=== PATIENT | male | born 1975 | race Two or more races ===

== ENCOUNTER 2020-04-27 09:38 | Inpatient (IN) | payer MEDICAID ==
[~2020-04-27] VITALS: Ht 162.6 cm; Wt 112.1 kg
--- NOTE | 2020-04-27 09:50 | NUR ---
SALLY RA FROM HOME,C/O SOB, O2SAT 80'S UPON EMS ARRIVAL TESTED POSITIVE TO COVID 19 8 DAYS AGO. VS CHECKED. HOOKED ON MONITOR. PLACVED ON NRB 15L. IV ACCESS STARTED. BLOOD DRAW DONE SENT TO LAB.
[2020-04-27] MEDS ORDERED: ALBUTEROL FS 2.5 MG/3 ML VIAL.NEB CONTNEB ONE (10:00)
[2020-04-27] MEDS ORDERED: DEXAMETHASONE SOD PHOSPHATE 6 MG in IV D5W 50 ML IV ONE (10:00)
[2020-04-27] MEDS ORDERED: Magnesium 1GM/D5W 100ML PREMIX 200 ML IV ONE (10:00)
--- NOTE | 2020-04-27 10:00 | NUR ---
pt still unable to provide urine specimen. provided with urinal
[2020-04-27] MEDS ORDERED: DEXAMETHASONE SOD PHOSPHATE 10 MG/ML VIAL ONE (10:11)
[2020-04-27] MEDS ORDERED: Magnesium 1GM/D5W 100ML PREMIX 100 ML IV ONE (10:11)
[2020-04-27] MEDS ORDERED: DEXAMETHASONE SOD PHOSPHATE 10 MG/ML VIAL IV ONE (10:30)
--- NOTE | 2020-04-27 10:30 | NUR ---
placed on hi flow o2 by Rt. 50L at 70%
--- NOTE | 2020-04-27 10:30 | NUR ---
covid swab done. rapid influenza done. sent to lab
[2020-04-27 10:49] LABS: BASOPHILS % (AUTO) 0.3 % (0.0-2.0); HEMATOCRIT 45 % (39-51); HEMOGLOBIN 14.9 g/dL (13.5-17.5); LYMPHOCYTES # (AUTO) 0.7 /CMM (0.8-4.8); LYMPHOCYTES % (AUTO) 10.1 % (20.0-44.0); MEAN CORPUSCULAR HGB CONC 33 g/dl (31.0-36.0); MEAN CORPUSCULAR VOLUME 87 fL (80-96); MONOCYTES # (AUTO) 0.2 /CMM (0.1-1.30); MONOCYTES % (AUTO) 3.5 % (2.0-12.0); NEUTROPHILS # (AUTO) 5.6 /CMM (1.8-8.9); NEUTROPHILS % (AUTO) 86.1 % (43.0-81.0); PLATELET COUNT (AUTO) 194 /CMM (150-450); RED BLOOD CELL COUNT(AUTO) 5.17 MIL/uL (4.5-6.0); WHITE BLOOD COUNT (AUTO) 6.5 K/uL (4.3-11.0)
[2020-04-27] MEDS ORDERED: ALBUTEROL FS 2.5 MG/3 ML VIAL.NEB ONE (10:50)
[2020-04-27] MEDS ORDERED: ALBU6.7H9 IH (11:00)
[2020-04-27] MEDS ORDERED: IBUP-1955 PO (11:00)
[2020-04-27] MEDS ORDERED: ACET325T53 PO (11:00)
[2020-04-27 11:21] LABS: ALANINE AMINOTRANSFERASE 64 U/L (12-78); ALBUMIN 2.9 g/dL (3.4-5.0); ALKALINE PHOSPHATASE 76 U/L (46-116); ASPARTATE AMINOTRANSFERASE 85 U/L (15-37); B-TYPE NATRIURETIC PEPTIDE 99 PG/ML (0-125); BILIRUBIN,TOTAL 0.4 mg/dL (0.2-1.0); CALCIUM, SERUM 8.2 mg/dL (8.5-10.1); CARBON DIOXIDE 27 mmol/L (21-32); CHLORIDE 102 mmol/L (98-107); CREATININE 1.2 mg/dL (0.6-1.3); GLUCOSE 124 mg/dL (74-106); SODIUM SERUM 137 mmol/L (136-145); TOTAL PROTEIN, SERUM 7.9 g/dL (6.4-8.2); UREA NITROGEN, BLOOD 10 mg/dL (7-18)
[2020-04-27 11:30] LABS: ABG BASE EXCESS 0.5 mmol/L; ABG OXYGEN SATURATION 92.2 % (92.0-98.5); ABG PCO2 39.1 mmHg (35.0-45.0); ABG PH 7.421 (7.350-7.450); ABG PO2 61.2 mmHg (75.0-100.0); AaDO2 395.9 mmHg; COHb 1.2 % (0.5-1.5); MetHb 0.4 % (0.0-1.5); O2Hb 90.7 % (94.0-97.0); SITE, ABG Right Radial; VENT MODE, BG HI FLO NC 50 L 70%
[2020-04-27 11:33] LABS: D-DIMER 0.83 mg/L(FEU (0.17-0.50)
[2020-04-27 11:42] LABS: CREATINE KINASE, TOTAL 242 U/L (39-308); FERRITIN 1613 ng/mL (8-388)
[2020-04-27 11:45] LABS: C-REACTIVE PROTEIN 27.2 mg/dL (0.0-0.9)
--- NOTE | 2020-04-27 13:38 | NUR ---
still unable to provide urine. water given to pt as wellas urinal
--- NOTE | 2020-04-27 14:45 | NUR ---
CALLED NURSING SUP FOR TELE ANAND BED.
--- NOTE | 2020-04-27 15:51 | NUR ---
NURSING SUP GAVE ANAND BED 103.
[2020-04-27] MEDS ORDERED: ALBUTEROL SULFATE 8 GM HFA.AER.AD IH PRN (16:00)
[2020-04-27] MEDS ORDERED: MAG HYDROX/AL HYDROX/SIMETH 30 ML UDC PO PRN (16:00)
[2020-04-27] MEDS ORDERED: HYDROCODONE/APAP 5/325MG TABLET PO PRN (16:00)
[2020-04-27] MEDS ORDERED: MAGNESIUM HYDROXIDE 30 ML UDC PO PRN (16:00)
[2020-04-27] MEDS ORDERED: ZOLPIDEM TARTRATE 5 MG TABLET PO PRN (16:00)
[2020-04-27] MEDS ORDERED: DEXTROSE 50%-WATER 50 ML DISP.SYRIN IV PRN (16:00)
[2020-04-27] MEDS ORDERED: ACETAMINOPHEN 325 MG TABLET PO PRN (16:00)
--- NOTE | 2020-04-27 16:02 | NUR ---
NURSING SUP CALLED BACK TO NOTIFY PT ROOM NOT AVAILABLE ANYMORE DUE TO NURSE BEING SENT HOME SICK. NURSING SUP REPEALED BED ASSIGNMENT.
[2020-04-27] MEDS ORDERED: APIXABAN 5 MG TABLET PO SCH (17:00)
--- NOTE | 2020-04-27 17:57 | NUR ---
urine collected sent to lab
[2020-04-27] MEDS ORDERED: REMDESIVIR (CHARGED) 200 MG, *LOADING DOSE 1 EA in IV NS 0.9% 210 ML IV ONE (18:00)
--- NOTE | 2020-04-27 20:00 | NUR ---
RN NOTE PT ARRIVED TO THE UNIT VIA MICHAEL, PT IS A/O X4, PT IS ON HIGH FLOW 50 L, FIO2 70% SATING 96%.PT HAS UNLABORED BREATHING, SAFETY MEASURES IN PLACE. Addendum: 04/28/20 at 0448 by MARGARITA DUNNE RN pt arrived to the unit at 2207
--- NOTE | 2020-04-27 20:01 | NUR ---
ATTEMPTED TO GIVE REPORT, NURSE WILL CALL IN 5MINUTES.
[2020-04-27] MEDS ORDERED: CEFTRIAXONE 1 G in IV D5W 50 ML IV SCH (21:00)
[2020-04-27] MEDS ORDERED: AZITHROMYCIN 500 MG in IV D5W 250 ML IV SCH (21:00)
--- NOTE | 2020-04-27 21:15 | NUR ---
REPORT GIVEN TO MARGARITA CAMPUZANO FOR ROSELINE.
[2020-04-27] MEDS: BLOOD SUGAR DIAGNOSTIC 1 EACH STRIP IN SCH (22:00)
--- NOTE | 2020-04-27 22:18 | NUR ---
PATIENT TAKEN UP TO ASSIGNED ROOM FOR ROSELINE.
--- NOTE | 2020-04-27 22:42 | NUR ---
Joseph ramirez in ED - 04/27/20 at 2242 by ISAEL REPORT GIVEN TO ANGELICA CAMPUZANO FOR ROSELINE.
[2020-04-27 23:00] VITALS: BP 134/83
[2020-04-28] VITALS: BP 121/77
[2020-04-28] MEDS: AZITHROMYCIN 500 MG in IV D5W 250 ML IV SCH ×2 (00:29→21:35)
[2020-04-28] MEDS ORDERED: REMDESIVIR (CHARGED) 200 MG, *LOADING DOSE 1 EA in IV NS 0.9% 210 ML IV ONE (01:00)
[2020-04-28 01:30] LABS: BILIRUBIN,URINE NEGATIVE (NEGATIVE); COLOR,URINE YELLOW (YELLOW); LEUKOCYTE ESTERASE ,URINE NEGATIVE (NEGATIVE); NITRITE, URINE NEGATIVE (NEGATIVE); PH,URINE 6.5 (5.0-8.0); PROTEIN,URINE 100 mg/dl (NEGATIVE); UGLUCOSE NEGATIVE (NEGATIVE)
[2020-04-28] MEDS: APIXABAN 5 MG TABLET PO SCH ×3 (01:59→17:52)
[2020-04-28 02:06] LABS: BACTERIA,URINE None seen /HPF (None Seen); RBC,URINE 0-2 /HPF (0-2); SQUAMOUS EPITHELIAL CELL,UR Few /HPF (None Seen); WBC,URINE 0-2 /HPF (0-3)
[2020-04-28 04:00] VITALS: BP 119/77
[2020-04-28] MEDS: CEFTRIAXONE 1 G in IV D5W 50 ML IV SCH ×2 (04:45→21:36)
--- NOTE | 2020-04-28 04:50 | NUR ---
ROCEPHIN ENTERED MANUALLY BECAUSE NEW LABEL WAS NOT AVAILABLE.
[2020-04-28] MEDS: BLOOD SUGAR DIAGNOSTIC 1 EACH STRIP IN SCH ×6 (04:52→21:57)
--- NOTE | 2020-04-28 07:30 | NUR ---
CUSTOM FEED MILL OPERATOR HELPER OPENING NOTES RECEIVED A/O X4. NOTED SHORTNESS OF BREATH. ON HIGH FLOW O2 WITH FIO2 OF 70%. O2 SAT AT 93%. ON TELE MONITOR WITH READING OF NSR AND HR IN 70S. INDEPENDENT WITH BATHROOM PRIVILEGES. SKIN IS INTACT. LEFT AC IV#18 INTACT AND FLUSHED WELL. BED KEPT IN LOWEST POSITION FOR SAFETY. WILL CONTINUE TO MONITOR FOR ROSELINE.
--- NOTE | 2020-04-28 07:34 | NUR ---
RN NOTE PT REMAINED STABLE DURING MY SHIFT NO ACUTE CHANGES REPORT GIVEN TO INCOMING SHIFT FOR ROSELINE.
[2020-04-28 07:59] LABS: BASOPHILS % (AUTO) 0.2 % (0.0-2.0); HEMATOCRIT 43 % (39-51); HEMOGLOBIN 14.2 g/dL (13.5-17.5); LYMPHOCYTES # (AUTO) 1.1 /CMM (0.8-4.8); LYMPHOCYTES % (AUTO) 16.1 % (20.0-44.0); MEAN CORPUSCULAR HGB CONC 33 g/dl (31.0-36.0); MEAN CORPUSCULAR VOLUME 88 fL (80-96); MONOCYTES # (AUTO) 0.4 /CMM (0.1-1.30); MONOCYTES % (AUTO) 5.9 % (2.0-12.0); NEUTROPHILS # (AUTO) 5.2 /CMM (1.8-8.9); NEUTROPHILS % (AUTO) 77.8 % (43.0-81.0); PLATELET COUNT (AUTO) 211 /CMM (150-450); RED BLOOD CELL COUNT(AUTO) 4.88 MIL/uL (4.5-6.0); WHITE BLOOD COUNT (AUTO) 6.7 K/uL (4.3-11.0)
[2020-04-28 08:00] VITALS: BP 120/63
[2020-04-28 08:36] LABS: CALCIUM, SERUM 8.4 mg/dL (8.5-10.1); CREATININE 1.1 mg/dL (0.6-1.3); MAGNESIUM 2.4 mg/dL (1.8-2.4); PHOSPHORUS 3.9 mg/dL (2.5-4.9); POTASSIUM 4.5 mmol/L (3.5-5.1)
[2020-04-28] MEDS: DEXAMETHASONE SOD PHOSPHATE 4 MG/ML VIAL IV SCH (09:15)
[2020-04-28 09:49] LABS: THYROID STIMULATING HORMONE 0.417 uIU/mL (0.358-3.74)
[2020-04-28 12:00] VITALS: BP 123/72
[2020-04-28] MEDS: INSULIN REGULAR, HUMAN 100 UNIT/ML 3 ML VIAL SQ PRN ×3 (13:24→21:53)
[2020-04-28 15:16] LABS: ALBUMIN 2.7 g/dL (3.4-5.0); BILIRUBIN,DIRECT 0.1 mg/dL (0.0-0.2); BILIRUBIN,TOTAL 0.3 mg/dL (0.2-1.0); TOTAL PROTEIN, SERUM 7.7 g/dL (6.4-8.2)
[2020-04-28 16:00] VITALS: BP 120/63
[2020-04-28] MEDS: REMDESIVIR (CHARGED) 100 MG in IV NS 0.9% 230 ML IV SCH (18:09)
--- NOTE | 2020-04-28 19:10 | NUR ---
RN CLOSING NOTES PT REMAINS IN A/O X4. REMAINS ON HIGH FLOW O2 AT 50LPM, WITH GOOD TOLERANCE. WITH EPISODES OF SOB. O2 SAT IN 90S. ALL DUE MEDS GIVEN ORDERED. BED KEPT AT LOWEST POSITION FOR SAFETY. WILL ENDORSE TO NEXT SHIFT FOR ROSELINE.
[2020-04-28 20:00] VITALS: BP 133/70
[2020-04-29] VITALS: BP 120/68
[2020-04-29 04:00] VITALS: BP 116/69
--- NOTE | 2020-04-29 06:52 | NUR ---
RN notes Patient comfortably resting in bed watching TV. No distress noted. Breathing even and unlabored. On high flow, tolerating well. Vital signs wnl. Alert and oriented, verbally able to communicate needs. No complaint of pain or discomfort. No significant change of condition. Kept clean and dry. Needs attended. Will endorse to next shift for continuity of care.
--- NOTE | 2020-04-29 07:05 | NUR ---
RN OPENING NOTE Patient awake in bed on high flow no signs of distress. Will cont to monitor.
[2020-04-29 07:44] LABS: ALBUMIN 2.4 g/dL (3.4-5.0); BILIRUBIN,DIRECT 0.1 mg/dL (0.0-0.2); BILIRUBIN,TOTAL 0.3 mg/dL (0.2-1.0); CALCIUM, SERUM 8.3 mg/dL (8.5-10.1); CREATININE 1.1 mg/dL (0.6-1.3); POTASSIUM 4.4 mmol/L (3.5-5.1); TOTAL PROTEIN, SERUM 7.1 g/dL (6.4-8.2)
[2020-04-29 08:00] VITALS: BP 115/71
[2020-04-29 08:56] LABS: C-REACTIVE PROTEIN 8.5 mg/dL (0.0-0.9)
[2020-04-29] MEDS: DEXAMETHASONE SOD PHOSPHATE 4 MG/ML VIAL IV SCH (09:52)
[2020-04-29] MEDS: APIXABAN 5 MG TABLET PO SCH ×2 (09:52→17:17)
[2020-04-29] MEDS: INSULIN REGULAR, HUMAN 100 UNIT/ML 3 ML VIAL SQ PRN ×2 (11:58→21:33)
[2020-04-29] MEDS: BLOOD SUGAR DIAGNOSTIC 1 EACH STRIP IN SCH ×2 (11:58→17:21)
[2020-04-29 12:00] VITALS: BP 134/84
--- NOTE | 2020-04-29 15:21 | NUR ---
CONSENT SIGNED FOR BLOOD TRANSFUSION AND CONVALESCENT PLASMA
[2020-04-29 16:00] VITALS: BP 132/82
[2020-04-29] MEDS: REMDESIVIR (CHARGED) 100 MG in IV NS 0.9% 230 ML IV SCH (18:26)
--- NOTE | 2020-04-29 19:26 | NUR ---
RN CLOSING NOTE Patient in bed calm and relaxed on high flow no signs of distress. All due meds given. Endorsed to welder 2nd shift nurse for gabino.
--- NOTE | 2020-04-29 19:40 | NUR ---
1939 RECEIVED PATIENT IN BED AWAKE AND VERBALLY RESPONSIVE. ON HIGH FLOW OXYGEN ORDERED, O2 SATURATION 88-91%. PATIENT GETS SHORT OF BREATH WHEN TALKING. ENCOURAGED TO TAKE DEEP BREATHS. HOB ELEVATED FOR MAXIMUM OXYGENATION. UNABLE TO TURN TO SIDE WHEN ENCOURAGED. KEPT CLEAN AND DRY. CALL LIGHT PLACED WITHIN REACH.
[2020-04-29 20:00] VITALS: BP 142/92
[2020-04-29] MEDS: AZITHROMYCIN 500 MG in IV D5W 250 ML IV SCH (20:03)
[2020-04-29] MEDS: CEFTRIAXONE 1 G in IV D5W 50 ML IV SCH (21:44)
--- NOTE | 2020-04-29 22:00 | NUR ---
2200 SLEEPING AND WAKES UP EASILY. NO SIGNS OF RESPIRATORY DISTRESS NOTED. O2 SATURATION 90-91%. HOB ELEVATED FOR MAXIMUM OXYGENATION. CONT TO ENCOURAGE DEEP BREATHING EXERCISES, UNABLE TO TURN TO HIS SIDE. ALL NEEDS ATTENDED. KEPT CLEAN AND COMFORTABLE. CALL LIGHT WITHIN REACH AND INSTRUCTED TO CALL FOR ASSISTANCE.
--- NOTE | 2020-04-29 23:10 | NUR ---
8528 PATIENT'S YUNIRO CALLED AND UPDATED ON PATIENT'S CONDITION WITH ALL OF HER QUESTIONS ANSWERED.
[2020-04-30] VITALS: BP 122/75
--- NOTE | 2020-04-30 02:00 | NUR ---
0200 O2 SATURATION NOTED 88%, PATIENT SLEEPING AND WAKES UP EASILY. NO SIGNS OF RESPIRATORY DISTRESS NOTED. DENIES SOB OR DIFFICULTY BREATHING WHEN ASKED. REMAINS ON HI FLOW OXYGEN WITH NON REBREATHER MASK. HOB ELEVATED FOR MAX OXYGENATION. PATIENT IS BEING CLOSELY MONITORED.
[2020-04-30 04:00] VITALS: BP 137/74
--- NOTE | 2020-04-30 04:45 | NUR ---
0445 ASLEEP BUT EASILY AROUSABLE. O2 SATURATION REMAINS IN THE HIGH 80S BUT NO SIGNS OF RESPIRATORY DISTRESS. CONT TO DENY SOB OR DIFFICULTY BREATHING. CONT. TO ENCOURAGE TO DO DEEP BREATHING EXERCISES. HOB ELEVATED FOR MAXIMUM OXYGENATION.
[2020-04-30 06:35] LABS: BASOPHILS % (AUTO) 0.1 % (0.0-2.0); HEMATOCRIT 43 % (39-51); MONOCYTES # (AUTO) 0.6 /CMM (0.1-1.30)
[2020-04-30 06:42] LABS: HEMOGLOBIN 14.2 g/dL (13.5-17.5); LYMPHOCYTES # (AUTO) 1.2 /CMM (0.8-4.8); LYMPHOCYTES % (AUTO) 11.6 % (20.0-44.0); MEAN CORPUSCULAR HGB CONC 33 g/dl (31.0-36.0); MEAN CORPUSCULAR VOLUME 87 fL (80-96); MONOCYTES % (AUTO) 5.7 % (2.0-12.0); NEUTROPHILS # (AUTO) 8.7 /CMM (1.8-8.9); NEUTROPHILS % (AUTO) 82.6 % (43.0-81.0); PLATELET COUNT (AUTO) 162 /CMM (150-450); RED BLOOD CELL COUNT(AUTO) 4.95 MIL/uL (4.5-6.0); WHITE BLOOD COUNT (AUTO) 10.5 K/uL (4.3-11.0)
--- NOTE | 2020-04-30 07:10 | NUR ---
PT ASLEEP IN BED EASILY AROUSABLE. A/OX4. HIGH FLOW 50L FIO 70% W NO SIGNS OF RESPIRATORY DISTRESS. SKIN WARM. TACHYPNEIC BUT CORINA 91%. PT TOLERATING HIGH FLOW WELL. TELE 60-70S. R AC INTACT, NO SIGNS OF REDNESS AND INFILTRATION, DRESSING INTACT. ALL HOSPITAL POLICY SAFETY PRECAUTIONS IMPLEMENTED. RAILS UPX2, HOB ELEVATED, BED LOW LOCKED, ALARM ON, CALL LIGHT IN REACH. WILL MONITOR RESPIRATORY STATUS THROUGHOUT THE DAY AND ENCOURAGE PT TO REFRAIN FROM BEING OVERLY EXERTED.
[2020-04-30 07:15] LABS: ALBUMIN 2.4 g/dL (3.4-5.0); BILIRUBIN,TOTAL 0.3 mg/dL (0.2-1.0); CALCIUM, SERUM 8.2 mg/dL (8.5-10.1); CREATININE 1.1 mg/dL (0.6-1.3); MAGNESIUM 2.2 mg/dL (1.8-2.4); PHOSPHORUS 3.9 mg/dL (2.5-4.9); POTASSIUM 4.4 mmol/L (3.5-5.1); TOTAL PROTEIN, SERUM 6.9 g/dL (6.4-8.2)
[2020-04-30 07:25] LABS: D-DIMER 35.2 mg/L(FEU (0.17-0.50)
[2020-04-30 08:00] VITALS: BP 124/66
[2020-04-30] MEDS: DEXAMETHASONE SOD PHOSPHATE 4 MG/ML VIAL IV SCH (09:10)
[2020-04-30] MEDS: BLOOD SUGAR DIAGNOSTIC 1 EACH STRIP IN SCH ×4 (09:10→21:44)
[2020-04-30] MEDS: APIXABAN 5 MG TABLET PO SCH ×2 (09:13→18:41)
[2020-04-30 12:00] VITALS: BP 124/66
[2020-04-30 16:00] VITALS: BP 115/76
--- NOTE | 2020-04-30 19:10 | NUR ---
PT AWAKE AND NO ACUTE CHANGES THROUGHOUT SHIFT. A/OX4. HIGH FLOW 50L FIO 70% W NO SIGNS OF RESPIRATORY DISTRESS. SKIN WARM. TACHYPNEIC. SAO2 85-94% THROUGHOUT SHIFT. FLUCTUATES FREQUENTLY. PT TOLERATING HIGH FLOW. MAKES NEEDS KNOWN. TELE 60-70S. R AC INTACT, NO SIGNS OF REDNESS AND INFILTRATION, DRESSING INTACT. ALL HOSPITAL POLICY SAFETY PRECAUTIONS IMPLEMENTED. RAILS UPX2, HOB ELEVATED, BED LOW LOCKED, ALARM ON, CALL LIGHT IN REACH. MONITORED RESPIRATORY STATUS THROUGHOUT THE DAY AND ENCOURAGED PT TO REFRAIN FROM BEING OVERLY EXERTED. ENDORSED TO PM RN.
--- NOTE | 2020-04-30 19:40 | NUR ---
RN OPENING NOTE RECEIVED PATIENT IN BED RESTING ALERT ORIENTED X4 ABLE TO MAKE NEEDS KNOWN,ON HIGH FLOW 50L OXYGEN AND 15L NON REBREATHER MASK, O2:88% FIO2:70% ON TELE MONITORING BREATHING FAST AND LABORED,IV SITE IS ON RIGHT AC INTACT PATENT,CONTINENT TO BOWEL/BLADDER,SAFETY MEASURE IMPLEMENT ,CALL LIGHT WITHIN REACH,CONTINUE TO MONITOR.
[2020-04-30 20:00] VITALS: BP 115/76
[2020-04-30] MEDS: AZITHROMYCIN 250 MG TABLET PO SCH (21:10)
[2020-04-30] MEDS: CEFTRIAXONE 1 G in IV D5W 50 ML IV SCH (22:14)
[2020-05-01] VITALS (14 sets, daily range): BP systolic 111–143; BP diastolic 46–82
[2020-05-01 06:42] LABS: BASOPHILS % (AUTO) 0.1 % (0.0-2.0); EOSINOPHILS % (AUTO) 0.1 % (0.0-6.0); HEMATOCRIT 45 % (39-51); HEMOGLOBIN 14.9 g/dL (13.5-17.5); LYMPHOCYTES # (AUTO) 1.2 /CMM (0.8-4.8); LYMPHOCYTES % (AUTO) 11.7 % (20.0-44.0); MEAN CORPUSCULAR HGB CONC 33 g/dl (31.0-36.0); MEAN CORPUSCULAR VOLUME 88 fL (80-96); MONOCYTES # (AUTO) 0.4 /CMM (0.1-1.30); MONOCYTES % (AUTO) 3.6 % (2.0-12.0); NEUTROPHILS % (AUTO) 84.5 % (43.0-81.0); PLATELET COUNT (AUTO) 153 /CMM (150-450); RED BLOOD CELL COUNT(AUTO) 5.16 MIL/uL (4.5-6.0); WHITE BLOOD COUNT (AUTO) 10.6 K/uL (4.3-11.0)
--- NOTE | 2020-05-01 07:07 | NUR ---
RN CLOSING NOTE PATIENT REMAINS ON ALERT ORIENTED X4 VERBALLY RESPONSIVE ON 50L HIGH FLOW OXYGEN AND 15L NONREBREATHER MASK O2:90% IV SITE IS ON RIGHT AC INTACT PATENT CONTINENT TO BOWEL/BLADDER, ALL DUE MEDS GIVEN MD ORDERED KEPT CALL LIGHT WITHIN REACH,KEPT CLEAN AND DRY ALL THE TIME,ALL NEEDS MET ENDORSE NEXT COMING SHIFT FOR CONTINUATION OF CARE.
[2020-05-01 07:10] LABS: ALBUMIN 2.4 g/dL (3.4-5.0); BILIRUBIN,DIRECT 0.2 mg/dL (0.0-0.2); CREATININE 1.1 mg/dL (0.6-1.3); MAGNESIUM 2.4 mg/dL (1.8-2.4); PHOSPHORUS 3.5 mg/dL (2.5-4.9); POTASSIUM 4.3 mmol/L (3.5-5.1); TOTAL PROTEIN, SERUM 7.1 g/dL (6.4-8.2)
[2020-05-01 07:27] LABS: BILIRUBIN,TOTAL 0.5 mg/dL (0.2-1.0); CALCIUM, SERUM 8.3 mg/dL (8.5-10.1)
--- NOTE | 2020-05-01 07:30 | NUR ---
FIELD OPERATIONS MANAGER NOTES PT IN BED, RESTING, ALERT AND ORIENTED, NOT IN DISTRESS, CALL LIGHT WITHIN REACH, ON HI FLOW O2 AT 60LPM AND NON REBREATHER MASK, KEPT COMFORTABLE IN BED, NEEDS ATTENDED.
[2020-05-01] MEDS: BLOOD SUGAR DIAGNOSTIC 1 EACH STRIP IN SCH ×4 (09:12→21:16)
[2020-05-01] MEDS: DEXAMETHASONE SOD PHOSPHATE 4 MG/ML VIAL IV SCH (09:13)
[2020-05-01] MEDS: APIXABAN 5 MG TABLET PO SCH ×2 (09:13→18:41)
[2020-05-01] MEDS: REMDESIVIR (CHARGED) 100 MG in IV NS 0.9% 230 ML IV SCH (10:48)
[2020-05-01 11:08] LABS: ABG PCO2 35.7 mmHg (35.0-45.0); ABG PH 7.468 (7.350-7.450); ABG PO2 56.7 mmHg (75.0-100.0); AaDO2 584.5 mmHg; COHb 0.7 % (0.5-1.5); MetHb 0.1 % (0.0-1.5); O2Hb 90.3 % (94.0-97.0); SITE, ABG Right Radial; VENT MODE, BG HI FLO NC 60 L 100%
--- NOTE | 2020-05-01 11:54 | NUR ---
ana laura relayed to dr. malin and ordered to icu once bed available,nursing sup notified,awaits bed.
--- NOTE | 2020-05-01 12:23 | NUR ---
PATIENT AWAKE,TACHYPNEIC SAT 88%,AWAITS ICU BED,WILL CONTINUE TO MONITOR.
--- NOTE | 2020-05-01 15:37 | NUR ---
LANOLIN PLANT OPERATOR NOTES ENDORSED PT TO SARA INSEAMER FOR CONTINUITY OF CARE.
--- NOTE | 2020-05-01 15:39 | NUR ---
icu overflow RN notes Received patient from Jesse CAMPUZANO. Patient is awake and alwert x 4. On tele SR 71BPM. Patient is on high flow fi02 91% with saturation of 89% with sob noted. Patient's right ac HL intact and flushed well. Encouraged patient to stay in bed because he requested to go to the toilet but encouraged use of bed parra and urinal.Plan of care discussed with the patient. Bed is the lowest position. Call light within reach. Will continue to monitor.
--- NOTE | 2020-05-01 16:30 | NUR ---
ICU OVERFLOW RN NOTES Patient transferred to Icu with stable condition and on 02 Hi flow saturation 88-90%. Transferred by ACLS protocol by bed. RT at bedside during transfer adn report given to Radha.
--- NOTE | 2020-05-01 16:34 | NUR ---
PT ARRIVED IN ICU TO ROOM 254 AT THIS TIME. PT ALERT OX3, DENIES PAIN. PT ON NON REBREATHER AND HI FLOW NASAL CANNULA. PT SETTLED IN ROOM.
--- NOTE | 2020-05-01 19:25 | NUR ---
RECEIVED PT ON BED AWAKE A/O X4 AB;E TO VERBALIZED NEEDS, ABLE TO EAT BY HIMSELF, ON O2 VIA HIGHFLOW @ 60L 100% FIO2 AND 15L NON REBREATHER WITH SPO2 LOW 80'S-90'S MD IS AWARE, TELE MONITOR READS SINUS RHYTHM 80'S, HAVE RAC#18 PATENT AND FLUSHED, DROPLET ISOLATION FOR COVID 19 MAINTAINED BED ON LOWEST POSITION AND LOCKED SIDE RAILS UP X2 CALL LIGHT WITHIN REACH WILL CONT TO MONITOR
[2020-05-01] MEDS: AZITHROMYCIN 250 MG TABLET PO SCH (21:03)
[2020-05-01] MEDS: CEFTRIAXONE 1 G in IV D5W 50 ML IV SCH (21:03)
[2020-05-01] MEDS: INSULIN REGULAR, HUMAN 100 UNIT/ML 3 ML VIAL SQ PRN (21:16)
[2020-05-02] VITALS (26 sets, daily range): BP systolic 84–145; BP diastolic 41–71
--- NOTE | 2020-05-02 01:23 | NUR ---
PT SLEEPING ON BED ADVISED TO SLEEP ON HIS SIDE D/T DESATURATION CURRENT SATURAION IS 89% ON HIGH FLOW 60L 100% AND NON REBREATHER STILL PT IS TACHYPNIC RR OF >40, PT STILL COUGH BUT NO DISTRESS NOTED, WILL CONT TO MONITOR
[2020-05-02 04:53] LABS: ALBUMIN 2.3 g/dL (3.4-5.0); BILIRUBIN,DIRECT 0.2 mg/dL (0.0-0.2); BILIRUBIN,TOTAL 0.5 mg/dL (0.2-1.0); CALCIUM, SERUM 8.3 mg/dL (8.5-10.1); POTASSIUM 4.4 mmol/L (3.5-5.1); TOTAL PROTEIN, SERUM 6.9 g/dL (6.4-8.2)
--- NOTE | 2020-05-02 07:57 | NUR ---
PT ON BED ASLEEP SPO2 88% STILL ON NO REBREATHER AND HIGH FLOW NO DISTRESS NOTED, PT A LITTLE TACHYPNIC WITH RR 40-46 DROPLET ISOLATION MAINTAINED BE DON LOWEST POSITION AND LOCKED SIDE RAILS UP WILL ENDORSED TO AM SHIFT NURSE
[2020-05-02] MEDS: DEXAMETHASONE SOD PHOSPHATE 4 MG/ML VIAL IV SCH (09:44)
[2020-05-02] MEDS: BLOOD SUGAR DIAGNOSTIC 1 EACH STRIP IN SCH ×4 (09:44→20:55)
[2020-05-02] MEDS: APIXABAN 5 MG TABLET PO SCH ×2 (09:45→17:57)
[2020-05-02] MEDS: REMDESIVIR (CHARGED) 100 MG in IV NS 0.9% 230 ML IV SCH (11:24)
[2020-05-02] MEDS: INSULIN REGULAR, HUMAN 100 UNIT/ML 3 ML VIAL SQ PRN (12:00)
--- NOTE | 2020-05-02 19:30 | NUR ---
RN NOTE RECEIVED PATIENT IN BED, ON SEMI METZ'S. PATIENT IN NO S/SX OF ACUTE DISTRESS AT THIS TIME. PATIENT'S BREATHING IS EVEN AND UNLABORED. PATIENT IS ON 60LPM OF OXYGEN VIA HIGHFLOW NC, AND 15L VIA NRB MASK, TOLERATING WELL, SATURATING AT 96%. PATIENT ON BEDSIDE MONITOR READING SR, HR IS 71. NOTED IV SITE AT RAC 18G, PATENT AND FLUSHING WELL, NO S/S OF INFECTION OR INFILTRATION. PATIENT IS AMBULATORY, WITH URINAL AND COMMODE AT BEDSIDE. SAFETY MEASURES IMPLEMENTED PER PROTOCOL. PATIENT BED ALARM IS ON. HEAD OF BED ELEVATED. BED IS LOCKED, IN LOWEST POSITION AND SIDE RAILS UP. CALL LIGHT WITHIN REACH OF THE PATIENT. WILL CONTINUE TO MONITOR AND REASSESS FOR ANY CHANGES.
[2020-05-02 19:45] LABS: C-REACTIVE PROTEIN 44.8 mg/dL (0.0-0.9)
[2020-05-02] MEDS: AZITHROMYCIN 250 MG TABLET PO SCH (20:55)
[2020-05-03] VITALS (23 sets, daily range): BP systolic 78–143; BP diastolic 35–81
[2020-05-03] MEDS: CEFTRIAXONE 1 G in IV D5W 50 ML IV SCH ×2 (00:08→22:23)
[2020-05-03 04:45] LABS: BASOPHILS % (AUTO) 0.1 % (0.0-2.0); EOSINOPHILS % (AUTO) 0.2 % (0.0-6.0); HEMATOCRIT 45 % (39-51); HEMOGLOBIN 15.1 g/dL (13.5-17.5); LYMPHOCYTES # (AUTO) 0.8 /CMM (0.8-4.8); LYMPHOCYTES % (AUTO) 7.1 % (20.0-44.0); MEAN CORPUSCULAR HGB CONC 34 g/dl (31.0-36.0); MEAN CORPUSCULAR VOLUME 87 fL (80-96); MONOCYTES # (AUTO) 0.3 /CMM (0.1-1.30); MONOCYTES % (AUTO) 2.4 % (2.0-12.0); NEUTROPHILS % (AUTO) 90.2 % (43.0-81.0); PLATELET COUNT (AUTO) 157 /CMM (150-450); WHITE BLOOD COUNT (AUTO) 11.1 K/uL (4.3-11.0)
[2020-05-03 04:52] LABS: CALCIUM, SERUM 8.6 mg/dL (8.5-10.1); CREATININE 0.9 mg/dL (0.6-1.3); POTASSIUM 4.6 mmol/L (3.5-5.1)
--- NOTE | 2020-05-03 07:30 | NUR ---
RN OPENING NOTES PATIENT PRESENT IN BED, SIDE POSITION, HOB ELEVATED, ON NON-REBREATHER MASK AND HIGH FLOW NC, TOLERATING WELL, SPO2 IS 90%, A/OX4, AMBULATORY, SR 70 ON TELE-MONITOR, IV LINE NOTED ON R AC 18G, INTACT, PATENT AND FLUSHED, SAFETY MEASURES IN PLACE, CALL LIGHT IN REACH, INSTRUCTION PROVIDED, WILL CONT TO MONITOR CLOSELY
[2020-05-03] MEDS: BLOOD SUGAR DIAGNOSTIC 1 EACH STRIP IN SCH ×4 (08:05→22:21)
[2020-05-03] MEDS: INSULIN REGULAR, HUMAN 100 UNIT/ML 3 ML VIAL SQ PRN ×4 (08:22→22:19)
[2020-05-03] MEDS: DEXAMETHASONE SOD PHOSPHATE 4 MG/ML VIAL IV SCH (09:45)
--- NOTE | 2020-05-03 10:00 | NUR ---
ENCOURAGE PATIENT TO DO BERATING EXERCISE, AND MAINTAIN SIDE POSITION, VERBALIZE UNDERSTANDING
[2020-05-03] MEDS: APIXABAN 5 MG TABLET PO SCH ×2 (11:28→19:32)
--- NOTE | 2020-05-03 19:30 | NUR ---
RN CLOSING NOTES RESTING COMFORTABLY IN BED, COMFORT NEEDS PROVIDED, MEDICATIONS GIVEN, SAFETY MEASURES IN PLACE, WILL ENDORSE TO OM SHIFT RN FOR ROSELINE
--- NOTE | 2020-05-03 19:30 | NUR ---
MANUAL ARTS THERAPIST NOTE PATIENT IN BED, ON SEMI METZ'S.A/OX4 NO SOB NO DISTRESS NOTED .NO S/SX OF ACUTE DISTRESS AT THIS TIME. PATIENT IS ON H I FLOW 60LPM OF OXYGEN VIA HIGH FLOW 100% NC, AND 15L VIA NRB MASK, TOLERATING WELL, SATURATING AT 90S%. PATIENT ON BEDSIDE MONITOR READING SR, HR IS 75. NOTED IV SITE AT RAC 18G, PATENT AND FLUSHING WELL, NO S/S OF INFECTION OR INFILTRATION. PATIENT IS AMBULATORY, WITH URINAL AND COMMODE AT BEDSIDE. SAFETY MEASURES IMPLEMENTED PER PROTOCOL.BED ALARM ON. HEAD OF BED ELEVATED. BED IS LOCKED, IN LOWEST POSITION AND SIDE RAILS UP. CALL LIGHT WITHIN REACH OF THE PATIENT. WILL CONTINUE TO MONITOR AND REASSESS FOR ANY CHANGES.
[2020-05-04] VITALS (26 sets, daily range): BP systolic 98–143; BP diastolic 26–94
--- NOTE | 2020-05-04 | NUR ---
olericulturist notes received a call from the updated with pts current condition,v/s stable afebrile pts is a/o x4 able to make need known.aishang 87-90s
--- NOTE | 2020-05-04 05:00 | NUR ---
curriculum developer notes morning care rendered all needs attended too call light within reach kept pts clean dry and comfortable.
[2020-05-04 05:59] LABS: BASOPHILS % (AUTO) 0.3 % (0.0-2.0); EOSINOPHILS % (AUTO) 0.2 % (0.0-6.0); HEMATOCRIT 45 % (39-51); HEMOGLOBIN 14.8 g/dL (13.5-17.5); LYMPHOCYTES # (AUTO) 0.7 /CMM (0.8-4.8); LYMPHOCYTES % (AUTO) 6.3 % (20.0-44.0); MEAN CORPUSCULAR HGB CONC 33 g/dl (31.0-36.0); MEAN CORPUSCULAR VOLUME 88 fL (80-96); MONOCYTES # (AUTO) 0.3 /CMM (0.1-1.30); MONOCYTES % (AUTO) 2.8 % (2.0-12.0); NEUTROPHILS # (AUTO) 10.3 /CMM (1.8-8.9); NEUTROPHILS % (AUTO) 90.4 % (43.0-81.0); PLATELET COUNT (AUTO) 151 /CMM (150-450); RED BLOOD CELL COUNT(AUTO) 5.13 MIL/uL (4.5-6.0); WHITE BLOOD COUNT (AUTO) 11.4 K/uL (4.3-11.0)
[2020-05-04 06:18] LABS: CALCIUM, SERUM 8.4 mg/dL (8.5-10.1); POTASSIUM 4.7 mmol/L (3.5-5.1)
--- NOTE | 2020-05-04 07:00 | NUR ---
icu tech notes pts remains in bed continue on hi flow 60 liters fio2 100% and non rebreather of 15 liters , sating 87-90s , will endorse to rn day shift for continuity of care. will continue to monitor pts.
[2020-05-04] MEDS: BLOOD SUGAR DIAGNOSTIC 1 EACH STRIP IN SCH ×4 (08:20→22:21)
[2020-05-04] MEDS: DEXAMETHASONE SOD PHOSPHATE 4 MG/ML VIAL IV SCH (09:25)
[2020-05-04] MEDS: APIXABAN 5 MG TABLET PO SCH ×2 (09:27→16:56)
[2020-05-04] MEDS: INSULIN REGULAR, HUMAN 100 UNIT/ML 3 ML VIAL SQ PRN ×2 (12:18→22:22)
--- NOTE | 2020-05-04 19:00 | NUR ---
CUSTOMER CARE TEAM COACH NOTE PATIENT IN BED, ON SEMI METZ'S.A/OX4 NO SOB NO DISTRESS NOTED .NO S/SX OF ACUTE DISTRESS AT THIS TIME. PATIENT IS ON H I FLOW 60LPM OF OXYGEN fi02 100% NC, 15L VIA NRB MASK, TOLERATING WELL, SATURATING AT 90S%. PATIENT ON BEDSIDE MONITOR READING SR, HR IS 77. NOTED IV SITE AT RAC 18G, PATENT AND FLUSHING WELL, NO S/S OF INFECTION OR INFILTRATION. PATIENT IS AMBULATORY, WITH URINAL AND COMMODE AT BEDSIDE. SAFETY MEASURES IMPLEMENTED PER PROTOCOL.BED ALARM ON. HEAD OF BED ELEVATED. BED IS LOCKED, IN LOWEST POSITION AND SIDE RAILS UP. CALL LIGHT WITHIN REACH OF THE PATIENT. WILL CONTINUE TO MONITOR PTS.
--- NOTE | 2020-05-04 22:00 | NUR ---
horticulture/floriculture teacher notes Blood sugar for 10pm is 123 no insulin coverage given per sliding scale.
--- NOTE | 2020-05-04 23:40 | NUR ---
floriculture professor notes received a call from the updated with pts current condition,v/s stable afebrile pts is a/o x4 able to make need known.sating s
[2020-05-05] VITALS (26 sets, daily range): BP systolic 104–135; BP diastolic 50–92
--- NOTE | 2020-05-05 01:48 | NUR ---
RT NOTES RECEIVED PT ON HFNC 60L, 100% FIO2 AND WITH NRB. O2 SAT 85-91%. WILL CONTINUE TO MONITOR T/O SHIFT. NO SOB STATED BY PT. PT ALERT AND ORIENTED.
[2020-05-05 05:15] LABS: BASOPHILS % (AUTO) 0.1 % (0.0-2.0); CALCIUM, SERUM 8.1 mg/dL (8.5-10.1); CREATININE 0.9 mg/dL (0.6-1.3); EOSINOPHILS % (AUTO) 0.5 % (0.0-6.0); HEMATOCRIT 45 % (39-51); HEMOGLOBIN 14.9 g/dL (13.5-17.5); LYMPHOCYTES # (AUTO) 0.8 /CMM (0.8-4.8); LYMPHOCYTES % (AUTO) 7.5 % (20.0-44.0); MEAN CORPUSCULAR HGB CONC 33 g/dl (31.0-36.0); MEAN CORPUSCULAR VOLUME 87 fL (80-96); MONOCYTES # (AUTO) 0.3 /CMM (0.1-1.30); MONOCYTES % (AUTO) 2.6 % (2.0-12.0); NEUTROPHILS # (AUTO) 9.5 /CMM (1.8-8.9); NEUTROPHILS % (AUTO) 89.3 % (43.0-81.0); PLATELET COUNT (AUTO) 144 /CMM (150-450); POTASSIUM 4.2 mmol/L (3.5-5.1); RED BLOOD CELL COUNT(AUTO) 5.14 MIL/uL (4.5-6.0); WHITE BLOOD COUNT (AUTO) 10.6 K/uL (4.3-11.0)
[2020-05-05 06:40] LABS: BAND % (MANUAL) 3 % (0.0-5.0); EOSINOPHILS % (MANUAL) 1 % (0-4); LYMPHOCYTES % (MANUAL) 7 % (16-48); MONOCYTES % (MANUAL) 3 % (0-11.0); NEUTROPHILS % (MANUAL) 86 (42-76)
--- NOTE | 2020-05-05 08:00 | NUR ---
RN OPENING NOTES Patient received in bed in a side position. His HOB elevated to promote lung expansion and use of Oxygen. He is on a non rebreather mask and high flow oxygen via n/c with 02 saturations of 87-89%. Patient is alert and oriented x 4. IV line patent and intact and flushes well. Patient is SR. All safety measures in place. Call light with in reach. Will continue to monitor.
[2020-05-05] MEDS: BLOOD SUGAR DIAGNOSTIC 1 EACH STRIP IN SCH ×4 (08:27→23:42)
[2020-05-05] MEDS: DEXAMETHASONE SOD PHOSPHATE 4 MG/ML VIAL IV SCH (08:51)
[2020-05-05] MEDS: APIXABAN 5 MG TABLET PO SCH ×2 (08:52→17:24)
--- NOTE | 2020-05-05 09:30 | NUR ---
Patient noted with Temp axillary of 100 degress. No c/o chills or body aches. Prn tylenol 650 mg provided as ordered. Will continue to monitor.Call light with in reach.
--- NOTE | 2020-05-05 10:00 | NUR ---
PROVIDING ENCOURAGING FOR SIDE TO SIDE POSITIONS FOR PROMOTING BETTER OXYGENATION
[2020-05-05] MEDS: INSULIN REGULAR, HUMAN 100 UNIT/ML 3 ML VIAL SQ PRN ×3 (11:24→23:43)
--- NOTE | 2020-05-05 18:46 | NUR ---
RN CLOSING NOTES Patient is alert and oriented. Patient provided assistance to ambulate to bedside commode during shift and noted with 1 bm. No acute distress noted. Medications provided. Will endorse to next shift for ROSELINE.
--- NOTE | 2020-05-05 19:55 | NUR ---
icu/concrete pile driver operator Received report from day nurse, see flowsheet for assessment. Pt turnS and repositioNS self for comfort and care
[2020-05-05] MEDS ORDERED: LORAZEPAM INJ 2 MG/ML VIAL IV ONE (21:00)
[2020-05-06] VITALS (25 sets, daily range): BP systolic 87–161; BP diastolic 33–100
--- NOTE | 2020-05-06 01:20 | NUR ---
ICU/CYBER LEGAL ADVISOR AMBIEN GIVEN TO HELP PT SLEEP, PT IS VERY ANXIOUS AND RESTLESS. PT APPEARS TO BE RESTING. SATURATION IS 90% AT THIS TIME ALONG WITH HEART RATE AT 70'S. WILL CONTINUE TO MONITOR THIS PT.
--- NOTE | 2020-05-06 08:00 | NUR ---
rn notes received patient is in thwe bed A/O X4, on high flow oxygen and non. retreatment mask 15 L, lying on right side and oxygen 96 %. administered scheduled medication. tolerated breakfast 75%, refused pain at this time. T-98.7. bs-100 mg/dl, iv access on left ua midline intact. patient turn and reposition self in the bed, call light within to reach, safety precaution maintained all the time.
[2020-05-06] MEDS: BLOOD SUGAR DIAGNOSTIC 1 EACH STRIP IN SCH ×4 (10:04→22:13)
[2020-05-06] MEDS: DEXAMETHASONE SOD PHOSPHATE 4 MG/ML VIAL IV SCH (10:05)
[2020-05-06] MEDS: APIXABAN 5 MG TABLET PO SCH ×2 (12:21→16:42)
[2020-05-06] MEDS: BENZONATATE 100 MG CAPSULE PO PRN ×2 (13:05→22:25)
--- NOTE | 2020-05-06 13:05 | NUR ---
RN NOTES ADMINISTERED TESSALON 100 PO PRN TID PRESCRIBED.
--- NOTE | 2020-05-06 18:30 | NUR ---
rn notes assist patient PM care, bs-116 mg/dl no coverage given, tolerated dinner well, patient using bedside commode, no acute respiratory distress, . scheduled medication administered. needs attended and anticipated. call light within to reach. endorsed oncoming nurse follow plan of care.
--- NOTE | 2020-05-06 19:20 | NUR ---
FREIGHT ENGINEER OPENING NOTES: Rec'd pt in bed, A&Ox4. On high flow 60LPM at 100% and nonrebreather mask at 15L. No SOB or resp distress noted. SR on tele monitor.RO midline patent and flushed. Dressing c/d/i. Pt able to turn and reposition self for comfort/care. Pt able to use bedside commode. Safety measures in place. Will continue to monitor.
--- NOTE | 2020-05-06 21:20 | NUR ---
HUMAN RESOURCE MANAGEMENT INSTRUCTOR NOTE: Pt's 2100 dose of Vibramycin IV not in omnicell. Called RN Sup to see if it is available in night locker. No answer. Will try again.
--- NOTE | 2020-05-06 21:40 | NUR ---
BUILDING GUARD DEPUTY SHERIFF NOTE: Called RN Sup again for pt's 2100 Vibramycin IV. Stated medication is in night locker. Paper faxed over. Waiting on medication. Will administer once available.
[2020-05-06] MEDS: INSULIN REGULAR, HUMAN 100 UNIT/ML 3 ML VIAL SQ PRN (22:13)
--- NOTE | 2020-05-06 23:05 | NUR ---
SERVICE ENGINE REPAIRER NOTE: Refaxed paper for Vibramycin IV to RN sup again.
[2020-05-06] MEDS ORDERED: DOXYCYCLINE 100 MG VIAL ONE (23:11)
[2020-05-06] MEDS: DOXYCYCLINE 100 MG in IV D5W 100 ML IV SCH (23:18)
[2020-05-07] VITALS (48 sets, daily range): BP systolic 95–154; BP diastolic 51–100
[2020-05-07 04:52] LABS: BASOPHILS % (AUTO) 0.2 % (0.0-2.0); EOSINOPHILS % (AUTO) 0.1 % (0.0-6.0); HEMATOCRIT 43 % (39-51); HEMOGLOBIN 14.3 g/dL (13.5-17.5); LYMPHOCYTES # (AUTO) 0.8 /CMM (0.8-4.8); MEAN CORPUSCULAR HGB CONC 33 g/dl (31.0-36.0); MEAN CORPUSCULAR VOLUME 88 fL (80-96); MONOCYTES # (AUTO) 0.5 /CMM (0.1-1.30); MONOCYTES % (AUTO) 3.2 % (2.0-12.0); NEUTROPHILS # (AUTO) 12.7 /CMM (1.8-8.9); NEUTROPHILS % (AUTO) 90.5 % (43.0-81.0); PLATELET COUNT (AUTO) 99 /CMM (150-450); RED BLOOD CELL COUNT(AUTO) 4.95 MIL/uL (4.5-6.0); WHITE BLOOD COUNT (AUTO) 14.1 K/uL (4.3-11.0)
[2020-05-07 05:15] LABS: CALCIUM, SERUM 8.1 mg/dL (8.5-10.1); CREATININE 1.1 mg/dL (0.6-1.3); MAGNESIUM 2.3 mg/dL (1.8-2.4); PHOSPHORUS 4.3 mg/dL (2.5-4.9); POTASSIUM 4.8 mmol/L (3.5-5.1)
[2020-05-07 05:19] LABS: BAND % (MANUAL) 2 % (0.0-5.0); LYMPHOCYTES % (MANUAL) 4 % (16-48); MONOCYTES % (MANUAL) 6 % (0-11.0); NEUTROPHILS % (MANUAL) 88 (42-76)
--- NOTE | 2020-05-07 06:58 | NUR ---
COUPON CLERK CLOSING NOTES: No acute changes noted. Pt remains in bed, A&Ox4. On high flow 60LPM at 100% and nonrebreather mask at 15L. No SOB or resp distress noted. SR on tele monitor. RO midline patent and flushed. Dressing c/d/i. Safety measures in place. Will endorse to oncoming nurse for ROSELINE.
[2020-05-07] MEDS: BLOOD SUGAR DIAGNOSTIC 1 EACH STRIP IN SCH ×4 (07:42→22:49)
[2020-05-07] MEDS: DEXAMETHASONE SOD PHOSPHATE 4 MG/ML VIAL IV SCH (07:42)
[2020-05-07] MEDS: APIXABAN 5 MG TABLET PO SCH ×2 (07:43→18:45)
--- NOTE | 2020-05-07 07:50 | NUR ---
vocational horticulture instructor notes received patient is in the bed A/O X4, on high flow oxygen and non- retreatment mask 15 L, lying on left side and oxygen 84%. administered scheduled medication. tolerated breakfast 75%, refused pain at this time. T-98.5. bs-84 mg/dl, iv access on left ua midline intact. patient turn and reposition self in the bed, call light within to reach, safety precaution maintained all the time.
[2020-05-07] MEDS: BENZONATATE 100 MG CAPSULE PO PRN (09:31)
--- NOTE | 2020-05-07 09:31 | NUR ---
rn notes administered Tessalon 100 mg po prn for cough per patient request.
[2020-05-07] MEDS: DOXYCYCLINE 100 MG in IV D5W 100 ML IV SCH ×2 (10:07→23:45)
--- NOTE | 2020-05-07 11:00 | NUR ---
agricultural education teacher notes PATIENT GET INTUBATED AT THIS TIME PER ANESTHESIOLOGIST BECAUSE OF DESATURATING OXYGEN. EET-8.0, LIP SIZE 26, PEEP-10, AC-28, TOTAL VALIUM 550. PATIENT TOLERATED SETTING VENT WELL, STARTED DIPRIVAN 5 MCG PER PROTOCOL, TITRATING UP TO SEDATION, INSERTED NGT, AND PATEL CATHETER PER MD ORDERS, AND SOFT RESTRAIN BOTH WRIST. V/S MONITORING. CALL LIGHT WITHIN TO REACH. KEEP HOB ELEVATED.WILL MONITORING.
[2020-05-07] MEDS: PROPOFOL 100 ML IV PRN ×7 (11:30→22:30)
--- NOTE | 2020-05-07 11:51 | NUR ---
PT ORALLY INTUBATED AT 1100 WITH 8.0 ET-TUBE SECURED AT 26CM. SETTINGS ORDERED ALARMS SET AND AUDIBLE B/S EQUAL PT SEDATED TOLERATING VENT SETTINGS. SMALL WHITE SPUTUM. Addendum: 05/07/20 at 1155 by SHELLIE STAFFORD RT Amended: Links added.
[2020-05-07 13:00] LABS: BASOPHILS % (AUTO) 0.1 % (0.0-2.0); EOSINOPHILS % (AUTO) 0.5 % (0.0-6.0); HEMATOCRIT 45 % (39-51); HEMOGLOBIN 14.5 g/dL (13.5-17.5); LYMPHOCYTES # (AUTO) 0.5 /CMM (0.8-4.8); MEAN CORPUSCULAR HGB CONC 32 g/dl (31.0-36.0); MEAN CORPUSCULAR VOLUME 88 fL (80-96); MONOCYTES # (AUTO) 0.4 /CMM (0.1-1.30); MONOCYTES % (AUTO) 2.4 % (2.0-12.0); NEUTROPHILS # (AUTO) 15.6 /CMM (1.8-8.9); PLATELET COUNT (AUTO) 111 /CMM (150-450); RED BLOOD CELL COUNT(AUTO) 5.15 MIL/uL (4.5-6.0); WHITE BLOOD COUNT (AUTO) 16.6 K/uL (4.3-11.0)
[2020-05-07 13:50] LABS: ABG BASE EXCESS -1.9 mmol/L; ABG OXYGEN SATURATION 94.2 % (92.0-98.5); ABG PCO2 43.4 mmHg (35.0-45.0); ABG PH 7.355 (7.350-7.450); ABG PO2 74.8 mmHg (75.0-100.0); AaDO2 594.8 mmHg; COHb 1.1 % (0.5-1.5); MetHb 0.4 % (0.0-1.5); O2Hb 92.8 % (94.0-97.0); PEEP,BG 10 cm H2O; SITE, ABG Right Radial; VT, ABG 550 mL
[2020-05-07] MEDS ORDERED: ETOMIDATE 2 MG/ML VIAL IV ONE (17:59)
[2020-05-07] MEDS ORDERED: SUCCINYLCHOLINE CHLORIDE 20 MG/ML VIAL IV ONE (17:59)
[2020-05-07] MEDS ORDERED: PROPOFOL 200 MG/20 ML VIAL IV ONE (17:59)
--- NOTE | 2020-05-07 18:30 | NUR ---
RN NOTES pt tolerated EET vent setting well and sedated. No respiratory distress. Bs-140mg/dl, NGT in place patent and clamped. Keep HOB elevated all the time, BUBBA PICC line patent and infusing Diprivan at 70 mcg/kg/min. Will titrate per protocol. Bilateral soft wrist restraints in place, checked circulation. Uriarte catheter in place, patent and draining urine via gravity. assist turn and reposition q 2 hr. Safety measures in place. endorsed oncoming nurse follow plan of care.
[2020-05-07] MEDS: INSULIN REGULAR, HUMAN 100 UNIT/ML 3 ML VIAL SQ PRN (23:08)
[2020-05-08] VITALS (26 sets, daily range): BP systolic 103–142; BP diastolic 61–94
[2020-05-08] MEDS: PROPOFOL 100 ML IV PRN ×13 (00:32→22:21)
[2020-05-08 04:51] LABS: BASOPHILS # (AUTO) 0.1 /CMM (0.0-0.2); BASOPHILS % (AUTO) 0.8 % (0.0-2.0); EOSINOPHILS % (AUTO) 0.1 % (0.0-6.0); HEMATOCRIT 42 % (39-51); HEMOGLOBIN 13.6 g/dL (13.5-17.5); LYMPHOCYTES # (AUTO) 0.9 /CMM (0.8-4.8); LYMPHOCYTES % (AUTO) 6.9 % (20.0-44.0); MEAN CORPUSCULAR HGB CONC 32 g/dl (31.0-36.0); MEAN CORPUSCULAR VOLUME 89 fL (80-96); MONOCYTES # (AUTO) 0.4 /CMM (0.1-1.30); MONOCYTES % (AUTO) 3.4 % (2.0-12.0); NEUTROPHILS # (AUTO) 10.9 /CMM (1.8-8.9); NEUTROPHILS % (AUTO) 88.8 % (43.0-81.0); PLATELET COUNT (AUTO) 109 /CMM (150-450); RED BLOOD CELL COUNT(AUTO) 4.71 MIL/uL (4.5-6.0); WHITE BLOOD COUNT (AUTO) 12.3 K/uL (4.3-11.0)
[2020-05-08 05:01] LABS: CALCIUM, SERUM 8.4 mg/dL (8.5-10.1); CREATININE 0.8 mg/dL (0.6-1.3); MAGNESIUM 2.6 mg/dL (1.8-2.4); PHOSPHORUS 4.7 mg/dL (2.5-4.9); POTASSIUM 4.6 mmol/L (3.5-5.1)
--- NOTE | 2020-05-08 06:26 | NUR ---
MEMBERSHIP ADVISOR ET TUBE ADJUSTED FROM 26 TO 24 BY RT D/T CXR RESULTS PER DR REIS ORDER.
--- NOTE | 2020-05-08 06:27 | NUR ---
ETT RETRACTED 2CM PER DR REIS. RN NOTIFIED.
[2020-05-08] MEDS: BLOOD SUGAR DIAGNOSTIC 1 EACH STRIP IN SCH ×4 (07:47→22:57)
--- NOTE | 2020-05-08 07:50 | NUR ---
RN NOTEA PATIENT IS RESTING IN BED . EET-8.0, LIP SIZE 26, PEEP-10, AC-28, TOTAL VALIUM 550. PATIENT TOLERATED SETTING VENT WELL, STARTED DIPRIVAN 5 MCG PER PROTOCOL, TITRATING UP TO SEDATION, INSERTED NGT, AND PATEL CATHETER PER MD ORDERS, AND SOFT RESTRAIN BOTH WRIST. V/S MONITORING. CALL LIGHT WITHIN TO REACH. KEEP HOB ELEVATED.WILL MONITORING.
[2020-05-08] MEDS: DEXAMETHASONE SOD PHOSPHATE 4 MG/ML VIAL IV SCH (08:11)
[2020-05-08] MEDS: APIXABAN 5 MG TABLET PO SCH ×2 (08:14→16:42)
[2020-05-08] MEDS: DOXYCYCLINE 100 MG in IV D5W 100 ML IV SCH ×2 (08:28→09:00)
--- NOTE | 2020-05-08 09:00 | NUR ---
RN NOTES INFORMED DR HOLLY LANDEROS ABOUT THE AMIODARONE IS DUE HOWEVER HIS HR IN HIS LOW 50S AND NORMAL SINUS GOING TO HOLD FOR FURTHER NOTICE
[2020-05-08 10:25] LABS: ABG BASE EXCESS -0.4 mmol/L; ABG OXYGEN SATURATION 92.1 % (92.0-98.5); ABG PCO2 39.8 mmHg (35.0-45.0); ABG PH 7.403 (7.350-7.450); ABG PO2 63.5 mmHg (75.0-100.0); AaDO2 537.4 mmHg; COHb 0.7 % (0.5-1.5); MetHb 0.3 % (0.0-1.5); O2Hb 91.2 % (94.0-97.0); PEEP,BG 10 cm H2O; SITE, ABG Left Radial; VT, ABG 550 mL
--- NOTE | 2020-05-08 10:30 | NUR ---
RN NOTES INFORMED DR HOLLY LANDEROS IN REGARDS TO ACUTE SOFT RESTRAINTS RENEWAL IS DUE @11 AM
--- NOTE | 2020-05-08 11:00 | NUR ---
RN NOTES PER DR HOLLY LANDEROS VERBAL ORDER ASKED ME TO PUT RENEWAL FOR ACUTE SOFT RESTRAINTS RENEWAL
--- NOTE | 2020-05-08 14:00 | NUR ---
RN NOTES NO ACUTE DISTRESS NOTED
--- NOTE | 2020-05-08 19:04 | NUR ---
RN CLOSING NOTES PATIENT IS RESTING IN BED . EET-8.0, LIP SIZE 24, PEEP-10, AC-28, TOTAL VALIUM 550. PATIENT IS TOLERATED SETTING VENT WELL, DIPRIVAN AT 70 MCG/HR, TITRATING UP TO SEDATION, V/S MONITORING. SAFETY MEASUREMENTS ARE IMPLEMENTED PER HOSPITAL POLICY.CALL LIGHT WITHIN THE REACH. KEEP HOB ELEVATED.WILL ENDORSE TO PM NURSE FOR ROSELINE
[2020-05-09] VITALS (36 sets, daily range): BP systolic 100–126; BP diastolic 59–77
[2020-05-09] MEDS: PROPOFOL 100 ML IV PRN ×11 (02:32→23:52)
[2020-05-09 04:30] LABS: BASOPHILS % (AUTO) 0.2 % (0.0-2.0); EOSINOPHILS % (AUTO) 1.2 % (0.0-6.0); HEMATOCRIT 43 % (39-51); HEMOGLOBIN 13.9 g/dL (13.5-17.5); LYMPHOCYTES # (AUTO) 0.8 /CMM (0.8-4.8); LYMPHOCYTES % (AUTO) 6.1 % (20.0-44.0); MEAN CORPUSCULAR HGB CONC 32 g/dl (31.0-36.0); MEAN CORPUSCULAR VOLUME 89 fL (80-96); MONOCYTES # (AUTO) 0.4 /CMM (0.1-1.30); MONOCYTES % (AUTO) 3.2 % (2.0-12.0); NEUTROPHILS # (AUTO) 12.3 /CMM (1.8-8.9); NEUTROPHILS % (AUTO) 89.3 % (43.0-81.0); PLATELET COUNT (AUTO) 120 /CMM (150-450); RED BLOOD CELL COUNT(AUTO) 4.88 MIL/uL (4.5-6.0); WHITE BLOOD COUNT (AUTO) 13.7 K/uL (4.3-11.0)
[2020-05-09 04:51] LABS: CALCIUM, SERUM 8.5 mg/dL (8.5-10.1); CREATININE 0.8 mg/dL (0.6-1.3); MAGNESIUM 2.3 mg/dL (1.8-2.4); PHOSPHORUS 3.7 mg/dL (2.5-4.9); POTASSIUM 4.4 mmol/L (3.5-5.1)
[2020-05-09 05:29] LABS: BAND % (MANUAL) 4 % (0.0-5.0); NEUTROPHILS % (MANUAL) 89 (42-76)
[2020-05-09 05:30] LABS: LYMPHOCYTES % (MANUAL) 5 % (16-48); MONOCYTES % (MANUAL) 2 % (0-11.0)
--- NOTE | 2020-05-09 07:30 | NUR ---
KITCHEN AND COUNTER WORKER AM NOTES PATIENT IN BED . EET-8.0, LIP SIZE 24, PEEP-10, AC-28, TV 550, FIO2 90%. PATIENT TOLERATED SETTING VENT WELL, NOT IN DISTRESS, NGT TO LEFT NARE, CHECKED FOR PLACEMENT, NPO, SINUS RHYTHM ON MONITOR. RO MIDLINE AND BUBBA PICC LINE IN PLACE, BOTH SITES CLEAR. DIPRIVAN AT 70 MCG ONGOING. TITRATE. PATEL CATHETER IN PLACE. SOFT RESTRAINT BOTH WRIST, RELEASED, CHECKED FOR CIRCULATION THEN EVERY 2 HOURS. CALL LIGHT WITHIN TO REACH. KEEP HOB ELEVATED.SAFETY MEASURE IN PLACE. WILL CONTINUE TO MONITOR.
[2020-05-09] MEDS: BLOOD SUGAR DIAGNOSTIC 1 EACH STRIP IN SCH ×4 (08:29→22:41)
--- NOTE | 2020-05-09 09:30 | NUR ---
RN NOTES DUE MEDS GIVEN
[2020-05-09] MEDS: APIXABAN 5 MG TABLET PO SCH ×2 (10:03→16:05)
--- NOTE | 2020-05-09 15:01 | NUR ---
RN NOTES VENT CHANGE - TIDAL VOLUME 70% TITRATE SPO2 TO EQUAL OR MORE THAN 94%.
[2020-05-09] MEDS ORDERED: FUROSEMIDE 20 MG/2 ML VIAL IV ONE (16:00)
--- NOTE | 2020-05-09 19:29 | NUR ---
MANAGER ANIMATION AM NOTES PATIENT IN BED . EET-8.0, LIP SIZE 24, PEEP-10, AC-28, TV 550, FIO2 90%. PATIENT TOLERATED SETTING VENT WELL, NOT IN DISTRESS, NGT TO LEFT NARE, CHECKED FOR PLACEMENT, NPO, SINUS RHYTHM ON MONITOR. RO MIDLINE AND BUBBA PICC LINE IN PLACE, BOTH SITES CLEAR. DIPRIVAN AT 70 MCG ONGOING. TITRATE. PATEL CATHETER IN PLACE. SOFT RESTRAINT BOTH WRIST, RELEASED, CHECKED FOR CIRCULATION THEN EVERY 2 HOURS. CALL LIGHT WITHIN TO REACH. KEEP HOB ELEVATED.SAFETY MEASURE IN PLACE. WILL CONTINUE TO MONITOR. Addendum: 05/09/20 at 1937 by WILLOW BECKER RN DISREGARD THIS NOTE INTENDED FOR MORNING DOCUMENTATION.
--- NOTE | 2020-05-09 19:34 | NUR ---
CLOSING NOTES ALL NEEDS MET. ACCUCHECK/ BLOOD SUGAR CHECKED DONE ACCORDINGLY. PM CARE DONE. TURNED AND REPOSITION Q 2HOURS. RESTRAINTS CHECKED Q 2 HOURS. PATEL CATH OUTPUT 835 ML. REMAINED SEDATED. FOR DIETARY CONSULT IN AM. ALL NEEDS MET. NO SIGNIFICANT CHANGE IN CONDITION. ENDORSED TO NEXT SHIFT FOR ROSELINE.
[2020-05-10] VITALS (23 sets, daily range): BP systolic 82–119; BP diastolic 47–73
[2020-05-10] MEDS: PROPOFOL 100 ML IV PRN ×12 (01:11→22:55)
[2020-05-10 04:44] LABS: BASOPHILS # (AUTO) 0.1 /CMM (0.0-0.2); BASOPHILS % (AUTO) 0.4 % (0.0-2.0); EOSINOPHILS % (AUTO) 2.6 % (0.0-6.0); HEMATOCRIT 44 % (39-51); HEMOGLOBIN 14.3 g/dL (13.5-17.5); LYMPHOCYTES % (AUTO) 7.5 % (20.0-44.0); MEAN CORPUSCULAR HGB CONC 33 g/dl (31.0-36.0); MEAN CORPUSCULAR VOLUME 88 fL (80-96); MONOCYTES # (AUTO) 0.3 /CMM (0.1-1.30); MONOCYTES % (AUTO) 2.2 % (2.0-12.0); NEUTROPHILS # (AUTO) 11.7 /CMM (1.8-8.9); NEUTROPHILS % (AUTO) 87.3 % (43.0-81.0); PLATELET COUNT (AUTO) 130 /CMM (150-450); RED BLOOD CELL COUNT(AUTO) 4.99 MIL/uL (4.5-6.0); WHITE BLOOD COUNT (AUTO) 13.4 K/uL (4.3-11.0)
[2020-05-10 04:51] LABS: CALCIUM, SERUM 8.5 mg/dL (8.5-10.1); MAGNESIUM 2.2 mg/dL (1.8-2.4); PHOSPHORUS 3.8 mg/dL (2.5-4.9); POTASSIUM 3.8 mmol/L (3.5-5.1)
[2020-05-10 05:27] LABS: ABG BASE EXCESS 2.5 mmol/L; ABG OXYGEN SATURATION 94.9 % (92.0-98.5); ABG PCO2 44.7 mmHg (35.0-45.0); ABG PH 7.409 (7.350-7.450); ABG PO2 73.2 mmHg (75.0-100.0); AaDO2 377.9 mmHg; COHb 0.8 % (0.5-1.5); MetHb 0.3 % (0.0-1.5); O2Hb 93.9 % (94.0-97.0); SITE, ABG Left Radial; VENT MODE, BG AC 28 550 70% +10
[2020-05-10] MEDS ORDERED: DEXTROSE 50%-WATER 50 ML DISP.SYRIN IV PRN (08:00)
[2020-05-10] MEDS ORDERED: PHARMACY TO CHANGE PO MEDS TO GT/NG XX PRN (08:30)
[2020-05-10] MEDS: APIXABAN 5 MG TABLET NG SCH ×2 (09:28→17:42)
--- NOTE | 2020-05-10 10:11 | NUR ---
60% fio2 per dr. malin. Addendum: 05/10/20 at 1012 by MARIPOSA NAVA RT Amended: Links added.
[2020-05-10] MEDS: BLOOD SUGAR DIAGNOSTIC 1 EACH STRIP IN SCH ×2 (12:57→17:44)
[2020-05-10] MEDS: PROSOURCE / PROSTAT (PYXIS) 30 ML UDC GT SCH (17:41)
[2020-05-10] MEDS: ACETAMINOPHEN 650 MG/20.3 ML UDC NG PRN (21:40)
[2020-05-10] MEDS ORDERED: ZOLPIDEM TARTRATE 5 MG TABLET NG PRN (22:00)
[2020-05-11] VITALS (21 sets, daily range): BP systolic 97–120; BP diastolic 51–72
[2020-05-11] MEDS: BLOOD SUGAR DIAGNOSTIC 1 EACH STRIP IN SCH ×5 (01:05→23:34)
[2020-05-11] MEDS: PROPOFOL 100 ML IV PRN ×9 (01:05→23:01)
--- NOTE | 2020-05-11 04:04 | NUR ---
RT NOTE PT REC'D ORALLY INTUBATED VIA ETT SZ 8.0 SECURED AT 24 CM AT THE LIPLINE. PT ON [facility] VENT ON NOTED SETTINGS CHARTED. PT SX'D FOR MOD AMT OF YELLOW SECRETIONS. SECRETIONS. ALARMS ARE SET AND AUDIBLE. AMBU BAG BEDSIDE. VENT PLUGGED INTO RED OUTLET. WILL CONTINUE TO MONITOR CLOSELY. Addendum: 05/11/20 at 0405 by JOSE SMALLWOOD RT Amended: Links added.
--- NOTE | 2020-05-11 05:00 | NUR ---
HEATING AND REFRIGERATION INSPECTOR NOTES FIO2 TITRATED DOWN TO 55%, WILL MONITOR CLSOELY
[2020-05-11 06:18] LABS: ABG BASE EXCESS -0.4 mmol/L; ABG OXYGEN SATURATION 91.3 % (92.0-98.5); ABG PCO2 41.7 mmHg (35.0-45.0); ABG PH 7.389 (7.350-7.450); ABG PO2 62.7 mmHg (75.0-100.0); AaDO2 283.1 mmHg; COHb 1.3 % (0.5-1.5); O2Hb 90.1 % (94.0-97.0); SITE, ABG Left Radial
[2020-05-11] MEDS: PROSOURCE / PROSTAT (PYXIS) 30 ML UDC GT SCH ×2 (09:24→16:36)
[2020-05-11] MEDS: APIXABAN 5 MG TABLET NG SCH ×2 (09:24→16:38)
[2020-05-11 09:25] LABS: BASOPHILS # (AUTO) 0.1 /CMM (0.0-0.2); BASOPHILS % (AUTO) 0.4 % (0.0-2.0); EOSINOPHILS % (AUTO) 1.9 % (0.0-6.0); HEMATOCRIT 44 % (39-51); HEMOGLOBIN 14.5 g/dL (13.5-17.5); LYMPHOCYTES # (AUTO) 1.2 /CMM (0.8-4.8); MEAN CORPUSCULAR HGB CONC 33 g/dl (31.0-36.0); MEAN CORPUSCULAR VOLUME 87 fL (80-96); MONOCYTES # (AUTO) 0.3 /CMM (0.1-1.30); MONOCYTES % (AUTO) 2.2 % (2.0-12.0); NEUTROPHILS # (AUTO) 11.6 /CMM (1.8-8.9); NEUTROPHILS % (AUTO) 86.5 % (43.0-81.0); PLATELET COUNT (AUTO) 136 /CMM (150-450); RED BLOOD CELL COUNT(AUTO) 5.04 MIL/uL (4.5-6.0); WHITE BLOOD COUNT (AUTO) 13.4 K/uL (4.3-11.0)
[2020-05-11 09:26] LABS: CALCIUM, SERUM 8.7 mg/dL (8.5-10.1); CREATININE 0.9 mg/dL (0.6-1.3)
[2020-05-11 09:29] LABS: MAGNESIUM 2.5 mg/dL (1.8-2.4); PHOSPHORUS 4.1 mg/dL (2.5-4.9)
--- NOTE | 2020-05-11 09:36 | NUR ---
RN NOTE 0715: Received patient sedated. With ETT to vent, tolerated settings at this time, 55% FIO2. Left NGT intact, TF @ 10mL/hr, tolerated. Kept HOB elevated. Uriarte cath intact, noted with minimal orange to greenish urine. BUBBA PICC intact. On Diprivan @ 70mcg, will try to titrated lower if tolerated. On isolation prec for Covid, maintained and observed.. 0830: S/E by Dr. Smith, on Diprivan @ 50mcg, noted with moderate agitation as evidenced by increased WOB, Dr. Smith verbalized to increase Diprivan, will titrate, please refer to IV spreadsheet. 0930: No any significant changes noted at this time. Kept clean, warm and dry. Kept patient comfortable.
--- NOTE | 2020-05-11 19:10 | NUR ---
PANEL MACHINE SETTER OPENING NOTES: Rec'd pt in bed, intubated 8/24cm at the lip and sedated.Tolerating vent settings well. No SOB or resp distress noted. SR on tele monitor. Left NGT in place, w/ Glucerna infusing at 10ml/hr. RO midline and BUBBA PICC patent and infusing Diprivan at 85mcg/kg/min. Uriarte catheter in place, draining urine via gravity. Safety measures in place. Will continue to monitor.
[2020-05-11] MEDS: INSULIN REGULAR, HUMAN 100 UNIT/ML 3 ML VIAL SQ PRN (23:34)
[2020-05-12] VITALS (24 sets, daily range): BP systolic 99–119; BP diastolic 52–76
[2020-05-12] MEDS: PROPOFOL 100 ML IV PRN ×16 (00:39→23:12)
[2020-05-12] MEDS: ACETAMINOPHEN 650 MG/20.3 ML UDC NG PRN (04:24)
[2020-05-12] MEDS: BLOOD SUGAR DIAGNOSTIC 1 EACH STRIP IN SCH ×3 (05:48→17:34)
[2020-05-12] MEDS: INSULIN REGULAR, HUMAN 100 UNIT/ML 3 ML VIAL SQ PRN (05:49)
--- NOTE | 2020-05-12 07:58 | NUR ---
PT RECEIVED IN BED, SEDATED ON PROPOFOL 85MCG. PT ON PRESCRIBED VENT SETTINGS: ETT 01/08, AC 28, TV 550, FIO2 50%, PEEP 10. PT HAS BILATERAL SOFT WRIST RESTRAINTS ORDERED. PT ON MONITOR SHOWING SR. PT LEFT NGT INTACT RUNNING CLUCERNA 1.2 AT 10 ML/HR. PT HAS RO MIDLINE AND BUBBA PICC IN PLACE, FLUSHED AND INTACT. BED IN LOCKED LOWEST POSITION, CALL LIGHT WITHIN REACH, ALL SAFETY MEASURES IN PLACE. WILL CONTINUE TO MONITOR CLOSELY
[2020-05-12] MEDS: APIXABAN 5 MG TABLET NG SCH ×3 (09:00→17:34)
[2020-05-12] MEDS: PROSOURCE / PROSTAT (PYXIS) 30 ML UDC GT SCH ×2 (10:13→17:34)
[2020-05-12 13:10] LABS: ABG BASE EXCESS 2.4 mmol/L; ABG OXYGEN SATURATION 92.1 % (92.0-98.5); ABG PCO2 47.9 mmHg (35.0-45.0); ABG PH 7.387 (7.350-7.450); ABG PO2 62.8 mmHg (75.0-100.0); AaDO2 239.8 mmHg; COHb 0.9 % (0.5-1.5); O2Hb 91.3 % (94.0-97.0); PEEP,BG 10 cm H2O; SITE, ABG Left Radial; VT, ABG 550 mL
--- NOTE | 2020-05-12 19:10 | NUR ---
COMPUTER ART INSTRUCTOR OPENING NOTES: Rec'd pt in bed, intubated 8/24cm at the lip and sedated. Tolerating vent settings well. No SOB or resp distress noted. SR on tele monitor. Left NGT in place, w/ Glucerna infusing at 10ml/hr. RO midline and BUBBA PICC patent and infusing Diprivan at 80mcg/kg/min. Uriarte catheter in place, draining urine via gravity. Safety measures in place. Will continue to monitor.
--- NOTE | 2020-05-12 19:26 | NUR ---
PT REMAINS IN BED, ON PRESCRIBED VENT SETTINGS 01/08, AC 28, TV 550, FIO2 50, PEEP 10. O2 SATS 95-100% THIS SHIFT. PT REMAINS SEDATED, NOW ON 80 MCG/KG/MIN PROPOFOL, ENDORSED TO ONCOMING RN TO TITRATE DOWN TOLERATED. PATEL DRAINING DARK GREEN URINE, UNCHANGED. PT REMAINS ON GLUCERNA 1.2 AT 10 ML/HOUR. RESIDUAL NOTED TO BE 50-60 ML, ENDORSED TO ONCOMING RN TO INCREASE FEEDING RATE TOLERATED PER MD BO. PT IV SITES REMAIN INTACT, NO SIGNS OF INFECTION OR INFILTRATION.BED IN LOCKED LOWEST POSITION, CALL LIGHT WITHIN REACH, ALL SAFETY MEASURES IN PLACE. REPORT GIVEN TO HOLA FOR ROSELINE
--- NOTE | 2020-05-12 23:24 | NUR ---
MD DO RESIDENT URGENT CARE NOTE: RT titrated pt's fio2 to 100%. Will continue to monitor.
[2020-05-13] VITALS (22 sets, daily range): BP systolic 105–133; BP diastolic 57–76
[2020-05-13] MEDS: INSULIN REGULAR, HUMAN 100 UNIT/ML 3 ML VIAL SQ PRN ×2 (00:03→05:36)
[2020-05-13] MEDS: PROPOFOL 100 ML IV PRN ×14 (00:57→22:22)
--- NOTE | 2020-05-13 01:35 | NUR ---
WAREHOUSE TEAM LEADER NOTE: RT titrated fio2 down to 80%. Pt tolerating well. Will continue to monitor.
--- NOTE | 2020-05-13 04:00 | NUR ---
ENDOSCOPIC TECHNICIAN NOTE: RT titrated fio2 down to 50%. Will continue to monitor.
[2020-05-13] MEDS: BLOOD SUGAR DIAGNOSTIC 1 EACH STRIP IN SCH ×4 (05:36→17:50)
[2020-05-13 06:12] LABS: ABG BASE EXCESS 0.6 mmol/L; ABG OXYGEN SATURATION 95.8 % (92.0-98.5); ABG PH 7.401 (7.350-7.450); ABG PO2 78.5 mmHg (75.0-100.0); AaDO2 230.8 mmHg; COHb 0.9 % (0.5-1.5); MetHb 0.2 % (0.0-1.5); O2Hb 94.7 % (94.0-97.0); SITE, ABG Right Radial; VENT MODE, BG AC 28 550 50% +10
--- NOTE | 2020-05-13 07:16 | NUR ---
PT RECEIVED IN BED, ON VENT SETTINGS ETT 01/08, TV 550, FIO2 50%, PEEP 10. PT SEDATED ON 80 MCG. PT ON MONITOR SHOWING SR. PT HAS RO MIDLINE AND BUBBA PICC INTACT. PATIENT HAS PATEL AND LEFT NARE NGT. GLUCERNA RUNNING @ 10 ML/HR. BED IN LOCKED LOWEST POSITION, CALL LIGHT WITHIN REACH, ALL SAFETY MEASURES IN PLACE, WILL CONTINUE TO MONITOR CLOSELY
[2020-05-13] MEDS: PROSOURCE / PROSTAT (PYXIS) 30 ML UDC GT SCH ×2 (09:04→17:50)
[2020-05-13] MEDS: APIXABAN 5 MG TABLET NG SCH ×2 (09:04→17:52)
[2020-05-13] MEDS: DOCUSATE SODIUM LIQ 100 MG/10 ML UDC NG SCH (12:25)
[2020-05-14] VITALS (24 sets, daily range): BP systolic 100–126; BP diastolic 51–72
[2020-05-14] MEDS: BLOOD SUGAR DIAGNOSTIC 1 EACH STRIP IN SCH ×4 (00:49→17:30)
[2020-05-14] MEDS: PROPOFOL 100 ML IV PRN ×10 (00:50→23:46)
[2020-05-14 04:46] LABS: BASOPHILS # (AUTO) 0.1 /CMM (0.0-0.2); BASOPHILS % (AUTO) 0.8 % (0.0-2.0); EOSINOPHILS % (AUTO) 1.2 % (0.0-6.0); HEMATOCRIT 40 % (39-51); HEMOGLOBIN 13.1 g/dL (13.5-17.5); LYMPHOCYTES # (AUTO) 1.3 /CMM (0.8-4.8); LYMPHOCYTES % (AUTO) 9.3 % (20.0-44.0); MEAN CORPUSCULAR HGB CONC 33 g/dl (31.0-36.0); MEAN CORPUSCULAR VOLUME 88 fL (80-96); MONOCYTES # (AUTO) 0.5 /CMM (0.1-1.30); MONOCYTES % (AUTO) 3.5 % (2.0-12.0); NEUTROPHILS # (AUTO) 12.1 /CMM (1.8-8.9); NEUTROPHILS % (AUTO) 85.2 % (43.0-81.0); PLATELET COUNT (AUTO) 189 /CMM (150-450); WHITE BLOOD COUNT (AUTO) 14.2 K/uL (4.3-11.0)
[2020-05-14 04:55] LABS: ABG OXYGEN SATURATION 98.3 % (92.0-98.5); ABG PCO2 41.2 mmHg (35.0-45.0); ABG PH 7.427 (7.350-7.450); ABG PO2 107.7 mmHg (75.0-100.0); AaDO2 202.5 mmHg; COHb 1.3 % (0.5-1.5); MetHb 0.2 % (0.0-1.5); O2Hb 96.8 % (94.0-97.0); PEEP,BG 8 cm H2O; SITE, ABG Right Radial; VENT MODE, BG AC 28 550 50% +8; VT, ABG 550 mL
[2020-05-14 05:02] LABS: CALCIUM, SERUM 9.4 mg/dL (8.5-10.1); CREATININE 1.3 mg/dL (0.6-1.3); MAGNESIUM 2.6 mg/dL (1.8-2.4); PHOSPHORUS 3.7 mg/dL (2.5-4.9); POTASSIUM 3.9 mmol/L (3.5-5.1)
--- NOTE | 2020-05-14 07:48 | NUR ---
RECEIVED PATIENT IN BED. NO ACUTE DISTRESS NOTED. PATIENT SEDATED ON PROPOFOL. PATIENT INTUBATED, TOLERATING VENTILATOR SETTINGS WELL. PATIENT ON COMMUNITY LIAISON, NORMAL SINUS RHYTHM NOTED. PATIENT LEFT NGT IN PLACE, INTACT, GLUCERNA RUNNING. PATIENT PATEL CATHETER IN PLACE, INTACT, DRAINING TO GRAVITY. PATIENT BUBBA PICC LINE IN PLACE, INTACT, FLUSHED WELL. PATIENT BILATERAL SOFT WRIST RESTRAINTS IN PLACE. PATIENT SAFETY MEASURES MAINTAINED. WILL CONTINUE TO MONITOR.
--- NOTE | 2020-05-14 07:49 | NUR ---
RT PATIENT REC'D ORALLY INTUBATED ON [facility] VENT. VENT SETTINGS AND ALARMS CHECKED. ETT SECURE AND PATENT. VENT PLUGGED INTO RED OUTLET. PT SX'D. Addendum: 05/14/20 at 1550 by CANDIDO VALERO RT Amended: Links added.
--- NOTE | 2020-05-14 07:50 | NUR ---
RT PER DR BO PEEP LOWERED RO 5 AND FIO2 TO 40% Addendum: 05/14/20 at 1016 by CANDIDO VALERO RT Amended: Links added.
[2020-05-14] MEDS: APIXABAN 5 MG TABLET NG SCH ×2 (08:16→17:35)
[2020-05-14] MEDS: PROSOURCE / PROSTAT (PYXIS) 30 ML UDC GT SCH ×2 (08:16→17:36)
[2020-05-14] MEDS: DOCUSATE SODIUM LIQ 100 MG/10 ML UDC NG SCH (08:16)
--- NOTE | 2020-05-14 18:30 | NUR ---
PATIENT IN BED. NO ACUTE DISTRESS NOTED. PATIENT SEDATED ON PROPOFOL. PATIENT INTUBATED, TOLERATING VENTILATOR SETTINGS WELL. PATIENT ON BREAKER TENDER, NORMAL SINUS RHYTHM NOTED. PATIENT LEFT NGT IN PLACE, INTACT, GLUCERNA RUNNING. PATIENT PATEL CATHETER IN PLACE, INTACT, DRAINING TO GRAVITY. PATIENT BUBBA PICC LINE IN PLACE, INTACT, FLUSHED WELL. PATIENT BILATERAL SOFT WRIST RESTRAINTS IN PLACE. PATIENT SAFETY MEASURES MAINTAINED. WILL ENDORSE PLAN OF CARE TO ONCOMING SHIFT
[2020-05-14 19:05] LABS: BASOPHILS # (AUTO) 0.1 /CMM (0.0-0.2); BASOPHILS % (AUTO) 0.7 % (0.0-2.0); EOSINOPHILS % (AUTO) 2.3 % (0.0-6.0); HEMATOCRIT 40 % (39-51); HEMOGLOBIN 13.4 g/dL (13.5-17.5); LYMPHOCYTES # (AUTO) 1.2 /CMM (0.8-4.8); LYMPHOCYTES % (AUTO) 8.9 % (20.0-44.0); MEAN CORPUSCULAR HGB CONC 33 g/dl (31.0-36.0); MEAN CORPUSCULAR VOLUME 87 fL (80-96); MONOCYTES # (AUTO) 0.6 /CMM (0.1-1.30); MONOCYTES % (AUTO) 4.7 % (2.0-12.0); NEUTROPHILS # (AUTO) 11.4 /CMM (1.8-8.9); NEUTROPHILS % (AUTO) 83.4 % (43.0-81.0); PLATELET COUNT (AUTO) 185 /CMM (150-450); WHITE BLOOD COUNT (AUTO) 13.7 K/uL (4.3-11.0)
[2020-05-14] MEDS: PANTOPRAZOLE 40 MG VIAL IV SCH (19:40)
[2020-05-14] MEDS: GLUCERNA 1.2 1,000 ML BOTTLE NG PRN (19:50)
[2020-05-14] MEDS: ACETAMINOPHEN 650 MG/20.3 ML UDC NG PRN (20:42)
[2020-05-15] VITALS (24 sets, daily range): BP systolic 99–120; BP diastolic 50–68
[2020-05-15] MEDS: BLOOD SUGAR DIAGNOSTIC 1 EACH STRIP IN SCH ×4 (00:33→18:00)
[2020-05-15] MEDS: PROPOFOL 100 ML IV PRN ×10 (01:32→22:35)
[2020-05-15 04:43] LABS: BASOPHILS # (AUTO) 0.1 /CMM (0.0-0.2); BASOPHILS % (AUTO) 0.4 % (0.0-2.0); EOSINOPHILS % (AUTO) 2.9 % (0.0-6.0); HEMATOCRIT 38 % (39-51); HEMOGLOBIN 12.8 g/dL (13.5-17.5); LYMPHOCYTES # (AUTO) 1.2 /CMM (0.8-4.8); LYMPHOCYTES % (AUTO) 9.4 % (20.0-44.0); MEAN CORPUSCULAR HGB CONC 33 g/dl (31.0-36.0); MEAN CORPUSCULAR VOLUME 88 fL (80-96); MONOCYTES # (AUTO) 0.6 /CMM (0.1-1.30); MONOCYTES % (AUTO) 4.9 % (2.0-12.0); NEUTROPHILS # (AUTO) 10.9 /CMM (1.8-8.9); NEUTROPHILS % (AUTO) 82.4 % (43.0-81.0); PLATELET COUNT (AUTO) 181 /CMM (150-450); RED BLOOD CELL COUNT(AUTO) 4.38 MIL/uL (4.5-6.0); WHITE BLOOD COUNT (AUTO) 13.3 K/uL (4.3-11.0)
[2020-05-15 04:53] LABS: CALCIUM, SERUM 9.9 mg/dL (8.5-10.1); CREATININE 1.1 mg/dL (0.6-1.3); MAGNESIUM 2.2 mg/dL (1.8-2.4); PHOSPHORUS 3.9 mg/dL (2.5-4.9); POTASSIUM 3.7 mmol/L (3.5-5.1)
--- NOTE | 2020-05-15 08:10 | NUR ---
RT PATIENT REC'D ORALLY INTUBATED ON [facility] VENT. PATIENT REMAINS IN CRITICAL CONDITION. AIRWAY SECURE AND PATENT. Addendum: 05/15/20 at 0937 by CANDIDO VALERO RT Amended: Links added.
[2020-05-15] MEDS: PROSOURCE / PROSTAT (PYXIS) 30 ML UDC GT SCH ×2 (08:25→17:52)
[2020-05-15] MEDS: DOCUSATE SODIUM LIQ 100 MG/10 ML UDC NG SCH (08:28)
[2020-05-15] MEDS: PANTOPRAZOLE 40 MG VIAL IV SCH ×2 (08:28→21:04)
--- NOTE | 2020-05-15 11:44 | NUR ---
RN NOTES PATIENT CONTINUES ON VENT SETTING TOLERATING WELL ORDERED. NO S/S OF ACUTE DISTRESS NOTED. IV'S INTACT PATENT, FLUSHES WELL. VITAL SIGNS WNL. KEPT CLEAN DRY AND COMFORTABLE. F/C INTACT YELLOW URINE RUNNING TO GRAVITY. TURNING REPOSITIONING TOLERATED. ALL SAFETY MEASURES IN PLACE. CALL LIGHT WITHIN REACH. ENDORSED PATIENT TO AM RN FOR ROSELINE.
--- NOTE | 2020-05-15 11:44 | NUR ---
REPORT RECEIVED FROM QUAN RN, NAD NOTED, TOLERATING ON VENT SETTING AND PROPOFOL AT 65MCG/KG/MIN. PATEL DRAINING TO GRAVITY. HOB ELEVATED. LAURENCE SOFT WRIST RESTRAINTS FOR RISK OF SELF-EXTUBATION. ON TELE.
--- NOTE | 2020-05-15 11:58 | NUR ---
DR REIS AT BEDSIDE
[2020-05-15] MEDS: VANCOMYCIN HCL 1.25 GM in IV D5W 260 ML IV SCH (13:32)
[2020-05-15] MEDS: ACETAMINOPHEN 650 MG/20.3 ML UDC NG PRN ×2 (13:32→21:04)
[2020-05-15 13:37] LABS: C-REACTIVE PROTEIN 30.7 mg/dL (0.0-0.9)
--- NOTE | 2020-05-15 13:45 | NUR ---
COOLING MEASURES APPLIED FOR FEVER
--- NOTE | 2020-05-15 14:00 | NUR ---
TURNED AND REPOSITIONED Q2H
--- NOTE | 2020-05-15 18:00 | NUR ---
PT REMAINS ON VENT AT ORDERED SETTING, APPROPRIATELY SEDATED ON 65MCG/KG/MIN OF PROPOFOL. ICE PACKS REMAIN IN PLACE HOWEVER TEMPERATURE IS TRENDING DOWN FROM HIS FEVER.
--- NOTE | 2020-05-15 19:00 | NUR ---
REPORT GIVEN TO HOLA CAMPUZANO FOR ROSELINE.
--- NOTE | 2020-05-15 19:34 | NUR ---
TAILMAN OPENING NOTES: Rec'd pt in bed, intubated 8/24cm at the lip and sedated. Tolerating vent settings well. No SOB or resp distress noted. SR on tele monitor. Left NGT in place, w/ Glucerna infusing at 10ml/hr. RO midline and BUBBA PICC patent and infusing Diprivan at 56mcg/kg/min. Uriarte catheter in place, draining urine via gravity. Safety measures in place. Will continue to monitor.
--- NOTE | 2020-05-15 20:55 | NUR ---
PT REC'D ORALLY INTUBATED VIA ETT SIZE 8.0 SECURED AT 24 CM AT THE LIPLINE. [facility] WITH THE SETTINGS OF AC 28, 550 80% INCREASED PEEP FROM [address] BETZY SANCHEZ, JUSTEN FELDMAN AWARE. SX DONE . ALARMS ARE SET AND AUDIBLE. AMBU BAG BEDSIDE. VENT PLUGGED INTO RED OUTLET. WILL CONTINUE TO MONITOR T/O SHIFT.
[2020-05-15] MEDS ORDERED: MEROPENEM 500 MG in IV NS 0.9% 50 ML IV SCH (21:00)
[2020-05-15] MEDS: MEROPENEM 1 G in IV NS 0.9% 100 ML IV SCH (21:22)
[2020-05-16] VITALS (24 sets, daily range): BP systolic 89–121; BP diastolic 55–82
[2020-05-16] MEDS: BLOOD SUGAR DIAGNOSTIC 1 EACH STRIP IN SCH ×5 (00:39→23:42)
[2020-05-16] MEDS: PROPOFOL 100 ML IV PRN ×9 (00:40→22:17)
[2020-05-16] MEDS: INSULIN REGULAR, HUMAN 100 UNIT/ML 3 ML VIAL SQ PRN ×2 (00:40→06:06)
[2020-05-16] MEDS: VANCOMYCIN HCL 1.25 GM in IV D5W 260 ML IV SCH ×2 (01:00→13:37)
[2020-05-16 05:01] LABS: BASOPHILS # (AUTO) 0.1 /CMM (0.0-0.2); BASOPHILS % (AUTO) 1.1 % (0.0-2.0); EOSINOPHILS % (AUTO) 5.2 % (0.0-6.0); HEMATOCRIT 38 % (39-51); HEMOGLOBIN 12.5 g/dL (13.5-17.5); LYMPHOCYTES # (AUTO) 1.5 /CMM (0.8-4.8); LYMPHOCYTES % (AUTO) 11.3 % (20.0-44.0); MEAN CORPUSCULAR HGB CONC 33 g/dl (31.0-36.0); MEAN CORPUSCULAR VOLUME 87 fL (80-96); MONOCYTES # (AUTO) 0.7 /CMM (0.1-1.30); MONOCYTES % (AUTO) 5.3 % (2.0-12.0); NEUTROPHILS % (AUTO) 77.1 % (43.0-81.0); PLATELET COUNT (AUTO) 169 /CMM (150-450); RED BLOOD CELL COUNT(AUTO) 4.36 MIL/uL (4.5-6.0)
[2020-05-16 05:13] LABS: ABG BASE EXCESS 4.2 mmol/L; ABG OXYGEN SATURATION 94.9 % (92.0-98.5); ABG PCO2 47.2 mmHg (35.0-45.0); ABG PH 7.415 (7.350-7.450); ABG PO2 72.4 mmHg (75.0-100.0); AaDO2 448.4 mmHg; COHb 1.3 % (0.5-1.5); MetHb 0.1 % (0.0-1.5); O2Hb 93.6 % (94.0-97.0); PEEP,BG 10 cm H2O; SITE, ABG Right Radial; VT, ABG 550 mL
[2020-05-16 05:17] LABS: CALCIUM, SERUM 9.8 mg/dL (8.5-10.1); CREATININE 1.1 mg/dL (0.6-1.3); MAGNESIUM 2.1 mg/dL (1.8-2.4); PHOSPHORUS 3.5 mg/dL (2.5-4.9); POTASSIUM 3.7 mmol/L (3.5-5.1)
[2020-05-16] MEDS: MEROPENEM 1 G in IV NS 0.9% 100 ML IV SCH ×3 (05:30→22:19)
--- NOTE | 2020-05-16 06:15 | NUR ---
SEWER PIPE LAYER NOTE: RT increased fio2 to 70%. Will continue to monitor.
--- NOTE | 2020-05-16 08:00 | NUR ---
received pt from tax manager public, sedated on diprivan at 65mcg, SR, intubated sat well, NG to feeding tolerates well, f/c good output, v/s stable, no pain, pt turned and repositioned.
[2020-05-16] MEDS: PROSOURCE / PROSTAT (PYXIS) 30 ML UDC GT SCH ×2 (09:36→17:07)
[2020-05-16] MEDS: PANTOPRAZOLE 40 MG VIAL IV SCH ×2 (09:38→22:20)
[2020-05-16] MEDS: DOCUSATE SODIUM LIQ 100 MG/10 ML UDC NG SCH (09:38)
--- NOTE | 2020-05-16 15:59 | NUR ---
RT PATIENT REMAINS IN CRITICAL CONDITION. INTUBATED ON [facility] VENT. FIO2 INCREASED TO 80% VENT ALARMS AUDIBLE, ETT SECURE AND PATENT IN PROPER POSITION. AMBU BAG AT HOB. Addendum: 05/16/20 at 1559 by CANDIDO VALERO RT Amended: Links added.
--- NOTE | 2020-05-16 16:32 | NUR ---
pt is resting in the bed, sedated on Diprivan at 65mcg, sat well, tolerates feeding, OK urine output, v/s stable, no pain, pt cleaned, changed and repositioned.
[2020-05-17] VITALS (24 sets, daily range): BP systolic 90–119; BP diastolic 51–69
[2020-05-17] MEDS: PROPOFOL 100 ML IV PRN ×11 (00:29→23:19)
[2020-05-17] MEDS: VANCOMYCIN HCL 1.25 GM in IV D5W 260 ML IV SCH ×2 (01:20→15:31)
[2020-05-17 05:13] LABS: ABG BASE EXCESS 3.2 mmol/L; ABG OXYGEN SATURATION 97.7 % (92.0-98.5); ABG PCO2 46.5 mmHg (35.0-45.0); ABG PH 7.406 (7.350-7.450); ABG PO2 102.6 mmHg (75.0-100.0); COHb 0.7 % (0.5-1.5); MetHb 0.1 % (0.0-1.5); O2Hb 96.9 % (94.0-97.0); PEEP,BG 10 cm H2O; SITE, ABG Right Radial
[2020-05-17 05:21] LABS: BASOPHILS % (AUTO) 0.3 % (0.0-2.0); EOSINOPHILS % (AUTO) 8.4 % (0.0-6.0); HEMATOCRIT 37 % (39-51); HEMOGLOBIN 12.1 g/dL (13.5-17.5); LYMPHOCYTES # (AUTO) 1.1 /CMM (0.8-4.8); MEAN CORPUSCULAR HGB CONC 33 g/dl (31.0-36.0); MEAN CORPUSCULAR VOLUME 88 fL (80-96); MONOCYTES # (AUTO) 0.5 /CMM (0.1-1.30); MONOCYTES % (AUTO) 5.6 % (2.0-12.0); NEUTROPHILS # (AUTO) 7.2 /CMM (1.8-8.9); NEUTROPHILS % (AUTO) 74.7 % (43.0-81.0); PLATELET COUNT (AUTO) 164 /CMM (150-450); RED BLOOD CELL COUNT(AUTO) 4.19 MIL/uL (4.5-6.0); WHITE BLOOD COUNT (AUTO) 9.6 K/uL (4.3-11.0)
[2020-05-17] MEDS: MEROPENEM 1 G in IV NS 0.9% 100 ML IV SCH ×3 (05:25→21:00)
[2020-05-17 05:28] LABS: CALCIUM, SERUM 9.4 mg/dL (8.5-10.1); CREATININE 0.9 mg/dL (0.6-1.3); PHOSPHORUS 3.5 mg/dL (2.5-4.9); POTASSIUM 3.9 mmol/L (3.5-5.1)
[2020-05-17] MEDS: BLOOD SUGAR DIAGNOSTIC 1 EACH STRIP IN SCH ×4 (05:44→23:20)
[2020-05-17] MEDS: ACETAMINOPHEN 650 MG/20.3 ML UDC NG PRN (05:45)
--- NOTE | 2020-05-17 08:09 | NUR ---
WOUND CARE CONSULT: REVIEWED CHART, NURSING DOCUMENTATION AND SPOKE WITH RN. RECOMMENDATIONS MADE FOR SKIN PROTECTION INCLUDING FIRST STEP LOW AIRLOSS MATTRESS. MD IN AGREEMENT WITH PLAN OF CARE.
[2020-05-17] MEDS: DOCUSATE SODIUM LIQ 100 MG/10 ML UDC NG SCH (09:26)
[2020-05-17] MEDS: PROSOURCE / PROSTAT (PYXIS) 30 ML UDC GT SCH ×2 (09:26→17:54)
[2020-05-17] MEDS: PANTOPRAZOLE 40 MG VIAL IV SCH (09:26)
[2020-05-17 13:06] LABS: C-REACTIVE PROTEIN 26.8 mg/dL (0.0-0.9)
[2020-05-17] MEDS: GLUCERNA 1.2 1,000 ML BOTTLE NG PRN (17:55)
[2020-05-17] MEDS: FLUCONAZOLE (100 MG) 100 MG TABLET PO SCH (19:45)
--- NOTE | 2020-05-17 19:55 | NUR ---
EVAPORATOR OPERATOR OPENING NOTES: Rec'd pt in bed, intubated 8/24cm at the lip and sedated. Tolerating vent settings well. No SOB or resp distress noted. SR on tele monitor. Left NGT in place, w/ Glucerna infusing at 10ml/hr. RO midline and BUBBA PICC patent and infusing Diprivan at 60mcg/kg/min. Uriarte catheter in place, draining urine via gravity. Safety measures in place. Will continue to monitor.
[2020-05-17] MEDS: PANTOPRAZOLE 40 MG/PACK PACK GT SCH (20:17)
[2020-05-18] VITALS (24 sets, daily range): BP systolic 105–119; BP diastolic 57–70
[2020-05-18] MEDS ORDERED: MEROPENEM 1 G in IV NS 0.9% 100 ML IV SCH
[2020-05-18] MEDS: VANCOMYCIN HCL 1.25 GM in IV D5W 260 ML IV SCH ×2 (01:05→16:32)
[2020-05-18] MEDS: PROPOFOL 100 ML IV PRN ×9 (01:20→23:17)
[2020-05-18 05:06] LABS: BASOPHILS # (AUTO) 0.1 /CMM (0.0-0.2); BASOPHILS % (AUTO) 0.8 % (0.0-2.0); EOSINOPHILS % (AUTO) 12.4 % (0.0-6.0); HEMATOCRIT 37 % (39-51); HEMOGLOBIN 12.3 g/dL (13.5-17.5); LYMPHOCYTES # (AUTO) 1.5 /CMM (0.8-4.8); MEAN CORPUSCULAR HGB CONC 33 g/dl (31.0-36.0); MEAN CORPUSCULAR VOLUME 88 fL (80-96); MONOCYTES # (AUTO) 0.6 /CMM (0.1-1.30); MONOCYTES % (AUTO) 5.7 % (2.0-12.0); NEUTROPHILS # (AUTO) 6.7 /CMM (1.8-8.9); NEUTROPHILS % (AUTO) 66.1 % (43.0-81.0); PLATELET COUNT (AUTO) 170 /CMM (150-450); RED BLOOD CELL COUNT(AUTO) 4.26 MIL/uL (4.5-6.0); WHITE BLOOD COUNT (AUTO) 10.1 K/uL (4.3-11.0)
[2020-05-18 05:08] LABS: ABG BASE EXCESS 4.3 mmol/L; ABG OXYGEN SATURATION 94.4 % (92.0-98.5); ABG PH 7.445 (7.350-7.450); ABG PO2 71.9 mmHg (75.0-100.0); AaDO2 308.6 mmHg; COHb 0.5 % (0.5-1.5); MetHb 0.3 % (0.0-1.5); O2Hb 93.6 % (94.0-97.0); PEEP,BG 10 cm H2O; SITE, ABG Right Radial; VENT MODE, BG AC 28 550 60% +10; VT, ABG 550 mL
[2020-05-18] MEDS: MEROPENEM 1 G in IV NS 0.9% 100 ML IV SCH ×2 (05:18→15:57)
[2020-05-18] MEDS: BLOOD SUGAR DIAGNOSTIC 1 EACH STRIP IN SCH ×3 (05:18→18:41)
[2020-05-18 05:19] LABS: CALCIUM, SERUM 9.3 mg/dL (8.5-10.1); MAGNESIUM 1.9 mg/dL (1.8-2.4); PHOSPHORUS 3.4 mg/dL (2.5-4.9); POTASSIUM 3.7 mmol/L (3.5-5.1)
--- NOTE | 2020-05-18 06:28 | NUR ---
CABLE LACER NOTE: Rec'd call from [employer]. Pt's ETT is 1.5cm from the erwin, needs to be pulled back a little bit.
--- NOTE | 2020-05-18 08:00 | NUR ---
PT RECEIVED IN BED ON PRESCRIBED VENT/ETT SETTINGS. NO SOB OR RESPIRATORY DISTRESS AT THIS TIME. PT SEDATED ON 60 MCG/KG/MIN PROPOFOL. PT HAS NGT CURRENTLY RUNNING GLUCERNA AT 10 ML/HR, RESIDUAL LESS THAN [address] AND INTACT. PT IV ACCESS REMAINS INTACT. SAFETY MEASURES IN PLACE, WILL CONTINUE TO MONITOR CLOSELY
[2020-05-18] MEDS: PROSOURCE / PROSTAT (PYXIS) 30 ML UDC GT SCH ×2 (12:13→18:40)
[2020-05-18] MEDS: FLUCONAZOLE (100 MG) 100 MG TABLET PO SCH (12:14)
[2020-05-18] MEDS: DOCUSATE SODIUM LIQ 100 MG/10 ML UDC NG SCH (12:14)
[2020-05-18] MEDS: PANTOPRAZOLE 40 MG/PACK PACK GT SCH ×2 (12:14→20:04)
[2020-05-18 13:24] LABS: C-REACTIVE PROTEIN 24.2 mg/dL (0.0-0.9)
--- NOTE | 2020-05-18 19:28 | NUR ---
PROTOTYPE FABRICATOR OPENING NOTES: Rec'd pt in bed, intubated 8/24cm at the lip and sedated. Tolerating vent settings well. No SOB or resp distress noted. SR on tele monitor. Left NGT in place, w/ Glucerna infusing at 10ml/hr. RO midline and BUBBA PICC patent and infusing Diprivan at 60mcg/kg/min. Uriarte catheter in place, draining urine via gravity. Safety measures in place.
[2020-05-19] VITALS (24 sets, daily range): BP systolic 104–148; BP diastolic 59–97
[2020-05-19] MEDS: MEROPENEM 1 G in IV NS 0.9% 100 ML IV SCH ×4 (01:14→23:53)
[2020-05-19] MEDS: BLOOD SUGAR DIAGNOSTIC 1 EACH STRIP IN SCH ×5 (01:14→22:11)
[2020-05-19] MEDS: PROPOFOL 100 ML IV PRN ×12 (01:17→23:53)
[2020-05-19] MEDS: VANCOMYCIN HCL 1.25 GM in IV D5W 260 ML IV SCH ×2 (01:59→13:31)
[2020-05-19 05:34] LABS: BASOPHILS % (AUTO) 0.5 % (0.0-2.0); EOSINOPHILS % (AUTO) 15.4 % (0.0-6.0); HEMATOCRIT 36 % (39-51); LYMPHOCYTES # (AUTO) 1.6 /CMM (0.8-4.8); LYMPHOCYTES % (AUTO) 18.2 % (20.0-44.0); MEAN CORPUSCULAR HGB CONC 33 g/dl (31.0-36.0); MEAN CORPUSCULAR VOLUME 88 fL (80-96); MONOCYTES # (AUTO) 0.5 /CMM (0.1-1.30); MONOCYTES % (AUTO) 5.7 % (2.0-12.0); NEUTROPHILS # (AUTO) 5.3 /CMM (1.8-8.9); NEUTROPHILS % (AUTO) 60.2 % (43.0-81.0); PLATELET COUNT (AUTO) 166 /CMM (150-450); RED BLOOD CELL COUNT(AUTO) 4.12 MIL/uL (4.5-6.0); WHITE BLOOD COUNT (AUTO) 8.8 K/uL (4.3-11.0)
[2020-05-19 05:46] LABS: CALCIUM, SERUM 8.7 mg/dL (8.5-10.1); CREATININE 0.9 mg/dL (0.6-1.3); MAGNESIUM 1.9 mg/dL (1.8-2.4); POTASSIUM 3.3 mmol/L (3.5-5.1)
--- NOTE | 2020-05-19 07:30 | NUR ---
RN OPENING NOTE PT IN BED, NO SIGN OF RESP DISTRESS OR SOB. PT ON VENT SETTINGS PER MD ORDER. PT NGT INTACT AND CHECKED FOR PLACEMENT. PT SEDATED ON PROPOFOL AT 60 MCG/KG/HR. ALL LINES AND TUBING INTACT. PT BILAT SOFT WRIST RESTRAINTS, CMS INTACT. PT SAFETY MEASURES IN PLACE. WILL CONTINUE TO MONITOR
[2020-05-19 08:13] LABS: ABG BASE EXCESS 2.2 mmol/L; ABG OXYGEN SATURATION 97.3 % (92.0-98.5); ABG PCO2 41.6 mmHg (35.0-45.0); ABG PH 7.426 (7.350-7.450); ABG PO2 94.5 mmHg (75.0-100.0); AaDO2 287.5 mmHg; COHb 0.8 % (0.5-1.5); O2Hb 96.5 % (94.0-97.0); PEEP,BG 10 cm H2O; SITE, ABG Right Radial; VT, ABG 550 mL
[2020-05-19] MEDS ORDERED: POTASSIUM CHLORIDE 20 MEQ POWDER PACKET GT SCH ×2 (09:30→11:30)
[2020-05-19] MEDS: FLUCONAZOLE (100 MG) 100 MG TABLET PO SCH (09:46)
[2020-05-19] MEDS: DOCUSATE SODIUM LIQ 100 MG/10 ML UDC NG SCH (09:46)
[2020-05-19] MEDS: PANTOPRAZOLE 40 MG/PACK PACK GT SCH ×2 (09:46→21:00)
[2020-05-19] MEDS: PROSOURCE / PROSTAT (PYXIS) 30 ML UDC GT SCH ×2 (09:46→17:48)
--- NOTE | 2020-05-19 13:30 | NUR ---
RN NOTE SPOKE TO PT'S REGARDING PT'S CONDITION. ALL QUESTIONS WERE ANSWERED TO THE 'S SATISFACTION
--- NOTE | 2020-05-19 19:00 | NUR ---
RN NOTE NO CHANGES TO PT STATUS DURING SHIFT. ALL SAFETY PRECAUTIONS IN PLACE. PT REPORT GIVEN TO ONCOMING RN FOR ROSELINE.
[2020-05-19] MEDS: INSULIN REGULAR, HUMAN 100 UNIT/ML 3 ML VIAL SQ PRN (22:12)
[2020-05-20] VITALS (25 sets, daily range): BP systolic 75–136; BP diastolic 49–80
[2020-05-20] MEDS: PROPOFOL 100 ML IV PRN ×11 (00:25→23:34)
[2020-05-20] MEDS: VANCOMYCIN HCL 1.25 GM in IV D5W 260 ML IV SCH ×2 (00:26→14:13)
[2020-05-20 05:05] LABS: BASOPHILS % (AUTO) 0.4 % (0.0-2.0); EOSINOPHILS % (AUTO) 6.8 % (0.0-6.0); HEMATOCRIT 39 % (39-51); HEMOGLOBIN 12.9 g/dL (13.5-17.5); LYMPHOCYTES # (AUTO) 1.7 /CMM (0.8-4.8); LYMPHOCYTES % (AUTO) 14.6 % (20.0-44.0); MEAN CORPUSCULAR HGB CONC 33 g/dl (31.0-36.0); MEAN CORPUSCULAR VOLUME 87 fL (80-96); MONOCYTES # (AUTO) 0.6 /CMM (0.1-1.30); NEUTROPHILS # (AUTO) 8.6 /CMM (1.8-8.9); NEUTROPHILS % (AUTO) 73.2 % (43.0-81.0); PLATELET COUNT (AUTO) 186 /CMM (150-450); RED BLOOD CELL COUNT(AUTO) 4.43 MIL/uL (4.5-6.0); WHITE BLOOD COUNT (AUTO) 11.8 K/uL (4.3-11.0)
[2020-05-20 05:49] LABS: ABG BASE EXCESS 0.1 mmol/L; ABG OXYGEN SATURATION 96.7 % (92.0-98.5); ABG PCO2 40.1 mmHg (35.0-45.0); ABG PH 7.408 (7.350-7.450); ABG PO2 87.8 mmHg (75.0-100.0); COHb 0.7 % (0.5-1.5); MetHb 0.1 % (0.0-1.5); O2Hb 95.9 % (94.0-97.0); SITE, ABG Right Radial; VENT MODE, BG AC28 VT550 65% +8
[2020-05-20] MEDS: INSULIN REGULAR, HUMAN 100 UNIT/ML 3 ML VIAL SQ PRN (07:29)
[2020-05-20] MEDS: BLOOD SUGAR DIAGNOSTIC 1 EACH STRIP IN SCH ×3 (07:30→17:06)
[2020-05-20] MEDS: MEROPENEM 1 G in IV NS 0.9% 100 ML IV SCH ×2 (07:52→17:07)
--- NOTE | 2020-05-20 08:10 | NUR ---
peep lowered to 5 and fio2 titrated to 50% per dr malin Addendum: 05/20/20 at 1043 by CANDIDO HIDALGO Amended: Links added.
[2020-05-20] MEDS: PANTOPRAZOLE 40 MG/PACK PACK GT SCH ×2 (08:35→20:13)
[2020-05-20] MEDS: PROSOURCE / PROSTAT (PYXIS) 30 ML UDC GT SCH ×2 (08:35→17:07)
[2020-05-20] MEDS: FLUCONAZOLE (100 MG) 100 MG TABLET PO SCH (08:35)
[2020-05-20] MEDS: DOCUSATE SODIUM LIQ 100 MG/10 ML UDC NG SCH (08:35)
[2020-05-20] MEDS: ACETAMINOPHEN 650 MG/20.3 ML UDC NG PRN ×2 (11:55→23:34)
--- NOTE | 2020-05-20 19:43 | NUR ---
RN NOTES PATIENT IN BED, INTUBATED AND SEDATED. TOLERATING VENT SETTINGS WELL. TELE MONITOR ON, SR. LEFT NGT IN PLACE W/ GLUCERNA INFUSING @ 10ML/HR. RO MIDLINE AND BUBBA PICC INTACT, INFUSING DIPRIVAN @70 MCG/KG/MIN. PATEL CATH IN PLACE, DRAINING URINE VIA GRAVITY. WILL CONTINUE TO MONITOR.
--- NOTE | 2020-05-20 23:35 | NUR ---
patient has temp 100.0, tylenol given as ordered. will continue to monitor.
[2020-05-21] VITALS (23 sets, daily range): BP systolic 84–119; BP diastolic 38–68
[2020-05-21] MEDS: BLOOD SUGAR DIAGNOSTIC 1 EACH STRIP IN SCH ×5 (00:22→23:48)
[2020-05-21] MEDS: INSULIN REGULAR, HUMAN 100 UNIT/ML 3 ML VIAL SQ PRN ×3 (00:23→23:47)
[2020-05-21] MEDS: MEROPENEM 1 G in IV NS 0.9% 100 ML IV SCH ×4 (00:36→23:30)
[2020-05-21] MEDS: VANCOMYCIN HCL 1.25 GM in IV D5W 260 ML IV SCH ×2 (01:30→13:37)
[2020-05-21] MEDS: PROPOFOL 100 ML IV PRN ×10 (01:31→22:38)
[2020-05-21 04:58] LABS: BASOPHILS # (AUTO) 0.1 /CMM (0.0-0.2); BASOPHILS % (AUTO) 0.6 % (0.0-2.0); HEMATOCRIT 37 % (39-51); LYMPHOCYTES # (AUTO) 1.7 /CMM (0.8-4.8); LYMPHOCYTES % (AUTO) 15.3 % (20.0-44.0); MEAN CORPUSCULAR HGB CONC 33 g/dl (31.0-36.0); MEAN CORPUSCULAR VOLUME 87 fL (80-96); MONOCYTES # (AUTO) 0.7 /CMM (0.1-1.30); MONOCYTES % (AUTO) 6.5 % (2.0-12.0); NEUTROPHILS # (AUTO) 7.8 /CMM (1.8-8.9); NEUTROPHILS % (AUTO) 69.6 % (43.0-81.0); PLATELET COUNT (AUTO) 179 /CMM (150-450); RED BLOOD CELL COUNT(AUTO) 4.23 MIL/uL (4.5-6.0); WHITE BLOOD COUNT (AUTO) 11.2 K/uL (4.3-11.0)
[2020-05-21 05:14] LABS: MAGNESIUM 2.2 mg/dL (1.8-2.4); PHOSPHORUS 3.7 mg/dL (2.5-4.9)
[2020-05-21 05:20] LABS: POTASSIUM 3.8 mmol/L (3.5-5.1)
--- NOTE | 2020-05-21 08:16 | NUR ---
RN NOTE PATIENT IN BED, INTUBATED AND SEDATED. TOLERATING VENT SETTINGS WELL. TELE MONITOR ON, SR. LEFT NGT IN PLACE W/ GLUCERNA INFUSING @ 10ML/HR. RO MIDLINE AND BUBBA PICC INTACT, INFUSING DIPRIVAN @65MCG/KG/MIN. PATEL CATH IN PLACE, DRAINING URINE VIA GRAVITY, OUTPUT 550. ENDORSED TO ONCOMING SHIFT.
[2020-05-21] MEDS: PROSOURCE / PROSTAT (PYXIS) 30 ML UDC GT SCH ×2 (09:00→16:46)
[2020-05-21] MEDS: FLUCONAZOLE (100 MG) 100 MG TABLET PO SCH (10:13)
[2020-05-21] MEDS: DOCUSATE SODIUM LIQ 100 MG/10 ML UDC NG SCH (10:13)
[2020-05-21] MEDS: PANTOPRAZOLE 40 MG/PACK PACK GT SCH ×2 (10:13→20:24)
--- NOTE | 2020-05-21 11:00 | NUR ---
DEALER SUPPORT TECHNICIAN NOTES DR BO MADE AWARE OF CXR RESULTS. RADIOLOGIST IMPRESSION OF LEFT LUNG PNEUMOTHORAX INCREASED. MD WITH INSTRUCTIONS TO CONTACT DR PAIGE. DR PAIGE MADE AWARE AND CAME TO SEE PT. MD ABLE TO ASSESS AND MADE CHANGES IN CHEST TUBE PLACEMENT.
--- NOTE | 2020-05-21 12:00 | NUR ---
HALL MONITOR NOTES MD MADE AWARE OF LATEST CXR RESULTS. LEFT LUNG PNEUMOTHORAX DECREASE IN SIZE. MD AWARE WITH NO NEW ORDERS AT THIS TIME. WILL CONTINUE TO MONITOR PT.
[2020-05-21 13:59] LABS: C-REACTIVE PROTEIN 16.6 mg/dL (0.0-0.9)
[2020-05-21] MEDS: IV NS 0.9% 250 ML IV PRN (22:29)
[2020-05-22] VITALS (24 sets, daily range): BP systolic 80–110; BP diastolic 45–66
[2020-05-22] MEDS: PROPOFOL 100 ML IV PRN ×13 (00:01→23:40)
[2020-05-22] MEDS: VANCOMYCIN HCL 1.25 GM in IV D5W 260 ML IV SCH (00:54)
[2020-05-22] MEDS: ACETAMINOPHEN 650 MG/20.3 ML UDC NG PRN ×2 (03:01→17:17)
--- NOTE | 2020-05-22 03:02 | NUR ---
RN/ICU-SKIN WARM TO TOUCH.TEMPT CHECKED-101.1/F, COOLING MEASURES DONE. MED. W/ TYLENOL 650MG/NGT. WILL REASSESS FOR PRN EFFECTIVENESS.
--- NOTE | 2020-05-22 03:03 | NUR ---
RN/ICU-LATE ENTRY- ON ASSESSMENT AT 1999, PT. NOTED TO HAVE WDS. ON LAURENCE. BUTTOCKS. #1- MEASURES 2.5X2CM, #2 MEASURES 5.5X4. BASE IS W/ BLACK ESCHAR, PARTLY W/ RED PARTIAL THICKNESS. W/ SCANTY SEROSANGUINEOUS DRAINAGE.CLEANSED W/ NS. PAT DRY W/ 4X4. COVERED W/ MEPILEX. CONTINUE TO REPOSITION PT. TOLERATED. WILL NOTIFY WOUND RN. WILL NOTIFY DIRECT CUSTOMER SERVICE REPRESENTATIVE. PT. IS ALREADY ON A FIRST STEP MATTRESS.
[2020-05-22 04:46] LABS: BASOPHILS # (AUTO) 0.1 /CMM (0.0-0.2); BASOPHILS % (AUTO) 0.8 % (0.0-2.0); EOSINOPHILS % (AUTO) 10.3 % (0.0-6.0); HEMATOCRIT 35 % (39-51); HEMOGLOBIN 11.6 g/dL (13.5-17.5); LYMPHOCYTES # (AUTO) 1.5 /CMM (0.8-4.8); LYMPHOCYTES % (AUTO) 15.4 % (20.0-44.0); MEAN CORPUSCULAR HGB CONC 33 g/dl (31.0-36.0); MEAN CORPUSCULAR VOLUME 87 fL (80-96); MONOCYTES # (AUTO) 0.5 /CMM (0.1-1.30); MONOCYTES % (AUTO) 5.6 % (2.0-12.0); NEUTROPHILS # (AUTO) 6.5 /CMM (1.8-8.9); NEUTROPHILS % (AUTO) 67.9 % (43.0-81.0); PLATELET COUNT (AUTO) 185 /CMM (150-450); RED BLOOD CELL COUNT(AUTO) 4.03 MIL/uL (4.5-6.0); WHITE BLOOD COUNT (AUTO) 9.6 K/uL (4.3-11.0)
[2020-05-22 04:54] LABS: CALCIUM, SERUM 8.6 mg/dL (8.5-10.1); CREATININE 0.9 mg/dL (0.6-1.3); MAGNESIUM 1.9 mg/dL (1.8-2.4); PHOSPHORUS 2.7 mg/dL (2.5-4.9); POTASSIUM 3.7 mmol/L (3.5-5.1)
[2020-05-22] MEDS: BLOOD SUGAR DIAGNOSTIC 1 EACH STRIP IN SCH ×3 (05:26→17:58)
[2020-05-22] MEDS: INSULIN REGULAR, HUMAN 100 UNIT/ML 3 ML VIAL SQ PRN (05:26)
[2020-05-22 05:33] LABS: ABG BASE EXCESS 2.8 mmol/L; ABG OXYGEN SATURATION 97.2 % (92.0-98.5); ABG PCO2 43.7 mmHg (35.0-45.0); ABG PH 7.419 (7.350-7.450); ABG PO2 103.7 mmHg (75.0-100.0); COHb 0.9 % (0.5-1.5); MetHb 0.4 % (0.0-1.5); O2Hb 95.9 % (94.0-97.0); PEEP,BG 5 cm H2O; SITE, ABG Right Radial; VENT MODE, BG AC 28 550 60% +5; VT, ABG 550 mL
--- NOTE | 2020-05-22 08:04 | NUR ---
WOUND CARE CONSULT: REVIEWED CHART,NURSING DOCUMENTATION AND PHOTOS, AND SPOKE WITH RN. PHOTOS INDICATE DEEP TISSUE INJURY IN EVOLUTION TO BILATERAL BUTTOCKS, TO INCLUDE INNER BUTTOCKS AREA AND MAY INCLUDE SACRUM. INCONTINENCE ASSOCIATED SKIN DAMAGE ALSO NOTED IN PHOTO. PT NOTED TO HAVE MULTIPLE CO-MORBIDITIES INCLUDING RESPIRATORY FAILURE (CURRENTLY INTUBATED), DIABETES, SEPSIS, ASTHMA, OBESITY AND BILATERAL PNEUMOTHORACES WITH CHEST TUBES. DUE TO MULTIPLE CO-MORBIDITIES, FURTHER SKIN BREAKDOWN MAY BE UNAVOIDABLE. DISCUSSED WOUND CARE AND SKIN PROTECTION WITH NURSING STAFF. PT IS ON FIRST STEP WILLI MARTINO. IN AGREEMENT WITH PLAN OF CARE.
[2020-05-22] MEDS: DOCUSATE SODIUM LIQ 100 MG/10 ML UDC NG SCH (08:11)
[2020-05-22] MEDS: PANTOPRAZOLE 40 MG/PACK PACK GT SCH ×2 (08:11→20:36)
[2020-05-22] MEDS: PROSOURCE / PROSTAT (PYXIS) 30 ML UDC GT SCH ×2 (08:11→17:03)
[2020-05-22] MEDS: GLUCERNA 1.2 1,000 ML BOTTLE NG PRN (18:01)
--- NOTE | 2020-05-22 19:30 | NUR ---
RN NOTES RECEIVED PATIENT IN BED INTUBATED SEDATED ON DIPRIVAN. VENT SETTING TOLERATING WELL ORDERED. TELE MONITOR READING SR IN 70'S. ON CONTACT AND DROPLET ISOLATION. F/C INTACT YELLOW URINE DARNING WELL VIA GRAVITY. SAFETY MEASURES IN PLACE, CALL LIGHT WITHIN REACH WILL CONT TO MONITOR FOR ROSELINE.
[2020-05-23] VITALS (25 sets, daily range): BP systolic 87–135; BP diastolic 52–88
[2020-05-23] MEDS: PROPOFOL 100 ML IV PRN ×7 (00:26→21:24)
[2020-05-23] MEDS: BLOOD SUGAR DIAGNOSTIC 1 EACH STRIP IN SCH ×4 (00:26→18:02)
[2020-05-23 04:26] LABS: BASOPHILS % (AUTO) 0.4 % (0.0-2.0); EOSINOPHILS % (AUTO) 10.5 % (0.0-6.0); HEMATOCRIT 35 % (39-51); HEMOGLOBIN 11.6 g/dL (13.5-17.5); LYMPHOCYTES # (AUTO) 1.7 /CMM (0.8-4.8); LYMPHOCYTES % (AUTO) 20.1 % (20.0-44.0); MEAN CORPUSCULAR HGB CONC 33 g/dl (31.0-36.0); MEAN CORPUSCULAR VOLUME 87 fL (80-96); MONOCYTES # (AUTO) 0.5 /CMM (0.1-1.30); MONOCYTES % (AUTO) 5.6 % (2.0-12.0); NEUTROPHILS # (AUTO) 5.2 /CMM (1.8-8.9); NEUTROPHILS % (AUTO) 63.4 % (43.0-81.0); PLATELET COUNT (AUTO) 201 /CMM (150-450); RED BLOOD CELL COUNT(AUTO) 4.06 MIL/uL (4.5-6.0); WHITE BLOOD COUNT (AUTO) 8.2 K/uL (4.3-11.0)
[2020-05-23 04:34] LABS: CALCIUM, SERUM 8.7 mg/dL (8.5-10.1); CREATININE 0.8 mg/dL (0.6-1.3); MAGNESIUM 2.1 mg/dL (1.8-2.4); POTASSIUM 3.7 mmol/L (3.5-5.1)
--- NOTE | 2020-05-23 07:49 | NUR ---
REPORT GIVEN TO AM NURSE NO CHANGES NOTED DURING SHIFT.REMAINED SEDATED AND INTUBATED. VENT SETTING TOLERATING WELL ORDERED. IV LINES INTACT PATENT FLUSHING WELL. SAFETY MAINTAINED. CALL LIGHT WITHIN REACH.
[2020-05-23] MEDS: DOCUSATE SODIUM LIQ 100 MG/10 ML UDC NG SCH (08:28)
[2020-05-23] MEDS: PANTOPRAZOLE 40 MG/PACK PACK GT SCH ×2 (08:28→21:16)
[2020-05-23] MEDS: PROSOURCE / PROSTAT (PYXIS) 30 ML UDC GT SCH ×2 (08:29→16:30)
[2020-05-23 12:43] LABS: C-REACTIVE PROTEIN 16.3 mg/dL (0.0-0.9)
[2020-05-23] MEDS: ACETAMINOPHEN 650 MG/20.3 ML UDC NG PRN ×2 (13:00→23:27)
[2020-05-23] MEDS: IV NS 0.9% 250 ML IV PRN (15:09)
--- NOTE | 2020-05-23 19:30 | NUR ---
RN NOTES RECEIVED PATIENT NON VERBAL ORALLY INTUBATED ON FULL VENT SUPPORT. SEDATED ON DIPRIVAN GTT AT 60MCG INFUSING VIA BUBBA MIDLINE INTACT, TELE MONITOR SR. F/C DARNING WELL TO GRAVITY. BILATERAL CHEST TUBES IN PLACE. NO S/S OF ACUTE DISTRESS NOTED. SAFETY MEASURES IN PLACE, CALL LIGHT WITHIN REACH. WILL CONT TO MONITOR FOR ROSELINE.
--- NOTE | 2020-05-23 20:25 | NUR ---
RT NOTE PT RECEIVED INTUBATED WITH 8.0 ET TUBE @ 24 CM. AMBU BAG @ HOB. SX DONE, ET TUBE SECURED AND PATENT. BILATERAL CHEST RISE. VENT PLUGGED TO RED OUTLET. ALARMS ON AND AUDIBLE. NO DISTRESS NOTED AT THIS TIME. WILL CONTINUE TO MONITOR T/O SHIFT. Addendum: 05/23/20 at 2024 by ANTONI XIONG RT Amended: Links added.
[2020-05-24] VITALS (25 sets, daily range): BP systolic 82–121; BP diastolic 33–77
[2020-05-24] MEDS: PROPOFOL 100 ML IV PRN ×9 (00:02→23:45)
[2020-05-24] MEDS: BLOOD SUGAR DIAGNOSTIC 1 EACH STRIP IN SCH ×4 (00:02→18:49)
--- NOTE | 2020-05-24 02:00 | NUR ---
NO DISTRESS NOTED TURNING REPOSITIONING TOLERATED. KEPT CLEAN DRY AND COMFORTABLE.
--- NOTE | 2020-05-24 03:00 | NUR ---
PT REMAINED ON SAME VENT SETTING TOLERATED WELL.WILL CONTINUE TO MONITOR
[2020-05-24 04:20] LABS: BASOPHILS % (AUTO) 0.3 % (0.0-2.0); EOSINOPHILS % (AUTO) 7.5 % (0.0-6.0); HEMATOCRIT 33 % (39-51); LYMPHOCYTES # (AUTO) 1.6 /CMM (0.8-4.8); LYMPHOCYTES % (AUTO) 16.3 % (20.0-44.0); MEAN CORPUSCULAR HGB CONC 33 g/dl (31.0-36.0); MEAN CORPUSCULAR VOLUME 87 fL (80-96); MONOCYTES # (AUTO) 0.6 /CMM (0.1-1.30); MONOCYTES % (AUTO) 6.3 % (2.0-12.0); NEUTROPHILS # (AUTO) 6.7 /CMM (1.8-8.9); NEUTROPHILS % (AUTO) 69.6 % (43.0-81.0); PLATELET COUNT (AUTO) 227 /CMM (150-450); RED BLOOD CELL COUNT(AUTO) 3.81 MIL/uL (4.5-6.0); WHITE BLOOD COUNT (AUTO) 9.6 K/uL (4.3-11.0)
[2020-05-24 04:27] LABS: CALCIUM, SERUM 9.3 mg/dL (8.5-10.1); CREATININE 0.9 mg/dL (0.6-1.3); MAGNESIUM 2.1 mg/dL (1.8-2.4); PHOSPHORUS 4.6 mg/dL (2.5-4.9); POTASSIUM 4.3 mmol/L (3.5-5.1)
--- NOTE | 2020-05-24 07:15 | NUR ---
PT SEDATED W HOB ELEVATED. VENT SETTINGS ORDERED. TOLERATING W SAO2 90S. SR ON TELE 80-90S. SKIN WARM FLUSHED. NO SIGNS OF DISTRESS. NGT FLUSHED AND AUSCULTATED BEFORE EACH FLUSH AND EMPLOYEE COMMUNICATIONS SPECIALIST. PATEL INTACT W NO KINKS. WOUND CARE CARRIED OUT ORDERED. GLUCERNA RUNNING ORDERED. RO MIDLINE AND BUBBA PICCLINE FLUSHED AND DRESSING DRY INTACT. NO SIGNS OF INTILTRATION. DIPRIVAN RUNNING ORDERED. TITRATED ORDERED. ENDORSED PLAN OF CARE TO PM RN. ALL HOSPITAL POLICY SAFETY PRECAUTIONS IMPLEMENTED. RAILS UPX2, HOB ELEVATED 30 DEGREES, BED LOW, LOCKED. Addendum: 05/24/20 at 2014 by SIMI CARTER RN INCORRECT TIME
[2020-05-24] MEDS: PROSOURCE / PROSTAT (PYXIS) 30 ML UDC GT SCH ×2 (08:32→17:52)
[2020-05-24] MEDS: PANTOPRAZOLE 40 MG/PACK PACK GT SCH ×2 (08:32→21:33)
[2020-05-24] MEDS: DOCUSATE SODIUM LIQ 100 MG/10 ML UDC NG SCH (08:32)
[2020-05-24 14:16] LABS: C-REACTIVE PROTEIN 18.2 mg/dL (0.0-0.9)
--- NOTE | 2020-05-24 19:15 | NUR ---
PT SEDATED W HOB ELEVATED. VENT SETTINGS ORDERED. SAO2 85-95%. NO SIGNS OF DISTRESS NOTED. ST 100-130S ON TELE. OGT 60 CM AT THE LIP. AUSCULTATED FOR PLACEMENT AND CHECKED RESIDUALS BEFORE EACH FLUSH AND GROCERY STORE MANAGER. PATEL INTACT DRAINING DARK YELLOW URINE. BUBBA MIDLINE AND RAC FLUSHED AND DRESSING INTACT. NO SIGNS OF INFILTRATION. ORDERED MEDICATIONS TITRATED ORDERED BY MD. PT VS MONITORED Q15MIN AND NEEDED. REPORTED TO MD NEEDED THROUGHOUT THE SHIFT. LABS MONITORED NEEDED. FAMILY AWARE OF PT STATUS. MD AWARE OF PT STATUS. TURNED Q2H AND REPOSITIONED. ENDORSED PLAN OF CARE TO PM RN. ALL HOSPITAL POLICY SAFETY PRECAUTIONS IMPLEMENTED. RAILS UPX2, HOB ELEVATED 30 DEGREES, BED LOW, LOCKED. Addendum: 05/24/20 at 2018 by SIMI CARTER RN TURNED Q2H AND REPOSITIONED. ELEVATED EXTREMITIES.
[2020-05-24] MEDS: GLUCERNA 1.2 1,000 ML BOTTLE NG PRN (22:22)
[2020-05-24] MEDS: ACETAMINOPHEN 650 MG/20.3 ML UDC NG PRN (23:44)
[2020-05-25] VITALS (24 sets, daily range): BP systolic 90–115; BP diastolic 53–65
[2020-05-25] MEDS: BLOOD SUGAR DIAGNOSTIC 1 EACH STRIP IN SCH ×5 (00:24→22:00)
[2020-05-25] MEDS: PROPOFOL 100 ML IV PRN ×7 (01:34→16:35)
[2020-05-25 05:20] LABS: BASOPHILS % (AUTO) 0.4 % (0.0-2.0); EOSINOPHILS % (AUTO) 8.4 % (0.0-6.0); HEMATOCRIT 34 % (39-51); HEMOGLOBIN 11.2 g/dL (13.5-17.5); LYMPHOCYTES # (AUTO) 1.7 /CMM (0.8-4.8); LYMPHOCYTES % (AUTO) 18.3 % (20.0-44.0); MEAN CORPUSCULAR HGB CONC 33 g/dl (31.0-36.0); MEAN CORPUSCULAR VOLUME 87 fL (80-96); MONOCYTES # (AUTO) 0.6 /CMM (0.1-1.30); MONOCYTES % (AUTO) 6.8 % (2.0-12.0); NEUTROPHILS # (AUTO) 6.1 /CMM (1.8-8.9); NEUTROPHILS % (AUTO) 66.1 % (43.0-81.0); PLATELET COUNT (AUTO) 221 /CMM (150-450); RED BLOOD CELL COUNT(AUTO) 3.88 MIL/uL (4.5-6.0); WHITE BLOOD COUNT (AUTO) 9.3 K/uL (4.3-11.0)
[2020-05-25 05:56] LABS: ABG BASE EXCESS 3.8 mmol/L; ABG OXYGEN SATURATION 97.4 % (92.0-98.5); ABG PCO2 51.3 mmHg (35.0-45.0); ABG PH 7.381 (7.350-7.450); ABG PO2 99.3 mmHg (75.0-100.0); AaDO2 272.1 mmHg; COHb 1.1 % (0.5-1.5); MetHb 0.3 % (0.0-1.5); PEEP,BG 5 cm H2O; SITE, ABG Right Brachial; VENT MODE, BG AC 28 550 60% +5; VT, ABG 550 mL
[2020-05-25 05:59] LABS: ALBUMIN 1.7 g/dL (3.4-5.0); BILIRUBIN,TOTAL 0.6 mg/dL (0.2-1.0); CALCIUM, SERUM 9.5 mg/dL (8.5-10.1); MAGNESIUM 2.2 mg/dL (1.8-2.4); PHOSPHORUS 4.4 mg/dL (2.5-4.9); POTASSIUM 3.9 mmol/L (3.5-5.1); TOTAL PROTEIN, SERUM 6.8 g/dL (6.4-8.2)
--- NOTE | 2020-05-25 07:30 | NUR ---
ICU OPENING NOTES RECEIVED PATIENT INTUBATED AND SEDATED ON DIPRIVAN @60MCG. BUBBA MIDLINE INTACT AND PATENT. ON FULL VENT SUPPORT. TELE MONITOR SR. PATEL CATH IN PLACE. BILATERAL CHEST TUBES IN PLACE. NO S/S OF ACUTE DISTRESS NOTED. SAFETY MEASURES IN PLACE. CALL LIGHT WITHIN REACH. BED LOCKED AND AT LOWEST POSITION. WILL CONTINUE TO MONITOR
[2020-05-25] MEDS: DOCUSATE SODIUM LIQ 100 MG/10 ML UDC NG SCH (08:57)
[2020-05-25] MEDS: PANTOPRAZOLE 40 MG/PACK PACK GT SCH ×2 (08:57→21:25)
[2020-05-25] MEDS: PROSOURCE / PROSTAT (PYXIS) 30 ML UDC GT SCH ×2 (08:57→16:56)
[2020-05-25] MEDS: MIDAZOLAM HCL 100 MG in IV NS 0.9% 80 ML IV PRN (16:07)
[2020-05-25] MEDS: FENTANYL CITRAT IV 2,500 MCG in IV NS 0.9% 200 ML IV PRN (16:09)
[2020-05-25] MEDS ORDERED: LORAZEPAM INJ 2 MG/ML VIAL IV ONE (16:30)
--- NOTE | 2020-05-25 19:33 | NUR ---
SURVEYOR'S ASSISTANT TEMP 100.2 WILL ADMNISTER ISMAEL.
[2020-05-25] MEDS: ACETAMINOPHEN 650 MG/20.3 ML UDC NG PRN (19:38)
--- NOTE | 2020-05-25 20:35 | NUR ---
ICU CLOSING NOTES PATIENT INTUBATED AND SEDATED ON FENTANYL @1 MCG AND VERSED @3 MCG. BUBBA MIDLINE INTACT AND PATENT. ON FULL VENT SUPPORT. TELE MONITOR SR. PATEL CATH IN PLACE. BILATERAL CHEST TUBES IN PLACE. NO S/S OF ACUTE DISTRESS NOTED. SAFETY MEASURES IN PLACE. CALL LIGHT WITHIN REACH. BED LOCKED AND AT LOWEST POSITION. WILL ENDORSE TO NIGHT NURSE FOR ROSELINE
[2020-05-26] VITALS (25 sets, daily range): BP systolic 97–121; BP diastolic 52–72
[2020-05-26] MEDS: BLOOD SUGAR DIAGNOSTIC 1 EACH STRIP IN SCH ×4 (00:37→18:21)
[2020-05-26 04:52] LABS: BASOPHILS % (AUTO) 0.4 % (0.0-2.0); EOSINOPHILS % (AUTO) 7.1 % (0.0-6.0); HEMATOCRIT 34 % (39-51); HEMOGLOBIN 10.9 g/dL (13.5-17.5); LYMPHOCYTES # (AUTO) 1.7 /CMM (0.8-4.8); LYMPHOCYTES % (AUTO) 17.3 % (20.0-44.0); MEAN CORPUSCULAR HGB CONC 32 g/dl (31.0-36.0); MEAN CORPUSCULAR VOLUME 88 fL (80-96); MONOCYTES # (AUTO) 0.7 /CMM (0.1-1.30); MONOCYTES % (AUTO) 7.1 % (2.0-12.0); NEUTROPHILS # (AUTO) 6.5 /CMM (1.8-8.9); NEUTROPHILS % (AUTO) 68.1 % (43.0-81.0); PLATELET COUNT (AUTO) 218 /CMM (150-450); RED BLOOD CELL COUNT(AUTO) 3.84 MIL/uL (4.5-6.0); WHITE BLOOD COUNT (AUTO) 9.6 K/uL (4.3-11.0)
[2020-05-26 05:06] LABS: CALCIUM, SERUM 9.3 mg/dL (8.5-10.1); CREATININE 0.8 mg/dL (0.6-1.3); MAGNESIUM 2.1 mg/dL (1.8-2.4); PHOSPHORUS 3.9 mg/dL (2.5-4.9); POTASSIUM 3.8 mmol/L (3.5-5.1)
--- NOTE | 2020-05-26 06:00 | NUR ---
RN NOTES PATIENT REMAINS IN NO ACUTE RESPIRATORY DISTRESS AT THIS TIME, NO CHANGES TO CONDITION/STATUS. TAPE MAKER WELL AWARE. WILL CONTINUE TO MONITOR AND REASSESS FOR ANY CHANGES THROUGHOUT THE SHIFT Addendum: 05/27/20 at 0645 by ADAN AGUAYO RN ERROR PLEASE DISREGARD
[2020-05-26 06:30] LABS: ABG BASE EXCESS -0.3 mmol/L; ABG OXYGEN SATURATION 95.6 % (92.0-98.5); ABG PCO2 43.4 mmHg (35.0-45.0); ABG PH 7.378 (7.350-7.450); ABG PO2 83.6 mmHg (75.0-100.0); AaDO2 368.9 mmHg; COHb 1.1 % (0.5-1.5); MetHb 0.1 % (0.0-1.5); O2Hb 94.5 % (94.0-97.0); SITE, ABG Right Radial; VENT MODE, BG ac 28 550 70% +5
[2020-05-26] MEDS: PROSOURCE / PROSTAT (PYXIS) 30 ML UDC GT SCH ×2 (08:22→17:27)
[2020-05-26] MEDS: PANTOPRAZOLE 40 MG/PACK PACK GT SCH ×2 (08:23→20:54)
[2020-05-26] MEDS: DOCUSATE SODIUM LIQ 100 MG/10 ML UDC NG SCH (08:23)
[2020-05-26] MEDS: FENTANYL CITRAT IV 2,500 MCG in IV NS 0.9% 200 ML IV PRN ×2 (11:43→23:32)
[2020-05-26] MEDS: ACETAMINOPHEN 650 MG/20.3 ML UDC NG PRN ×2 (12:06→18:22)
[2020-05-26] MEDS: IV NS 0.9% 250 ML IV PRN (17:30)
[2020-05-26] MEDS: GLUCERNA 1.2 1,000 ML BOTTLE NG PRN (17:36)
--- NOTE | 2020-05-26 19:30 | NUR ---
ICU OPENING NOTES RECEIVED PATIENT;SEDATED WITH ONGOING VERSED INFUSION @ 4MCG AND FENTANYL @2MCG.MONITORED AND INFUSING PER PROTOCOL. PATIENT IN NO S/SX OF ACUTE DISTRESS AT THIS TIME. NO SOB NOTED. PATIENT'S BREATHING IS EVEN AND UNLABORED. PATIENT ON MECHANICAL VENT; SETTINGS PRESCRIBED; PT TOLERATED WELL. AMBU BAG AT BED SIDE ALARMS SET PER PROTOCOL AND AUDIBLE. VENT PLUGGED IN TO RED OUTLET. NO DISTRESS NOTED. NOTED NGT ON THE L; NARE IN PLACED. PLACEMENT VERIFIED WITH AUSCULTATION. NO RESIDUAL TAKEN AT THIS TIME. NOTED IV ACCESS R UA PICC; PATENT, INTACT AND FLUSHING WELL; NO S/S OF INFECTION OR INFILTRATION. PATEL CATH IN PLACE, MODERATE URINE OUTPUT NOTED. SAFETY MEASURES HAVE BEEN PROVIDED AND IMPLEMENTED. PATIENT BED ALARM IS ON. HEAD OF BED ELEVATED. BED IS LOCKED, IN LOWEST POSITION AND SIDE RAILS UP. CALL LIGHT WITHIN REACH OF THE PATIENT. APPLICABLE ISOLATION PRECAUTIONS IN PLACE. WILL CONTINUE TO MONITOR AND REASSESS FOR ANY CHANGES AND WILL CARRY OUT ANY ONGOING AND ACTIVE MD ORDER.
[2020-05-26] MEDS: FLUCONAZOLE (100 MG) 100 MG TABLET PO SCH (19:53)
--- NOTE | 2020-05-26 19:53 | NUR ---
RN NOTES RN CHECKED PLACEMENT of NG-TUBE (L NARE) , PLACEMENT VERIFIED AND CONFIRMED VIA AUSCULTATION. ADMINISTERED DUE MEDICATION SCHEDULED. WILL CONTINUE TO ASSESS AND MONITOR THROUGHOUT THE SHIFT.
[2020-05-26] MEDS: VANCOMYCIN 1 GM in IV D5W 250ml IV SCH (20:03)
[2020-05-26] MEDS: MEROPENEM 500 MG in IV NS 0.9% 50 ML IV SCH (20:54)
[2020-05-26] MEDS: MIDAZOLAM HCL 100 MG in IV NS 0.9% 80 ML IV PRN (21:35)
--- NOTE | 2020-05-26 22:00 | NUR ---
RN NOTES PATIENT REMAINS IN NO ACUTE RESPIRATORY DISTRESS AT THIS TIME, NO CHANGES TO CONDITION/STATUS. SPECIAL DEPUTY SHERIFF WELL AWARE. WILL CONTINUE TO MONITOR AND REASSESS FOR ANY CHANGES THROUGHOUT THE SHIFT
[2020-05-26 23:12] LABS: ABG BASE EXCESS 4.2 mmol/L; ABG OXYGEN SATURATION 83.9 % (92.0-98.5); ABG PCO2 68.9 mmHg (35.0-45.0); ABG PH 7.291 (7.350-7.450); ABG PO2 52.8 mmHg (75.0-100.0); AaDO2 591.3 mmHg; COHb 1.4 % (0.5-1.5); MetHb 0.2 % (0.0-1.5); O2Hb 82.6 % (94.0-97.0); SITE, ABG Left Radial; VENT MODE, BG AC 28 550 100%
--- NOTE | 2020-05-26 23:20 | NUR ---
STAT ABG DONE DUE TO LOW O2 SAT. PT IS ON 100% FIO2 AND PEEP OF 5. NOTIFIED RN WITH THE RESULT.
--- NOTE | 2020-05-26 23:43 | NUR ---
RATE CHANGED TO 32 AND PEEP TO 10 PER AICHA.
[2020-05-27] VITALS (25 sets, daily range): BP systolic 92–135; BP diastolic 55–68
[2020-05-27] MEDS: BLOOD SUGAR DIAGNOSTIC 1 EACH STRIP IN SCH ×4 (00:11→17:47)
[2020-05-27] MEDS: INSULIN REGULAR, HUMAN 100 UNIT/ML 3 ML VIAL SQ PRN ×2 (00:12→05:37)
--- NOTE | 2020-05-27 03:00 | NUR ---
RN NOTES PATIENT REMAINS IN NO ACUTE RESPIRATORY DISTRESS AT THIS TIME, NO CHANGES TO CONDITION/STATUS. CUSTOMER SERVICE SECURITY OFFICER WELL AWARE. WILL CONTINUE TO MONITOR AND REASSESS FOR ANY CHANGES THROUGHOUT THE SHIFT
[2020-05-27] MEDS: ACETAMINOPHEN 650 MG/20.3 ML UDC NG PRN ×3 (04:05→20:54)
--- NOTE | 2020-05-27 04:05 | NUR ---
RN NOTES NOTED PT'S TEMP 101.2@0400. PRN MED (TYLENOL) GIVEN AND COOLING MEASURES PROVIDED. JOB CAMPUZANO MADE AWARE. WILL RE-EVALUATE AFTER 30 MINUTES- 1 HOUR. WILL CONTINUE TO MONITOR Addendum: 05/27/20 at 0644 by ADAN AGUAYO RN RE- EVALUATED TEMP @ 0510 TEMP IS AT 98.9. JOB CAMPUZANO MADE AWARE. WILL CONTINUE TO MONITOR AND ASSES THROUGHOUT THE SHIFT.
[2020-05-27] MEDS: VANCOMYCIN 1 GM in IV D5W 250ml IV SCH ×3 (04:27→20:04)
[2020-05-27 04:58] LABS: BASOPHILS % (AUTO) 0.3 % (0.0-2.0); EOSINOPHILS % (AUTO) 5.6 % (0.0-6.0); HEMATOCRIT 34 % (39-51); LYMPHOCYTES # (AUTO) 1.8 /CMM (0.8-4.8); LYMPHOCYTES % (AUTO) 15.8 % (20.0-44.0); MEAN CORPUSCULAR HGB CONC 32 g/dl (31.0-36.0); MEAN CORPUSCULAR VOLUME 88 fL (80-96); MONOCYTES # (AUTO) 0.9 /CMM (0.1-1.30); NEUTROPHILS # (AUTO) 8.2 /CMM (1.8-8.9); NEUTROPHILS % (AUTO) 70.3 % (43.0-81.0); PLATELET COUNT (AUTO) 205 /CMM (150-450); RED BLOOD CELL COUNT(AUTO) 3.88 MIL/uL (4.5-6.0); WHITE BLOOD COUNT (AUTO) 11.7 K/uL (4.3-11.0)
[2020-05-27] MEDS: MEROPENEM 500 MG in IV NS 0.9% 50 ML IV SCH ×3 (04:58→21:02)
[2020-05-27 04:59] LABS: CALCIUM, SERUM 9.5 mg/dL (8.5-10.1); MAGNESIUM 2.1 mg/dL (1.8-2.4); PHOSPHORUS 3.3 mg/dL (2.5-4.9); POTASSIUM 4.6 mmol/L (3.5-5.1)
--- NOTE | 2020-05-27 06:58 | NUR ---
RN CLOSING NOTE: PATIENT REMAINS IN ROOM IN NO SIGNS OF RESPIRATORY DISTRESS. SAFETY MEASURES IMPLEMENTED, BED IN LOWEST POSITION, LOCKED, SIDE RAILS UP, CALL LIGHT WITHIN REACH. ALL NEEDS AND ORDERS ADDRESSED DURING THE SHIFT. IV ACCESS MAINTAINED INTACT, SECURED AND FLUSHING WELL. ALL DUE MEDS GIVEN ORDERED & SCHEDULED ; PATIENT TOLERATED WELL. PATIENT KEPT CLEAN AND COMFORTABLE WITHIN THE SHIFT. ENDORSED TO INCOMING SHIFT RN FOR CONTINUITY OF CARE.
[2020-05-27 08:28] LABS: ABG BASE EXCESS 0.4 mmol/L; ABG OXYGEN SATURATION 97.1 % (92.0-98.5); ABG PCO2 45.3 mmHg (35.0-45.0); ABG PH 7.375 (7.350-7.450); ABG PO2 96.6 mmHg (75.0-100.0); AaDO2 353.8 mmHg; COHb 1.1 % (0.5-1.5); MetHb 0.5 % (0.0-1.5); O2Hb 95.5 % (94.0-97.0); SITE, ABG Right Radial; VENT MODE, BG AC 32 550 70% +10
[2020-05-27] MEDS: DOCUSATE SODIUM LIQ 100 MG/10 ML UDC NG SCH (09:11)
[2020-05-27] MEDS: PROSOURCE / PROSTAT (PYXIS) 30 ML UDC GT SCH ×2 (09:11→16:11)
[2020-05-27] MEDS: FLUCONAZOLE (100 MG) 100 MG TABLET PO SCH (09:11)
[2020-05-27] MEDS: PANTOPRAZOLE 40 MG/PACK PACK GT SCH ×2 (09:11→20:27)
[2020-05-27 13:40] LABS: BILIRUBIN,URINE LARGE (NEGATIVE); LEUKOCYTE ESTERASE ,URINE NEGATIVE (NEGATIVE); NITRITE, URINE POSITIVE (NEGATIVE); PH,URINE 6.5 (5.0-8.0); PROTEIN,URINE 100 mg/dl (NEGATIVE); UGLUCOSE NEGATIVE (NEGATIVE)
[2020-05-27 13:42] LABS: COLOR,URINE DARK YELLOW (YELLOW)
[2020-05-27 13:45] LABS: BACTERIA,URINE Moderate /HPF (None Seen); RBC,URINE 0-2 /HPF (0-2); SQUAMOUS EPITHELIAL CELL,UR Rare /HPF (None Seen); WBC,URINE 0-2 /HPF (0-3)
[2020-05-27 13:46] LABS: FINE GRANULAR CASTS,URINE Few /LPF (None Seen)
[2020-05-27 13:47] LABS: URINE AMORPHOUS URATE Moderate /HPF (None Seen)
[2020-05-27] MEDS: FENTANYL CITRAT IV 2,500 MCG in IV NS 0.9% 200 ML IV PRN ×2 (13:54→23:21)
[2020-05-27] MEDS: MIDAZOLAM HCL 100 MG in IV NS 0.9% 80 ML IV PRN (14:37)
[2020-05-28] VITALS (34 sets, daily range): BP systolic 83–109; BP diastolic 45–68
[2020-05-28] MEDS: BLOOD SUGAR DIAGNOSTIC 1 EACH STRIP IN SCH ×4 (01:16→18:12)
[2020-05-28 04:06] LABS: BASOPHILS % (AUTO) 0.2 % (0.0-2.0); EOSINOPHILS % (AUTO) 9.7 % (0.0-6.0); HEMATOCRIT 34 % (39-51); LYMPHOCYTES # (AUTO) 2.3 /CMM (0.8-4.8); MEAN CORPUSCULAR HGB CONC 33 g/dl (31.0-36.0); MEAN CORPUSCULAR VOLUME 88 fL (80-96); MONOCYTES % (AUTO) 8.4 % (2.0-12.0); NEUTROPHILS # (AUTO) 7.2 /CMM (1.8-8.9); NEUTROPHILS % (AUTO) 61.7 % (43.0-81.0); PLATELET COUNT (AUTO) 197 /CMM (150-450); RED BLOOD CELL COUNT(AUTO) 3.82 MIL/uL (4.5-6.0); WHITE BLOOD COUNT (AUTO) 11.6 K/uL (4.3-11.0)
[2020-05-28 04:19] LABS: CALCIUM, SERUM 9.4 mg/dL (8.5-10.1); CREATININE 1.3 mg/dL (0.6-1.3); MAGNESIUM 2.2 mg/dL (1.8-2.4); PHOSPHORUS 4.6 mg/dL (2.5-4.9); POTASSIUM 4.7 mmol/L (3.5-5.1)
[2020-05-28] MEDS: VANCOMYCIN 1 GM in IV D5W 250ml IV SCH ×3 (04:32→20:54)
[2020-05-28] MEDS: MEROPENEM 500 MG in IV NS 0.9% 50 ML IV SCH ×3 (05:00→21:04)
--- NOTE | 2020-05-28 07:40 | NUR ---
ICU/RN PT IS INTUBATED ON THE VENT AC MODE,FIO2-50%.PEEP-10.SAT O2-95%.V/S STABLE,AFEBRILE.SEDATED WITH VERSED AND FENTANYL. HAS 2 CHEST TUBES,RIGHT AND LEFT.NG TUBE INFUSING WITH GLUCERNA AT 10 ML/HR,RIGHT UPPER ARM PICC LINE. F/C DRAINING WITH DARK GENE URINE.PT HAS LOWER BACK WOUND.ABDOMEN DISTENDED.GENERALIZED EDEMA PRESENT.
--- NOTE | 2020-05-28 09:00 | NUR ---
ICU/RN UNABLE TO PROVIDED SEDATION VACATION PT IS ON VERSED AND FENTANYL.SAT O2 DECREASED,PLACED ON 100%.FIO2.PEEP-10.2 CHEST TUBES. WITH AIR LEAK.PT IS NOT STABLE AT THIS TIME.
[2020-05-28 09:23] LABS: ABG BASE EXCESS 1.3 mmol/L; ABG OXYGEN SATURATION 91.3 % (92.0-98.5); ABG PCO2 50.5 mmHg (35.0-45.0); ABG PH 7.353 (7.350-7.450); ABG PO2 63.6 mmHg (75.0-100.0); AaDO2 236.1 mmHg; COHb 1.4 % (0.5-1.5); MetHb 0.3 % (0.0-1.5); O2Hb 89.7 % (94.0-97.0); PEEP,BG 10 cm H2O; SITE, ABG Right Radial; VENT MODE, BG AC 50%; VT, ABG 550 mL
[2020-05-28] MEDS: PANTOPRAZOLE 40 MG/PACK PACK GT SCH ×2 (09:30→21:04)
[2020-05-28] MEDS: DOCUSATE SODIUM LIQ 100 MG/10 ML UDC NG SCH (09:30)
[2020-05-28] MEDS: PROSOURCE / PROSTAT (PYXIS) 30 ML UDC GT SCH ×2 (09:30→16:34)
[2020-05-28] MEDS: FLUCONAZOLE (100 MG) 100 MG TABLET PO SCH (09:30)
[2020-05-28] MEDS: FENTANYL CITRAT IV 2,500 MCG in IV NS 0.9% 200 ML IV PRN ×2 (09:33→19:27)
[2020-05-28 13:23] LABS: C-REACTIVE PROTEIN 14.2 mg/dL (0.0-0.9)
[2020-05-28] MEDS: MIDAZOLAM HCL 100 MG in IV NS 0.9% 80 ML IV PRN (14:37)
--- NOTE | 2020-05-28 15:00 | NUR ---
ICU/RN PT RIGHT CHEST TUBE DISLODGE.REINSERTED BY DR NAVARRO.PT SAT O2 DECREASED TO 75%.MD NOTIFIED.PT PLACED TO FIO2-100%. CHEST X-RAY ORDERED.
--- NOTE | 2020-05-28 15:36 | NUR ---
100% fio2 due to 83% spo2 Addendum: 05/28/20 at 1536 by MARIPOSA NAVA RT Amended: Links added.
[2020-05-28] MEDS: ACETAMINOPHEN 650 MG/20.3 ML UDC NG PRN (18:12)
[2020-05-28] MEDS ORDERED: NOREPINEPHRINE 8MG/250ML RTU 250 ML IV ONE (22:40)
[2020-05-28] MEDS: NOREPINEPHRINE 8 MG in IV NS 0.9% 242 ML IV PRN (22:48)
[2020-05-29] VITALS (47 sets, daily range): BP systolic 81–155; BP diastolic 45–90
[2020-05-29] MEDS: BLOOD SUGAR DIAGNOSTIC 1 EACH STRIP IN SCH ×4 (00:56→17:51)
[2020-05-29] MEDS: VANCOMYCIN 1 GM in IV D5W 250ml IV SCH ×3 (04:00→20:00)
[2020-05-29 04:36] LABS: BASOPHILS % (AUTO) 0.3 % (0.0-2.0); EOSINOPHILS % (AUTO) 6.9 % (0.0-6.0); HEMATOCRIT 34 % (39-51); HEMOGLOBIN 10.9 g/dL (13.5-17.5); LYMPHOCYTES # (AUTO) 1.9 /CMM (0.8-4.8); LYMPHOCYTES % (AUTO) 12.9 % (20.0-44.0); MEAN CORPUSCULAR HGB CONC 32 g/dl (31.0-36.0); MEAN CORPUSCULAR VOLUME 88 fL (80-96); MONOCYTES # (AUTO) 1.2 /CMM (0.1-1.30); MONOCYTES % (AUTO) 7.8 % (2.0-12.0); NEUTROPHILS # (AUTO) 10.7 /CMM (1.8-8.9); NEUTROPHILS % (AUTO) 72.1 % (43.0-81.0); PLATELET COUNT (AUTO) 190 /CMM (150-450); RED BLOOD CELL COUNT(AUTO) 3.86 MIL/uL (4.5-6.0); WHITE BLOOD COUNT (AUTO) 14.8 K/uL (4.3-11.0)
[2020-05-29 04:53] LABS: CALCIUM, SERUM 9.3 mg/dL (8.5-10.1); CREATININE 1.4 mg/dL (0.6-1.3); MAGNESIUM 2.2 mg/dL (1.8-2.4); PHOSPHORUS 4.6 mg/dL (2.5-4.9); POTASSIUM 4.6 mmol/L (3.5-5.1)
[2020-05-29] MEDS ORDERED: NOREPINEPHRINE 4 MG/4 ML AMPUL IV ONE (05:21)
[2020-05-29] MEDS: MEROPENEM 500 MG in IV NS 0.9% 50 ML IV SCH ×3 (05:37→21:26)
[2020-05-29] MEDS: NOREPINEPHRINE 8 MG in IV NS 0.9% 242 ML IV PRN (05:45)
[2020-05-29] MEDS: ACETAMINOPHEN 650 MG/20.3 ML UDC NG PRN (05:54)
--- NOTE | 2020-05-29 07:27 | NUR ---
RECEIVED CALL FROM RADIOLOGY TALKED TO DUNG HERR PER BILATERAL PNEUMOTHORAX IS GETTING WORST. RT SIDE IS SAME LT SIDE IS GETTING LARGER AND TUBES NEEDS TO BE REPOSITIONED. MD NOTIFIED NNO AT THIS TIME. Addendum: 05/29/20 at 7550 by DIEGO CULP RN ENDORSE TO AM NURSE TO FOLLOW UP.
--- NOTE | 2020-05-29 08:13 | NUR ---
WOUND CARE FOLLOW UP: REVIEWED CHART, NURSING DOCUMENTATION AND PHOTOS WHICH INDICATE DEEP TISSUE INJURY IN EVOLUTION TO BUTTOCKS, INCLUDING GLUTEAL CREASE AND POSSIBLY INCLUDING SACRUM. COLOR IS RED AND PINK WITH SOME SEROUS DRAINAGE PER NURSING STAFF. PHOTO AND NURSING REPORT INDICATES INTACT DEEP TISSUE INJURY TO LEFT EAR. PT HAS MULTIPLE CO-MORBIDITIES INCLUDING RESPIRATORY FAILURE(CURRENTLY INTUBATED), COVID 19 INFECTION AND BILATERAL PNEUMOTHORACES WITH CHEST TUBES. DUE TO MULTIPLE CO-MORBIDITIES, FURTHER SKIN BREAKDOWN MAY BE UNAVOIDABLE. DISCUSSED SKIN PROTECTION AND WOUND CARE WITH NURSING STAFF. PT IS ON FIRST STEP [facility] LOW AIRLOSS MATTRESS.
[2020-05-29] MEDS: FENTANYL CITRAT IV 2,500 MCG in IV NS 0.9% 200 ML IV PRN ×2 (09:20→19:00)
[2020-05-29] MEDS: FLUCONAZOLE (100 MG) 100 MG TABLET PO SCH (10:24)
[2020-05-29] MEDS: PANTOPRAZOLE 40 MG/PACK PACK GT SCH ×2 (10:24→21:25)
[2020-05-29] MEDS: DOCUSATE SODIUM LIQ 100 MG/10 ML UDC NG SCH (10:24)
[2020-05-29] MEDS: PROSOURCE / PROSTAT (PYXIS) 30 ML UDC GT SCH ×2 (10:26→17:51)
[2020-05-29] MEDS: MIDAZOLAM HCL 100 MG in IV NS 0.9% 80 ML IV PRN (13:42)
--- NOTE | 2020-05-29 19:40 | NUR ---
RN NOTES, PT IS INTUBATED ON THE VENT AC MODE,TOLERATED CURRENT SETTINGS WELL, SEDATED WITH VERSED AND FENTANYL, 2 CHEST TUBES, RIGHT AND LEFT, NG TUBE IN PLACED, GTF ON HOLD FOR NOW, RIGHT UPPER ARM PICC LINE, F/C IN IN DARK GENE URINEBY GRAVITY, WILL CONTINUE TO MONITOR CLOSELY.
[2020-05-29 21:46] LABS: BILIRUBIN,URINE SMALL (NEGATIVE); COLOR,URINE DARK YELLOW (YELLOW); LEUKOCYTE ESTERASE ,URINE NEGATIVE (NEGATIVE); NITRITE, URINE NEGATIVE (NEGATIVE); PROTEIN,URINE TRACE mg/dl (NEGATIVE); UGLUCOSE NEGATIVE (NEGATIVE)
[2020-05-29 21:52] LABS: FINE GRANULAR CASTS,URINE Few /LPF (None Seen); URIC ACID CRYSTALS,URINE Many /HPF (None Seen); YEAST,URINE Many /HPF (None Seen)
[2020-05-29 21:53] LABS: BACTERIA,URINE Moderate /HPF (None Seen); SQUAMOUS EPITHELIAL CELL,UR Rare /HPF (None Seen)
[2020-05-29 21:58] LABS: CREATININE, URINE 120.3 MG/DL (30.0-125.0); URINE TOTAL PROTEIN 106.3 mg/dL (0-11.9)
[2020-05-29 22:48] LABS: EOSINOPHIL,URINE None Seen
[2020-05-30] VITALS (47 sets, daily range): BP systolic 90–126; BP diastolic 50–73
[2020-05-30] MEDS: BLOOD SUGAR DIAGNOSTIC 1 EACH STRIP IN SCH ×5 (00:58→23:37)
[2020-05-30] MEDS: INSULIN REGULAR, HUMAN 100 UNIT/ML 3 ML VIAL SQ PRN ×3 (00:59→23:39)
[2020-05-30] MEDS: VANCOMYCIN 1 GM in IV D5W 250ml IV SCH ×3 (03:29→23:35)
--- NOTE | 2020-05-30 03:30 | NUR ---
RN NOTES, VANCOMYCIN IN MY SHIFT NOT ADMINISTERED VANCO THROUGH 25 LAST NIGHT.
[2020-05-30] MEDS: MEROPENEM 500 MG in IV NS 0.9% 50 ML IV SCH ×3 (04:13→20:31)
[2020-05-30 04:41] LABS: BASOPHILS # (AUTO) 0.1 /CMM (0.0-0.2); BASOPHILS % (AUTO) 0.7 % (0.0-2.0); EOSINOPHILS % (AUTO) 24.5 % (0.0-6.0); HEMATOCRIT 30 % (39-51); HEMOGLOBIN 9.9 g/dL (13.5-17.5); LYMPHOCYTES # (AUTO) 1.6 /CMM (0.8-4.8); LYMPHOCYTES % (AUTO) 16.6 % (20.0-44.0); MEAN CORPUSCULAR HGB CONC 33 g/dl (31.0-36.0); MEAN CORPUSCULAR VOLUME 89 fL (80-96); MONOCYTES # (AUTO) 0.6 /CMM (0.1-1.30); MONOCYTES % (AUTO) 5.9 % (2.0-12.0); NEUTROPHILS # (AUTO) 5.2 /CMM (1.8-8.9); NEUTROPHILS % (AUTO) 52.3 % (43.0-81.0); PLATELET COUNT (AUTO) 164 /CMM (150-450); RED BLOOD CELL COUNT(AUTO) 3.36 MIL/uL (4.5-6.0); WHITE BLOOD COUNT (AUTO) 9.9 K/uL (4.3-11.0)
[2020-05-30 04:53] LABS: CALCIUM, SERUM 9.1 mg/dL (8.5-10.1); CREATININE 1.1 mg/dL (0.6-1.3); MAGNESIUM 2.1 mg/dL (1.8-2.4); PHOSPHORUS 3.5 mg/dL (2.5-4.9); POTASSIUM 4.3 mmol/L (3.5-5.1)
[2020-05-30] MEDS: FENTANYL CITRAT IV 2,500 MCG in IV NS 0.9% 200 ML IV PRN ×2 (04:58→15:11)
[2020-05-30 05:41] LABS: ABG BASE EXCESS 2.2 mmol/L; ABG OXYGEN SATURATION 92.6 % (92.0-98.5); ABG PCO2 50.1 mmHg (35.0-45.0); ABG PH 7.367 (7.350-7.450); ABG PO2 70.2 mmHg (75.0-100.0); COHb 0.7 % (0.5-1.5); MetHb 0.1 % (0.0-1.5); O2Hb 91.9 % (94.0-97.0); PEEP,BG 5 cm H2O; SITE, ABG Right Radial; VENT MODE, BG AC 30 550 70% +5; VT, ABG 550 mL
--- NOTE | 2020-05-30 07:38 | NUR ---
RN NOTES, PT IS INTUBATED ON THE VENT AC MODE,TOLERATED CURRENT SETTINGS WELL, SEDATED WITH VERSED AND FENTANYL, 2 CHEST TUBES, RIGHT AND LEFT, WITH MINIMAL DRAINAGE THROUGHOUT THE NIGHT, NG TUBE IN PLACED, GTF ON HOLD FOR NOW, RIGHT UPPER ARM PICC LINE, F/C IN IN DARK GENE URINE GRAVITY, OTHERWISE NO SIGNIFICANT CHANGE IN CONDITION DURING THROUGHOUT NIGHT, ENDORSED TO HOLA CAMPUZANO FOR CONTINUATION OF CARE.
[2020-05-30] MEDS: PANTOPRAZOLE 40 MG/PACK PACK GT SCH ×2 (08:20→20:31)
[2020-05-30] MEDS: DOCUSATE SODIUM LIQ 100 MG/10 ML UDC NG SCH (08:20)
[2020-05-30] MEDS: PROSOURCE / PROSTAT (PYXIS) 30 ML UDC GT SCH ×2 (08:20→17:20)
[2020-05-30] MEDS: FLUCONAZOLE (100 MG) 100 MG TABLET PO SCH (08:21)
[2020-05-30] MEDS: MIDAZOLAM HCL 100 MG in IV NS 0.9% 80 ML IV PRN (08:50)
[2020-05-30] MEDS: GLUCERNA 1.2 1,000 ML BOTTLE NG PRN (15:26)
[2020-05-30] MEDS: APIXABAN 5 MG TABLET PO SCH ×2 (15:26→17:24)
--- NOTE | 2020-05-30 20:02 | NUR ---
RN NOTES PATIENT IS INTUBATED ON VENT, TOLERATING SETTINGS WELL. O2 SAT 99%. SEDATED ON VERSED AND FENTANYL. WITH 2 CHEST TUBES RIGHT AND LEFT. NGTUBE IN PLACE WITH GLUCERNA 10ML/HR RUNNING. RIGHT UPPER ARM PICC LINE, PATENT AND INTACT. PATEL CATH IN PLACE WITH DARK GENE URINE DRAINING TO GRAVITY. BED LOCKED AND IN LOWEST POSITION. SAFETY MEASURES IMPLEMENTED. CALL LIGHT WITHIN REACH.
[2020-05-30] MEDS: IV NS 0.9% 1,000 ML IV PRN (20:28)
[2020-05-31] VITALS (46 sets, daily range): BP systolic 93–124; BP diastolic 49–73
[2020-05-31] MEDS: FENTANYL CITRAT IV 2,500 MCG in IV NS 0.9% 200 ML IV PRN ×4 (02:25→23:11)
[2020-05-31] MEDS: MIDAZOLAM HCL 100 MG in IV NS 0.9% 80 ML IV PRN ×2 (04:03→22:40)
[2020-05-31 04:28] LABS: BASOPHILS % (AUTO) 0.5 % (0.0-2.0); EOSINOPHILS % (AUTO) 20.8 % (0.0-6.0); HEMATOCRIT 31 % (39-51); LYMPHOCYTES # (AUTO) 1.3 /CMM (0.8-4.8); LYMPHOCYTES % (AUTO) 15.9 % (20.0-44.0); MEAN CORPUSCULAR HGB CONC 32 g/dl (31.0-36.0); MEAN CORPUSCULAR VOLUME 90 fL (80-96); MONOCYTES # (AUTO) 0.5 /CMM (0.1-1.30); MONOCYTES % (AUTO) 5.6 % (2.0-12.0); NEUTROPHILS # (AUTO) 4.7 /CMM (1.8-8.9); NEUTROPHILS % (AUTO) 57.2 % (43.0-81.0); PLATELET COUNT (AUTO) 157 /CMM (150-450); RED BLOOD CELL COUNT(AUTO) 3.47 MIL/uL (4.5-6.0); WHITE BLOOD COUNT (AUTO) 8.2 K/uL (4.3-11.0)
[2020-05-31] MEDS: MEROPENEM 500 MG in IV NS 0.9% 50 ML IV SCH ×2 (04:46→13:18)
[2020-05-31 04:56] LABS: CALCIUM, SERUM 9.3 mg/dL (8.5-10.1); CREATININE 0.9 mg/dL (0.6-1.3); POTASSIUM 3.9 mmol/L (3.5-5.1)
[2020-05-31] MEDS: BLOOD SUGAR DIAGNOSTIC 1 EACH STRIP IN SCH ×3 (06:28→17:58)
[2020-05-31] MEDS: INSULIN REGULAR, HUMAN 100 UNIT/ML 3 ML VIAL SQ PRN (06:28)
--- NOTE | 2020-05-31 07:45 | NUR ---
RN OPENING NOTES PATIENT IS INTUBATED ON VENT, TOLERATING SETTINGS WELL. O2 SAT 99%. SEDATED ON VERSED AND FENTANYL. WITH 2 CHEST TUBES RIGHT AND LEFT. NG TUBE IN PLACE WITH GLUCERNA 10ML/HR RUNNING, HEAD OF BED ELEVATED. RIGHT UPPER ARM PICC LINE, PATENT AND INTACT. PATEL CATH IN PLACE WITH DARK GENE URINE DRAINING TO GRAVITY. BED LOCKED AND IN LOWEST POSITION. ALL DUE MEDS GIVEN ORDERED. SAFETY MEASURES IMPLEMENTED. CALL LIGHT WITHIN REACH. WILL CONTINUE TO MONITOR
--- NOTE | 2020-05-31 08:03 | NUR ---
RN NOTES PATIENT IS INTUBATED ON VENT, TOLERATING SETTINGS WELL. O2 SAT 99%. SEDATED ON VERSED AND FENTANYL. WITH 2 CHEST TUBES RIGHT AND LEFT. NGTUBE IN PLACE WITH GLUCERNA 10ML/HR RUNNING, HEAD OF BED ELEVATED. RIGHT UPPER ARM PICC LINE, PATENT AND INTACT. PATEL CATH IN PLACE WITH DARK GENE URINE DRAINING TO GRAVITY. BED LOCKED AND IN LOWEST POSITION. ALL DUE MEDS GIVEN ORDERED. SAFETY MEASURES IMPLEMENTED. CALL LIGHT WITHIN REACH. ENDORSED TO ONCOMING SHIFT.
[2020-05-31 08:07] LABS: ABG OXYGEN SATURATION 96.6 % (92.0-98.5); ABG PCO2 48.7 mmHg (35.0-45.0); ABG PH 7.373 (7.350-7.450); ABG PO2 91.2 mmHg (75.0-100.0); COHb 0.8 % (0.5-1.5); MetHb 0.3 % (0.0-1.5); O2Hb 95.5 % (94.0-97.0); PEEP,BG 5 cm H2O; SITE, ABG Right Radial; VT, ABG 550 mL
[2020-05-31] MEDS: FLUCONAZOLE (100 MG) 100 MG TABLET PO SCH (08:54)
[2020-05-31] MEDS: DOCUSATE SODIUM LIQ 100 MG/10 ML UDC NG SCH (08:54)
[2020-05-31] MEDS: PANTOPRAZOLE 40 MG/PACK PACK GT SCH ×2 (08:54→23:04)
[2020-05-31] MEDS: APIXABAN 5 MG TABLET PO SCH (08:56)
[2020-05-31] MEDS: PROSOURCE / PROSTAT (PYXIS) 30 ML UDC GT SCH ×2 (08:57→16:16)
[2020-05-31] MEDS: IV NS 0.9% 1,000 ML IV PRN (12:01)
[2020-05-31] MEDS: VANCOMYCIN 1 GM in IV D5W 250ml IV SCH (15:47)
--- NOTE | 2020-05-31 19:05 | NUR ---
RN CLOSING NOTES PATIENT IS INTUBATED ON VENT, TOLERATING SETTINGS WELL. O2 SAT 99%. SEDATED ON VERSED AND FENTANYL. WITH 2 CHEST TUBES RIGHT AND LEFT. NGTUBE IN PLACE WITH GLUCERNA 10ML/HR RUNNING, HEAD OF BED ELEVATED. RIGHT UPPER ARM PICC LINE, PATENT AND INTACT. PATEL CATH IN PLACE WITH DARK GENE URINE DRAINING TO GRAVITY.CONSENT SIGNED FOR TRACH. BED LOCKED AND IN LOWEST POSITION. ALL DUE MEDS GIVEN ORDERED. SAFETY MEASURES IMPLEMENTED. CALL LIGHT WITHIN REACH.WILL ENDORSED TO PM SHIFT.
--- NOTE | 2020-05-31 21:22 | NUR ---
OTR DRIVER. INITIAL ASSESSMENT RECEIVED THE PT REST ON THE BED. ORALLY INTUBATED. SEDATED WITH VERSED AND FENTANYL. IVF NS 75ML/H. NGT FEEDING 10ML/H, FC PATENT. LAURENCE CHEST TUBE INTACT. HOB ELEVATED. RT UPPER ARM PICC LINE. HOB ELEVATED. WILL CONTINUE TO MONITOR VITALS.
[2020-06-01] VITALS (42 sets, daily range): BP systolic 93–122; BP diastolic 51–69
--- NOTE | 2020-06-01 01:10 | NUR ---
PEDIATRIC INTENSIVE PHYSICIAN. REMAINING SAME VENT SETTING TOLERATED WELL
[2020-06-01] MEDS: IV NS 0.9% 1,000 ML IV PRN (01:59)
[2020-06-01] MEDS: BLOOD SUGAR DIAGNOSTIC 1 EACH STRIP IN SCH ×5 (02:03→23:20)
[2020-06-01 05:18] LABS: BASOPHILS % (AUTO) 0.5 % (0.0-2.0); EOSINOPHILS % (AUTO) 19.3 % (0.0-6.0); HEMATOCRIT 30 % (39-51); HEMOGLOBIN 9.8 g/dL (13.5-17.5); LYMPHOCYTES # (AUTO) 2.1 /CMM (0.8-4.8); LYMPHOCYTES % (AUTO) 20.9 % (20.0-44.0); MEAN CORPUSCULAR HGB CONC 33 g/dl (31.0-36.0); MEAN CORPUSCULAR VOLUME 89 fL (80-96); MONOCYTES # (AUTO) 0.6 /CMM (0.1-1.30); MONOCYTES % (AUTO) 5.9 % (2.0-12.0); NEUTROPHILS # (AUTO) 5.4 /CMM (1.8-8.9); NEUTROPHILS % (AUTO) 53.4 % (43.0-81.0); PLATELET COUNT (AUTO) 180 /CMM (150-450); RED BLOOD CELL COUNT(AUTO) 3.36 MIL/uL (4.5-6.0); WHITE BLOOD COUNT (AUTO) 10.2 K/uL (4.3-11.0)
[2020-06-01 06:18] LABS: CALCIUM, SERUM 9.2 mg/dL (8.5-10.1); MAGNESIUM 1.9 mg/dL (1.8-2.4); PHOSPHORUS 4.1 mg/dL (2.5-4.9); POTASSIUM 4.4 mmol/L (3.5-5.1)
[2020-06-01] MEDS: ACETAMINOPHEN 650 MG/20.3 ML UDC NG PRN (06:28)
--- NOTE | 2020-06-01 07:32 | NUR ---
agricultural adviser. temp 101. tylenol given per ordered rt side chest tube 100ml. lt side chest tube 100ml.
--- NOTE | 2020-06-01 07:45 | NUR ---
RN OPENING NOTES PATIENT IS INTUBATED ON VENT, TOLERATING SETTINGS WELL. O2 SAT 99%. SEDATED ON VERSED AND FENTANYL. WITH 2 CHEST TUBES RIGHT AND LEFT. NGTUBE IN PLACE WITH GLUCERNA 10ML/HR RUNNING, HEAD OF BED ELEVATED. RIGHT UPPER ARM PICC LINE, PATENT AND INTACT. PATEL CATH IN PLACE WITH DARK GENE URINE DRAINING TO GRAVITY.VERSED@ 5 MCG AND FENTANYL 2 MCG RUNNING .BED LOCKED AND IN LOWEST POSITION. SAFETY MEASURES IMPLEMENTED. CALL LIGHT WITHIN REACH.WILL CONTINUE OF CARE
[2020-06-01] MEDS: FLUCONAZOLE (100 MG) 100 MG TABLET PO SCH (08:36)
[2020-06-01] MEDS: PANTOPRAZOLE 40 MG/PACK PACK GT SCH ×2 (08:36→22:15)
[2020-06-01] MEDS: PROSOURCE / PROSTAT (PYXIS) 30 ML UDC GT SCH ×2 (08:37→17:39)
[2020-06-01] MEDS: DOCUSATE SODIUM LIQ 100 MG/10 ML UDC NG SCH (08:39)
--- NOTE | 2020-06-01 09:02 | NUR ---
RN NOTES' PT HAS FEVER OF 99.1 . COOLING MEASURES ARE IMPLEMENTED
[2020-06-01] MEDS: FENTANYL CITRAT IV 2,500 MCG in IV NS 0.9% 200 ML IV PRN ×2 (09:13→20:59)
[2020-06-01] MEDS: MIDAZOLAM HCL 100 MG in IV NS 0.9% 80 ML IV PRN (10:53)
[2020-06-01] MEDS: APIXABAN 5 MG TABLET PO SCH ×2 (13:44→17:40)
--- NOTE | 2020-06-01 19:45 | NUR ---
RN CLOSING NOTES PATIENT IS INTUBATED ON VENT, TOLERATING SETTINGS WELL. O2 SAT 99%. SEDATED ON VERSED AND FENTANYL. WITH 2 CHEST TUBES RIGHT AND LEFT. NGTUBE IN PLACE WITH GLUCERNA 10ML/HR RUNNING, HEAD OF BED ELEVATED. RIGHT UPPER ARM PICC LINE, PATENT AND INTACT. PATEL CATH IN PLACE WITH DARK GENE URINE DRAINING TO GRAVITY.VERSED@ 5 MCG AND FENTANYL 2 MCG RUNNING .BED LOCKED AND IN LOWEST POSITION. SAFETY MEASURES IMPLEMENTED. CALL LIGHT WITHIN REACH.WILL ENDORSE TO PM NURSE FOR ROSELINE
--- NOTE | 2020-06-01 20:00 | NUR ---
RN NOTES RECEIVED PT IN BED, INTUBATED. TOLERATING VENT SETTINGS O2 SAT AT 97 %. NO DISTRESS NOTED. NGT IN PLACE ON LEFT NARE. NG FEEDING GLUCERNA RUNNING AT 10 ML/HR TOLERATING WELL. WITH RIGHT AND LEFT CHEST TUBES IN PLACE. DRESSINGS INTACT. RIGHT UPPER ARM PICC LINE PATENT AND INTACT. VERSED RUNNING AT 7MG/HR AND FENTANYL AT 2MCG/KG/MIN. NO SIGNS OF INFILTRATION NOTED. KEPT HOB ELEVATED. ALL SAFETY MEASURES IMPLEMENTED PER PROTOCOL. BED LOCKED IN LOWEST POSITION. SIDE RAILS UP X 2.
[2020-06-01] MEDS: MICAFUNGIN SODIUM 100 MG in IV NS 0.9% 100 ML IV SCH (22:15)
[2020-06-02] VITALS (47 sets, daily range): BP systolic 100–130; BP diastolic 57–80
[2020-06-02] MEDS: MIDAZOLAM HCL 100 MG in IV NS 0.9% 80 ML IV PRN ×2 (00:21→14:29)
[2020-06-02 05:23] LABS: BASOPHILS # (AUTO) 0.1 /CMM (0.0-0.2); BASOPHILS % (AUTO) 0.6 % (0.0-2.0); EOSINOPHILS % (AUTO) 12.9 % (0.0-6.0); HEMATOCRIT 30 % (39-51); HEMOGLOBIN 9.6 g/dL (13.5-17.5); LYMPHOCYTES # (AUTO) 1.3 /CMM (0.8-4.8); LYMPHOCYTES % (AUTO) 11.7 % (20.0-44.0); MEAN CORPUSCULAR HGB CONC 32 g/dl (31.0-36.0); MEAN CORPUSCULAR VOLUME 89 fL (80-96); MONOCYTES # (AUTO) 0.5 /CMM (0.1-1.30); NEUTROPHILS # (AUTO) 7.5 /CMM (1.8-8.9); NEUTROPHILS % (AUTO) 69.8 % (43.0-81.0); PLATELET COUNT (AUTO) 188 /CMM (150-450); RED BLOOD CELL COUNT(AUTO) 3.36 MIL/uL (4.5-6.0); WHITE BLOOD COUNT (AUTO) 10.8 K/uL (4.3-11.0)
[2020-06-02 05:54] LABS: CREATININE 0.8 mg/dL (0.6-1.3); MAGNESIUM 1.8 mg/dL (1.8-2.4); PHOSPHORUS 3.9 mg/dL (2.5-4.9); POTASSIUM 3.9 mmol/L (3.5-5.1)
[2020-06-02] MEDS: BLOOD SUGAR DIAGNOSTIC 1 EACH STRIP IN SCH ×4 (06:50→23:31)
[2020-06-02] MEDS: FENTANYL CITRAT IV 2,500 MCG in IV NS 0.9% 200 ML IV PRN ×2 (06:54→17:00)
--- NOTE | 2020-06-02 07:45 | NUR ---
RN NOTES PT REMAINS IN BED.INTUBATED AND SEDATED. TOLERATING VENT SETTINGS AC 30, TV 550 FIO2 50 % PEEP 5. NO RESP DISTRESS NOTED. LEFT NARE NGT IN PLACE AND PATENT. NG FEEDING GLUCERNA RUNNING AT 10 ML/HR TOLERATING WELL.NO SIGNS OF ASPIRATION NOTED. WITH RIGHT AND LEFT CHEST TUBES IN PLACE WITH NO OUTPUT NOTED. BUBBA PICC LINE PATENT AND INTACT, FLUSHED. VERSED STILL RUNNING AT 7MG/HR AND FENTANYL AT 2MCG/KG/MIN, INFUSING WELL. NO SIGNS OF INFILTRATION NOTED. KEPT HOB ELEVATED. SIDE RAILS UP. -WILL ENDORSE TO NEXT SHIFT NURSE FOR ROSELINE.
--- NOTE | 2020-06-02 08:00 | NUR ---
JAVA ARCHITECT NOTES REPORT GIVEN @ 0745 @ 0800 RECEIVED PATIENT SEDATED , RESPONSIVE TO PAIN STIMULI , NOT IN ACUTE DISTRESS , RESPIRATIONS EVEN AND UNLABORED WITH SPO2 OF 95% VIA MECHANICAL VENT SETTINGS ORDERED , ETT 8.0/[address] , SR 85 ON BEDSIDE MONITOR , FC DRAINING VIA GRAVITY , LEFT NGT PATENT AND INTACT WITH GLUCERNA @ 10ML/HR TOLERATING WELL WITH NO RESIDUALS , BUBBA PICC LINE WITH VERSED @ 7MG/HR , FENTANYL @ 2MCG/KG/MIN INFUSING WELL , LEFT CHEST TUBE INTACT NO LEAK OR CONTINIOUS BUBBLING , RIGHT CHEST TUBE NOTED WITH CONTINUOUS BUBLING , INTACT ATTACHED TO -20MMG SUCTION , ALL NEEDS ATTENDED , WILL CONTINUE TO MONITOR.
--- NOTE | 2020-06-02 09:00 | NUR ---
LOFT WORKER PILE DRIVING NOTES SEEN AND EVALUATED BY DR BO, DISCUSSED LABS , CHEST XRAY , CURRENT VENT SETTINGS , NO PRESSORS , SEDATED WITH VERSED @ 7MG/HR , FENTANYL @ 2MCG/KG/MIN , TOLERATING GT FEEDING , RIGHT CHEST TUBE NOTED WITH CONTINUOUS BUBBLING NO OUTPUT NOTED , LEFT SIDED CHEST TUBE NO BUBBLING NO OUTPUT , PT AFEBRILE , PER MD PT IS SCHEDULED FOR TRACH PLACEMENT ON THURSDAY , CAN HOLD ELIQUIS TOMORROW , .
[2020-06-02] MEDS: DOCUSATE SODIUM LIQ 100 MG/10 ML UDC NG SCH (09:18)
[2020-06-02] MEDS: PANTOPRAZOLE 40 MG/PACK PACK GT SCH ×2 (09:18→20:37)
[2020-06-02] MEDS: PROSOURCE / PROSTAT (PYXIS) 30 ML UDC GT SCH ×2 (09:18→17:05)
[2020-06-02] MEDS: APIXABAN 5 MG TABLET PO SCH ×2 (09:19→17:06)
--- NOTE | 2020-06-02 19:07 | NUR ---
TORPEDO WORKER NOTES PATIENT STABLE AT THIS TIME , SEDATED , RESPONSIVE TO PAIN STIMULI , NOT IN ACUTE DISTRESS , RESPIRATIONS EVEN AND UNLABORED WITH SPO2 OF 95% VIA MECHANICAL VENT SETTINGS ORDERED , ETT 8.0/[address] , SR 75 ON BEDSIDE MONITOR , FC DRAINING VIA GRAVITY , LEFT NGT PATENT AND INTACT WITH GLUCERNA @ 10ML/HR TOLERATING WELL WITH NO RESIDUALS , BUBBA PICC LINE WITH VERSED @ 7MG/HR , FENTANYL @ 2MCG/KG/MIN INFUSING WELL , LEFT CHEST TUBE INTACT NO LEAK OR CONTINIOUS BUBBLING DRAINED 40ML SEROUS OUTPUT , RIGHT CHEST TUBE NOTED WITH CONTINUOUS BUBLING , INTACT DRAINED WITH 10ML SEROUS OUTPUT ATTACHED TO -20MMG SUCTION , ALL NEEDS ATTENDED , REPORT GIVEN TO JEANINE FOR CONTINUITY OF CARE
--- NOTE | 2020-06-02 19:30 | NUR ---
RN NOTES RECEIVED PT IN BED, INTUBATED. TOLERATING VENT SETTINGS O2 SAT AT 97 %. NO DISTRESS NOTED. NGT IN PLACE ON LEFT NARE. NG FEEDING GLUCERNA RUNNING AT 10 ML/HR.NO SIGNS OF INFILTRATION. WITH RIGHT AND LEFT CHEST TUBES IN PLACE. RIGHT CHEST TUBE WITH CONTINUOUS BUBBLING .CHEST TUBES DRESSINGS CLEAN DRY AND INTACT. RIGHT UPPER ARM PICC LINE PATENT AND INTACT. VERSED RUNNING AT 7MG/HR AND FENTANYL AT 2MCG/KG/MIN.BOTH INFUSING WELL. NO SIGNS OF INFILTRATION NOTED. PATEL CATH IN PLACE WITH TEA COLORED URINE OUTPUT. KEPT HOB ELEVATED. ALL SAFETY MEASURES IMPLEMENTED PER PROTOCOL. BED LOCKED IN LOWEST POSITION. SIDE RAILS UP X 2.
[2020-06-02] MEDS: MICAFUNGIN SODIUM 100 MG in IV NS 0.9% 100 ML IV SCH (20:23)
[2020-06-03] VITALS (35 sets, daily range): BP systolic 93–126; BP diastolic 50–75
[2020-06-03] MEDS: FENTANYL CITRAT IV 2,500 MCG in IV NS 0.9% 200 ML IV PRN ×3 (02:16→20:30)
--- NOTE | 2020-06-03 03:21 | NUR ---
RT NOTE ADVANCED ET TUBE TO 25 CM PER ORDER. PT TOLERATING WELL. Addendum: 06/03/20 at 0321 by ANTONI XIONG RT Amended: Links added.
[2020-06-03] MEDS: MIDAZOLAM HCL 100 MG in IV NS 0.9% 80 ML IV PRN ×2 (03:27→16:03)
[2020-06-03] MEDS: ACETAMINOPHEN 650 MG/20.3 ML UDC NG PRN ×2 (03:50→09:58)
--- NOTE | 2020-06-03 04:00 | NUR ---
RN NOTE PT NOTED WITH ELEVATED TEMP OF 100.9. ACETAMINOPHEN GIVE VIA NGT. COOLING MEASURES APPLIED. WILL CONTINUE TO MONITOR.
[2020-06-03 05:31] LABS: ABG BASE EXCESS 2.2 mmol/L; ABG OXYGEN SATURATION 98.7 % (92.0-98.5); ABG PCO2 46.4 mmHg (35.0-45.0); ABG PH 7.393 (7.350-7.450); AaDO2 371.7 mmHg; COHb 0.4 % (0.5-1.5); MetHb 0.2 % (0.0-1.5); O2Hb 98.1 % (94.0-97.0); PEEP,BG 5 cm H2O; SITE, ABG Right Radial; VENT MODE, BG AC 30 550 50% +5; VT, ABG 550 mL
[2020-06-03] MEDS: BLOOD SUGAR DIAGNOSTIC 1 EACH STRIP IN SCH ×3 (06:29→17:27)
[2020-06-03 06:31] LABS: BASOPHILS % (AUTO) 0.4 % (0.0-2.0); CALCIUM, SERUM 9.1 mg/dL (8.5-10.1); CREATININE 0.9 mg/dL (0.6-1.3); EOSINOPHILS % (AUTO) 12.7 % (0.0-6.0); HEMATOCRIT 30 % (39-51); HEMOGLOBIN 9.5 g/dL (13.5-17.5); LYMPHOCYTES # (AUTO) 1.7 /CMM (0.8-4.8); LYMPHOCYTES % (AUTO) 16.9 % (20.0-44.0); MAGNESIUM 1.9 mg/dL (1.8-2.4); MEAN CORPUSCULAR HGB CONC 32 g/dl (31.0-36.0); MEAN CORPUSCULAR VOLUME 90 fL (80-96); MONOCYTES # (AUTO) 0.7 /CMM (0.1-1.30); MONOCYTES % (AUTO) 6.5 % (2.0-12.0); NEUTROPHILS # (AUTO) 6.5 /CMM (1.8-8.9); NEUTROPHILS % (AUTO) 63.5 % (43.0-81.0); PHOSPHORUS 4.4 mg/dL (2.5-4.9); PLATELET COUNT (AUTO) 200 /CMM (150-450); POTASSIUM 4.1 mmol/L (3.5-5.1); WHITE BLOOD COUNT (AUTO) 10.2 K/uL (4.3-11.0)
--- NOTE | 2020-06-03 07:15 | NUR ---
RN NOTES PT REMAINS IN BED.INTUBATED AND SEDATED. TOLERATING VENT SETTINGS AC 30, TV 550 FIO2 60 % PEEP 5. NO RESP DISTRESS NOTED. LEFT NARE NGT IN PLACE AND PATENT. NG FEEDING GLUCERNA RUNNING AT 10 ML/HR TOLERATING WELL.NO SIGNS OF ASPIRATION NOTED. WITH RIGHT AND LEFT CHEST TUBES IN PLACE. DRESSING INTACT. BUBBA PICC LINE PATENT AND INTACT, . VERSED STILL RUNNING AT 7MG/HR AND FENTANYL AT 2MCG/KG/MIN, INFUSING WELL. NO SIGNS OF INFILTRATION NOTED. KEPT HOB ELEVATED. FC INDWELLING WELL. ISOLATION PRECAUTION MAINTAINED.
--- NOTE | 2020-06-03 08:00 | NUR ---
RN NOTES PT REMAINS IN BED.INTUBATED AND SEDATED. TOLERATING VENT SETTINGS AC 30, TV 550 FIO2 60 % PEEP 5. NO RESP DISTRESS NOTED. LEFT NARE NGT IN PLACE AND PATENT. NG FEEDING GLUCERNA RUNNING AT 10 ML/HR TOLERATING WELL.NO SIGNS OF ASPIRATION NOTED. PLACEMENT CHECKED BY AUSCULTATION OF AIR WITH RIGHT AND LEFT CHEST TUBES IN PLACE. DRESSING INTACT. BUBBA PICC LINE PATENT AND INTACT, . VERSED STILL RUNNING AT 7MG/HR AND FENTANYL AT 2MCG/KG/MIN, INFUSING WELL. NO SIGNS OF INFILTRATION NOTED. KEPT HOB ELEVATED. FC TO GRAVITY WITH YELLOW COLOR URINE WELL. ISOLATION PRECAUTION MAINTAINED. T 100.6 RN FLOOR HAND JEROD AWARE THAT T 100.6, COOLING MEASURE PROVIDED, PER DR BO OK TO INCREASED FEEDING TO 30 ML PER HOUR
[2020-06-03] MEDS: DOCUSATE SODIUM LIQ 100 MG/10 ML UDC NG SCH (08:16)
[2020-06-03] MEDS: PANTOPRAZOLE 40 MG/PACK PACK GT SCH ×2 (08:16→20:53)
[2020-06-03] MEDS: APIXABAN 5 MG TABLET PO SCH ×2 (08:19→16:12)
[2020-06-03] MEDS: PROSOURCE / PROSTAT (PYXIS) 30 ML UDC GT SCH ×2 (08:19→16:11)
--- NOTE | 2020-06-03 11:00 | NUR ---
landscape horticulture instructor note left a message to to dr haley about trach placement awaiting for return call cont on versed and fentanyl drip as ordered
--- NOTE | 2020-06-03 15:07 | NUR ---
auricular therapist note ua collected as ordered
--- NOTE | 2020-06-03 15:38 | NUR ---
horticultural services supervisor note per dr quinones ok to keep npo after midnight hold eliquis ua caalected as ordered per dr malin aware that rt side chest tube with bubbling gently dr malin aware and lt side chest tube no bubbling , stated its ok cont on versed and fentanyl drip
--- NOTE | 2020-06-03 16:21 | NUR ---
FUEL TRUCK DRIVER NOTE CHECKED RESIDUAL 10CC. INCREASE OG FEEDING TO 25CC/HR. KEEP HOB ELEVATED AT ALL TIMES.
[2020-06-03] MEDS: VANCOMYCIN 1 GM in IV D5W 250ml IV SCH (17:07)
[2020-06-03 17:52] LABS: BILIRUBIN,URINE SMALL (NEGATIVE); COLOR,URINE YELLOW (YELLOW); LEUKOCYTE ESTERASE ,URINE NEGATIVE (NEGATIVE); NITRITE, URINE NEGATIVE (NEGATIVE); PH,URINE 5.5 (5.0-8.0); PROTEIN,URINE 30 mg/dl (NEGATIVE); UGLUCOSE NEGATIVE (NEGATIVE)
[2020-06-03 18:15] LABS: RBC,URINE 21-50 /HPF (0-2)
[2020-06-03 18:16] LABS: BACTERIA,URINE RARE /HPF (None Seen); SQUAMOUS EPITHELIAL CELL,UR 0-2 /HPF (None Seen); YEAST,URINE Few /HPF (None Seen)
[2020-06-03 18:17] LABS: URIC ACID CRYSTALS,URINE RARE /HPF (None Seen)
--- NOTE | 2020-06-03 18:38 | NUR ---
[employer] POLICE NOTE \ PER DR BO NPO AFTER MIDNIGHT FOR TRACH PLACEMENT TOMORROW
[2020-06-03] MEDS: MEROPENEM 500 MG in IV NS 0.9% 50 ML IV SCH (21:02)
[2020-06-03] MEDS: MICAFUNGIN SODIUM 100 MG in IV NS 0.9% 100 ML IV SCH (21:02)
[2020-06-04] VITALS (30 sets, daily range): BP systolic 86–136; BP diastolic 46–75
[2020-06-04] MEDS: BLOOD SUGAR DIAGNOSTIC 1 EACH STRIP IN SCH ×4 (00:36→17:49)
[2020-06-04] MEDS: VANCOMYCIN 1 GM in IV D5W 250ml IV SCH ×2 (04:16→16:26)
[2020-06-04 04:28] LABS: BASOPHILS # (AUTO) 0.1 /CMM (0.0-0.2); BASOPHILS % (AUTO) 0.5 % (0.0-2.0); EOSINOPHILS % (AUTO) 20.6 % (0.0-6.0); HEMATOCRIT 31 % (39-51); LYMPHOCYTES # (AUTO) 2.3 /CMM (0.8-4.8); LYMPHOCYTES % (AUTO) 21.1 % (20.0-44.0); MEAN CORPUSCULAR HGB CONC 33 g/dl (31.0-36.0); MEAN CORPUSCULAR VOLUME 89 fL (80-96); MONOCYTES # (AUTO) 0.7 /CMM (0.1-1.30); MONOCYTES % (AUTO) 6.8 % (2.0-12.0); NEUTROPHILS # (AUTO) 5.5 /CMM (1.8-8.9); PLATELET COUNT (AUTO) 229 /CMM (150-450); RED BLOOD CELL COUNT(AUTO) 3.46 MIL/uL (4.5-6.0); WHITE BLOOD COUNT (AUTO) 10.7 K/uL (4.3-11.0)
[2020-06-04 04:46] LABS: CALCIUM, SERUM 9.3 mg/dL (8.5-10.1); POTASSIUM 3.9 mmol/L (3.5-5.1)
[2020-06-04] MEDS: MEROPENEM 500 MG in IV NS 0.9% 50 ML IV SCH ×3 (05:02→20:16)
[2020-06-04] MEDS ORDERED: NS 0.9% IV ONE (05:30)
[2020-06-04] MEDS ORDERED: FENTANYL CITRAT IV ONE (05:30)
[2020-06-04] MEDS: MIDAZOLAM HCL 100 MG in IV NS 0.9% 80 ML IV PRN ×2 (05:46→20:09)
[2020-06-04 06:15] LABS: ABG BASE EXCESS -0.1 mmol/L; ABG OXYGEN SATURATION 94.1 % (92.0-98.5); ABG PCO2 45.7 mmHg (35.0-45.0); ABG PH 7.364 (7.350-7.450); ABG PO2 78.1 mmHg (75.0-100.0); COHb 0.7 % (0.5-1.5); MetHb 0.3 % (0.0-1.5); O2Hb 93.2 % (94.0-97.0); PEEP,BG 5 cm H2O; SITE, ABG Left Radial; VENT MODE, BG AC 30 550 50% +5; VT, ABG 550 mL
[2020-06-04] MEDS: FENTANYL CITRAT IV 2,500 MCG in IV NS 0.9% 200 ML IV PRN ×2 (06:30→18:51)
--- NOTE | 2020-06-04 08:10 | NUR ---
WOUND CARE FOLLOW UP: REVIEWED CHART, NURSING DOCUMENTATION AND PHOTOS WHICH INDICATE LEFT EAR DEEP TISSUE INJURY AND BUTTOCKS DEEP TISSUE INJURY, BOTH IN EVOLUTION. RECOMMENDATIONS MADE FOR SKIN PROTECTION AND WOUND CARE. DISCUSSED WITH NURSING STAFF. PT IS ON FIRST STEP LOW AIRLOSS MATTRESS. MD IN AGREEMENT WITH PLAN OF CARE.
[2020-06-04] MEDS ORDERED: LORAZEPAM INJ 2 MG/ML VIAL IV ONE (08:30)
[2020-06-04] MEDS: PANTOPRAZOLE 40 MG/PACK PACK GT SCH ×2 (08:42→20:15)
[2020-06-04] MEDS: DOCUSATE SODIUM LIQ 100 MG/10 ML UDC NG SCH (08:42)
[2020-06-04] MEDS: PROPOFOL 100 ML IV PRN ×2 (08:57→12:49)
[2020-06-04] MEDS: APIXABAN 5 MG TABLET PO SCH ×2 (09:00→16:27)
[2020-06-04] MEDS: NEOMY SULF/BACITRAC ZN/POLY 15 GM TUBE TP SCH ×2 (09:24→16:27)
[2020-06-04] MEDS: PROSOURCE / PROSTAT (PYXIS) 30 ML UDC GT SCH ×2 (09:24→16:27)
--- NOTE | 2020-06-04 09:30 | NUR ---
HOLD ELEQUIS MEDICATION TIL FURTHER INSTRUCTIONS PER DR BO INSTRUCTIONS.
[2020-06-04] MEDS: ACETAMINOPHEN 650 MG/20.3 ML UDC NG PRN (20:18)
[2020-06-04] MEDS: MICAFUNGIN SODIUM 100 MG in IV NS 0.9% 100 ML IV SCH (21:00)
[2020-06-05] VITALS (29 sets, daily range): BP systolic 102–138; BP diastolic 51–85
[2020-06-05] MEDS: BLOOD SUGAR DIAGNOSTIC 1 EACH STRIP IN SCH ×5 (00:13→23:34)
[2020-06-05 03:16] LABS: BASOPHILS # (AUTO) 0.1 /CMM (0.0-0.2); EOSINOPHILS % (AUTO) 23.8 % (0.0-6.0); HEMATOCRIT 30 % (39-51); HEMOGLOBIN 9.5 g/dL (13.5-17.5); LYMPHOCYTES # (AUTO) 2.1 /CMM (0.8-4.8); LYMPHOCYTES % (AUTO) 18.7 % (20.0-44.0); MEAN CORPUSCULAR HGB CONC 32 g/dl (31.0-36.0); MEAN CORPUSCULAR VOLUME 89 fL (80-96); MONOCYTES # (AUTO) 0.6 /CMM (0.1-1.30); MONOCYTES % (AUTO) 5.6 % (2.0-12.0); NEUTROPHILS # (AUTO) 5.6 /CMM (1.8-8.9); NEUTROPHILS % (AUTO) 50.9 % (43.0-81.0); PLATELET COUNT (AUTO) 224 /CMM (150-450); RED BLOOD CELL COUNT(AUTO) 3.33 MIL/uL (4.5-6.0)
[2020-06-05 03:29] LABS: CALCIUM, SERUM 9.2 mg/dL (8.5-10.1); POTASSIUM 3.8 mmol/L (3.5-5.1)
[2020-06-05] MEDS: VANCOMYCIN 1 GM in IV D5W 250ml IV SCH ×2 (04:05→16:13)
[2020-06-05] MEDS: FENTANYL CITRAT IV 2,500 MCG in IV NS 0.9% 200 ML IV PRN ×2 (05:12→15:50)
[2020-06-05] MEDS: MEROPENEM 500 MG in IV NS 0.9% 50 ML IV SCH ×3 (05:16→21:21)
[2020-06-05 05:38] LABS: ABG BASE EXCESS 1.9 mmol/L; ABG OXYGEN SATURATION 92.5 % (92.0-98.5); ABG PCO2 43.9 mmHg (35.0-45.0); ABG PH 7.405 (7.350-7.450); AaDO2 238.1 mmHg; COHb 0.5 % (0.5-1.5); MetHb 0.2 % (0.0-1.5); O2Hb 91.9 % (94.0-97.0); PEEP,BG 5 cm H2O; SITE, ABG Right Radial
--- NOTE | 2020-06-05 07:30 | NUR ---
RN NOTES HELD THE ELIQUIS AND FEEDING ON HOLD
--- NOTE | 2020-06-05 07:45 | NUR ---
RN OPENING NOTES PT REMAINS IN BED.INTUBATED AND SEDATED. TOLERATING VENT SETTINGS AC 30, TV 550 FIO2 50 % PEEP 10. NO RESP DISTRESS NOTED. LEFT NARE NGT IN PLACE AND PATENT. NG FEEDING GLUCERNA RUNNING AT 10 ML/HR TOLERATING WELL.NO SIGNS OF ASPIRATION NOTED. PLACEMENT CHECKED BY AUSCULTATION OF AIR WITH RIGHT AND LEFT CHEST TUBES IN PLACE. DRESSING INTACT. BUBBA PICC LINE PATENT AND INTACT, . VERSED STILL RUNNING AT 7MG/HR AND FENTANYL AT 3MCG/KG/MIN, INFUSING WELL. NO SIGNS OF INFILTRATION NOTED. KEPT HOB ELEVATED. FC TO GRAVITY WITH YELLOW COLOR URINE WELL. SAFETY MEASUREMENTS ARE IMPLEMENTED PER HOSPITAL POLICY.BED IS IN THE LOWEST POSITION AND SIDE RAILS ARE UP X2. WILL CONTINUE TO MONITOR
[2020-06-05] MEDS: PROSOURCE / PROSTAT (PYXIS) 30 ML UDC GT SCH ×2 (08:18→16:22)
[2020-06-05] MEDS: DOCUSATE SODIUM LIQ 100 MG/10 ML UDC NG SCH (08:18)
[2020-06-05] MEDS: PANTOPRAZOLE 40 MG/PACK PACK GT SCH ×2 (08:19→21:00)
[2020-06-05] MEDS: APIXABAN 5 MG TABLET PO SCH ×2 (08:19→16:21)
[2020-06-05] MEDS: NEOMY SULF/BACITRAC ZN/POLY 15 GM TUBE TP SCH ×2 (08:20→16:22)
[2020-06-05] MEDS: MIDAZOLAM HCL 100 MG in IV NS 0.9% 80 ML IV PRN (10:51)
--- NOTE | 2020-06-05 12:56 | NUR ---
RN NOTES MEDICAL STAFF HERE TO PERFORM TRACH
[2020-06-05] MEDS ORDERED: MIDAZOLAM HCL 2 MG/2ML VIAL ONE ×2 (13:06→13:07)
[2020-06-05] MEDS ORDERED: VECURONIUM 10 MG VIAL ONE (13:07)
--- NOTE | 2020-06-05 13:30 | NUR ---
RN NOTES PT IS EXPERIENCED ROSSANA WHILE PERFORMING TRACH.PUSHED 2 TIMES EPI AND SODIUM BICARB.
--- NOTE | 2020-06-05 13:36 | NUR ---
DRY WALL APPLICATOR CHARGE BEDSIDE TRACH PLACEMENT IN PROGRESS. ASHLY ANN, MERI, AND ROYAL IN ATTENDANCE. PT DEVELOPED BRADYCARDIA DURING PROCEDURE. LUIS BOTELLO CALLLED.
--- NOTE | 2020-06-05 13:48 | NUR ---
ALLERGY PHYSICIAN CHARGE TRACH PLACED SUCCESSFULLY. CODE BLUE CALLED OFF WHEN HR RETURNED TO SR WITH STABLE BP. NEW RIGHT CHEST TUBE REPLACED SUCCESSFULLY BY DR PAIGE. CONNECTED TO DRY SEAL DRAIN. OCCLUSIVE DRESSING APPLIED TO SITE. PICC LINE DRESSING CHANGED.
[2020-06-05] MEDS ORDERED: SODIUM BICARBONATE SYR 50 MEQ/50 ML DISP.SYRIN ONE (13:55)
[2020-06-05] MEDS ORDERED: EPINEPHRINE (1:10,000) SYRINGE 1 MG/10 ML DISP.SYRIN ONE (13:55)
--- NOTE | 2020-06-05 14:00 | NUR ---
RN NOTES TRACH PLACED SUCCESSFULLY. CODE BLUE CALLED OFF WHEN HR RETURNED TO SR WITH STABLE BP. NEW RIGHT CHEST TUBE REPLACED SUCCESSFULLY BY DR PAIGE. CONNECTED TO DRY SEAL DRAIN. OCCLUSIVE DRESSING APPLIED TO SITE. PICC LINE DRESSING CHANGED.
--- NOTE | 2020-06-05 15:57 | NUR ---
RN NOTES STEWART IS 8 AND 100% FIO2
--- NOTE | 2020-06-05 18:40 | NUR ---
RN CLOSING NOTES PT WITH JEFFREY WILLIAM 8. TOLERATING VENT SETTINGS AC 30, TV 550 FIO2 100% PEEP 5. NO RESP DISTRESS NOTED. BUBBA PICC LINE PATENT AND INTACT, . VERSED STILL RUNNING AT 7MG/HR AND FENTANYL AT 3MCG/KG/MIN, INFUSING WELL. NO SIGNS OF INFILTRATION NOTED. KEPT HOB ELEVATED. FC TO GRAVITY WITH YELLOW COLOR URINE WELL. SAFETY MEASUREMENTS ARE IMPLEMENTED PER HOSPITAL POLICY.BED IS IN THE LOWEST POSITION AND SIDE RAILS ARE UP X2. WILL ENDORSE TO PM NURSE FOR ROSELINE
[2020-06-05] MEDS: MICAFUNGIN SODIUM 100 MG in IV NS 0.9% 100 ML IV SCH (22:29)
[2020-06-06] VITALS (55 sets, daily range): BP systolic 89–140; BP diastolic 50–88
[2020-06-06] MEDS: MIDAZOLAM HCL 100 MG in IV NS 0.9% 80 ML IV PRN ×2 (01:08→16:50)
[2020-06-06] MEDS: FENTANYL CITRAT IV 2,500 MCG in IV NS 0.9% 200 ML IV PRN ×3 (01:11→21:26)
[2020-06-06] MEDS: VANCOMYCIN 1 GM in IV D5W 250ml IV SCH ×2 (04:04→17:00)
[2020-06-06] MEDS: MEROPENEM 500 MG in IV NS 0.9% 50 ML IV SCH ×3 (04:08→21:37)
[2020-06-06] MEDS: BLOOD SUGAR DIAGNOSTIC 1 EACH STRIP IN SCH ×3 (06:13→18:44)
[2020-06-06] MEDS: PANTOPRAZOLE 40 MG/PACK PACK GT SCH ×2 (09:00→21:00)
[2020-06-06] MEDS: DOCUSATE SODIUM LIQ 100 MG/10 ML UDC NG SCH (09:00)
[2020-06-06] MEDS: APIXABAN 5 MG TABLET PO SCH ×2 (09:00→17:00)
[2020-06-06] MEDS: PROSOURCE / PROSTAT (PYXIS) 30 ML UDC GT SCH ×2 (09:00→17:00)
[2020-06-06] MEDS ORDERED: VECURONIUM 10 MG VIAL IV ONE (09:26)
[2020-06-06] MEDS: NEOMY SULF/BACITRAC ZN/POLY 15 GM TUBE TP SCH ×2 (10:21→17:38)
--- NOTE | 2020-06-06 10:36 | NUR ---
PER MD STEVENS, DUE TO PREVIOUS NGT DISLODGED, ORDERS TO KEEP PT NPO FOR NOW, POSSIBLE PEG PLACEMENT WITH GI. ALL AM PO MEDS NON-ADMIN.
--- NOTE | 2020-06-06 11:00 | NUR ---
MD STEVENS NOTFIED OF NO LABS ORDERED FOR THE AM; NO ORDERS RECEIVEED
--- NOTE | 2020-06-06 17:00 | NUR ---
PER MD FLORES, PT TO HAVE EGD WITH PEG INSERTION TOMORROW 06/07 AT 1130 AND TO BE NPO AT MIDNIGHT. MD FLORES NOTIFIED THAT PT HAS NO NGT CURRENTLY, STATES PT CAN BE NPO UNTIL PROCEDURE.
[2020-06-06] MEDS: PROPOFOL 100 ML IV PRN ×2 (18:58→21:39)
--- NOTE | 2020-06-06 19:00 | NUR ---
MD BO NOTIFIED OF PT DESATURATING INTO MID 80% O2 SAT. RR INCREASED WITH TACHYCARDIA. MD BO OK WITH RESTARTING DIPROVAN DRIP ALONGSIDE THE FENTANYL AND VERSED..
[2020-06-06] MEDS ORDERED: ACETAMINOPHEN 650 MG/SUPP.RECT RC PRN (21:00)
[2020-06-06] MEDS: MICAFUNGIN SODIUM 100 MG in IV NS 0.9% 100 ML IV SCH (21:58)
[2020-06-07] VITALS (71 sets, daily range): BP systolic 85–143; BP diastolic 44–77
[2020-06-07] MEDS: BLOOD SUGAR DIAGNOSTIC 1 EACH STRIP IN SCH ×5 (00:36→23:33)
[2020-06-07] MEDS: MIDAZOLAM HCL 100 MG in IV NS 0.9% 80 ML IV PRN ×2 (02:02→13:58)
[2020-06-07 04:05] LABS: CALCIUM, SERUM 8.7 mg/dL (8.5-10.1); POTASSIUM 3.9 mmol/L (3.5-5.1)
[2020-06-07] MEDS: VANCOMYCIN 1 GM in IV D5W 250ml IV SCH ×2 (04:17→16:17)
[2020-06-07] MEDS: MEROPENEM 500 MG in IV NS 0.9% 50 ML IV SCH ×3 (04:18→20:30)
[2020-06-07] MEDS: FENTANYL CITRAT IV 2,500 MCG in IV NS 0.9% 200 ML IV PRN ×3 (04:33→23:08)
[2020-06-07] MEDS: IV NS 0.9% 250 ML IV PRN (05:35)
[2020-06-07 07:08] LABS: BASOPHILS # (AUTO) 0.1 /CMM (0.0-0.2); BASOPHILS % (AUTO) 0.6 % (0.0-2.0); EOSINOPHILS % (AUTO) 13.7 % (0.0-6.0); HEMATOCRIT 27 % (39-51); HEMOGLOBIN 8.7 g/dL (13.5-17.5); LYMPHOCYTES # (AUTO) 1.3 /CMM (0.8-4.8); MEAN CORPUSCULAR HGB CONC 32 g/dl (31.0-36.0); MEAN CORPUSCULAR VOLUME 91 fL (80-96); MONOCYTES # (AUTO) 0.6 /CMM (0.1-1.30); MONOCYTES % (AUTO) 6.4 % (2.0-12.0); NEUTROPHILS # (AUTO) 5.6 /CMM (1.8-8.9); NEUTROPHILS % (AUTO) 64.3 % (43.0-81.0); PLATELET COUNT (AUTO) 220 /CMM (150-450); WHITE BLOOD COUNT (AUTO) 8.7 K/uL (4.3-11.0)
--- NOTE | 2020-06-07 07:34 | NUR ---
RECEIVED PATIENT IN BED. PATIENT TRACH'D, ABD. BREATHING NOTED BUT SATURATING WELL (>93%), RT NOTED. PATIENT SEDATED ON VERSED, PROPOFOL. PATIENT ON RPG PROGRAMMER ANALYST, ST NOTED WITH HR IN 100S. PATIENT NPO STATUS ACKNOWLEDGED. PATIENT BUBBA PICC IN PLACE, INTACT, PATENT. PATIENT PATEL CATHETER IN PLACE, INTACT, DRAINING TO GRAVITY. PATIENT SAFETY MEASURES MAINTAINED. WILL CONTINUE TO MONITOR.
[2020-06-07] MEDS: PROSOURCE / PROSTAT (PYXIS) 30 ML UDC GT SCH ×2 (08:23→16:32)
[2020-06-07] MEDS: APIXABAN 5 MG TABLET PO SCH ×2 (08:23→16:32)
[2020-06-07] MEDS: PANTOPRAZOLE 40 MG/PACK PACK GT SCH ×2 (08:23→21:00)
[2020-06-07] MEDS: DOCUSATE SODIUM LIQ 100 MG/10 ML UDC NG SCH (08:23)
[2020-06-07] MEDS: NEOMY SULF/BACITRAC ZN/POLY 15 GM TUBE TP SCH ×2 (08:24→16:31)
[2020-06-07] MEDS: PROPOFOL 100 ML IV PRN ×2 (10:16→18:49)
--- NOTE | 2020-06-07 16:32 | NUR ---
PEG PLACEMENT DONE BY DR. FLORES. PER DR. FLORES, DO NOT USE PEG TUBE (FEEDING OR FOR MEDS) UNTIL PLACEMENT IS CONFIRMED VIA CT WITHOUT CONTRAST. ORDER PUT IN COMPUTER.
--- NOTE | 2020-06-07 18:32 | NUR ---
PATIENT IN BED. PATIENT TRACH'D SATURATING WELL (>98%). PATIENT SEDATED ON VERSED, PROPOFOL. PATIENT ON POCKET SETTER, NSR NOTED WITH HR IN 70S. PATIENT NPO STATUS ACKNOWLEDGED, AWAITING CT WITHOUT CONTRAST TO CONFIRM PEG PLACEMENT. PATIENT BUBBA PICC IN PLACE, INTACT, PATENT. PATIENT PATEL CATHETER IN PLACE, INTACT, DRAINING TO GRAVITY. PATIENT SAFETY MEASURES MAINTAINED. WILL ENDORSE PLAN OF CARE TO ONCOMING SHIFT
--- NOTE | 2020-06-07 20:00 | NUR ---
Received patient intubated in full vent support.Dx: COVID PNEUMONIA,RESPIRATORY FAILURE. H/O OBESITY,DM,ASTHMA.Patient sedated on Diprivan gtt 10 mcg.Versed 7 mg and Fentanyl 2 mcg. all infusing via BUBBA PICC LINE.Site intact.Bilateral CT intact.No air leaks noted.Small drainage in tube.NSR.VSS.PEG clamped.NPO awaiting CT abd. w/o contrast.FC to gravity drainage. Turned and repositioned.No acute distress noted.
[2020-06-07] MEDS: MICAFUNGIN SODIUM 100 MG in IV NS 0.9% 100 ML IV SCH (21:00)
[2020-06-08] VITALS (44 sets, daily range): BP systolic 80–122; BP diastolic 42–66
--- NOTE | 2020-06-08 | NUR ---
Hygienic measures done.Dressing to both chest tubes with serosanguineous drainage.More to left side.Dressing changed under aseptic technique.No acute distress noted.
[2020-06-08] MEDS: MIDAZOLAM HCL 100 MG in IV NS 0.9% 80 ML IV PRN ×2 (03:53→16:38)
[2020-06-08] MEDS: IV NS 0.9% 250 ML IV PRN (03:57)
[2020-06-08] MEDS: VANCOMYCIN 1 GM in IV D5W 250ml IV SCH (04:09)
[2020-06-08 04:31] LABS: CALCIUM, SERUM 8.8 mg/dL (8.5-10.1); CREATININE 0.8 mg/dL (0.6-1.3); POTASSIUM 3.9 mmol/L (3.5-5.1)
[2020-06-08] MEDS: PROPOFOL 100 ML IV PRN ×4 (04:34→17:25)
[2020-06-08] MEDS: MEROPENEM 500 MG in IV NS 0.9% 50 ML IV SCH ×3 (05:15→20:00)
[2020-06-08] MEDS: BLOOD SUGAR DIAGNOSTIC 1 EACH STRIP IN SCH ×3 (05:35→17:26)
--- NOTE | 2020-06-08 06:00 | NUR ---
Patient remains sedated on Diprivan gtt 10 mcg,Fentanyl gtt 2 mcg and Versed gtt 7 mg all infusing well.Tolerating vent settings FIO2 titrated down to 80% by RT. SPO2 96%.No acute distress noted.VSS.SR.Remains NPO awaiting CT abd.Called Radiology dept. said probably will be done today.Right Chest Tube drain 40 ML serosanguineous output.Left chest tube no output. Both chest tubes without air leaks. FSBS monitored WNL.Turned and repositioned.Will endorse to day shift for ROSELINE.
--- NOTE | 2020-06-08 07:35 | NUR ---
ICU/RN PT IS NEW TRACH ON THE VENT AC MODE,FIO2-80%.SAT O2-99%.V/S STABLE AFEBRILE.PT IS SEDATED ON DIPRIVAN,VERSED AND FENTANYL.NEW G-TUBE CLAMPED. NPO AT THIS TIME.PT NEED CT OF ABDOMEN FOR THE RIGHT PLACEMENT. NOT STABLE TO GO TO CT SCAN.HAS 2 CHEST TUBES RIGHT SIDE OF CHEST TUBE IS LEAKING.F/C IN PLACE DRAINING WITH BLOODY URINE.GENERALIZED EDEMA PRESENT .SUCTION PROVIDED.REPOSITION FOR COMFORT.LABS REVIEW.
[2020-06-08] MEDS: PANTOPRAZOLE 40 MG/PACK PACK GT SCH ×2 (07:40→21:00)
[2020-06-08] MEDS: DOCUSATE SODIUM LIQ 100 MG/10 ML UDC NG SCH (07:40)
[2020-06-08] MEDS: PROSOURCE / PROSTAT (PYXIS) 30 ML UDC GT SCH ×2 (07:40→17:00)
[2020-06-08] MEDS: APIXABAN 5 MG TABLET PO SCH ×2 (07:41→17:00)
[2020-06-08] MEDS: NEOMY SULF/BACITRAC ZN/POLY 15 GM TUBE TP SCH ×2 (08:24→13:43)
--- NOTE | 2020-06-08 09:00 | NUR ---
ICU/RN DUE MEDS ARE GIVEN ORDERED.
[2020-06-08] MEDS: FENTANYL CITRAT IV 2,500 MCG in IV NS 0.9% 200 ML IV PRN ×2 (09:11→18:56)
--- NOTE | 2020-06-08 12:05 | NUR ---
Per Rn. Pt is unstable to transport to Radiology for CT Abdomen W/O Contrast study.
[2020-06-08] MEDS: VANCOMYCIN 0.75 GM in IV D5W 250 ML IV SCH (17:49)
--- NOTE | 2020-06-08 18:40 | NUR ---
ICU/RN PT IS RESTING IN THE BED V/S STABLE,AFEBRILE.NO PAIN REPOSRTED AT THIS TIME.SUCTION PROVIDED,REPOSITION FOR COMFORT.
[2020-06-08] MEDS: MICAFUNGIN SODIUM 100 MG in IV NS 0.9% 100 ML IV SCH (20:31)
[2020-06-09] VITALS (51 sets, daily range): BP systolic 84–150; BP diastolic 31–88
[2020-06-09] MEDS: PROPOFOL 100 ML IV PRN ×5 (00:08→17:21)
[2020-06-09] MEDS: BLOOD SUGAR DIAGNOSTIC 1 EACH STRIP IN SCH ×4 (00:41→18:09)
[2020-06-09] MEDS: VANCOMYCIN 0.75 GM in IV D5W 250 ML IV SCH ×2 (04:00→17:58)
[2020-06-09] MEDS: MEROPENEM 500 MG in IV NS 0.9% 50 ML IV SCH ×3 (05:00→20:05)
[2020-06-09] MEDS: IV NS 0.9% 250 ML IV PRN (05:06)
[2020-06-09] MEDS: FENTANYL CITRAT IV 2,500 MCG in IV NS 0.9% 200 ML IV PRN ×2 (05:06→17:21)
[2020-06-09 05:14] LABS: CALCIUM, SERUM 8.8 mg/dL (8.5-10.1); CREATININE 0.9 mg/dL (0.6-1.3); POTASSIUM 3.5 mmol/L (3.5-5.1)
[2020-06-09] MEDS: MIDAZOLAM HCL 100 MG in IV NS 0.9% 80 ML IV PRN ×2 (05:48→20:52)
[2020-06-09] MEDS: PROSOURCE / PROSTAT (PYXIS) 30 ML UDC GT SCH ×2 (08:42→18:07)
[2020-06-09] MEDS: PANTOPRAZOLE 40 MG/PACK PACK GT SCH ×2 (08:43→20:05)
[2020-06-09] MEDS: DOCUSATE SODIUM LIQ 100 MG/10 ML UDC NG SCH (08:43)
[2020-06-09] MEDS: APIXABAN 5 MG TABLET PO SCH ×2 (08:43→18:08)
--- NOTE | 2020-06-09 08:44 | NUR ---
0900 MEDS AND FEEDINGS TO BE HELD PER MD BO, PT TO HAVE IR-GUIDED CHEST TUBE INSERTION FOR RIGHT PNEUMOTHORAX. BILATERAL CHEST TUBES SHOW NO BUBBLING, ALL CONNECTIONS CHECKED, MD BO AWARE
[2020-06-09] MEDS: NEOMY SULF/BACITRAC ZN/POLY 15 GM TUBE TP SCH ×2 (09:14→18:02)
--- NOTE | 2020-06-09 09:42 | NUR ---
NO SEDATION VACATION PER MD PELEG, ORDERS PROPOL INCREASE TO 50, CURRENTLY AT 20 MCG
[2020-06-09 11:02] LABS: BASOPHILS # (AUTO) 0.1 /CMM (0.0-0.2); BASOPHILS % (AUTO) 0.8 % (0.0-2.0); HEMATOCRIT 27 % (39-51); HEMOGLOBIN 8.6 g/dL (13.5-17.5); LYMPHOCYTES # (AUTO) 1.3 /CMM (0.8-4.8); LYMPHOCYTES % (AUTO) 18.5 % (20.0-44.0); MEAN CORPUSCULAR HGB CONC 32 g/dl (31.0-36.0); MEAN CORPUSCULAR VOLUME 90 fL (80-96); MONOCYTES # (AUTO) 0.4 /CMM (0.1-1.30); MONOCYTES % (AUTO) 6.1 % (2.0-12.0); NEUTROPHILS # (AUTO) 3.5 /CMM (1.8-8.9); NEUTROPHILS % (AUTO) 49.3 % (43.0-81.0); PLATELET COUNT (AUTO) 252 /CMM (150-450); RED BLOOD CELL COUNT(AUTO) 2.96 MIL/uL (4.5-6.0); WHITE BLOOD COUNT (AUTO) 7.1 K/uL (4.3-11.0)
[2020-06-09 11:14] LABS: EOSINOPHILS % (AUTO) 25.3 % (0.0-6.0)
[2020-06-09 12:46] LABS: EOSINOPHILS % (MANUAL) 24 % (0-4); LYMPHOCYTES % (MANUAL) 21 % (16-48); MONOCYTES % (MANUAL) 4 % (0-11.0); NEUTROPHILS % (MANUAL) 51 (42-76)
[2020-06-09] MEDS: NOREPINEPHRINE 8 MG in IV NS 0.9% 242 ML IV PRN (13:42)
--- NOTE | 2020-06-09 17:00 | NUR ---
CODING MACHINE OPERATOR FORM FOR PREVIOUSLY HANGING FENTANYL NOT IN CODING MACHINE OPERATOR FOLDER. WASTE OF <5 ML WITNESSED BY CHARGE NURSE BIENVENIDO. PHARMACY NOTIFIED.
[2020-06-09] MEDS: ACETAMINOPHEN 650 MG/20.3 ML UDC NG PRN (18:48)
--- NOTE | 2020-06-09 19:10 | NUR ---
RECEIVED PT ON BED SEDATED, FULL CODE ON TRACH/VENT SETTING PER MD FIO2 100% SPO2 98% TELE MONITOR READS SINUS RHYTHM 80'S HAVE BUBBA PICC WITH ONGOIGN FENTANYL @ 2MCG/KG/MIN, VERSED @ 7MG/HR, DIPRIVAN @ 15MCG/KG/MIN AND LEVOPHED @ 0.05 MCG/KG/MIN INFUSING WELL, HAVE PEG TUBE CLAMPED, PLACEMENT CHECKED, RESIDUAL CHECK 0ML, HAVE PATEL CATHETER DRAINING YELLOW URINE VIA GRAVITY HAVE LEFT LOWER CHEST CHEST TUBE CONNECTED TO LOW INTERMITTENT SUCTION, PATENCY AND TUBE CHECKED FOR KINK,HAVE RIGHT UPPER AND LOWER CHEST CHEST TUBE CONNECTED TO LOW INTERMITTENT SUCTION, PATENCY AND TUBE CHECKED FOR KINK, BED ON LOWERST POSITION AND LOCKED SIDE RAILS UP X2 WILL CONT TO MONITOR
--- NOTE | 2020-06-09 19:18 | NUR ---
1600 VITALS NOT DOCUMENTED, PT IN PROCEDURE FOR IR GUIDED CHEST TUBE AND CT ABD, PT RETURNED TO ROOM AT 1715 Addendum: 06/09/20 at 1920 by MEGHNA APPIAH RN Amended: Links added. Addendum: 06/09/20 at 1938 by MEGHNA APPIAH RN 1545 VITALS DOCUMENTED UNDER 1600
[2020-06-09] MEDS: GLUCERNA 1.2 1,000 ML BOTTLE GT PRN (20:05)
[2020-06-09] MEDS: MICAFUNGIN SODIUM 100 MG in IV NS 0.9% 100 ML IV SCH (21:03)
[2020-06-10] VITALS (67 sets, daily range): BP systolic 93–151; BP diastolic 38–119
[2020-06-10] MEDS: NOREPINEPHRINE 8 MG in IV NS 0.9% 242 ML IV PRN ×2 (00:03→18:31)
[2020-06-10] MEDS: PROPOFOL 100 ML IV PRN ×3 (00:05→20:10)
[2020-06-10] MEDS: BLOOD SUGAR DIAGNOSTIC 1 EACH STRIP IN SCH ×4 (00:05→18:00)
[2020-06-10] MEDS: INSULIN REGULAR, HUMAN 100 UNIT/ML 3 ML VIAL SQ PRN ×2 (00:08→05:17)
[2020-06-10] MEDS: FENTANYL CITRAT IV 2,500 MCG in IV NS 0.9% 200 ML IV PRN ×4 (01:02→23:47)
--- NOTE | 2020-06-10 02:00 | NUR ---
PT STILL ON TRACH/VENT SETTING PER MD FIO2 100% SPO2 98% NO SIGNIFICANT CHANGES ON CONDITION NOTED HAVE 2 CHEST TUBE ON RIGHT CHEST CONNECTED TO LOW INTERMITTENT SUCTION AND 1 CHEST TUBE ON LEFT CHEST CONNECTED TO LOW INTERMITTENT SUCTION NO OUT PUT NOTED WILL CONT TO MONITOR THE PT
[2020-06-10] MEDS: MEROPENEM 500 MG in IV NS 0.9% 50 ML IV SCH ×3 (04:04→21:30)
[2020-06-10] MEDS: VANCOMYCIN 0.75 GM in IV D5W 250 ML IV SCH ×3 (05:00→18:32)
[2020-06-10 05:33] LABS: CALCIUM, SERUM 9.1 mg/dL (8.5-10.1); CREATININE 0.9 mg/dL (0.6-1.3); POTASSIUM 3.4 mmol/L (3.5-5.1)
[2020-06-10] MEDS: IV NS 0.9% 250 ML IV PRN ×2 (07:02→23:36)
--- NOTE | 2020-06-10 07:26 | NUR ---
PT ON BED STILL ON ETT/VENT FIO2 100% SPO2 ON HIGH 70'S SUCTION WAS DONE, TEMP 99.[address] SBP ON 80'S STILL ON MAX PRESSOR OF LEVOPHED 1MCG/KG/MIN, BRYCE 3 MCG/KG/MIN VASOPRESSIN 0.04UNIT/MIN INFUSING WELL VIA RIGHT INTERNAL JUGULAR 3 LUMEN CENTRAL LINE, STILL HAVE BLACK GASTRIC RESIDUAL VIA RIGHT NARES NGT CONNECTED TO LOW INTERMITTENT SUCTION BED ON LOWEST POSITION AND LOCKED SIDE RAILS UPX2 WILL ENDORSED TO AM SHIFT NURSE Addendum: 06/10/20 at 0730 by REX NAVAS RN WRONG PT
--- NOTE | 2020-06-10 07:30 | NUR ---
PT ON BED STILL ON TRACH/VENT FIO2 70% SPO2 99% STILL ON VERSED 7MG/HR, FENTANYL @ 2MCG/KG/MIN AND PROPOFOL 15MCG/KG/MIN, LEVOPHED @ 0.05MCH/KG/MIN INFUSING WELL VIA BUBBA PICC HAVE 2 RIGHT CHEST CHEST TUBE AND 1 LEFT CHEST CHEST TUBE CONNECTED TO LOW INTERMITTENT SUCTION NO SIGNIFICANT CHANGES ON CONDITION NOTED ALL NEEDS ATTENDED BED ON LOWEST POSITION AND LOCKED SIDE RAILS UPX2 WILL ENDORSED TO AM SHIFT NURSE
[2020-06-10] MEDS: DOCUSATE SODIUM LIQ 100 MG/10 ML UDC NG SCH (08:43)
[2020-06-10] MEDS: PANTOPRAZOLE 40 MG/PACK PACK GT SCH ×2 (08:43→20:53)
[2020-06-10] MEDS: APIXABAN 5 MG TABLET PO SCH ×2 (08:45→18:01)
[2020-06-10] MEDS: NEOMY SULF/BACITRAC ZN/POLY 15 GM TUBE TP SCH ×2 (08:46→18:01)
[2020-06-10] MEDS: MIDAZOLAM HCL 100 MG in IV NS 0.9% 80 ML IV PRN (09:29)
[2020-06-10] MEDS ORDERED: POTASSIUM CHLORIDE 20 MEQ POWDER PACKET NG SCH (09:30)
[2020-06-10] MEDS: PROSOURCE / PROSTAT (PYXIS) 30 ML UDC GT SCH ×2 (09:35→18:00)
[2020-06-10] MEDS ORDERED: POTASSIUM CHLORIDE 20 MEQ POWDER PACKET GT ONE (11:30)
[2020-06-10] MEDS: ACETAMINOPHEN 650 MG/20.3 ML UDC NG PRN ×2 (12:57→20:53)
[2020-06-10] MEDS: MICAFUNGIN SODIUM 100 MG in IV NS 0.9% 100 ML IV SCH (20:53)
[2020-06-11] VITALS (90 sets, daily range): BP systolic 89–134; BP diastolic 37–87
[2020-06-11] MEDS: BLOOD SUGAR DIAGNOSTIC 1 EACH STRIP IN SCH ×4 (00:15→17:22)
[2020-06-11] MEDS: MIDAZOLAM HCL 100 MG in IV NS 0.9% 80 ML IV PRN ×2 (01:01→09:18)
[2020-06-11] MEDS: PROPOFOL 100 ML IV PRN ×4 (03:56→21:26)
[2020-06-11] MEDS: MEROPENEM 500 MG in IV NS 0.9% 50 ML IV SCH ×3 (04:52→21:04)
[2020-06-11 05:25] LABS: CALCIUM, SERUM 8.8 mg/dL (8.5-10.1)
[2020-06-11] MEDS: FENTANYL CITRAT IV 2,500 MCG in IV NS 0.9% 200 ML IV PRN ×2 (06:55→14:58)
--- NOTE | 2020-06-11 07:45 | NUR ---
RECEIVED PATIENT IN BED. NO ACUTE DISTRESS NOTED. PATIENT SEDATED ON PROPOFOL, VERSED. PATIENT ON MECHANICAL VENTILATOR, TOLERATING SETTINGS WELL. PATIENT [address], NOTED. PATIENT ON BRICKLAYER PAVING BRICK, NSR NOTED. PATIENT PATEL CATHETER IN PLACE, INTACT, DRAINING TO GRAVITY. PATIENT G-TUBE IN PLACE, INTACT, PATENT. PATIENT BUBBA PICC IN PLACE, INTACT, PATENT. PATIENT SAFETYO MEASURES MAINTAINED. WILL CONTINUE TO MONITOR.
--- NOTE | 2020-06-11 07:50 | NUR ---
RN NOTES CONTINUE TO CLOSELY MONITOR PATIENT , TRACH AND VENT TOLERATED WELL SATURATION KEPT >92%. TMAX 101.3 RESOLVED. LAST TEMP 98.9 DEGREE FAHRENHEIT.. CONTINUE WITH SEDATION OF FENTANYL, VERSED AND PROPOFOL TITRATED PROTOCOL ORDER. IV SITE INTACT AND PATENT. GTF RESIDUAL MONITOR. LAST RESIDUAL WAS 40 CC FEEDING RESTARTED.. KEPT PT CLEAN AND DRY. WILL CONT TO MONITOR.
[2020-06-11] MEDS: DOCUSATE SODIUM LIQ 100 MG/10 ML UDC NG SCH (09:24)
[2020-06-11] MEDS: PANTOPRAZOLE 40 MG/PACK PACK GT SCH ×2 (09:24→21:03)
[2020-06-11] MEDS: NEOMY SULF/BACITRAC ZN/POLY 15 GM TUBE TP SCH ×2 (09:24→17:23)
[2020-06-11] MEDS: PROSOURCE / PROSTAT (PYXIS) 30 ML UDC GT SCH ×2 (09:24→17:22)
[2020-06-11] MEDS: APIXABAN 5 MG TABLET PO SCH ×2 (09:25→17:25)
[2020-06-11] MEDS: POTASSIUM CHLORIDE 20 MEQ POWDER PACKET GT SCH ×3 (10:10→12:28)
--- NOTE | 2020-06-11 16:37 | NUR ---
PER DR. BO, TAKE PATIENT OFF VERSED, ADJUST PROPOFOL AND FENTANYL NEEDED TO CONTROL PATIENT RESPIRATIONS AND OXYGEN SATURATION
[2020-06-11] MEDS: VANCOMYCIN 0.75 GM in IV D5W 250 ML IV SCH (17:24)
--- NOTE | 2020-06-11 18:27 | NUR ---
PATIENT IN BED. NO ACUTE DISTRESS NOTED. PATIENT SEDATED ON PROPOFOL, VERSED. PATIENT ON MECHANICAL VENTILATOR, TOLERATING SETTINGS WELL. PATIENT [address], NOTED. PATIENT ON VACUUM CLOSING MACHINE OPERATOR, NSR NOTED. PATIENT PATEL CATHETER IN PLACE, INTACT, DRAINING TO GRAVITY. PATIENT G-TUBE IN PLACE, INTACT, PATENT. PATIENT BUBBA PICC IN PLACE, INTACT, PATENT. PATIENT SAFETYO MEASURES MAINTAINED. WILL ENDORSE PLAN OF CARE TO ONCOMING SHIFT
[2020-06-11] MEDS: MICAFUNGIN SODIUM 100 MG in IV NS 0.9% 100 ML IV SCH (21:40)
[2020-06-11] MEDS: IV NS 0.9% 250 ML IV PRN (21:54)
[2020-06-12] VITALS (57 sets, daily range): BP systolic 50–173; BP diastolic 33–115
[2020-06-12] MEDS: FENTANYL CITRAT IV 2,500 MCG in IV NS 0.9% 200 ML IV PRN ×3 (00:50→22:25)
[2020-06-12] MEDS: BLOOD SUGAR DIAGNOSTIC 1 EACH STRIP IN SCH ×4 (01:11→17:38)
[2020-06-12] MEDS: PROPOFOL 100 ML IV PRN ×11 (03:57→23:55)
[2020-06-12 04:31] LABS: CALCIUM, SERUM 8.7 mg/dL (8.5-10.1); CREATININE 0.8 mg/dL (0.6-1.3); POTASSIUM 3.4 mmol/L (3.5-5.1)
[2020-06-12] MEDS: MEROPENEM 500 MG in IV NS 0.9% 50 ML IV SCH ×3 (05:38→22:35)
[2020-06-12] MEDS: VANCOMYCIN 0.75 GM in IV D5W 250 ML IV SCH ×2 (06:37→16:11)
[2020-06-12] MEDS: GLUCERNA 1.2 1,000 ML BOTTLE GT PRN (06:47)
--- NOTE | 2020-06-12 07:40 | NUR ---
RN NOTES PATIENT ON CRITICAL CONDITION. WITH TRACH AND VENT TOLERATED WELL. FIO2 75 % AND PEEP 5 TOLERATED WELL. SAT 98%. 3 CHEST TUBE # RIGHT ANT. CHEST WITH 40 CC SEROSANGUINEOUS RIGHT CHEST 10 CC DRAINAGE AND LEFT CHEST ZERO BUT WITH LEAKS ON THE SIDE. PRESSURE DRESSING PROVIDED. LEVOPHED OFF SINCE 12 MN. SBP REMAINED WNL. KEPT PT CLEAN AND DRY. ENDORSED CONTINUITY OF CARE TO AM NURSE.
--- NOTE | 2020-06-12 08:00 | NUR ---
CHURN DRILLER HELPER NOTE PATIENT IN BED , WITH TRACH TO VENT SETTING ORDERED ON FENTANYL DRIP AND PROPOFOL DRIP ASD ORDERED BUT DR PELEG AT BEDSIDE WITH ORDER TO INCREASED PROPOFOL UP TO 50 MCG\KG \MIN DUR TO HR 126 GG 34 LABORED RESPIRATION . WITH CHEST TUBE ORDERED TO SUCTION ON RT AND LT SIDE , RT UPPER ARM PICC LINE IN PLCE , BED IN LOWEST AND LOCKED POSITION , WITH PATEL CATH TO GRAVITY , WILL MONITOR
[2020-06-12] MEDS: LORAZEPAM INJ 2 MG/ML VIAL IV PRN (08:49)
--- NOTE | 2020-06-12 08:53 | NUR ---
BUN ICER NOTE STILL WITH RR [address] BETZY MCKNIGHT PROPOFOL YO 100 MCG \KG AND TROLLEY COACH DRIVER ATIVAN 2 MG IVP Q2 HOUR PRN
[2020-06-12] MEDS ORDERED: POTASSIUM CHLORIDE 20 MEQ POWDER PACKET PEG ONE (09:00)
[2020-06-12] MEDS: PANTOPRAZOLE 40 MG/PACK PACK GT SCH ×2 (09:20→22:35)
[2020-06-12] MEDS: DOCUSATE SODIUM LIQ 100 MG/10 ML UDC NG SCH (09:20)
[2020-06-12] MEDS: PROSOURCE / PROSTAT (PYXIS) 30 ML UDC GT SCH ×2 (09:20→16:05)
[2020-06-12] MEDS: APIXABAN 5 MG TABLET PO SCH ×2 (09:21→16:10)
[2020-06-12] MEDS: NEOMY SULF/BACITRAC ZN/POLY 15 GM TUBE TP SCH ×2 (09:22→16:10)
--- NOTE | 2020-06-12 10:02 | NUR ---
CORSETS SALESPERSON NOTE BP 74/45 STARTED ON LEVOPHED 0.1 MCG\KG \MIN WILL MONITOR
--- NOTE | 2020-06-12 11:34 | NUR ---
SIGNAL TOWER DIRECTOR NOTE PER DR BO OK TO GIVE 500 ML BOLUS BP 78/45 WILL F\U,
[2020-06-12] MEDS ORDERED: IV NS 0.9% 500 ML IV ONE (12:00)
[2020-06-12] MEDS: NOREPINEPHRINE 8 MG in IV NS 0.9% 242 ML IV PRN ×2 (13:09→19:40)
--- NOTE | 2020-06-12 13:49 | NUR ---
agricultural equipment sales engineer note per dr dea hernandez to restart Levophed drip as ordered ,will titrate per protocol
--- NOTE | 2020-06-12 15:03 | NUR ---
icu registered nurse note Treasure rn buttermaker continuous churn at bedside aware of patient condition ok to start Levophed, drip due to bp was 74\41, also aware that [facility] color of urine will cont to monitor
--- NOTE | 2020-06-12 18:24 | NUR ---
SQUAD LEADER NOTE CONT ON LEVOPHED FENTANYL PRPOFOL DRIP ORDERED ,TITRATED PER HOSPITAL PROTOCOL , G TUBE FEEDING WITH [id number] ML NOTED NO DRAINAGE FROM CHEST TUBE NOTED AT THIS TIME
[2020-06-12 18:41] LABS: ABG BASE EXCESS 4.1 mmol/L; ABG PCO2 55.3 mmHg (35.0-45.0); ABG PO2 64.1 mmHg (75.0-100.0); AaDO2 230.2 mmHg; COHb 0.7 % (0.5-1.5); MetHb 0.1 % (0.0-1.5); O2Hb 90.3 % (94.0-97.0); PEEP,BG 5 cm H2O; SITE, ABG Left Radial; VT, ABG 550 mL
[2020-06-12] MEDS: IV NS 0.9% 250 ML IV PRN (20:22)
[2020-06-12] MEDS: MICAFUNGIN SODIUM 100 MG in IV NS 0.9% 100 ML IV SCH (23:01)
[2020-06-13] VITALS (97 sets, daily range): BP systolic 66–151; BP diastolic 37–103
[2020-06-13] MEDS: BLOOD SUGAR DIAGNOSTIC 1 EACH STRIP IN SCH ×4 (00:05→18:53)
[2020-06-13] MEDS: PROPOFOL 100 ML IV PRN ×8 (01:29→14:24)
[2020-06-13] MEDS: IV NS 0.9% 250 ML IV PRN (01:56)
[2020-06-13] MEDS: NOREPINEPHRINE 8 MG in IV NS 0.9% 242 ML IV PRN ×3 (04:05→20:12)
[2020-06-13 04:53] LABS: CALCIUM, SERUM 8.7 mg/dL (8.5-10.1); MAGNESIUM 1.9 mg/dL (1.8-2.4); PHOSPHORUS 4.7 mg/dL (2.5-4.9)
[2020-06-13 04:55] LABS: BASOPHILS # (AUTO) 0.2 /CMM (0.0-0.2); BASOPHILS % (AUTO) 2.3 % (0.0-2.0); EOSINOPHILS % (AUTO) 12.9 % (0.0-6.0); HEMATOCRIT 30 % (39-51); HEMOGLOBIN 9.8 g/dL (13.5-17.5); LYMPHOCYTES # (AUTO) 4.1 /CMM (0.8-4.8); LYMPHOCYTES % (AUTO) 44.4 % (20.0-44.0); MEAN CORPUSCULAR HGB CONC 33 g/dl (31.0-36.0); MEAN CORPUSCULAR VOLUME 89 fL (80-96); MONOCYTES # (AUTO) 1.2 /CMM (0.1-1.30); MONOCYTES % (AUTO) 12.7 % (2.0-12.0); NEUTROPHILS # (AUTO) 2.5 /CMM (1.8-8.9); NEUTROPHILS % (AUTO) 27.7 % (43.0-81.0); PLATELET COUNT (AUTO) 324 /CMM (150-450); RED BLOOD CELL COUNT(AUTO) 3.37 MIL/uL (4.5-6.0); WHITE BLOOD COUNT (AUTO) 9.2 K/uL (4.3-11.0)
[2020-06-13] MEDS: MEROPENEM 500 MG in IV NS 0.9% 50 ML IV SCH (05:30)
[2020-06-13] MEDS: VANCOMYCIN 0.75 GM in IV D5W 250 ML IV SCH (06:09)
--- NOTE | 2020-06-13 07:55 | NUR ---
RN NOTES RECEIVED PATIENT ON TRACH AND VENT SETTING AC 30 TV 550 FIO2 50% PEEP 5 TOLERATED SETTING WELL. PATIENT SWEATS TO FOREHEAD AFEBRILE 99 F., ON TELE MONITOR. NO ACUTE RESPIRATORY DISTRESS. TOLERATED 3 CHEST TUBE ONE ON RIGHT ANT. CHEST WITH PLEURX RIGHT AND LEFT SIDE CHEST WITH TROCAR TUBE ALL CONNECTED TO SUCTION . NO AIR LEAK DRESSING CHANGED AND TOLERATED WELL. RUNNING LEVOPHED 0.2 MCG/KG/HR , PROPOFOL 70MCG/KG/HR. AND FENTANYL 2MCG/KG/HR INTACT. TITRATED PROTOCOL/ORDERED. HOB KEPT ELEVATED GTF INTACT RESIDUAL IN 60 CC, INFUSING GLUCERNA 10 CC/HR INTACT, SCHEDULED MEDICATION ADMINISTERED VIS NGT, FLASHED WITH 120 CC WATER. SEEN WOUND NURSE FOR SACRAL WOUND, ASSIST TURN AND REPOSTION Q 2 HR. PATIENT BECAUSE OF BIG NEW BED ORDERED, SEEN HOSPITALIST. WILL MONITORING.
--- NOTE | 2020-06-13 08:05 | NUR ---
RN NOTES PATIENT ON TRACH AND VENT SETTING AC 30 TV 550 FIO2 50% PEEP 5 TOLERATED WELL. SATURATION >92%. PATIENT SWEATS TO FOREHEAD AFEBRILE. NSR ON TELE MONITOR. NO ACUTE RESPIRATORY DISTRESS. TOLERATED 3 CHEST TUBE ONE ON RIGHT ANT. CHEST WITH PLEURX RIGHT AND LEFT SIDE CHEST WITH TROCAR TUBE ALL CONNECTED TO SUCTION AT 80 WITH WATER 20 CM, NO AIR LEAK DRESSING CHANGED AND TOLERATED WELL. IV SITE REMAINED INTACT AND PATENT WITH NEW DRESSING CHANGED RUNNING WITH LEVOPHED , PROPOFOL AND FENTANYL TITRATED PROTOCOL/ORDERED. KEPT PT CLEAN AND DRY, BED BATH DONE. HOB KEPT ELEVATED GTF INTACT AND PATENT WITH RESIDUAL OF 400CC AT 1900 PM WITH DARK GREENISH COLOR RESIDUAL. HOLD FEEDING FOR 2 H AND RESTARTED FEEDING WHEN <150 CC. ALL DUE MEDICINE TOLERATED WELL. KEPT PT CLEAN AND DRY. ENDORSED CONTINUITY OF CARE TO AM NURSE.
--- NOTE | 2020-06-13 08:18 | NUR ---
WOUND CARE FOLLOW UP: PT SEEN FOR EVOLVING DEEP TISSUE BUTTOCKS WOUND, NOW NOTED TO INCLUDE SACRUM, RASH TO BUTTOCKS AND PERINEUM AND LEFT EAR DEEP TISSUE INJURY IN EVOLUTION. RECOMMEND SURGICAL CONSULT. DR CHATO BAY NOTIFIED OF CONSULT REQUEST FOR SACRAL WOUND. TREATMENT ORDERS UPDATED. DISCUSSED WITH NURSING STAFF AND INSULATION CUPOLA CHARGER. [facility] AIR BED ORDERED. PT NOTED TO HAVE MULTIPLE CO-MORBIDITIES INCLUDING DIABETES, RESPIRATORY FAILURE, PNEUMOTHRACES WITH CHEST TUBES AND COVID PNEUMONIA. DUE TO MULTIPLE CO-MORBIDITIES, FURTHER SKIN BREAKDOWN MAY BE UNAVOIDABLE. ALL SKIN PROTECTION RECOMMENDATIONS DISCUSSED WITH NURSING STAFF. MD IN AGREEMENT WITH PLAN OF CARE. Addendum: 06/13/20 at 0823 by ANGELINA APARICIO WNDNU Amended: Links added.
[2020-06-13] MEDS: FENTANYL CITRAT IV 2,500 MCG in IV NS 0.9% 200 ML IV PRN ×2 (08:41→18:55)
[2020-06-13] MEDS: PANTOPRAZOLE 40 MG/PACK PACK GT SCH ×2 (08:42→20:16)
[2020-06-13] MEDS: DOCUSATE SODIUM LIQ 100 MG/10 ML UDC NG SCH (08:42)
[2020-06-13] MEDS: APIXABAN 5 MG TABLET PO SCH ×2 (08:43→18:54)
[2020-06-13] MEDS: PROSOURCE / PROSTAT (PYXIS) 30 ML UDC GT SCH ×2 (08:47→18:52)
[2020-06-13] MEDS: NEOMY SULF/BACITRAC ZN/POLY 15 GM TUBE TP SCH ×2 (08:47→18:53)
[2020-06-13] MEDS: MIDAZOLAM HCL 100 MG in IV NS 0.9% 80 ML IV PRN (16:01)
--- NOTE | 2020-06-13 18:45 | NUR ---
RN NOTES PATIENT ON TRACH AND VENT SETTING TOLERATING WELL, PM CARE DONE, SUCTION, NO ACUTE RESPIRATORY DISTRESS. TOLERATED 3 CHEST TUBE ONE ON RIGHT ANT. CHEST WITH PLEURX RIGHT AND LEFT SIDE CHEST WITH TROCAR TUBE ALL CONNECTED TO SUCTION . NO AIR LEAK DRESSING CHANGED AND TOLERATED WELL. RUNNING LEVOPHED 0.1 MCG/KG/HR , VERCED 5 MG/HR AND FENTANYL 2MCG/KG/HR INTACT. TITRATED PER PROTOCOL. HOB KEPT ELEVATED GTF INTACT. FLASHED 250ML WATER. SCHEDULED MEDICATION ADMINISTERED VIS NGT. ASSIST TURN AND REPOSTION Q 2 HR. PATEL DRAINING GREENISH COLOR. ASSIST TURN AND REPOSTION Q 2HR. ENDORSED ONCOMING NURSE FOLLOW PLAN OF CARE.
[2020-06-13] MEDS: GLUCERNA 1.2 1,000 ML BOTTLE GT PRN (19:15)
--- NOTE | 2020-06-13 19:45 | NUR ---
RN OPENING NOTES RECEIVED PT IN BED. SEDATED. TRACH TO VENT, SETTINGS AC 30 TV 550 FIO2 50% AND PEEP OF 5, O2 SATURATION OF 89-90% PT ON TELE MONITOR PRESENTS WITH ST WITH HR OF 104 AT THIS TIME. PT HAS GT, AUSCULTATED TO CONFIRM PLACEMENT, 0 RESIDUAL, FLUSHED. IV SITES FLUSHED ASEPTICALLY, PT ON FENTANYL AT 2MCG, VERSED AT 5MG, LEVOPHED AT 0.1 MCG/KG/MIN, BP WNL AT THIS TIME. WILL TITRATE ACCORDING TO PROTOCOL ORDER. PT IS AFEBRILE. VS STABLE AT THIS TIME. PT HAS 3 CHEST TUBES, PRESENT. F/C DRAINING TO GRAVITY. SAFETY MEASURES IN PLACE. HOB ELEVATED. SIDE RAILS UP X 2, BED IS LOCKED IN LOWEST POSITION WITH BED ALARM ON. WILL CONT TO MONITOR. Addendum: 06/13/20 at 2143 by OLIMPIA CHAPMAN RN GTUBE FEEDING GLUCERNA RUNNING AT 10CC/HR
--- NOTE | 2020-06-13 19:45 | NUR ---
ONE PORT ON PICC TLC OCCLUDED.
--- NOTE | 2020-06-13 20:00 | NUR ---
O2 SATURATION NOTED 89-90 RT AT BEDSIDE, FIO2 INCREASED TO 60% SATURATION NOW 94% WILL CONT TO MONITOR.
--- NOTE | 2020-06-13 23:47 | NUR ---
TEMP NOTED TO BE 101, TYLENOL PRN ADMINISTERED ORDERED
[2020-06-14] VITALS (81 sets, daily range): BP systolic 76–134; BP diastolic 18–82
[2020-06-14] MEDS: BLOOD SUGAR DIAGNOSTIC 1 EACH STRIP IN SCH ×5 (00:04→23:25)
[2020-06-14 04:30] LABS: BASOPHILS # (AUTO) 0.1 /CMM (0.0-0.2); BASOPHILS % (AUTO) 1.1 % (0.0-2.0); EOSINOPHILS % (AUTO) 4.9 % (0.0-6.0); HEMATOCRIT 27 % (39-51); HEMOGLOBIN 8.8 g/dL (13.5-17.5); LYMPHOCYTES # (AUTO) 1.6 /CMM (0.8-4.8); LYMPHOCYTES % (AUTO) 33.5 % (20.0-44.0); MEAN CORPUSCULAR HGB CONC 33 g/dl (31.0-36.0); MEAN CORPUSCULAR VOLUME 88 fL (80-96); MONOCYTES # (AUTO) 0.5 /CMM (0.1-1.30); MONOCYTES % (AUTO) 10.1 % (2.0-12.0); NEUTROPHILS # (AUTO) 2.4 /CMM (1.8-8.9); NEUTROPHILS % (AUTO) 50.4 % (43.0-81.0); PLATELET COUNT (AUTO) 250 /CMM (150-450); RED BLOOD CELL COUNT(AUTO) 3.09 MIL/uL (4.5-6.0); WHITE BLOOD COUNT (AUTO) 4.7 K/uL (4.3-11.0)
[2020-06-14 04:52] LABS: CALCIUM, SERUM 8.4 mg/dL (8.5-10.1); CREATININE 1.4 mg/dL (0.6-1.3); MAGNESIUM 1.9 mg/dL (1.8-2.4); POTASSIUM 3.8 mmol/L (3.5-5.1)
[2020-06-14] MEDS: FENTANYL CITRAT IV 2,500 MCG in IV NS 0.9% 200 ML IV PRN ×2 (04:56→20:31)
--- NOTE | 2020-06-14 07:11 | NUR ---
RN CLOSING NOTES PT UPDATED VENT SETTINGS, AC 30 TV 550 FIO2 60 AND PEEP OF 5. NO RESP DISTRESS OR SOB. PT SATURATION 97% AT THIS TIME. BED BATH DONE. 1 BM. NEW PATEL CATH PLACED. PT HAS ORAL AND NASAL DRAINAGE, NEEDS SUCTION OCCASIONALLY. WOUND TX DONE ORDERED. PT HAD FEVER, LAST TEMP NOTED 99.9. ICE PACKS IN PLACE WITH COOL COMPRESS. SAFETY MEASURES IN PLACE. HOB ELEVATED AT ALL TIMES, SIDE RAILS UP X3. BED LOCKED IN LOWEST POSITION WILL ENDORSE TO AM NURSE FOR CONTINUATION OF CARE. Addendum: 06/14/20 at 0715 by OLIMPIA CHAPMAN RN FENT 2MCG VERSED 5MG LEVO OFF AT 2300
--- NOTE | 2020-06-14 08:00 | NUR ---
CUSTODIAN SUPERVISOR NOTES PT VENT SETTINGS, AC 30 TV 550 FIO2 60 AND PEEP OF 5. NO RESP DISTRESS OR SOB. PT SATURATION 97% AT THIS TIME. GT INTACT NO RESIDUAL, PLACEMENT CHECKED. PATIENT NOR FEBRILE, SUCTION, INFUSING FENTANYL 2 MCG/KG/HR, AND VERSED 5 MG/HR. ASSIST TURN AND REPOSTION Q 2 HR. CHEST TUBED INTACT, AND ONLY UPPER RIGHT ONE IN DRAINING SMALL OUTPUT. SAFETY MEASURES IN PLACE. HOB ELEVATED AT ALL TIMES, SIDE RAILS UP X3. WILL MONITORING.
--- NOTE | 2020-06-14 08:23 | NUR ---
RN NOTES PER REVENUE ENFORCEMENT COLLECTION AGENT Dr BO TO ORDER TITRATE FENTANYL DOWN. ORDER TAKEN AND CARRIED OUT. TITRATED 1 MCG/KG/HR. WILL MONITORING.
[2020-06-14] MEDS: NEOMY SULF/BACITRAC ZN/POLY 15 GM TUBE TP SCH ×2 (09:15→17:41)
[2020-06-14] MEDS: PROSOURCE / PROSTAT (PYXIS) 30 ML UDC GT SCH ×2 (09:16→17:41)
[2020-06-14] MEDS: DOCUSATE SODIUM LIQ 100 MG/10 ML UDC NG SCH (09:19)
[2020-06-14] MEDS: PANTOPRAZOLE 40 MG/PACK PACK GT SCH ×2 (09:19→20:29)
[2020-06-14] MEDS: APIXABAN 5 MG TABLET PO SCH ×2 (09:20→17:55)
--- NOTE | 2020-06-14 09:40 | NUR ---
rn notes per Dr Smith TO order if respiration increased up to 35 titrate up fentanyl, and increased GT feeding 30 cc/hr, order taken and carried out.
[2020-06-14] MEDS: MIDAZOLAM HCL 100 MG in IV NS 0.9% 80 ML IV PRN (10:49)
[2020-06-14] MEDS: IV NS 0.9% 250 ML IV PRN (17:41)
--- NOTE | 2020-06-14 19:32 | NUR ---
AIRPLANE RIGGER OPENING NOTES: Rec'd pt in bed on trach shiley #8 and on mechanical ventilation. Tolerating vent settings well. No resp distress noted. SR on tele monitor.Glucerna infusing at 30ml/hr. Tolerating well. [address] BUBBA PICC in place w/ Fentanyl infusing at 2mcg and Versed at 5mg. Uriarte catheter in place patent and draining urine via gravity. Safety measures in place. Will continue to monitor.
[2020-06-14 20:04] LABS: CREATININE, URINE 108.3 MG/DL (30.0-125.0); URINE TOTAL PROTEIN 223.8 mg/dL (0-11.9)
[2020-06-14 20:22] LABS: BILIRUBIN,URINE MODERATE (NEGATIVE); COLOR,URINE YELLOW (YELLOW); LEUKOCYTE ESTERASE ,URINE TRACE (NEGATIVE); NITRITE, URINE NEGATIVE (NEGATIVE); PH,URINE 5.5 (5.0-8.0); PROTEIN,URINE 100 mg/dl (NEGATIVE); UGLUCOSE NEGATIVE (NEGATIVE)
[2020-06-14 20:35] LABS: RBC,URINE 51-80 /HPF (0-2)
[2020-06-14 20:36] LABS: BACTERIA,URINE 2+ /HPF (None Seen); SQUAMOUS EPITHELIAL CELL,UR 0-2 /HPF (None Seen)
[2020-06-14 21:13] LABS: EOSINOPHIL,URINE Few
[2020-06-14] MEDS: INSULIN REGULAR, HUMAN 100 UNIT/ML 3 ML VIAL SQ PRN (23:26)
[2020-06-15] VITALS (36 sets, daily range): BP systolic 93–142; BP diastolic 50–93
[2020-06-15] MEDS: ACETAMINOPHEN 650 MG/20.3 ML UDC NG PRN (00:16)
--- NOTE | 2020-06-15 00:20 | NUR ---
ACADEMIC VICE PRESIDENT NOTE: Pt noted w/ temp of 99.9 axillary. Tylenon PRN given as ordered. Cooling measures in place.
[2020-06-15] MEDS: MIDAZOLAM HCL 100 MG in IV NS 0.9% 80 ML IV PRN ×2 (01:52→20:51)
[2020-06-15 04:34] LABS: BASOPHILS % (AUTO) 0.9 % (0.0-2.0); EOSINOPHILS % (AUTO) 18.6 % (0.0-6.0); HEMATOCRIT 26 % (39-51); HEMOGLOBIN 8.7 g/dL (13.5-17.5); LYMPHOCYTES # (AUTO) 1.4 /CMM (0.8-4.8); LYMPHOCYTES % (AUTO) 25.4 % (20.0-44.0); MEAN CORPUSCULAR HGB CONC 33 g/dl (31.0-36.0); MEAN CORPUSCULAR VOLUME 88 fL (80-96); MONOCYTES # (AUTO) 0.4 /CMM (0.1-1.30); MONOCYTES % (AUTO) 8.3 % (2.0-12.0); NEUTROPHILS # (AUTO) 2.5 /CMM (1.8-8.9); NEUTROPHILS % (AUTO) 46.8 % (43.0-81.0); PLATELET COUNT (AUTO) 253 /CMM (150-450); RED BLOOD CELL COUNT(AUTO) 2.99 MIL/uL (4.5-6.0); WHITE BLOOD COUNT (AUTO) 5.4 K/uL (4.3-11.0)
[2020-06-15 04:58] LABS: CALCIUM, SERUM 8.4 mg/dL (8.5-10.1); CREATININE 1.1 mg/dL (0.6-1.3); MAGNESIUM 1.7 mg/dL (1.8-2.4); PHOSPHORUS 3.7 mg/dL (2.5-4.9); POTASSIUM 2.9 mmol/L (3.5-5.1)
[2020-06-15] MEDS: BLOOD SUGAR DIAGNOSTIC 1 EACH STRIP IN SCH ×3 (05:07→18:57)
[2020-06-15] MEDS: INSULIN REGULAR, HUMAN 100 UNIT/ML 3 ML VIAL SQ PRN (05:07)
[2020-06-15] MEDS: PANTOPRAZOLE 40 MG/PACK PACK GT SCH ×2 (09:11→20:07)
[2020-06-15] MEDS: DOCUSATE SODIUM LIQ 100 MG/10 ML UDC NG SCH (09:11)
[2020-06-15] MEDS: PROSOURCE / PROSTAT (PYXIS) 30 ML UDC GT SCH ×2 (09:11→16:37)
[2020-06-15] MEDS: APIXABAN 5 MG TABLET PO SCH ×2 (09:12→16:37)
[2020-06-15] MEDS: NEOMY SULF/BACITRAC ZN/POLY 15 GM TUBE TP SCH ×2 (09:12→16:38)
[2020-06-15] MEDS ORDERED: POTASSIUM CL. PREMIX PERIPHER. 50 ML IV SCH (10:00)
[2020-06-15] MEDS: POTASSIUM CHLORIDE 20 MEQ POWDER PACKET GT SCH ×3 (10:09→12:23)
[2020-06-15] MEDS: Magnesium 1GM/D5W 100ML PREMIX 100 ML IV SCH ×2 (10:10→11:15)
[2020-06-15] MEDS: CEPHALEXIN MONOHYDRATE 500 MG CAPSULE PO SCH ×2 (10:13→16:37)
[2020-06-15] MEDS: GLUCERNA 1.2 1,000 ML BOTTLE GT PRN (14:58)
[2020-06-15] MEDS: FENTANYL CITRAT IV 2,500 MCG in IV NS 0.9% 200 ML IV PRN (16:56)
--- NOTE | 2020-06-15 21:19 | NUR ---
pedicurist. initial assessment. received the pt rest on the bed. trach to vent connected. shiley#8,ac 30,fio2 50%. peep 5. sat 98%. rt upper arm picc line. versed 5mg/h,fentanyl 1mcg/kg/min. gt intact.glucerna 30ml/h.hob elevated, fc patent. hob elevated. will continue to monitor vitals.
[2020-06-16] VITALS (86 sets, daily range): BP systolic 93–141; BP diastolic 48–99
--- NOTE | 2020-06-16 04:40 | NUR ---
curriculum designer. am care given. remaining same vent setting tolerated well. sat 97%. no acute distress noted. court recording monitor showing nsr. iv rt upper arm picc line. versed. 1mg/h.fentanyl 1mcg/kg/min. fc patent. urine draining,. gt feeding tolerated well. rl chest tube intact. no leak noted. turn and reposition q2h. will continue to monitor vitals
--- NOTE | 2020-06-16 06:18 | NUR ---
rl chest tube drain #0.
[2020-06-16 06:23] LABS: BASOPHILS % (AUTO) 0.9 % (0.0-2.0); EOSINOPHILS % (AUTO) 15.3 % (0.0-6.0); HEMATOCRIT 29 % (39-51); HEMOGLOBIN 9.4 g/dL (13.5-17.5); LYMPHOCYTES # (AUTO) 1.1 /CMM (0.8-4.8); LYMPHOCYTES % (AUTO) 23.2 % (20.0-44.0); MEAN CORPUSCULAR HGB CONC 33 g/dl (31.0-36.0); MEAN CORPUSCULAR VOLUME 89 fL (80-96); MONOCYTES # (AUTO) 0.5 /CMM (0.1-1.30); MONOCYTES % (AUTO) 11.2 % (2.0-12.0); NEUTROPHILS # (AUTO) 2.4 /CMM (1.8-8.9); NEUTROPHILS % (AUTO) 49.4 % (43.0-81.0); PLATELET COUNT (AUTO) 206 /CMM (150-450); RED BLOOD CELL COUNT(AUTO) 3.21 MIL/uL (4.5-6.0); WHITE BLOOD COUNT (AUTO) 4.8 K/uL (4.3-11.0)
[2020-06-16] MEDS: BLOOD SUGAR DIAGNOSTIC 1 EACH STRIP IN SCH ×5 (06:27→23:43)
[2020-06-16] MEDS: ACETAMINOPHEN 650 MG/20.3 ML UDC NG PRN ×2 (06:27→17:35)
--- NOTE | 2020-06-16 06:28 | NUR ---
auricular therapist. temperature is 100. tylenol po given per ordered
[2020-06-16 07:14] LABS: CALCIUM, SERUM 8.3 mg/dL (8.5-10.1); CREATININE 0.9 mg/dL (0.6-1.3); PHOSPHORUS 3.7 mg/dL (2.5-4.9); POTASSIUM 3.5 mmol/L (3.5-5.1)
[2020-06-16] MEDS: DOCUSATE SODIUM LIQ 100 MG/10 ML UDC NG SCH (09:16)
[2020-06-16] MEDS: PROSOURCE / PROSTAT (PYXIS) 30 ML UDC GT SCH ×2 (09:16→17:35)
[2020-06-16] MEDS: NEOMY SULF/BACITRAC ZN/POLY 15 GM TUBE TP SCH ×2 (09:16→17:35)
[2020-06-16] MEDS: PANTOPRAZOLE 40 MG/PACK PACK GT SCH ×2 (09:16→20:21)
[2020-06-16] MEDS: APIXABAN 5 MG TABLET PO SCH ×2 (09:17→17:37)
--- NOTE | 2020-06-16 10:00 | NUR ---
PER MD BO, PT SEDATION VACATION, VERSED TITRATED DOWN FROM 5 TO 3.5 MCG
[2020-06-16] MEDS: FENTANYL CITRAT IV 2,500 MCG in IV NS 0.9% 200 ML IV PRN (12:53)
--- NOTE | 2020-06-16 17:00 | NUR ---
TEMPERATURE CHECKED AT 101.6, TYLENOL GIVEN ORDERED
--- NOTE | 2020-06-16 19:00 | NUR ---
VERSED INCREASED BACK TO 5 MCG DUE TO PATIENT TACHYPNEA AND TACHYCARDIA. NO OUTPUT FROM 3 CHEST TUBES. PT TOLERATING VENT SETTINGS WELL, 02 SAT 95-100%.
--- NOTE | 2020-06-16 19:15 | NUR ---
RECEIVED PT ON BED SEDATED, FULL CODE ON TRACH/VENT SETTING PER MD FIO2 50% SPO2 98% TELE MONITOR READS SINUS RHYTHM 80'S HAVE BUBBA PICC WITH ONGOING FENTANYL @ 1MCG/KG/MIN, VERSED @ 5MG/HR, INFUSING WELL, HAVE PEG TUBE , PLACEMENT CHECKED, RESIDUAL CHECK 0ML WITH ONGOING GLUCERNA @ 30ML/HR TOLERATING WELL, HAVE PATEL CATHETER DRAINING GENE URINE VIA GRAVITY HAVE LEFT LOWER CHEST CHEST TUBE CONNECTED TO LOW INTERMITTENT SUCTION, PATENCY AND TUBE CHECKED FOR KINK,HAVE RIGHT UPPER AND LOWER CHEST CHEST TUBE CONNECTED TO LOW INTERMITTENT SUCTION, PATENCY AND TUBE CHECKED FOR KINK, BED ON LOWEST POSITION AND LOCKED SIDE RAILS UP X2 WILL CONT TO MONITOR
[2020-06-16] MEDS: MIDAZOLAM HCL 100 MG in IV NS 0.9% 80 ML IV PRN (20:31)
[2020-06-16] MEDS: INSULIN REGULAR, HUMAN 100 UNIT/ML 3 ML VIAL SQ PRN (23:43)
[2020-06-17] VITALS (48 sets, daily range): BP systolic 84–147; BP diastolic 51–102
[2020-06-17] MEDS: ACETAMINOPHEN 650 MG/20.3 ML UDC NG PRN (00:58)
[2020-06-17 05:22] LABS: BASOPHILS # (AUTO) 0.1 /CMM (0.0-0.2); BASOPHILS % (AUTO) 1.1 % (0.0-2.0); EOSINOPHILS % (AUTO) 3.6 % (0.0-6.0); HEMATOCRIT 25 % (39-51); HEMOGLOBIN 8.1 g/dL (13.5-17.5); LYMPHOCYTES # (AUTO) 1.9 /CMM (0.8-4.8); LYMPHOCYTES % (AUTO) 36.6 % (20.0-44.0); MEAN CORPUSCULAR HGB CONC 33 g/dl (31.0-36.0); MEAN CORPUSCULAR VOLUME 89 fL (80-96); MONOCYTES # (AUTO) 0.8 /CMM (0.1-1.30); NEUTROPHILS # (AUTO) 2.2 /CMM (1.8-8.9); NEUTROPHILS % (AUTO) 43.7 % (43.0-81.0); PLATELET COUNT (AUTO) 233 /CMM (150-450); RED BLOOD CELL COUNT(AUTO) 2.79 MIL/uL (4.5-6.0); WHITE BLOOD COUNT (AUTO) 5.1 K/uL (4.3-11.0)
[2020-06-17] MEDS: BLOOD SUGAR DIAGNOSTIC 1 EACH STRIP IN SCH ×4 (05:25→23:38)
[2020-06-17] MEDS: INSULIN REGULAR, HUMAN 100 UNIT/ML 3 ML VIAL SQ PRN ×3 (05:25→23:39)
[2020-06-17 05:30] LABS: CALCIUM, SERUM 8.2 mg/dL (8.5-10.1); PHOSPHORUS 4.3 mg/dL (2.5-4.9); POTASSIUM 3.6 mmol/L (3.5-5.1)
[2020-06-17] MEDS: Z GUARD REMEDY 2 OZ OINT TP PRN (05:35)
--- NOTE | 2020-06-17 07:30 | NUR ---
FOAM RUBBER MOLDER PATIENT IN BED, NO S/S OF DISTRESS, VENT TRACH IN PLACE SETTINGS AC 58, TV 550, FIO2 50%, PEEP5, SEDATED SCORE 3, TELE MONITOR IN PLACE SINUS RHYTHM, PEG TUBE IN PLACE, PATEL IN PLACE DRAINING CLEAR YELLOW URINE, GLUCERNA RUNNING AT 30ML/HR, BUBBA PICC, RUNNING FENTANYL AT 1MCG/KG/MIN, AND VERSED AT 5MCG/HR, INTACT CLEAN FLUSHES WELL, BED IN LOWEST LOCKED POSITION CALL LIGHT WITHIN REACH WILL CONTINUE TO MONITOR.
[2020-06-17] MEDS: FENTANYL CITRAT IV 2,500 MCG in IV NS 0.9% 200 ML IV PRN ×2 (07:51→23:52)
--- NOTE | 2020-06-17 07:59 | NUR ---
PLAYER DEVELOPMENT MANAGER CHANGED FENTANYL IV BAG WITH ASSISTANCE AND COSIGNING OF STORMY THE ICU CHARGE NURSE. WASTED 10ML AND FILLED OUT WASTE FORMS.
--- NOTE | 2020-06-17 09:00 | NUR ---
FASHION BUYING INTERNSHIP SPOKE WITH PELEG, ORDERED PRECEDEX AND PHARMACY WANTS TO CLEAN THE eMAR SO VERIFIED WITH PELEG TO DISCONTINUE DIPRIVAN AND VERSED. WILL GIVE PRECEDEX WHEN BROUGHT BY PHARMACY. WILL PERFORM THE SWITCH FROM VERSED TO PRECEDEX WITH THE HELP OF STORMY THE CHARGE NURSE.
[2020-06-17] MEDS: DOCUSATE SODIUM LIQ 100 MG/10 ML UDC NG SCH (09:41)
[2020-06-17] MEDS: PROSOURCE / PROSTAT (PYXIS) 30 ML UDC GT SCH ×2 (09:41→17:55)
[2020-06-17] MEDS: NEOMY SULF/BACITRAC ZN/POLY 15 GM TUBE TP SCH ×2 (09:42→17:53)
[2020-06-17] MEDS: PANTOPRAZOLE 40 MG/PACK PACK GT SCH ×2 (09:42→20:47)
[2020-06-17] MEDS: APIXABAN 5 MG TABLET PO SCH ×2 (09:44→17:53)
[2020-06-17] MEDS: PRECEDEX 400 MCG/100 ML BOTTLE 100 ML IV PRN ×5 (10:33→23:43)
--- NOTE | 2020-06-17 10:40 | NUR ---
JAVA SOFTWARE ARCHITECT WITH ASSISTANCE FROM STORMY THE CHARGE NURSE. STARTED PRECEDEX DRIP AT 0.4MCG/KG/MIN, CONTINUING VERSED AT 5MCG/KG/MIN AND WILL TITRATED DOWN BY 1 AND HOUR ORDERED BY BETZY.
--- NOTE | 2020-06-17 14:00 | NUR ---
STABBER WEANING PATIENT OFF OF VERSED AND PUTTING ON PRECEDEX, TITRATING ACCORDING TO VITALS, PATIENT IS TOLERATING WELL. CURRENT VITALS ARE O2 SAT 91%, BP 107/58, 28RR, 94HR. MONITORING AND TITRATING WITH THE ASSISTANCE OF STORMY THE CHARGE NURSE. WILL CONTINUE TO MONITOR.
[2020-06-17] MEDS ORDERED: MIDAZOLAM HCL 100 MG in IV NS 0.9% 80 ML IV PRN (16:00)
--- NOTE | 2020-06-17 19:31 | NUR ---
PT REC'D TRACHED SHILEY 8 ON [facility] WITH THE SETTINGS OF AC 30, 550,50%,PEEP 5. TRACH SECURED AND PATENT. BILATERAL CHEST RISE NOTED. SX DONE . ALARMS ARE SET AND AUDIBLE. VENT PLUGGED INTO RED OUTLET. AMBU BAG@ BEDSIDE. WILL CONTINUE TO MONITOR T/O THE SHIFT.
--- NOTE | 2020-06-17 19:45 | NUR ---
RN NOTES RECEIVED PT ON BED SEDATED ON TRACH/VENT SETTING OF AC 30 TV 550 FIO2 50% W/ SPO2 98%. ON TELE MONITORING SHOWS SR HR 74. PT WITH PICC ON BUBBA WITH ONGOING FENTANYL @ 3MCG/KG/MIN, VERSED @ 2MG/HR AND PRECEDEX AT 0.8MCG/KG/HR INFUSING WELL, NO SIGNS OF INFILTRATION. GT IN PLACE AND PATENT, PLACEMENT CHECKED, WITH NO RESIDUAL NOTED. GT FEEDING OF GLUCERNA RUNNING AT 30ML/HR TOLERATING WELL, KEPT HOB ELEVATED. PATEL CATHETER DRAINING GENE URINE. PT W/ CHEST TUBES ON LEFT LOWER CHEST, RIGHT LOWER CHEST AND RIGHT UPPER CHEST, PATENCY AND TUBE CHECKED, DRESSINGS CLEAN DRY AND INTACT. ALL SAFETY MEASURES IMPLEMENTED PER PROTOCOL, BED LOCKED ON LOWEST POSITION. SIDE RAILS UP X2. WILL CONT TO MONITOR
--- NOTE | 2020-06-17 19:46 | NUR ---
RN NOTES received patient on Fentanyl, actual rate of 1.4mcg/kg/hr or 18 ml /hr. Charge nurse aware.
--- NOTE | 2020-06-17 21:15 | NUR ---
RN NOTE TITRATED PRECEDEX TO 0.9MCG/KG/HR AND TITRATED VERSED DOWN T0 1.5 PER PROTOCOL. GOAL TO WEAN OFF WITH VERSED. WILL CONTINUE TO MONITOR.
--- NOTE | 2020-06-17 22:40 | NUR ---
RN NOTE TITRATED VERSED BACK TO 2MG/HR AND TITRATED PRECEDEX TO 1MCG/KG/HR, PER PROTOCOL. WITH ASSISTANCE OF CHARGE NURSE JOHN. PT TACHYPNEIC AND OPENING EYES. WILL CONTINUE TO MONITOR.
[2020-06-18] VITALS (61 sets, daily range): BP systolic 77–143; BP diastolic 45–101
[2020-06-18] MEDS: PRECEDEX 400 MCG/100 ML BOTTLE 100 ML IV PRN ×8 (01:45→23:39)
--- NOTE | 2020-06-18 03:10 | NUR ---
RN NOTES TITRATED DOWN PRECEDEX PER PROTOCOL WITH ASSISTANCE OF CHARGE NURSE. PT BECOMING HYPOTENSIVE AND VERY SEDATED. WILL CONTINUE TO MONITOR.
[2020-06-18] MEDS: ACETAMINOPHEN 650 MG/20.3 ML UDC NG PRN ×3 (04:57→21:10)
--- NOTE | 2020-06-18 04:57 | NUR ---
RN NOTE BODY TEMP AT 100.3. TYLENOL GIVEN ORDERED. WILL CONTINUE TO MONITOR.
[2020-06-18 05:01] LABS: BASOPHILS % (AUTO) 0.2 % (0.0-2.0); EOSINOPHILS % (AUTO) 0.4 % (0.0-6.0); HEMATOCRIT 28 % (39-51); HEMOGLOBIN 8.7 g/dL (13.5-17.5); LYMPHOCYTES # (AUTO) 0.6 /CMM (0.8-4.8); LYMPHOCYTES % (AUTO) 6.2 % (20.0-44.0); MEAN CORPUSCULAR HGB CONC 31 g/dl (31.0-36.0); MEAN CORPUSCULAR VOLUME 91 fL (80-96); MONOCYTES # (AUTO) 0.7 /CMM (0.1-1.30); MONOCYTES % (AUTO) 7.7 % (2.0-12.0); NEUTROPHILS # (AUTO) 7.9 /CMM (1.8-8.9); NEUTROPHILS % (AUTO) 85.5 % (43.0-81.0); PLATELET COUNT (AUTO) 231 /CMM (150-450); RED BLOOD CELL COUNT(AUTO) 3.09 MIL/uL (4.5-6.0); WHITE BLOOD COUNT (AUTO) 9.3 K/uL (4.3-11.0)
[2020-06-18 05:16] LABS: CALCIUM, SERUM 8.2 mg/dL (8.5-10.1); CREATININE 1.1 mg/dL (0.6-1.3); MAGNESIUM 1.9 mg/dL (1.8-2.4); PHOSPHORUS 4.4 mg/dL (2.5-4.9); POTASSIUM 4.5 mmol/L (3.5-5.1)
[2020-06-18] MEDS: BLOOD SUGAR DIAGNOSTIC 1 EACH STRIP IN SCH ×3 (06:27→17:43)
[2020-06-18] MEDS: INSULIN REGULAR, HUMAN 100 UNIT/ML 3 ML VIAL SQ PRN ×2 (06:29→17:46)
--- NOTE | 2020-06-18 07:00 | NUR ---
RN NOTE PT REMAIN SEDATED. TITRATED PRECEDEX PER PROTOCOL. CURRENTLY ON PRECEDEX 0.2 MCG/KG/HR, FENTANYL AT 1.4MCG/KG/HR AND VERSED AT 2.5MG/HR. CHARGE NURSE AWARE. NO DISTRESS NOTED. PT TOLERATING GT FEEDING. NO RESIDUALS NOTED. NO S/SX OF ASPIRATION. KEPT HOB ELEVATED. PATEL CATH IN PLACE. ALL CHEST TUBES ARE INTACT. WILL ENDORSE TO NEXT SHIFT NURSE FOR ROSELINE.
--- NOTE | 2020-06-18 08:00 | NUR ---
PT RECEIVED IN BED SEDATED ON 0.2 MCG PRECEDEX, 1.4 MCG FENTANYL, AND 2.5 MCG VERSED.PER MD BO, WILL TITRATE OFF VERSED TODAY TOLERATED. PT G-TUBE RUNNING GLUCERNA AT 30 ML/HR WITH MINIMAL RESIDUAL. PT BUBBA PICC INTACT AND FLUSHED WELL. PT 3 CHEST TUBES CONNECTED TO SUCTION WITH NO OUTPUT PER PREVIOUS SHIFT. ALL SAFETY MEASURES IN PLACE. WILL CONTINUE TO MONITOR
[2020-06-18] MEDS: PROSOURCE / PROSTAT (PYXIS) 30 ML UDC GT SCH ×2 (08:34→16:03)
[2020-06-18] MEDS: PANTOPRAZOLE 40 MG/PACK PACK GT SCH ×2 (08:34→20:58)
[2020-06-18] MEDS: NEOMY SULF/BACITRAC ZN/POLY 15 GM TUBE TP SCH ×2 (08:34→16:04)
[2020-06-18] MEDS: DOCUSATE SODIUM LIQ 100 MG/10 ML UDC NG SCH (08:34)
[2020-06-18] MEDS: APIXABAN 5 MG TABLET PO SCH ×2 (08:41→16:04)
[2020-06-18] MEDS ORDERED: FUROSEMIDE 20 MG/2 ML VIAL IV SCH (11:00)
[2020-06-18] MEDS: GLUCERNA 1.2 1,000 ML BOTTLE GT PRN (12:52)
[2020-06-18] MEDS: FENTANYL CITRAT IV 2,500 MCG in IV NS 0.9% 200 ML IV PRN (13:31)
--- NOTE | 2020-06-18 18:30 | NUR ---
SUSIE GUZMAN TO INCREASE TF ORDER FROM 30 ML/HR TO 50 ML/HR WITH PROSTAT TID RECOMMENDED BY BLEACH TESTER. TF TO BE INCREASED FROM 40 ML/HR FOR 4 HOURS, IF RESIDUAL UNDER 250, TO INCREASE TO GOAL RATE OF 50 ML/HR
--- NOTE | 2020-06-18 18:44 | NUR ---
PT UNABLE TO BE WEANED COMPLETEY OFF VERSED THIS SHIFT DUE TO TACHYCARDIA AND TACHYPNEA. PRECEDEX INCREASED. PT THIS SHIFT WHILE OFF VERSED WAS ABLE TO NOD HEAD YES/NO FOR QUESTIONS, AND ABLE TO MOUTH WORDS. PT REMAINS UNCHANGED ON VENT SETTINGS, O2 SAT 95-100% NO SOB. HR ON MONITOR FROM 70s-120s. PT PUT ON DIURETIC TRIAL 40 MG ONCE PER SUSIE BACON. WOUND CARE ADMINISTERED ORDERED.
[2020-06-18] MEDS: IV NS 0.9% 250 ML IV PRN (23:54)
[2020-06-19] VITALS (77 sets, daily range): BP systolic 86–129; BP diastolic 50–92
[2020-06-19] MEDS: BLOOD SUGAR DIAGNOSTIC 1 EACH STRIP IN SCH ×4 (00:22→17:27)
[2020-06-19] MEDS: PRECEDEX 400 MCG/100 ML BOTTLE 100 ML IV PRN ×10 (01:56→22:29)
[2020-06-19 04:36] LABS: BASOPHILS % (AUTO) 0.5 % (0.0-2.0); EOSINOPHILS % (AUTO) 1.9 % (0.0-6.0); HEMATOCRIT 26 % (39-51); HEMOGLOBIN 8.2 g/dL (13.5-17.5); LYMPHOCYTES # (AUTO) 3.4 /CMM (0.8-4.8); LYMPHOCYTES % (AUTO) 36.4 % (20.0-44.0); MEAN CORPUSCULAR HGB CONC 32 g/dl (31.0-36.0); MEAN CORPUSCULAR VOLUME 90 fL (80-96); MONOCYTES # (AUTO) 0.9 /CMM (0.1-1.30); MONOCYTES % (AUTO) 9.2 % (2.0-12.0); NEUTROPHILS # (AUTO) 4.9 /CMM (1.8-8.9); PLATELET COUNT (AUTO) 212 /CMM (150-450); RED BLOOD CELL COUNT(AUTO) 2.85 MIL/uL (4.5-6.0); WHITE BLOOD COUNT (AUTO) 9.4 K/uL (4.3-11.0)
[2020-06-19 04:52] LABS: CALCIUM, SERUM 8.2 mg/dL (8.5-10.1); CREATININE 1.2 mg/dL (0.6-1.3); MAGNESIUM 2.1 mg/dL (1.8-2.4); PHOSPHORUS 4.2 mg/dL (2.5-4.9); POTASSIUM 3.9 mmol/L (3.5-5.1)
[2020-06-19] MEDS: INSULIN REGULAR, HUMAN 100 UNIT/ML 3 ML VIAL SQ PRN ×2 (05:42→17:29)
[2020-06-19] MEDS: FENTANYL CITRAT IV 2,500 MCG in IV NS 0.9% 200 ML IV PRN (06:48)
[2020-06-19] MEDS: PANTOPRAZOLE 40 MG/PACK PACK GT SCH ×2 (08:22→21:25)
[2020-06-19] MEDS: PROSOURCE / PROSTAT (PYXIS) 30 ML UDC GT SCH ×3 (08:23→16:09)
[2020-06-19] MEDS: NEOMY SULF/BACITRAC ZN/POLY 15 GM TUBE TP SCH ×2 (08:24→16:09)
[2020-06-19] MEDS: DOCUSATE SODIUM LIQ 100 MG/10 ML UDC NG SCH (08:24)
[2020-06-19] MEDS: APIXABAN 5 MG TABLET PO SCH ×2 (08:25→16:10)
--- NOTE | 2020-06-19 10:07 | NUR ---
WOUND CARE FOLLOW UP: PT SEEN FOR RE-EVALUATION OF SACRAL DEEP TISSUE INJURY WHICH EXTENDS TO BUTTOCKS. SURGEON CURRENTLY ON CASE. RECOMMENDATIONS MADE FOR SKIN PROTECTION AND WOUND CARE. RECOMMEND CONTINUE PRESENT TREATMENT. DISCUSSED WITH NURSING STAFF. IN AGREEMENT WITH PLAN OF CARE. Addendum: 06/19/20 at 1031 by ANGELINA APARICIO WNDNU [facility] AIR BED ON ORDER.
[2020-06-19] MEDS: GLUCERNA 1.2 1,000 ML BOTTLE GT PRN (14:05)
[2020-06-20] VITALS (92 sets, daily range): BP systolic 101–148; BP diastolic 53–97
[2020-06-20] MEDS: BLOOD SUGAR DIAGNOSTIC 1 EACH STRIP IN SCH ×5 (00:30→23:26)
[2020-06-20] MEDS: PRECEDEX 400 MCG/100 ML BOTTLE 100 ML IV PRN ×11 (01:19→23:19)
[2020-06-20] MEDS: HYDROCODONE/APAP 5/325MG TABLET NG PRN (02:51)
[2020-06-20 04:29] LABS: BASOPHILS % (AUTO) 0.4 % (0.0-2.0); EOSINOPHILS % (AUTO) 9.2 % (0.0-6.0); HEMATOCRIT 26 % (39-51); HEMOGLOBIN 8.3 g/dL (13.5-17.5); LYMPHOCYTES # (AUTO) 1.3 /CMM (0.8-4.8); MEAN CORPUSCULAR HGB CONC 32 g/dl (31.0-36.0); MEAN CORPUSCULAR VOLUME 89 fL (80-96); MONOCYTES # (AUTO) 0.5 /CMM (0.1-1.30); MONOCYTES % (AUTO) 6.8 % (2.0-12.0); NEUTROPHILS # (AUTO) 4.9 /CMM (1.8-8.9); NEUTROPHILS % (AUTO) 65.6 % (43.0-81.0); PLATELET COUNT (AUTO) 235 /CMM (150-450); WHITE BLOOD COUNT (AUTO) 7.4 K/uL (4.3-11.0)
[2020-06-20 04:38] LABS: ALBUMIN 1.8 g/dL (3.4-5.0); BILIRUBIN,TOTAL 0.4 mg/dL (0.2-1.0); CALCIUM, SERUM 8.5 mg/dL (8.5-10.1); CREATININE 1.1 mg/dL (0.6-1.3); POTASSIUM 3.7 mmol/L (3.5-5.1); TOTAL PROTEIN, SERUM 6.6 g/dL (6.4-8.2)
[2020-06-20] MEDS: PROSOURCE / PROSTAT (PYXIS) 30 ML UDC GT SCH ×3 (08:09→16:21)
[2020-06-20] MEDS: PANTOPRAZOLE 40 MG/PACK PACK GT SCH ×2 (08:09→21:00)
[2020-06-20] MEDS: DOCUSATE SODIUM LIQ 100 MG/10 ML UDC NG SCH (08:10)
[2020-06-20] MEDS: NEOMY SULF/BACITRAC ZN/POLY 15 GM TUBE TP SCH ×2 (08:10→16:21)
[2020-06-20] MEDS: APIXABAN 5 MG TABLET PO SCH ×2 (08:11→16:33)
[2020-06-20] MEDS: GLUCERNA 1.2 1,000 ML BOTTLE GT PRN (11:50)
[2020-06-20] MEDS: Z GUARD REMEDY 2 OZ OINT TP PRN (13:59)
[2020-06-20] MEDS: ACETAMINOPHEN 650 MG/20.3 ML UDC NG PRN ×2 (16:22→22:52)
--- NOTE | 2020-06-20 19:00 | NUR ---
RN NOTE RECEIVED PATIENT IN BED, CALM AND COOPERATIVE, IN NO S/SX OF ACUTE DISTRESS AT THIS TIME. ON TRACHE CONNECTED TO MECHANICAL VENT WITH SETTINGS PRESCRIBED, TOLERATING WELL, SATURATION AT 100%, SR ON THE MONITOR, HR AT 70. NOTED GTUBE INTACT, PLACEMENT WAS CHECKED BY ASPIRATION AND AUSCULTATION, NO RESIDUAL NOTED, WITH TUBE FEEDING OF GLUCERNA AT 50 ML/HR. NOTED BUBBA PICC LINE, PATENT AND FLUSHING WELL, WITH PRECEDEX INFUSING AT 1.4 MCG/KG/HR. NOTED SACRAL WOUND, WITH DRESSING DRY AND INTACT, WOUND TREATMENT DONE ORDERED. PATEL CATHETER CONNECTED TO URINE BAG IN PLACE, DRAINING TO A CLEAR, GENE OUTPUT. SAFETY MEASURES IMPLEMENTED PER PROTOCOL. PATIENT BED ALARM IS ON. HEAD OF BED ELEVATED. BED IS LOCKED, IN LOWEST POSITION AND SIDE RAILS UP. CALL LIGHT WITHIN REACH OF THE PATIENT. WILL CONTINUE TO MONITOR AND REASSESS FOR ANY CHANGES.
[2020-06-20] MEDS: INSULIN REGULAR, HUMAN 100 UNIT/ML 3 ML VIAL SQ PRN (23:27)
[2020-06-21] VITALS (45 sets, daily range): BP systolic 102–150; BP diastolic 63–89
[2020-06-21] MEDS: PRECEDEX 400 MCG/100 ML BOTTLE 100 ML IV PRN ×7 (02:15→21:30)
[2020-06-21 05:05] LABS: BASOPHILS # (AUTO) 0.1 /CMM (0.0-0.2); BASOPHILS % (AUTO) 1.1 % (0.0-2.0); EOSINOPHILS % (AUTO) 4.5 % (0.0-6.0); HEMATOCRIT 24 % (39-51); HEMOGLOBIN 7.9 g/dL (13.5-17.5); LYMPHOCYTES # (AUTO) 1.9 /CMM (0.8-4.8); LYMPHOCYTES % (AUTO) 29.3 % (20.0-44.0); MEAN CORPUSCULAR HGB CONC 32 g/dl (31.0-36.0); MEAN CORPUSCULAR VOLUME 88 fL (80-96); MONOCYTES # (AUTO) 0.5 /CMM (0.1-1.30); NEUTROPHILS # (AUTO) 3.8 /CMM (1.8-8.9); NEUTROPHILS % (AUTO) 58.1 % (43.0-81.0); PLATELET COUNT (AUTO) 228 /CMM (150-450); RED BLOOD CELL COUNT(AUTO) 2.75 MIL/uL (4.5-6.0); WHITE BLOOD COUNT (AUTO) 6.5 K/uL (4.3-11.0)
[2020-06-21 05:22] LABS: CALCIUM, SERUM 8.2 mg/dL (8.5-10.1); POTASSIUM 3.6 mmol/L (3.5-5.1)
[2020-06-21] MEDS: INSULIN REGULAR, HUMAN 100 UNIT/ML 3 ML VIAL SQ PRN ×2 (06:15→12:20)
[2020-06-21] MEDS: BLOOD SUGAR DIAGNOSTIC 1 EACH STRIP IN SCH ×3 (06:16→17:02)
[2020-06-21] MEDS: PROSOURCE / PROSTAT (PYXIS) 30 ML UDC GT SCH ×3 (08:36→16:40)
[2020-06-21] MEDS: DOCUSATE SODIUM LIQ 100 MG/10 ML UDC NG SCH (08:36)
[2020-06-21] MEDS: PANTOPRAZOLE 40 MG/PACK PACK GT SCH ×2 (08:36→21:12)
[2020-06-21] MEDS: APIXABAN 5 MG TABLET PO SCH ×2 (08:37→16:40)
[2020-06-21] MEDS: NEOMY SULF/BACITRAC ZN/POLY 15 GM TUBE TP SCH ×2 (08:42→16:40)
--- NOTE | 2020-06-21 09:56 | NUR ---
RN NOTE Received patient with trache to vent, AC mode. On Precedex 1.4. GT intact, TF ongoing, tolerated. Rendered weaning trial to SIMV, placed by RT but noted patient unable to tolerate AEB increased WOB, placed back on AC mode and Precedex per Dr. Smith. Uriarte cath intact. chest tubes intact. BUBBA PICC intact. temp 99.2 in am. Will continue to monitor.
[2020-06-21] MEDS: ACETAMINOPHEN 650 MG/20.3 ML UDC NG PRN (12:22)
[2020-06-21] MEDS: GLUCERNA 1.2 1,000 ML BOTTLE GT PRN (17:20)
[2020-06-22] VITALS (24 sets, daily range): BP systolic 117–140; BP diastolic 56–87
[2020-06-22] MEDS: BLOOD SUGAR DIAGNOSTIC 1 EACH STRIP IN SCH ×4 (00:02→17:14)
[2020-06-22] MEDS: PRECEDEX 400 MCG/100 ML BOTTLE 100 ML IV PRN ×7 (00:34→21:55)
[2020-06-22] MEDS: INSULIN REGULAR, HUMAN 100 UNIT/ML 3 ML VIAL SQ PRN (00:35)
[2020-06-22 05:05] LABS: BASOPHILS % (AUTO) 0.7 % (0.0-2.0); EOSINOPHILS % (AUTO) 5.4 % (0.0-6.0); HEMATOCRIT 25 % (39-51); LYMPHOCYTES % (AUTO) 29.1 % (20.0-44.0); MEAN CORPUSCULAR HGB CONC 32 g/dl (31.0-36.0); MEAN CORPUSCULAR VOLUME 89 fL (80-96); MONOCYTES # (AUTO) 0.5 /CMM (0.1-1.30); MONOCYTES % (AUTO) 7.7 % (2.0-12.0); NEUTROPHILS # (AUTO) 3.9 /CMM (1.8-8.9); NEUTROPHILS % (AUTO) 57.1 % (43.0-81.0); PLATELET COUNT (AUTO) 246 /CMM (150-450); WHITE BLOOD COUNT (AUTO) 6.9 K/uL (4.3-11.0)
[2020-06-22 05:15] LABS: CALCIUM, SERUM 8.1 mg/dL (8.5-10.1); CREATININE 0.9 mg/dL (0.6-1.3); POTASSIUM 3.5 mmol/L (3.5-5.1)
[2020-06-22] MEDS: DOCUSATE SODIUM LIQ 100 MG/10 ML UDC NG SCH (08:23)
[2020-06-22] MEDS: PANTOPRAZOLE 40 MG/PACK PACK GT SCH ×2 (08:23→21:21)
[2020-06-22] MEDS: PROSOURCE / PROSTAT (PYXIS) 30 ML UDC GT SCH ×3 (08:23→17:13)
[2020-06-22] MEDS: NEOMY SULF/BACITRAC ZN/POLY 15 GM TUBE TP SCH ×2 (08:24→17:13)
[2020-06-22] MEDS: APIXABAN 5 MG TABLET PO SCH ×2 (08:25→17:14)
[2020-06-22] MEDS: GLUCERNA 1.2 1,000 ML BOTTLE GT PRN (12:05)
--- NOTE | 2020-06-22 19:20 | NUR ---
WELDING FOREMAN RCD PT W/TEMP 100.4 TYLENOL ADMINISTERED AND RENDERED COOLING MEASURES
[2020-06-22] MEDS: ACETAMINOPHEN 650 MG/20.3 ML UDC NG PRN (19:28)
[2020-06-23] VITALS (27 sets, daily range): BP systolic 72–152; BP diastolic 41–93
[2020-06-23] MEDS: BLOOD SUGAR DIAGNOSTIC 1 EACH STRIP IN SCH ×4 (00:30→18:31)
[2020-06-23] MEDS: INSULIN REGULAR, HUMAN 100 UNIT/ML 3 ML VIAL SQ PRN (00:32)
[2020-06-23] MEDS: ACETAMINOPHEN 650 MG/20.3 ML UDC NG PRN (06:00)
[2020-06-23 06:07] LABS: BASOPHILS % (AUTO) 0.5 % (0.0-2.0); EOSINOPHILS % (AUTO) 9.4 % (0.0-6.0); HEMATOCRIT 26 % (39-51); HEMOGLOBIN 8.5 g/dL (13.5-17.5); LYMPHOCYTES # (AUTO) 2.5 /CMM (0.8-4.8); LYMPHOCYTES % (AUTO) 29.3 % (20.0-44.0); MEAN CORPUSCULAR HGB CONC 32 g/dl (31.0-36.0); MEAN CORPUSCULAR VOLUME 89 fL (80-96); MONOCYTES # (AUTO) 0.7 /CMM (0.1-1.30); MONOCYTES % (AUTO) 7.9 % (2.0-12.0); NEUTROPHILS # (AUTO) 4.6 /CMM (1.8-8.9); NEUTROPHILS % (AUTO) 52.9 % (43.0-81.0); PLATELET COUNT (AUTO) 293 /CMM (150-450); RED BLOOD CELL COUNT(AUTO) 2.95 MIL/uL (4.5-6.0); WHITE BLOOD COUNT (AUTO) 8.7 K/uL (4.3-11.0)
--- NOTE | 2020-06-23 06:15 | NUR ---
GOLF BALL TRIMMER PT GRIMACING WHEN TOUCHED ON THIGH AND CALF; NODS YES THAT HE FEELS PAIN. MD NOTIFIED WITH ORDER FOR DOPPLER. TYLENOL ADMINISTERED FOR PAIN.
[2020-06-23 06:52] LABS: CALCIUM, SERUM 8.1 mg/dL (8.5-10.1); CREATININE 0.9 mg/dL (0.6-1.3); POTASSIUM 3.5 mmol/L (3.5-5.1)
[2020-06-23] MEDS: PANTOPRAZOLE 40 MG/PACK PACK GT SCH ×2 (08:11→20:33)
[2020-06-23] MEDS: LORAZEPAM INJ 2 MG/ML VIAL IV PRN ×2 (08:11→22:35)
[2020-06-23] MEDS: DOCUSATE SODIUM LIQ 100 MG/10 ML UDC NG SCH (08:13)
[2020-06-23] MEDS: PROSOURCE / PROSTAT (PYXIS) 30 ML UDC GT SCH ×3 (08:13→17:31)
[2020-06-23] MEDS: APIXABAN 5 MG TABLET PO SCH ×2 (08:13→17:31)
[2020-06-23] MEDS: NEOMY SULF/BACITRAC ZN/POLY 15 GM TUBE TP SCH ×2 (08:14→17:32)
--- NOTE | 2020-06-23 09:00 | NUR ---
RN NOTES SEEN AND EXAMINED BY SUSIE NEWSOME. PER OPERATIONS BUSINESS PARTNER OKAY TO RESUME SEDATION. MADE AWARE THAT ATIVAN GIVEN BUT STILL NOTED WITH INCREASED RR, ALSO INFORMED THAT PATIENT IS IN PAIN. OPERATIONS BUSINESS PARTNER ORDERED MORPHINE, WILL GIVE MEDICATION WHEN VERIFIED. WILL CONTINUE TO MONITOR.
[2020-06-23] MEDS: MORPHINE SULFATE INJ 2 MG/ML DISP.SYRIN IV PRN (09:19)
[2020-06-23] MEDS: PRECEDEX 400 MCG/100 ML BOTTLE 100 ML IV PRN ×2 (11:52→18:47)
[2020-06-23] MEDS: ONDANSETRON HCL/PF 4 MG/2 ML VIAL IVP PRN (13:25)
--- NOTE | 2020-06-23 19:32 | NUR ---
RN NOTE PATIENT AWAKE, FOLLOWS COMMAND. ON TRACH TO VENT, TOLERATING SETTINGS WELL. NO S/S OF ANY DISTRESS. HEAD OF BED ELEVATED. ON GTUBE, PATENT AND INTACT WITH GLUCERNA @ 50ML/HR RUNNING. PATEL CATH INTACT AND PATENT, DRAINING URINE TO GRAVITY. WITH LEFT WRIST #20 AND RAC #20 PATENT AND INTACT. ON PRECEDEX 0.2. CHEST TUBES INTACT. BED LOCKED AND IN LOWEST POSITION. SAFETY MEASURES IMPLEMENTED. WILL CONTINUE TO MONITOR.
[2020-06-23] MEDS ORDERED: NOREPINEPHRINE 8MG/250ML RTU 250 ML IV ONE (23:23)
[2020-06-23] MEDS: NOREPINEPHRINE 8 MG in IV NS 0.9% 242 ML IV PRN (23:32)
[2020-06-24] VITALS (58 sets, daily range): BP systolic 86–146; BP diastolic 44–101
[2020-06-24] MEDS: BLOOD SUGAR DIAGNOSTIC 1 EACH STRIP IN SCH ×4 (00:59→17:09)
[2020-06-24] MEDS: INSULIN REGULAR, HUMAN 100 UNIT/ML 3 ML VIAL SQ PRN ×2 (01:00→05:28)
[2020-06-24] MEDS: PRECEDEX 400 MCG/100 ML BOTTLE 100 ML IV PRN ×9 (01:14→22:45)
[2020-06-24 05:18] LABS: BASOPHILS # (AUTO) 0.1 /CMM (0.0-0.2); BASOPHILS % (AUTO) 0.3 % (0.0-2.0); EOSINOPHILS % (AUTO) 3.3 % (0.0-6.0); HEMATOCRIT 29 % (39-51); HEMOGLOBIN 9.3 g/dL (13.5-17.5); LYMPHOCYTES # (AUTO) 1.5 /CMM (0.8-4.8); LYMPHOCYTES % (AUTO) 8.8 % (20.0-44.0); MEAN CORPUSCULAR HGB CONC 32 g/dl (31.0-36.0); MEAN CORPUSCULAR VOLUME 89 fL (80-96); MONOCYTES # (AUTO) 0.7 /CMM (0.1-1.30); MONOCYTES % (AUTO) 4.3 % (2.0-12.0); NEUTROPHILS % (AUTO) 83.3 % (43.0-81.0); PLATELET COUNT (AUTO) 335 /CMM (150-450); RED BLOOD CELL COUNT(AUTO) 3.29 MIL/uL (4.5-6.0); WHITE BLOOD COUNT (AUTO) 16.8 K/uL (4.3-11.0)
[2020-06-24] MEDS: ACETAMINOPHEN 650 MG/20.3 ML UDC NG PRN ×2 (05:28→17:12)
[2020-06-24 05:31] LABS: CALCIUM, SERUM 8.2 mg/dL (8.5-10.1); CREATININE 0.9 mg/dL (0.6-1.3)
[2020-06-24] MEDS: GLUCERNA 1.2 1,000 ML BOTTLE GT PRN (05:36)
--- NOTE | 2020-06-24 07:54 | NUR ---
RN NOTE PATIENT AWAKE, FOLLOWS COMMAND. ON TRACH TO VENT, TOLERATING SETTINGS WELL. NO S/S OF ANY DISTRESS. HEAD OF BED ELEVATED. ON GTUBE, PATENT AND INTACT WITH GLUCERNA @ 50ML/HR RUNNING. PATEL CATH INTACT AND PATENT, DRAINING URINE TO GRAVITY WITH OUTPUT 850. WITH LEFT WRIST #20 AND RAC #20 PATENT AND INTACT. ON PRECEDEX 0.6 AND LEVO O.O2. CHEST TUBES INTACT. BED LOCKED AND IN LOWEST POSITION. SAFETY MEASURES IMPLEMENTED. WILL ENDORSE TO ONCOMING SHIFT.
[2020-06-24] MEDS: PANTOPRAZOLE 40 MG/PACK PACK GT SCH ×2 (09:11→20:13)
[2020-06-24] MEDS: DOCUSATE SODIUM LIQ 100 MG/10 ML UDC NG SCH (09:12)
[2020-06-24] MEDS: APIXABAN 5 MG TABLET PO SCH ×2 (09:14→17:11)
[2020-06-24] MEDS: NEOMY SULF/BACITRAC ZN/POLY 15 GM TUBE TP SCH ×2 (09:16→17:08)
[2020-06-24] MEDS: PROSOURCE / PROSTAT (PYXIS) 30 ML UDC GT SCH ×3 (09:16→17:08)
[2020-06-24] MEDS: MORPHINE SULFATE INJ 2 MG/ML DISP.SYRIN IV PRN (09:17)
--- NOTE | 2020-06-24 13:17 | NUR ---
PT PREVIOUSLY GIVEN MORPHINE DUE TO TACHYPNEA, PT REASSESSED STILL WITH TACHYPNEA, PRECEDEX INCREASED
[2020-06-24] MEDS: LORAZEPAM INJ 2 MG/ML VIAL IV PRN (14:08)
--- NOTE | 2020-06-24 14:36 | NUR ---
PT GIVEN ATIVAN DUE TO INCREASED RR. ATIVAN NOT EFFECTIVE, PRECEDEX INCREASED TO 1.4 MCG
--- NOTE | 2020-06-24 15:52 | NUR ---
PT TO BE RESTARTED ON FENTANYL FOR SEDATION. EVS DOES NOT HAVE ANY PUMPS, CENTRAL SUPPLY CALLED 3X NO ANSWER. PHARMACY AWARE; PER PHARMACY, OK TO START THE FENTANYL THROUGH REGULAR IV PUMP IF NO FRONT END ENGINEER PUMP AVAILABLE. WILL CONTINUE TO FOLLOW UP WITH CENTRAL SUPPLY TO OBTAIN FRONT END ENGINEER PUMP. FENTANYL IN THE MEANTIME WILL BE RUN THROUGH NORMAL IV PUMP.
[2020-06-24] MEDS: FENTANYL CITRAT IV 2,500 MCG in IV NS 0.9% 200 ML IV PRN (16:05)
--- NOTE | 2020-06-24 19:32 | NUR ---
RN NOTE PATIENT RESTING IN BED. ON TRACH TO VENT, TOLERATING SETTINGS WELL. NO S/S OF ANY DISTRESS. HEAD OF BED ELEVATED. ON GTUBE, PATENT AND INTACT WITH GLUCERNA @ 50ML/HR RUNNING. PATEL CATH INTACT AND PATENT, DRAINING URINE TO GRAVITY. WITH LEFT WRIST #20, RAC #20, AND BUBBA #18 MIDLINE PATENT AND INTACT. ON PRECEDEX 1.5 AND FENTANYL @ 2MCG. CHEST TUBES INTACT. BED LOCKED AND IN LOWEST POSITION. SAFETY MEASURES IMPLEMENTED. WILL CONTINUE TO MONITOR.
[2020-06-25] VITALS (47 sets, daily range): BP systolic 92–173; BP diastolic 44–81
[2020-06-25] MEDS: BLOOD SUGAR DIAGNOSTIC 1 EACH STRIP IN SCH ×4 (00:13→17:22)
[2020-06-25] MEDS: INSULIN REGULAR, HUMAN 100 UNIT/ML 3 ML VIAL SQ PRN ×2 (00:13→05:23)
[2020-06-25] MEDS: PRECEDEX 400 MCG/100 ML BOTTLE 100 ML IV PRN ×12 (00:37→22:38)
[2020-06-25] MEDS: ACETAMINOPHEN 650 MG/20.3 ML UDC NG PRN ×2 (01:18→20:11)
[2020-06-25] MEDS: FENTANYL CITRAT IV 2,500 MCG in IV NS 0.9% 200 ML IV PRN ×3 (01:29→21:31)
[2020-06-25] MEDS: GLUCERNA 1.2 1,000 ML BOTTLE GT PRN ×2 (03:34→20:03)
[2020-06-25 05:14] LABS: BASOPHILS % (AUTO) 0.2 % (0.0-2.0); EOSINOPHILS % (AUTO) 3.2 % (0.0-6.0); HEMATOCRIT 25 % (39-51); HEMOGLOBIN 7.9 g/dL (13.5-17.5); LYMPHOCYTES % (AUTO) 13.7 % (20.0-44.0); MEAN CORPUSCULAR HGB CONC 32 g/dl (31.0-36.0); MEAN CORPUSCULAR VOLUME 89 fL (80-96); MONOCYTES # (AUTO) 0.7 /CMM (0.1-1.30); MONOCYTES % (AUTO) 5.1 % (2.0-12.0); NEUTROPHILS # (AUTO) 11.2 /CMM (1.8-8.9); NEUTROPHILS % (AUTO) 77.8 % (43.0-81.0); PLATELET COUNT (AUTO) 296 /CMM (150-450); RED BLOOD CELL COUNT(AUTO) 2.79 MIL/uL (4.5-6.0); WHITE BLOOD COUNT (AUTO) 14.4 K/uL (4.3-11.0)
[2020-06-25 05:52] LABS: CALCIUM, SERUM 7.9 mg/dL (8.5-10.1); CREATININE 0.9 mg/dL (0.6-1.3); POTASSIUM 3.7 mmol/L (3.5-5.1)
--- NOTE | 2020-06-25 07:30 | NUR ---
RN NOTE PATIENT IN BED SEDATED. NO SIGNIFICANT CHANGES. ALL DUE MEDS GIVEN ORDERED AND TOLERATED WELL. COMFORT NEEDS MET. TURNED AND REPOSITIONED. SAFETY MEASURES IMPLEMENTED PER HOSPITAL PROTOCOL. WILL ENDORSE TO ONCOMING SHIFT.
--- NOTE | 2020-06-25 07:35 | NUR ---
FURNACE MASON NOTE PATIENT RESTING IN BED. WITH SHILEY 8 TRACH TO MECHANICAL VENT SETTINGS ORDERED. TOLERATING SETTINGS WELL. NO S/S OF ANY DISTRESS. HEAD OF BED ELEVATED. NO SIGNS OF PAIN, SINUS RHYTHM. WITH LEFT WRIST #20, RAC #20, AND BUBBA #18 MIDLINE PATENT AND INTACT. ON PRECEDEX 1.5 AND FENTANYL @ 2MCG. ON GTUBE, PATENT AND INTACT WITH GLUCERNA @ 50ML/HR RUNNING. 0 RESIDUAL. PATEL CATH INTACT AND PATENT, DRAINING URINE TO GRAVITY. CHEST TUBES INTACT. BED LOCKED AND IN LOWEST POSITION. SAFETY MEASURES IMPLEMENTED. WILL CONTINUE TO MONITOR.
[2020-06-25] MEDS: PANTOPRAZOLE 40 MG/PACK PACK GT SCH ×2 (09:41→20:11)
[2020-06-25] MEDS: DOCUSATE SODIUM LIQ 100 MG/10 ML UDC NG SCH (09:41)
[2020-06-25] MEDS: NEOMY SULF/BACITRAC ZN/POLY 15 GM TUBE TP SCH ×2 (09:42→17:23)
[2020-06-25] MEDS: PROSOURCE / PROSTAT (PYXIS) 30 ML UDC GT SCH ×3 (09:42→17:22)
[2020-06-25] MEDS: APIXABAN 5 MG TABLET PO SCH ×2 (09:43→17:22)
[2020-06-25] MEDS: LORAZEPAM INJ 2 MG/ML VIAL IV PRN ×3 (10:59→23:47)
--- NOTE | 2020-06-25 11:08 | NUR ---
RN NOTES DR. BO NOTIFIED ABOUT PT VERY ANXIOUS AND UNABLE TO TOLERATE LOWERING OF FENTANYL DOSE TO 1 MCG. WILL GIVE ATIVAN 2 MG. FENTANYL RESUMED AT 2 MCG.
[2020-06-25] MEDS ORDERED: LORAZEPAM 1 MG TABLET PO PRN (14:30)
[2020-06-25] MEDS: LORAZEPAM 1 MG TABLET PO SCH (17:21)
--- NOTE | 2020-06-25 18:44 | NUR ---
CLOSING NOTES ALL NEEDS MET. ACCUCHECK/ BLOOD SUGAR CHECKED DONE ACCORDINGLY. PM CARE DONE. TURNED AND REPOSITION Q 2HOURS. PRESCRIBED WOUND CARE DONE. PATEL CATH OUTPUT 825 ML. REMAINED SEDATED. NO SIGNIFICANT CHANGE IN CONDITION. WAS STARTED BY DR. BO ON ATIVAN 1 MG GT Q 8HRS. ENDORSED TO NEXT SHIFT FOR ROSELINE.
--- NOTE | 2020-06-25 19:35 | NUR ---
RN OPENING NOTES RECEIVED PT IN BED, AWAKE OPENS EYES. PT IS ABLE TO FOLLOW COMMANDS. PT IS TRACH TO VENT, SHILEY 8 AC 30 TV 550 FIO2 40% PEEP 5. TOLERATING WELL. SATURATING AT 98%. PT ON TELE MONITORING PRESENTS WITH NSR, INVERTED T WAVES WITH HR 82. PT HAS PATEL DRAINING TO GRAVITY. IV SITES ALL FLUSHES ASEPTICALLY. ON PRECEDEX AT 1.5MCG AND FENTANYL AT 2MCG. PT HAS GTUBE, AUSCULTATED FOR PLACEMENT FLUSHED, RESIDUAL OF 5CC. ON TUBE FEEDING 50CC/HR. PT DENIES PAIN AT THIS TIME. SAFETY MEASURES IN PLACE. HOB ELEVATED, SIDE RAILS UP X3, BED LOCKED IN LOWEST POSITION, CALL LIGHT WITHIN REACH. WILL CONT TO MONITOR.
--- NOTE | 2020-06-25 22:30 | NUR ---
2100 TYLENOL PRN ADMINISTERED FOR TEMP OF 100.7, COLD COMPRESS APPLIED. REASSESSMENT, TEMP IS 99.5 AT THIS TIME. WILL CONTINUE TO MONITOR
--- NOTE | 2020-06-25 23:45 | NUR ---
PT EXPERIENCES ANXIETY, HEART RATE INCREASES TO 130-140S, O2 SAT DECREASES TO 85-88. PT BECOMES SWEATY AND RESTLESS. PT CONFIRMS ANXIETY WHEN ASKED. PT DENIES PAIN. PT RESPONDS WELL TO PRN ATIVAN WHEN ADMINISTERED. HEART RATE RETURNS TO BASELINE OF 80s AND O2 SATURATION RETURNS TO 98%. WILL CONT TO MONITOR CLOSELY.
[2020-06-26] VITALS (45 sets, daily range): BP systolic 110–152; BP diastolic 54–92
[2020-06-26] MEDS: BLOOD SUGAR DIAGNOSTIC 1 EACH STRIP IN SCH ×4 (00:13→16:46)
[2020-06-26] MEDS: PRECEDEX 400 MCG/100 ML BOTTLE 100 ML IV PRN ×12 (00:26→23:01)
--- NOTE | 2020-06-26 01:36 | NUR ---
UPON 0000 VITALS, TEMP 100.8 WILL ADMIN TYLENOL Q6H ORDERED WHEN NEXT DUE, NEW COLD COMPRESS APPLIED WITH ICE PACKS IN AXILLARY AND GROIN WILL CONT TO MONITOR.
[2020-06-26] MEDS: LORAZEPAM 1 MG TABLET PO SCH ×3 (01:38→16:48)
[2020-06-26] MEDS: ACETAMINOPHEN 650 MG/20.3 ML UDC NG PRN ×3 (04:22→16:45)
[2020-06-26 04:59] LABS: BASOPHILS # (AUTO) 0.1 /CMM (0.0-0.2); BASOPHILS % (AUTO) 0.6 % (0.0-2.0); EOSINOPHILS % (AUTO) 3.3 % (0.0-6.0); HEMATOCRIT 24 % (39-51); HEMOGLOBIN 7.5 g/dL (13.5-17.5); LYMPHOCYTES # (AUTO) 2.2 /CMM (0.8-4.8); LYMPHOCYTES % (AUTO) 19.1 % (20.0-44.0); MEAN CORPUSCULAR HGB CONC 32 g/dl (31.0-36.0); MEAN CORPUSCULAR VOLUME 90 fL (80-96); MONOCYTES # (AUTO) 0.8 /CMM (0.1-1.30); MONOCYTES % (AUTO) 6.8 % (2.0-12.0); NEUTROPHILS # (AUTO) 8.1 /CMM (1.8-8.9); NEUTROPHILS % (AUTO) 70.2 % (43.0-81.0); PLATELET COUNT (AUTO) 252 /CMM (150-450); RED BLOOD CELL COUNT(AUTO) 2.65 MIL/uL (4.5-6.0); WHITE BLOOD COUNT (AUTO) 11.6 K/uL (4.3-11.0)
[2020-06-26 05:08] LABS: CALCIUM, SERUM 7.9 mg/dL (8.5-10.1); CREATININE 0.8 mg/dL (0.6-1.3); MAGNESIUM 2.1 mg/dL (1.8-2.4); PHOSPHORUS 3.7 mg/dL (2.5-4.9); POTASSIUM 3.7 mmol/L (3.5-5.1)
--- NOTE | 2020-06-26 07:25 | NUR ---
RN CLOSING NOTES NO SIGNIFICANT CHANGES IN PT. AT THIS TIME PT STILL ON SAME VENT SETTINGS. NO RESP DISTRESS. PT STILL REMAINS WITH COLD COMPRESS AND ICE PACKS, LAST TEMP WAS 99.3. BED BATH DONE. LINENS AND GOWN CHANGED. CHEST TUBE DRESSING CHANGED. WOUND CARE DONE ORDERED. STILL WITH GLUCERNA AT 50CC/HR. STILL ON PRECEDEX 1.5 MCG. OFF FENTANYL SINCE 0600. SAFETY MEASURES IN PLACE. HOB ELEVATED. SIDE RAILS UPX3. BED LOCKED IN LOWEST POSITION BED ALARM ON. ENDORSED TO AM NURSE FOR CONT OF CARE.
--- NOTE | 2020-06-26 07:50 | NUR ---
RT PATIENT REC'D ORALLY INTUBATED ON [facility] VENT WITH ORDERED SETTINGS. ALARMS CHECKED + AUDIBLE. ETT SECURE AND IN PROPER POSITION. MARIOU BAG AT HOB. Addendum: 06/26/20 at 1618 by CANDIDO VALERO RT Amended: Links added.
--- NOTE | 2020-06-26 09:00 | NUR ---
ICU/RN PT IS NEW TRACH ON THE VENT AC MODE,FIO2-40%.SAT O2-100%.V/S STABLE .T-100%.TYLENOL VIA G TUBE GIVEN.RIGHT UPPER ARM MID LINE.PT HAS PRECEDEX IV INFUSING ORDERED.AWAKE,ALERT.FOLLOWS COMMAND.UNABLE TO MOVE EXTREMITIES.HAS 2 CHEST TUBES AND RIGHT UPPER PLEURA VAC.F/C DRAINING WITH YELLOW URINE.WOUND ON THE LOWER BACK COVERED WITH DRESSING.HAS A LOT OF SECRETION.SUCTION PROVIDED.REPOSITION FOR COMFORT.DUE MEDS ARE GIVEN ORDERED.
[2020-06-26] MEDS: DOCUSATE SODIUM LIQ 100 MG/10 ML UDC NG SCH (09:12)
[2020-06-26] MEDS: PANTOPRAZOLE 40 MG/PACK PACK GT SCH ×2 (09:12→21:57)
[2020-06-26] MEDS: APIXABAN 5 MG TABLET PO SCH ×2 (09:13→16:46)
[2020-06-26] MEDS: PROSOURCE / PROSTAT (PYXIS) 30 ML UDC GT SCH ×3 (09:13→16:46)
[2020-06-26] MEDS: NEOMY SULF/BACITRAC ZN/POLY 15 GM TUBE TP SCH ×2 (09:14→16:48)
[2020-06-26] MEDS: LORAZEPAM INJ 2 MG/ML VIAL IV PRN (09:22)
--- NOTE | 2020-06-26 10:50 | NUR ---
WOUND CARE FOLLOW UP: PER RN, TURNING PT NOT RECOMMENDED AT THIS TIME DUE TO PT RESTING AND HAVING WEANING TRIAL. WILL SEE PT FOR SACRAL WOUND RE-EVALUATION AT ANOTHER TIME PT CONDITION PERMITS. CONTINUE ALL SKIN PROTECTION AND WOUND CARE RECOMMENDATIONS. DISCUSSED WITH NURSING STAFF.
[2020-06-26] MEDS: INSULIN REGULAR, HUMAN 100 UNIT/ML 3 ML VIAL SQ PRN ×2 (11:49→17:56)
[2020-06-26] MEDS: GLUCERNA 1.2 1,000 ML BOTTLE GT PRN (13:12)
[2020-06-26 15:56] LABS: COLOR,URINE YELLOW (YELLOW); PH,URINE 7.5 (5.0-8.0)
[2020-06-26 15:57] LABS: BILIRUBIN,URINE NEGATIVE (NEGATIVE); LEUKOCYTE ESTERASE ,URINE NEGATIVE (NEGATIVE); NITRITE, URINE NEGATIVE (NEGATIVE); PROTEIN,URINE NEGATIVE (NEGATIVE); UGLUCOSE NEGATIVE (NEGATIVE)
[2020-06-26 16:08] LABS: BACTERIA,URINE Many /HPF (None Seen); SQUAMOUS EPITHELIAL CELL,UR Few /HPF (None Seen); YEAST,URINE Many /HPF (None Seen)
--- NOTE | 2020-06-26 18:00 | NUR ---
ICU/RN PM CARE PROVIDED.WOUND DRESSING DONE ORDERED.SUCTION PROVIDED.DUE MEDS ARE GIVEN
--- NOTE | 2020-06-26 19:00 | NUR ---
Received patient asleep but easily arousable,alert,opens eyes on mild sedation of Precedex .With tracheostomy tot he ventilator on AC mode,breathing regular and non labored.With multiple chest tube (1 Pleurix on right upperchest ,1 right lateral , and 1 left lateral chest) all to suction. Feeding via G tube .Patient morbidly obese on a [facility] Max bed.
[2020-06-27] VITALS (46 sets, daily range): BP systolic 92–166; BP diastolic 23–91
--- NOTE | 2020-06-27 | NUR ---
Status unchanged,stable,not in any distress.Afebrile,remains responsive,awake.
[2020-06-27] MEDS: BLOOD SUGAR DIAGNOSTIC 1 EACH STRIP IN SCH ×5 (00:17→23:48)
[2020-06-27] MEDS: INSULIN REGULAR, HUMAN 100 UNIT/ML 3 ML VIAL SQ PRN (00:19)
[2020-06-27] MEDS: LORAZEPAM 1 MG TABLET PO SCH ×3 (00:53→16:40)
[2020-06-27] MEDS: PRECEDEX 400 MCG/100 ML BOTTLE 100 ML IV PRN ×8 (00:54→21:08)
--- NOTE | 2020-06-27 04:00 | NUR ---
AM care done,all chest tube dressings changed.Tolerated turning/moving with no episode of desaturation or SOB. 0700 Report given to dayshift
[2020-06-27 04:47] LABS: BASOPHILS # (AUTO) 0.1 /CMM (0.0-0.2); BASOPHILS % (AUTO) 0.6 % (0.0-2.0); EOSINOPHILS % (AUTO) 0.4 % (0.0-6.0); HEMATOCRIT 25 % (39-51); LYMPHOCYTES # (AUTO) 1.6 /CMM (0.8-4.8); LYMPHOCYTES % (AUTO) 18.2 % (20.0-44.0); MEAN CORPUSCULAR HGB CONC 33 g/dl (31.0-36.0); MEAN CORPUSCULAR VOLUME 88 fL (80-96); MONOCYTES # (AUTO) 0.4 /CMM (0.1-1.30); MONOCYTES % (AUTO) 4.4 % (2.0-12.0); NEUTROPHILS # (AUTO) 6.6 /CMM (1.8-8.9); NEUTROPHILS % (AUTO) 76.4 % (43.0-81.0); PLATELET COUNT (AUTO) 261 /CMM (150-450); RED BLOOD CELL COUNT(AUTO) 2.78 MIL/uL (4.5-6.0); WHITE BLOOD COUNT (AUTO) 8.7 K/uL (4.3-11.0)
[2020-06-27 04:56] LABS: CALCIUM, SERUM 8.2 mg/dL (8.5-10.1); CREATININE 0.8 mg/dL (0.6-1.3); MAGNESIUM 1.8 mg/dL (1.8-2.4); PHOSPHORUS 3.8 mg/dL (2.5-4.9); POTASSIUM 3.7 mmol/L (3.5-5.1)
--- NOTE | 2020-06-27 08:06 | NUR ---
WOUND CARE FOLLOW UP: PT SEEN FOR RE-EVALUATION OF SACRAL DEEP TISSUE INJURY WHICH EXTENDS TO BUTTOCKS. SOME EPITHELIAL TISSUE NOTED. SURGICAL TEAM ON CASE FOR POSSIBLE DEBRIDEMENT. RECOMMEND CONTINUE PRESENT TREATMENT. DISCUSSED WITH NURSING STAFF. PT IS ON [employer]. IN AGREEMENT WITH PLAN OF CARE. Addendum: 06/27/20 at 0808 by ANGELINA APARICIO WNDNU Amended: Links added.
[2020-06-27] MEDS: DOCUSATE SODIUM LIQ 100 MG/10 ML UDC NG SCH (08:17)
[2020-06-27] MEDS: PANTOPRAZOLE 40 MG/PACK PACK GT SCH ×2 (08:17→21:07)
[2020-06-27] MEDS: APIXABAN 5 MG TABLET PO SCH ×2 (08:18→16:40)
[2020-06-27] MEDS: PROSOURCE / PROSTAT (PYXIS) 30 ML UDC GT SCH ×3 (08:19→16:40)
[2020-06-27] MEDS: NEOMY SULF/BACITRAC ZN/POLY 15 GM TUBE TP SCH ×2 (08:19→16:41)
--- NOTE | 2020-06-27 08:57 | NUR ---
ICU/RN PT IS ON THE VENT AC MODE,NEW TRACH .SAT 02-99%.V/S STABLE ,AFEBRILE.NO PAIN REPORTED AT THIS TIME .PT IS AWAKE,ALERT.FOLLOWS COMMAND.STILL ON PRECEDEX DRIP AND ATIVAN .NEW G-TUBE INFUSING WITH GLYTROL AT 50 ML/HR NO RESIDUAL.F/C DRAINING WITH YELLOW URINE GENERALIZED EDEMA PRESENT.PT IS STILL VERY WEAK UNABLE TO MOVE EXTREMITIES. DUE MEDS ARE GIVEN ORDERED.SUCTION PROVIDED.REPOSITION FOR COMFORT.PT HAS 2 CHEST TUBES AND PLEURA VAC .WITH MINIMAL AMOUNT OF DRAINAGE. LOWER BACK WOUND COVERED WITH DRESSING.TRACH SIDE HAS SOME DISCHARGE.DRESSING CHANGED.LABS REVIEW.CONTINUE MONITORING.
[2020-06-27] MEDS: GLUCERNA 1.2 1,000 ML BOTTLE GT PRN (11:52)
[2020-06-27] MEDS: ACETAMINOPHEN 650 MG/20.3 ML UDC NG PRN (18:07)
[2020-06-27] MEDS: MORPHINE SULFATE INJ 2 MG/ML DISP.SYRIN IV PRN (18:08)
[2020-06-27] MEDS: HYDROCODONE/APAP 5/325MG TABLET NG PRN (21:06)
--- NOTE | 2020-06-27 21:10 | NUR ---
ICU/CRYSTAL [employer] PT APPEARS TO BE IN PAIN TO THE LEGS, GAVE 1 TAB NORCO VIA G/TUBE FOR THIS. WILL MONITOR THIS PT'S PAIN.
[2020-06-28] VITALS (24 sets, daily range): BP systolic 90–166; BP diastolic 34–96
[2020-06-28] MEDS: LORAZEPAM 1 MG TABLET PO SCH ×3 (00:42→16:39)
[2020-06-28] MEDS: PRECEDEX 400 MCG/100 ML BOTTLE 100 ML IV PRN ×7 (00:43→21:16)
[2020-06-28] MEDS: MORPHINE SULFATE INJ 2 MG/ML DISP.SYRIN IV PRN ×3 (01:45→12:31)
--- NOTE | 2020-06-28 02:00 | NUR ---
ICU/BAD CLOTH CHECKER PT WAS IVEN MORPHINE 2MG VIA IVP BY CHARGE NURSE. PT IS GOING TO AM CARE WITH DRESSING. PT GETS VERY AGITATED.
[2020-06-28] MEDS: HYDROCODONE/APAP 5/325MG TABLET NG PRN (05:29)
[2020-06-28] MEDS: BLOOD SUGAR DIAGNOSTIC 1 EACH STRIP IN SCH ×4 (05:48→23:57)
--- NOTE | 2020-06-28 05:53 | NUR ---
ICU/HEAD TEACHER PT APPEARS TO BE IN PAIN TO THE LEGS,PAIN IS RATED 7/10. GAVE 1 TAB NORCO VIA G/TUBE FOR THIS. WILL MONITOR THIS PT'S PAIN.
--- NOTE | 2020-06-28 07:57 | NUR ---
RN NOTES RECEIVED PT AWAKE AND ALERT X1-2. TRACH INTACT TOLERATING SETTINGS OF 40% FIO2 AND PEEP OF 5. GTUBE INTACT WITH GLUCERNA RUNNING AT 50ML/HR. BUBBA ML IN PLACE WITH PRECEDEX 0.8.. PATEL DRAINING ADEQUATELY. DRESSINGS INTACT. VITAL SIGNS STABLE. APPEARS COMFORTABLE. SIDE RAILS UPX3, BED LOCKED AND KEPT IN LOWEST POSITION. WILL CONTINUE CARES TODAY.
[2020-06-28] MEDS: NEOMY SULF/BACITRAC ZN/POLY 15 GM TUBE TP SCH ×2 (08:14→16:40)
[2020-06-28] MEDS: PROSOURCE / PROSTAT (PYXIS) 30 ML UDC GT SCH ×3 (08:14→16:39)
[2020-06-28] MEDS: DOCUSATE SODIUM LIQ 100 MG/10 ML UDC NG SCH (08:14)
[2020-06-28] MEDS: PANTOPRAZOLE 40 MG/PACK PACK GT SCH ×2 (08:14→20:14)
[2020-06-28] MEDS: APIXABAN 5 MG TABLET PO SCH ×2 (08:16→16:40)
--- NOTE | 2020-06-28 19:17 | NUR ---
RN NOTE RECEIVED PT CALM AND COOPERATIVE IN SEMI METZ'S POSITION. PT WITH TRACH CONNECTED TO VENT. TRACH MIDLINE AND IN PLACE. TOLERATING VENT SETTINGS WELL. RESPIRATIONS EVEN AND UNLABORED. PT ABLE TO MAKE NEEDS KNOWN AND FOLLOW COMMANDS. VITAL SIGNS STABLE VIA BEDSIDE MONITOR. ,DENIES PAIN OR DISCOMFORT AT THIS TIME. .RECEIVED PT ON PRECEDEX DRIP @ 0.8. WITH GTUBE RUNNING WITH GLUCERNA @ 50ML/HOUR ORDERED. NO RESIDUAL NOTED. FLUSHED AND PATENT. WITH PATEL CATHETER PATENT AND IN PLACE DRAINING URINE VIA GRAVITY. NOTED THAT PT HAS 2 CHEST TUBES AND PLEURA VAC. NO DRAINAGE NOTED OR OUTPUT NOTED. PLAN OF CARE DISCUSSED WITH PATIENT. ALARM ON AND AUDIBLE. VENT PLUGGED INTO RED OUTLET. AMBU BAG AT BEDSIDE. BED ALARM ON, BED LOCKED AND IN LOW POSITION, SIDE RAILS UP X 2, WILL MONITOR PATIENT AND CARRY OUT AND ACTIVE MD ORDERS.
[2020-06-28] MEDS: ACETAMINOPHEN 650 MG/20.3 ML UDC NG PRN (20:46)
[2020-06-28] MEDS: GLUCERNA 1.2 1,000 ML BOTTLE GT PRN (20:46)
--- NOTE | 2020-06-28 23:16 | NUR ---
RN NOTE SPOKE TO YUNIOR () AND GAVE UPDATE ON PATIENT'S STATUS AND PLAN OF CARE.
[2020-06-29] VITALS (40 sets, daily range): BP systolic 105–153; BP diastolic 53–88
--- NOTE | 2020-06-29 | NUR ---
RN NOTE PT RESTING IN BED WITH HEAD OF BED ELEVATED WITHOUT SIGNS OF DISCOMFORT OR DISTRESS. VITAL SIGNS STABLE VIA BEDSIDE MONITOR. WILL CONTINUE TO MONITOR PATIENT.
[2020-06-29] MEDS: LORAZEPAM 1 MG TABLET PO SCH ×3 (00:36→16:27)
--- NOTE | 2020-06-29 02:00 | NUR ---
RN NOTE COMPLETE BED BATH/AM CARE AND LINEN CHANGE COMPLETED. PT TOLERATED WELL. VITAL SIGNS STABLE VIA BEDSIDE MONITOR. WOUND CARE DONE ORDERED. PT COUGHED UP COPIOUS AMOUNT OF ORAL SECRETIONS. ORAL CARE DONE. WILL CONTINUE TO MONITOR PATIENT.
[2020-06-29] MEDS: PRECEDEX 400 MCG/100 ML BOTTLE 100 ML IV PRN ×3 (02:31→11:22)
[2020-06-29] MEDS: MORPHINE SULFATE INJ 2 MG/ML DISP.SYRIN IV PRN ×2 (03:13→15:49)
[2020-06-29 04:41] LABS: BASOPHILS % (AUTO) 0.5 % (0.0-2.0); EOSINOPHILS % (AUTO) 6.1 % (0.0-6.0); HEMATOCRIT 25 % (39-51); LYMPHOCYTES # (AUTO) 2.2 /CMM (0.8-4.8); LYMPHOCYTES % (AUTO) 23.6 % (20.0-44.0); MEAN CORPUSCULAR HGB CONC 32 g/dl (31.0-36.0); MEAN CORPUSCULAR VOLUME 88 fL (80-96); MONOCYTES # (AUTO) 0.6 /CMM (0.1-1.30); MONOCYTES % (AUTO) 6.6 % (2.0-12.0); NEUTROPHILS % (AUTO) 63.2 % (43.0-81.0); PLATELET COUNT (AUTO) 280 /CMM (150-450); RED BLOOD CELL COUNT(AUTO) 2.86 MIL/uL (4.5-6.0); WHITE BLOOD COUNT (AUTO) 9.5 K/uL (4.3-11.0)
[2020-06-29] MEDS: HYDROCODONE/APAP 5/325MG TABLET NG PRN (04:41)
[2020-06-29 05:17] LABS: CALCIUM, SERUM 8.3 mg/dL (8.5-10.1); CREATININE 0.7 mg/dL (0.6-1.3); MAGNESIUM 1.9 mg/dL (1.8-2.4); PHOSPHORUS 4.1 mg/dL (2.5-4.9); POTASSIUM 3.3 mmol/L (3.5-5.1)
[2020-06-29] MEDS: BLOOD SUGAR DIAGNOSTIC 1 EACH STRIP IN SCH ×4 (05:45→23:42)
--- NOTE | 2020-06-29 06:54 | NUR ---
RN NOTE NO ACUTE CHANGES OBSERVED OVERNIGHT. PT SEMI METZ'S POSITION. PT WITH TRACH CONNECTED TO VENT. TRACH MIDLINE AND IN PLACE. TOLERATING VENT SETTINGS WELL FIO2 40% AND PEEP + 5. RESPIRATIONS EVEN AND UNLABORED. PT ABLE TO MAKE NEEDS KNOWN AND FOLLOW COMMANDS. VITAL SIGNS STABLE VIA BEDSIDE MONITOR. NO SIGNS OF PAIN OR DISCOMFORT. PT ON PRECEDEX DRIP @ 0.7. WITH GTUBE RUNNING WITH GLUCERNA 1.2 @ 50ML/HOUR ORDERED. NO RESIDUAL NOTED. TOLERATING WELL. GT FLUSHED AND PATENT. WITH PATEL CATHETER PATENT AND IN PLACE DRAINING URINE VIA GRAVITY. NOTED THAT PT HAS 2 CHEST TUBES AND PLEURA VAC. NO DRAINAGE NOTED OR OUTPUT NOTED. ALARMS ON AND AUDIBLE. VENT PLUGGED INTO RED OUTLET. AMBU BAG AT BEDSIDE. BED ALARM ON, BED LOCKED AND IN LOW POSITION, SIDE RAILS UP X 2, WILL ENDORSE TO MORNING RN FOR ROSELINE.
--- NOTE | 2020-06-29 06:58 | NUR ---
RN NOTE RECEIVED CALL FROM WOUND CARE NURSE DOMINIC TO HAVE POST DEBRIDEMENT PHOTO TAKEN OF THE SACRUM. WILL ENDORSE TO MORNING SHIFT.
[2020-06-29] MEDS: DOCUSATE SODIUM LIQ 100 MG/10 ML UDC NG SCH (08:55)
[2020-06-29] MEDS: PANTOPRAZOLE 40 MG/PACK PACK GT SCH ×2 (08:55→20:29)
[2020-06-29] MEDS: APIXABAN 5 MG TABLET PO SCH ×2 (08:56→16:28)
[2020-06-29] MEDS: NEOMY SULF/BACITRAC ZN/POLY 15 GM TUBE TP SCH ×2 (08:56→16:28)
[2020-06-29] MEDS: PROSOURCE / PROSTAT (PYXIS) 30 ML UDC GT SCH ×3 (08:56→16:27)
[2020-06-29] MEDS ORDERED: POTASSIUM CHLORIDE 20 MEQ POWDER PACKET GT ONE (10:00)
--- NOTE | 2020-06-29 11:53 | NUR ---
RN NOTE 0715: Received patient awake, A/O and able to mouth words. With trache to vent, tolerated settings at this time. With GT intact, TF tolerated, no residuals, kept HOB elevated. With Uriarte cath intact, noted with pinkish good UOP. BUBBA midline intact. On Precedex for comfort, will titrate as ordered. On Barimaxx. 0940: Tried SIMV per Dr. Smith, patient noted with diaphoresis and increased WOB, lasted 15min, placed back on AC mode. Offered pen and paper and communication board but patient still unable to have good learning support assistant on pen or point letters at this time. Awaiting PT eval per Dr. Smith's order for ROM exercises. 1150: No ant significant changes noted at this time. Kept clean warm and dry. Needs attended.
--- NOTE | 2020-06-29 13:44 | NUR ---
RN NOTE S/E by PT, noted with pain on ROM. Still with lack of coordination. PT informed Dr. Smith, with advised to have OT eval on Thursday, ordered OT eval.
--- NOTE | 2020-06-29 16:30 | NUR ---
RN NOTE Gissel NUCLEAR PLANT OPERATOR came to do sacral debridement, taken picture after procedure and attached to chart.
[2020-06-29] MEDS: ACETAMINOPHEN 650 MG/20.3 ML UDC NG PRN (17:01)
--- NOTE | 2020-06-29 19:10 | NUR ---
RN NOTE RECEIVED PT IN BED CALM AND COOPERATIVE IN SEMI METZ'S POSITION. PT WITH TRACH CONNECTED TO VENT. TRACH MIDLINE AND IN PLACE. TOLERATING CURRENT VENT SETTINGS WELL. RESPIRATIONS EVEN AND UNLABORED. NO SIGNS OF ACUTE DISTRESS PAIN OR DISCOMFORT. PT ABLE TO MAKE NEEDS KNOWN AND FOLLOW COMMANDS. VITAL SIGNS STABLE VIA BEDSIDE MONITOR. RECEIVED PT ON PRECEDEX DRIP @ 0.3. WITH GTUBE RUNNING WITH CLAMPED AT THIS TIME PER PT REQUEST. NO RESIDUAL NOTED. FLUSHED AND PATENT. WILL RESUME TUBE FEEDING TOLERATED. WITH PATEL CATHETER PATENT AND IN PLACE DRAINING URINE VIA GRAVITY. NOTED THAT PT HAS 2 CHEST TUBES AND ONE PLEURA VAC. NO DRAINAGE OR OUTPUT NOTED. ORAL CARE DONE. ALARMS ON AND AUDIBLE. VENT PLUGGED INTO RED OUTLET. AMBU BAG AT BEDSIDE. BED ALARM ON, BED LOCKED AND IN LOW POSITION, SIDE RAILS UP X 2, WILL MONITOR PATIENT AND CARRY OUT ACTIVE MD ORDERS.
--- NOTE | 2020-06-29 20:00 | NUR ---
RN NOTE TUBE FEEDING RESUMED VIA GT AT 50ML/HOUR ORDERED.
--- NOTE | 2020-06-29 23:25 | NUR ---
RN NOTE SPOKE TO ON THE PHONE AND GAVE UPDATE ON PT'S STATUS AND PLAN OF CARE.
[2020-06-29] MEDS: GLUCERNA 1.2 1,000 ML BOTTLE GT PRN (23:37)
[2020-06-30] VITALS (31 sets, daily range): BP systolic 113–148; BP diastolic 63–90
--- NOTE | 2020-06-30 | NUR ---
RN NOTE COMPLETE BED BATH/ AM CARE AND LINEN CHANGE COMPLETED. PATIENT WITH ONE LARGE BOWEL MOVEMENT. WOUND CARE RENDERED ORDERED, PT TOLERATED WELL. VITAL SIGNS STABLE VIA MONITOR. WILL CONTINUE TO MONITOR PATIENT.
[2020-06-30] MEDS: LORAZEPAM 1 MG TABLET PO SCH ×3 (01:43→16:32)
[2020-06-30] MEDS: PRECEDEX 400 MCG/100 ML BOTTLE 100 ML IV PRN ×4 (01:44→23:12)
[2020-06-30] MEDS: MORPHINE SULFATE INJ 2 MG/ML DISP.SYRIN IV PRN (03:18)
[2020-06-30] MEDS: BLOOD SUGAR DIAGNOSTIC 1 EACH STRIP IN SCH ×3 (05:19→18:11)
[2020-06-30 06:11] LABS: CALCIUM, SERUM 8.4 mg/dL (8.5-10.1); CREATININE 0.7 mg/dL (0.6-1.3); POTASSIUM 3.3 mmol/L (3.5-5.1)
--- NOTE | 2020-06-30 07:03 | NUR ---
RN NOTE NO ACUTE CHANGES OBSERVED OVERNIGHT. PT REMAINS IN BED CALM AND COOPERATIVE IN SEMI METZ'S POSITION. PT WITH TRACH CONNECTED TO VENT. TRACH MIDLINE AND IN PLACE. TOLERATING VENT SETTINGS WELL. RESPIRATIONS EVEN AND UNLABORED. NO SIGNS OF ACUTE DISTRESS PAIN OR DISCOMFORT. PT ABLE TO MAKE NEEDS KNOWN AND FOLLOW COMMANDS. VITAL SIGNS STABLE VIA BEDSIDE MONITOR. PT CURRENTLY ON PRECEDEX DRIP @ 0.4. WITH TUBE FEEDING RUNNING ORDERED. NO RESIDUAL NOTED. FLUSHED AND PATENT. WITH PATEL CATHETER PATENT AND IN PLACE DRAINING URINE VIA GRAVITY. NOTED THAT PT HAS 2 CHEST TUBES AND ONE PLEURA VAC. NO DRAINAGE OR OUTPUT NOTED THROUGHOUT SHIFT. ORAL CARE DONE Q2H. ALARMS ON AND AUDIBLE. VENT PLUGGED INTO RED OUTLET. AMBU BAG AT BEDSIDE. BED ALARM ON, BED LOCKED AND IN LOW POSITION, SIDE RAILS UP X 2, ALL NEEDS MET AND ATTENDED TO, WILL ENDORSE TO MORNING RN FOR ROSELINE.
[2020-06-30] MEDS: DOCUSATE SODIUM LIQ 100 MG/10 ML UDC NG SCH (08:31)
[2020-06-30] MEDS: PANTOPRAZOLE 40 MG/PACK PACK GT SCH ×2 (08:31→21:40)
[2020-06-30] MEDS: APIXABAN 5 MG TABLET PO SCH ×2 (08:32→16:43)
[2020-06-30] MEDS: PROSOURCE / PROSTAT (PYXIS) 30 ML UDC GT SCH ×3 (08:40→16:32)
[2020-06-30] MEDS: NEOMY SULF/BACITRAC ZN/POLY 15 GM TUBE TP SCH ×2 (08:40→16:33)
[2020-06-30] MEDS: POTASSIUM CL. PREMIX PERIPHER. 50 ML IV SCH ×2 (10:00→11:21)
[2020-06-30] MEDS: ACETAMINOPHEN 650 MG/20.3 ML UDC NG PRN ×2 (12:00→21:39)
[2020-06-30] MEDS: GLUCERNA 1.2 1,000 ML BOTTLE GT PRN (16:32)
[2020-06-30] MEDS ORDERED: DOSING PER PHARMACY-TOBRA INHALATION 1 EA XX PRN (18:00)
--- NOTE | 2020-06-30 18:36 | NUR ---
RN CLOSING NOTES NO SIGNIFICANT CHANGE NOTED. NO RESPIRATORY DISTRESS NOTED. REMAINS ON PRECEDEX. KEPT COMFORTABLE. TOLERATING TUBE FEEDING WELL. KEPT CLEAN AND DRY. WILL ENDORSE FOR CONTINUITY OF CARE.
--- NOTE | 2020-06-30 20:00 | NUR ---
RN NOTE RECEIVED PT IN BED PT HAS TRACH CONNECTED TO VENT. PT IS A/O X3 FOLLOWS COMMAND.PT HAS PRECEDEX DRIP RUNNING AT 0.4 MCG. G TUBE FEEDING RUNNING AT 50 ML/H NO RESIDUAL NOTED, CHECKED FOR PLACEMENT. SAFETY MEASURES IN PLACE.
[2020-06-30] MEDS: TOBRAMYCIN 80 MG/2 ML VIAL INH SCH (20:08)
[2020-07-01] VITALS (43 sets, daily range): BP systolic 103–183; BP diastolic 63–100
[2020-07-01] MEDS: BLOOD SUGAR DIAGNOSTIC 1 EACH STRIP IN SCH ×4 (00:10→17:37)
[2020-07-01] MEDS: LORAZEPAM 1 MG TABLET PO SCH ×3 (01:15→17:29)
[2020-07-01 05:37] LABS: CALCIUM, SERUM 8.5 mg/dL (8.5-10.1); CREATININE 0.6 mg/dL (0.6-1.3); POTASSIUM 3.5 mmol/L (3.5-5.1)
[2020-07-01] MEDS: PRECEDEX 400 MCG/100 ML BOTTLE 100 ML IV PRN (05:59)
--- NOTE | 2020-07-01 07:37 | NUR ---
pt remained stable during my shift report given to incoming shift for gabino.
--- NOTE | 2020-07-01 07:45 | NUR ---
RT PATIENT REC'D TRACHED ON [facility] VENT WITH ORDERED SETTINGS FERNANDA WELL. VENT ALARMS CHECKED + AUDIBLE. TRACH SECURE AND IN PROPER POSITION. AMBU BAG AT [facility]. AIRWAY CHECKED AND PATENT. Addendum: 07/03/20 at 1444 by CANDIDO VALERO RT Amended: Links added.
--- NOTE | 2020-07-01 08:50 | NUR ---
RN NOTES GET TO ORDER VIA TECH INTERN STOP PRECEDEX 0.4 MG AND ADMINISTER ATIVAN 3MG PER AGITATION Q2HR PRN. ORDER TAKEN AND CARRIED OUT.
--- NOTE | 2020-07-01 09:00 | NUR ---
rn notes Will transition off Precedex continue with oral maintenance Ativan plus as needed IV madness, attempt slow SIMVPSV wean when able patient to adjust to slowly increased work of breathing. Physical therapy and Occupational Therapy.
[2020-07-01] MEDS: PANTOPRAZOLE 40 MG/PACK PACK GT SCH ×2 (09:07→21:56)
[2020-07-01] MEDS: DOCUSATE SODIUM LIQ 100 MG/10 ML UDC NG SCH (09:07)
[2020-07-01] MEDS: NEOMY SULF/BACITRAC ZN/POLY 15 GM TUBE TP SCH ×2 (09:08→17:29)
[2020-07-01] MEDS: APIXABAN 5 MG TABLET PO SCH ×2 (09:09→17:28)
[2020-07-01] MEDS: PROSOURCE / PROSTAT (PYXIS) 30 ML UDC GT SCH ×3 (09:16→17:30)
[2020-07-01] MEDS: TOBRAMYCIN 80 MG/2 ML VIAL INH SCH ×2 (09:30→19:49)
--- NOTE | 2020-07-01 12:58 | NUR ---
RN NOTES AM ACRE DONE, SUCTION, PATIENT CALM, AND AWAKE, NO ACUTE RESPIRATORY DISTRESS, NO AGITATION. BS-107 MG/DL, ADMINISTERED SCHEDULED MEDICATION. ASSIST TURN AND REPOSITION Q 2 HR,
[2020-07-01] MEDS: LORAZEPAM INJ 2 MG/ML VIAL IV PRN ×2 (14:41→19:41)
--- NOTE | 2020-07-01 14:41 | NUR ---
RN NOTES ADMINISTERED ATIVAN 2 MG/ML IV PUSH FOR ANXIETY, P-113, BP- 143/73. WILL MONITORING. AM CARE DONE, DUE MEDICATION ADMINISTERED, BS-107 MG/DL, ASSIST TURN AND REPOSTION Q 2 HR, CHEST TUBES DRESSING CHANGED LEFT SIDE TUBE SOME OUTPUT SANGUINEUS COLOR.
[2020-07-01] MEDS: GLUCERNA 1.2 1,000 ML BOTTLE GT PRN (17:22)
[2020-07-01] MEDS: ACETAMINOPHEN 650 MG/20.3 ML UDC NG PRN (18:29)
--- NOTE | 2020-07-01 18:29 | NUR ---
rn notes t-100 F administered Tylenol 650 liq via GT.
[2020-07-01] MEDS: ONDANSETRON HCL/PF 4 MG/2 ML VIAL IVP PRN (18:42)
--- NOTE | 2020-07-01 18:42 | NUR ---
rn notes administered Zofran 4 mg/ml iv push for nausea/vomiting.
--- NOTE | 2020-07-01 19:28 | NUR ---
rn notes medication were administered for nausea, and vomiting effective, also fever 99.7F, will monitoring.
--- NOTE | 2020-07-01 19:41 | NUR ---
rn notes administered Ativan 2 mg/ml iv push for anxiety, bp 155/94, p-142, t-99.7F. will monitoring, Keep HOB elevated.
--- NOTE | 2020-07-01 20:57 | NUR ---
rn notes patient stable, calm medication were administered for anxiety effectibe, endorsed oncoming nurse follow plan of care.
[2020-07-01] MEDS: HYDROCODONE/APAP 5/325MG TABLET NG PRN (21:57)
[2020-07-02] VITALS (39 sets, daily range): BP systolic 86–151; BP diastolic 46–88
[2020-07-02] MEDS: BLOOD SUGAR DIAGNOSTIC 1 EACH STRIP IN SCH ×4 (00:56→17:31)
[2020-07-02] MEDS: LORAZEPAM 1 MG TABLET PO SCH ×4 (01:38→18:16)
[2020-07-02] MEDS: MORPHINE SULFATE INJ 2 MG/ML DISP.SYRIN IV PRN (02:43)
[2020-07-02] MEDS: LORAZEPAM INJ 2 MG/ML VIAL IV PRN ×2 (06:28→09:03)
--- NOTE | 2020-07-02 07:39 | NUR ---
RN NOTES PATIENT IS AOX3 ABLE TO MOUTH WORDS. TRACH AND VENT SETTING TOLERATED WELL. SATURATION KEPT >92%. AFEBRILE. VSS WITHOUT PRESSORS. ANXIETY PRESENT. NSR ON TELE MONITOR. PATIENT COMPLAINED OF PAIN ON HIS BOTH HANDS, BOTH LEGS AND RIGHT CHEST WHEN COUGHING. PRN PAIN MEDICINE REMAINED EFFECTIVE. WILL FOLLOW UP FOR PT, OT TO EXERCISED HANDS AND FOOT, WOUND DRESSING CHANGED PHOTO TAKEN. KEPT PT CLEAN AND DRY. ENDORSED CONTINUITY OF CARE TO AM NURSE.
--- NOTE | 2020-07-02 07:51 | NUR ---
WOUND CARE FOLLOW UP: PT ANXIOUS AT THIS TIME AND NOT TURNED FOR SKIN ASSESSMENT. REVIEWED CHART, NURSING AND SURGICAL TEAM DOCUMENTATION AND PHOTOS WHICH INDICATE STAGE 3 SACRAL ULCER WITH HEALED AREAS TO BUTTOCKS. DISCUSSED WOUND CARE AND SKIN PROTECTION WITH NURSING STAFF AND SURGICAL TEAM. TREATMENT PLAN UPDATED. PT CONTINUES TO BE ON BARIMAX ETS AIR BED WITH ALL SKIN PROTECTION MEASURES IN PLACE. MD IN AGREEMENT WITH PLAN OF CARE.
--- NOTE | 2020-07-02 08:00 | NUR ---
RN NOTES SEEN PATIENT IN THE BED, ON TRACHEA VENT , NO ACUTE RESPIRATORY DISTRESS, PER RT PUT ON SIMV MODE, PATIENT GET IRRITABLE EASILY ADMINISTERED ATIVAN 3 MG VIA GT, PATIENT HR 127, BP 137/83, INCREASED ANXIETY. SEEN PATIENT OT, AND PT, AND THEY WILL FOLLOW PATIENT. ALSO ADMINISTERED DUE MEDICATION.
--- NOTE | 2020-07-02 08:20 | NUR ---
RT PATIENT REC'D TRACHED ON [facility] VENT WITH ORDERED SETTINGS FERNANDA WELL. VENT ALARMS CHECKED + AUDIBLE. TRACH SECURE AND IN PROPER POSITION. AMBU BAG AT [facility]. AIRWAY CHECKED AND PATENT. Addendum: 07/03/20 at 1444 by CANDIDO VALERO RT Amended: Links added.
[2020-07-02] MEDS: PANTOPRAZOLE 40 MG/PACK PACK GT SCH ×2 (08:25→21:45)
[2020-07-02] MEDS: DOCUSATE SODIUM LIQ 100 MG/10 ML UDC NG SCH (08:25)
[2020-07-02] MEDS: APIXABAN 5 MG TABLET PO SCH ×2 (08:28→17:31)
[2020-07-02] MEDS: PROSOURCE / PROSTAT (PYXIS) 30 ML UDC GT SCH ×3 (08:28→17:31)
[2020-07-02] MEDS: NEOMY SULF/BACITRAC ZN/POLY 15 GM TUBE TP SCH ×2 (08:29→17:31)
[2020-07-02] MEDS: TOBRAMYCIN 80 MG/2 ML VIAL INH SCH (09:00)
--- NOTE | 2020-07-02 09:03 | NUR ---
RN NOTES PATIENT VERY ANXIOUS, IRRITABLE, PER TURNAROUND PLANNER TO ADMINISTERED IV ATIVAN 2MG/ML IV PUSH AT THIS TIME, BP 128/83, P-127.
[2020-07-02] MEDS: HYDROGEL DRESSING 90 GM TUBE TP SCH (10:29)
[2020-07-02] MEDS: OLANZAPINE 2.5 MG TABLET PO SCH ×2 (10:31→17:30)
[2020-07-02] MEDS: PRECEDEX 400 MCG/100 ML BOTTLE 100 ML IV PRN ×2 (11:12→17:30)
--- NOTE | 2020-07-02 11:12 | NUR ---
rn notes patient withdrawn, anxious , holding his breath, keep moving, sweating, medication given ativan 2 mg/ml not working, per Peleg disc recordist order start Precedex sedation back. order taken and carried out.
--- NOTE | 2020-07-02 13:00 | NUR ---
RN NOTES PATIENT SLEEPING AT THIS TIME, AFTER PRECEDEX 0.4 MCG/KG/ HR, V/S STABLE, NO ACUTE RESPIRATORY DISTRESS, BS-104 MG/DL. RUNNING GLUCERNA 1.2 AT 50 ML/HR INTACT, 10 CC OF RESIDUAL. AM CARE DONE ,SUCTION, DUE MEDICATION ADMINISTERED. WILL MONITORING.
[2020-07-02] MEDS: GLUCERNA 1.2 1,000 ML BOTTLE GT PRN (17:30)
--- NOTE | 2020-07-02 18:21 | NUR ---
ORIENTOR NOTES PATIENT'S KO CALLED AND ADDED DTR ANGELICA NEXT OF KIN WELL D/T KO () IS GOING BACK TO WORK. KO TEL: [phone]. ANGELICA [phone].
--- NOTE | 2020-07-02 18:40 | NUR ---
rn notes bs-95 mg/dl, coverage given, v/s stable, keep hob elevated, patient easily get irritable, administered scheduled medication, infusing precedes 0.4 mcg/kg/hr, , running Glucerna 1.2 at 50 cc/hr intact. endorsed oncoming nurse follow plan of care.
[2020-07-02] MEDS: LEVOFLOXACIN (250MG) 250 MG TABLET PO SCH (18:48)
--- NOTE | 2020-07-02 21:30 | NUR ---
RN NOTES NOTED THAT PATIENT CHEST TUBE CHAMBER ON THE RIGHT LATERAL SIDE WAS CONTINUOUSLY BUBBLING AND WATER IS BELOW 2 CM LEVEL. PATIENT IS SEDATED WITH PRECEDEX NO RESPIRATORY DISTRESS. AND INFORMED DR. SMART AND ORDER CXR STAT.
--- NOTE | 2020-07-02 22:40 | NUR ---
RN NOTES CALL CASSANDRA AND VERIFY REGARDING THE PATIENT 3 CHEST TUBE ONE OF THE CHEST TUBE WAS NOT SEEN ONLY RIGHT PIGHT TAIL AND LEFT CHEST TUBE. VERIFIED AND SPOKE TO DR. ALVARADO PER TO REPEAT CXR. Addendum: 07/03/20 at 0229 by RONALD SANCHEZ RN 1ST CXR RESULT, VERIFIED TO CASSANDRA SPOKE TO RADIOLOGY MD DR. ALVARADO. FINDINGS: A tracheostomy tube is present. A pigtail catheter is in the right apex. A is in the left upper lung zone. The heart size is normal. Bilateral pulmonary opacities have decreased. There is pulmonary parenchymal scarring primarily in the right upper lobe. Mild interstitial opacities are noted in the left lung, with volume loss. There is small left pleural effusion. No pneumothorax is identified. IMPRESSION: Lines and tubes as described above. Bilateral pulmonary infiltrates have improved. Small left pleural effusion. No pneumothorax.
[2020-07-03] VITALS (40 sets, daily range): BP systolic 90–130; BP diastolic 54–87
[2020-07-03] MEDS: BLOOD SUGAR DIAGNOSTIC 1 EACH STRIP IN SCH ×4 (00:24→18:14)
[2020-07-03] MEDS: LORAZEPAM 1 MG TABLET PO SCH ×4 (00:24→18:14)
[2020-07-03] MEDS: PRECEDEX 400 MCG/100 ML BOTTLE 100 ML IV PRN ×3 (00:24→18:13)
--- NOTE | 2020-07-03 01:13 | NUR ---
RN NOTES INFORMED DR. SMART REGARDING PATIENT CXR RESULT (SEE 2 CXR RESULT 07/03/20) PER MD TO LET THE DAYTIME PROVIDED KNOW SO THEY CAN CALL CT SURGERY.
[2020-07-03] MEDS: MORPHINE SULFATE INJ 2 MG/ML DISP.SYRIN IV PRN (03:15)
--- NOTE | 2020-07-03 04:00 | NUR ---
RN NOTES BEDBATH DONE , ANXIETY NOTED AT TIMES. PATIENT COMPLAINED OF PAIN ALL OVER THE BODY. NO APPARENT RESPIRATORY DISTRESS. ATRIUM / CHAMBER ALMOST FULL, CHANGED NO SIGNIFICANT CHANGES AND TOLERATED WELL. PATIENT IS CLEANED AND DRY.
--- NOTE | 2020-07-03 07:50 | NUR ---
RT PATIENT REC'D TRACHED ON [facility] VENT WITH ORDERED SETTINGS FERNANDA WELL. VENT ALARMS CHECKED + AUDIBLE. TRACH SECURE AND IN PROPER POSITION. AMBU BAG AT [facility]. AIRWAY CHECKED AND PATENT. Addendum: 07/03/20 at 1444 by CANDIDO VALERO RT Amended: Links added.
[2020-07-03] MEDS: PROSOURCE / PROSTAT (PYXIS) 30 ML UDC GT SCH ×3 (08:23→16:43)
[2020-07-03] MEDS: DOCUSATE SODIUM LIQ 100 MG/10 ML UDC NG SCH (08:23)
[2020-07-03] MEDS: PANTOPRAZOLE 40 MG/PACK PACK GT SCH ×2 (08:24→21:13)
[2020-07-03] MEDS: OLANZAPINE 2.5 MG TABLET PO SCH ×2 (08:24→16:43)
[2020-07-03] MEDS: APIXABAN 5 MG TABLET PO SCH ×2 (08:25→16:43)
[2020-07-03] MEDS: HYDROGEL DRESSING 90 GM TUBE TP SCH (08:25)
[2020-07-03] MEDS: NEOMY SULF/BACITRAC ZN/POLY 15 GM TUBE TP SCH ×2 (08:25→16:44)
--- NOTE | 2020-07-03 09:00 | NUR ---
ICU/RN PT HAS TRACHEOSTOMY ON THE VENT AC MODE,FIO2-40%.SAT O2-100%.V/S STABLE AFEBRILE.NO PAIN REPORTED AT THIS TIME.PT IS STILL ON PRECEDEX .AWAKE,ALERT ,ORIENTED.RIGHT UPPER ARM MID LINE.HAS 2 RIGHT SIDE CHEST TUBES AND LEFT CHEST TUBE.G TUBE INFUSING WITH GLUCERNA NO RESIDUAL NOTED.F/C DRAINING WITH YELLOW URINE. DUE MEDS ARE GIVEN ORDERED.CHEST X-RAY DONE ORDERED. REPOSITION FOR COMFORT.
--- NOTE | 2020-07-03 10:00 | NUR ---
ICU/RN RIGHT SIDE PROXIMAL CHEST TUBE WAS DISLODGE AND REMOVED.DRESSING CHANGED.PT TOLERATED WELL. REPOSITION FOR COMFORT.
[2020-07-03] MEDS: GLUCERNA 1.2 1,000 ML BOTTLE GT PRN (11:39)
[2020-07-03] MEDS: ONDANSETRON HCL/PF 4 MG/2 ML VIAL IVP PRN (18:14)
[2020-07-03] MEDS: LEVOFLOXACIN (250MG) 250 MG TABLET PO SCH (18:14)
--- NOTE | 2020-07-03 20:05 | NUR ---
RN NOTES RECEIVED PATIENT AWAKE , CALM AND COOPERATIVE. MOUTHING WORDS. WITH TRACH SHILEY 8 CONNECTED TO VENT SETTING AC 30 TV 550 FIO2 40% AND PEEP 5 TOLERATED. SATURATION ON 97%. SR ON TELE MONITOR. IV SITE ON BUBBA MIDLINE WITH PRECEDEX @ 0.3 WILL TITRATED PROTOCOL. GTF GLUCERNA 1.2 INTACT AND PATENT KEPT HOB ELEVATED. TURN AND REPOSITION BY [facility] BED. SAFE AND SECURED.
[2020-07-03 21:50] LABS: THYROID STIMULATING HORMONE 0.997 uIU/mL (0.358-3.74)
[2020-07-04] VITALS (24 sets, daily range): BP systolic 93–129; BP diastolic 56–77
[2020-07-04] MEDS: LORAZEPAM 1 MG TABLET PO SCH ×4 (00:54→17:36)
[2020-07-04] MEDS: BLOOD SUGAR DIAGNOSTIC 1 EACH STRIP IN SCH ×4 (01:13→17:37)
[2020-07-04] MEDS: MORPHINE SULFATE INJ 2 MG/ML DISP.SYRIN IV PRN ×2 (03:18→10:50)
[2020-07-04] MEDS: PRECEDEX 400 MCG/100 ML BOTTLE 100 ML IV PRN ×3 (03:23→21:04)
[2020-07-04 04:37] LABS: BASOPHILS % (AUTO) 0.7 % (0.0-2.0); EOSINOPHILS % (AUTO) 8.5 % (0.0-6.0); HEMATOCRIT 24 % (39-51); HEMOGLOBIN 7.6 g/dL (13.5-17.5); LYMPHOCYTES # (AUTO) 1.6 /CMM (0.8-4.8); LYMPHOCYTES % (AUTO) 22.8 % (20.0-44.0); MEAN CORPUSCULAR HGB CONC 32 g/dl (31.0-36.0); MEAN CORPUSCULAR VOLUME 88 fL (80-96); MONOCYTES # (AUTO) 0.4 /CMM (0.1-1.30); MONOCYTES % (AUTO) 6.1 % (2.0-12.0); NEUTROPHILS # (AUTO) 4.3 /CMM (1.8-8.9); NEUTROPHILS % (AUTO) 61.9 % (43.0-81.0); PLATELET COUNT (AUTO) 292 /CMM (150-450); WHITE BLOOD COUNT (AUTO) 6.9 K/uL (4.3-11.0)
[2020-07-04 05:06] LABS: ALBUMIN 2.2 g/dL (3.4-5.0); BILIRUBIN,TOTAL 0.3 mg/dL (0.2-1.0); CALCIUM, SERUM 8.8 mg/dL (8.5-10.1); CREATININE 0.9 mg/dL (0.6-1.3); MAGNESIUM 1.8 mg/dL (1.8-2.4); PHOSPHORUS 4.8 mg/dL (2.5-4.9); POTASSIUM 3.7 mmol/L (3.5-5.1)
--- NOTE | 2020-07-04 07:30 | NUR ---
RN NOTES PATIENT REMAINED STABLE TROUGHOUT THE SHIFT. TRACH AND VENT SETTING TOLERATED WELL. AFEBRILE. VSS WITHOUT PRESSORS. PRECEDEX ONGOIGN TITRATED ORDERED. PATIENT REMAINED CALM WITH ATIVAN, MORPHINE ADMINISTERED BEFORE PATIENT CHANGE D UE TO COMPLAINED OF PAIN MORE ON HANDS AND LEGS. PATIENT IS TRYING TO COMMUNICATE THE NURSE. ENCOURAGED TO VERBALIZED FEELINGS USING COMMUNICATION BOARD. NEEDS MORE EXERCISE. KEPT PT CLEAN AND DRY. RIGHT PIGTAIL ON RIGHT CHEST AND LEFT LATERAL CHEST REMAINED INTACT AND PATETN WITHOUR LEAKING CONTINEU ON SUCTION AT 80 MMHG. CONTINUE TO MONITOR,.
--- NOTE | 2020-07-04 08:29 | NUR ---
VENT CHANGES BELOW FOR WEANING TRIAL PER DR. BO: NGUYỄN 12 PS 25 PEEP 5 Addendum: 07/04/20 at 0831 by MARIPOSA NAVA RT Amended: Links added.
[2020-07-04] MEDS: PANTOPRAZOLE 40 MG/PACK PACK GT SCH ×2 (08:54→20:59)
[2020-07-04] MEDS: DOCUSATE SODIUM LIQ 100 MG/10 ML UDC NG SCH (08:54)
[2020-07-04] MEDS: OLANZAPINE 2.5 MG TABLET PO SCH ×2 (08:54→17:36)
[2020-07-04] MEDS: APIXABAN 5 MG TABLET PO SCH ×2 (08:58→17:46)
[2020-07-04] MEDS: PROSOURCE / PROSTAT (PYXIS) 30 ML UDC GT SCH ×3 (08:59→17:38)
[2020-07-04] MEDS: NEOMY SULF/BACITRAC ZN/POLY 15 GM TUBE TP SCH ×2 (09:10→17:39)
[2020-07-04] MEDS: HYDROGEL DRESSING 90 GM TUBE TP SCH (09:10)
--- NOTE | 2020-07-04 12:47 | NUR ---
pt is awake and alert @1245 back to AC 30, 550, 40%, peep +5 due to increase work of breathing. pt. is diaphoretic and breathing 55 on SIMV mode. RN is aware @ bedside. Addendum: 07/04/20 at 1251 by MARIPOSA NAVA RT Amended: Links added.
[2020-07-04] MEDS: LEVOFLOXACIN (250MG) 250 MG TABLET PO SCH (17:37)
--- NOTE | 2020-07-04 19:06 | NUR ---
RN NOTE RECEIVED PT CALM AND COOPERATIVE IN BED IN SEMI METZ'S POSITION. ABLE TO MAKE NEEDS KNOWN AND FOLLOW COMMANDS. PT WITH TRACH CONNECTED TO VENT AND TOLERATING VENT SETTINGS PRESCRIBED. DENIES PAIN OR DISCOMFORT AT THIS TIME. WITH GT PATENT AND FLUSHED. NO RESIDUAL NOTED. TUBE FEEDING RUNNING ORDERED. WITH RIGHT UPPER ARM MIDLINE AND LEFT WRIST IV PATENT AND INTACT WITHOUT COMPLICATIONS NOTED AT SITES. WITH PATEL CATHETER PATENT AND IN PLACE WITH URINE DRAINING VIA GRAVITY. WITH LEFT LOWER POSTERIOR CHEST TUBE AND RIGHT UPPER ANTERIOR CHEST TUBE. SITES INTACT. NO LEAKAGE NOTED. TUBE SECURED. NO OUTPUT NOTED AT THIS TIME. ALARMS ON AND AUDIBLE. AMBUA BAG AT BEDSIDE. VENT PLUGGED INTO RED OUTLET. SAFETY MEASURES IN PLACE PER PROTOCOL, BED ALARM ON, BED LOCKED AND IN LOW POSITION, SIDE RAILS UP X 3, WILL MONITOR PATIENT AND CARRY OUT ACTIVE MD ORDERS.
[2020-07-05] VITALS (26 sets, daily range): BP systolic 109–130; BP diastolic 62–85
--- NOTE | 2020-07-05 | NUR ---
RN NOTE COMPLETE BED BATH/AM CARE COMPLETE. PT TOLERATED WELL. VITAL SIGNS STABLE VIA BEDSIDE MONITOR. WILL CONTINUE TO MONITOR.
[2020-07-05] MEDS: BLOOD SUGAR DIAGNOSTIC 1 EACH STRIP IN SCH ×5 (00:40→23:40)
[2020-07-05] MEDS: LORAZEPAM 1 MG TABLET PO SCH ×5 (00:42→23:38)
--- NOTE | 2020-07-05 01:10 | NUR ---
RN NOTE\ Addendum: 07/05/20 at 0111 by REX VELIZ RN SPOKE TO YUNIOR COLINDRES AND GAVE UPDATE ON PT'S STATUS
[2020-07-05] MEDS: PRECEDEX 400 MCG/100 ML BOTTLE 100 ML IV PRN ×3 (04:25→22:47)
[2020-07-05 04:44] LABS: BASOPHILS % (AUTO) 0.7 % (0.0-2.0); EOSINOPHILS % (AUTO) 10.5 % (0.0-6.0); HEMATOCRIT 23 % (39-51); HEMOGLOBIN 7.3 g/dL (13.5-17.5); LYMPHOCYTES # (AUTO) 1.7 /CMM (0.8-4.8); LYMPHOCYTES % (AUTO) 27.3 % (20.0-44.0); MEAN CORPUSCULAR HGB CONC 32 g/dl (31.0-36.0); MEAN CORPUSCULAR VOLUME 88 fL (80-96); MONOCYTES # (AUTO) 0.4 /CMM (0.1-1.30); MONOCYTES % (AUTO) 6.1 % (2.0-12.0); NEUTROPHILS # (AUTO) 3.5 /CMM (1.8-8.9); NEUTROPHILS % (AUTO) 55.4 % (43.0-81.0); PLATELET COUNT (AUTO) 271 /CMM (150-450); RED BLOOD CELL COUNT(AUTO) 2.59 MIL/uL (4.5-6.0); WHITE BLOOD COUNT (AUTO) 6.4 K/uL (4.3-11.0)
[2020-07-05 05:16] LABS: CALCIUM, SERUM 8.8 mg/dL (8.5-10.1); CREATININE 0.8 mg/dL (0.6-1.3); MAGNESIUM 1.7 mg/dL (1.8-2.4); PHOSPHORUS 4.5 mg/dL (2.5-4.9); POTASSIUM 4.2 mmol/L (3.5-5.1)
--- NOTE | 2020-07-05 05:37 | NUR ---
RN NOTE PT REQUESTING THAT TUBE FEEDING BE PAUSED AT THIS TIME DUE TO FEELING "BLOATED".
--- NOTE | 2020-07-05 06:46 | NUR ---
RN NOTE NO ACUTE CHANGES OBSERVED OVERNIGHT. PT SLEEPING IN BED IN SEMI MEZT'S POSITION. ABLE TO MAKE NEEDS KNOWN AND FOLLOW COMMANDS. PT WITH TRACH CONNECTED TO VENT AND TOLERATING VENT SETTINGS PRESCRIBED. TRACH MID LINE AND IN PLACE, NO SIGNS OF PAIN OR DISCOMFORT. WITH GT PATENT AND FLUSHED. NO RESIDUAL NOTED. PT REQUESTED TO PAUSE TUBE FEEDING AT THIS TIME DUE TO FEELING "BLOATED". BOWEL SOUNDS ACTIVE. WITH RIGHT UPPER ARM MIDLINE AND LEFT WRIST IV PATENT AND INTACT WITHOUT COMPLICATIONS NOTED AT BOTH SITES. WITH PATEL CATHETER PATENT AND IN PLACE WITH URINE DRAINING VIA GRAVITY. WITH LEFT LOWER POSTERIOR CHEST TUBE AND RIGHT UPPER ANTERIOR CHEST TUBE. SITES INTACT. NO LEAKAGE NOTED. TUBINGS SECURED. NO OUTPUT NOTED AT THIS TIME VIA BOTH CHEST TUBES THIS SHIFT. ALARMS ON AND AUDIBLE. AMBU BAG AT BEDSIDE. VENT PLUGGED INTO RED OUTLET. SAFETY MEASURES IN PLACE PER PROTOCOL, BED ALARM ON, BED LOCKED AND IN LOW POSITION, SIDE RAILS UP X 3, WILL ENDORSE TO MORNING RN FOR ROSELINE.
--- NOTE | 2020-07-05 08:00 | NUR ---
RECEIVED PATIENT IN BED. NO ACUTE DISTRESS NOTED. PATIENT A&OX3, NONVERBAL BUT CAN COMMUNICATE AND FOLLOW COMMANDS. PATIENT TRACH'D, ON MECHANICAL VENTILATOR, TOLERATING SETTINGS WELL, SATURATING AT 98%. PATIENT ON OPERATIONS OFFICER, NSR NOTED. PATIENT G-TUBE IN PLACE, CURRENTLY CLAMPED, WILL REASSESS TO SEE IF PATIENT CAN TOLERATE FEEDING. PATIENT PATEL CATHETER IN PLACE, INTACT, DRAINING TO GRAVITY. PATIENT BUBBA MIDLINE INTACT, PATENT. PATIENT SAFETY MEASURES MAINTAINED. CALL LIGHT WITHIN REACH. WILL CONTINUE TO MONITOR.
[2020-07-05] MEDS: PANTOPRAZOLE 40 MG/PACK PACK GT SCH ×2 (08:17→20:16)
[2020-07-05] MEDS: Magnesium 1GM/D5W 100ML PREMIX 100 ML IV SCH ×2 (08:17→09:24)
[2020-07-05] MEDS: DOCUSATE SODIUM LIQ 100 MG/10 ML UDC NG SCH (08:18)
[2020-07-05] MEDS: OLANZAPINE 2.5 MG TABLET PO SCH ×2 (08:18→17:40)
[2020-07-05] MEDS: HYDROGEL DRESSING 90 GM TUBE TP SCH (08:22)
[2020-07-05] MEDS: NEOMY SULF/BACITRAC ZN/POLY 15 GM TUBE TP SCH ×2 (08:23→17:41)
[2020-07-05] MEDS: APIXABAN 5 MG TABLET PO SCH ×2 (09:00→17:00)
[2020-07-05] MEDS: PROSOURCE / PROSTAT (PYXIS) 30 ML UDC GT SCH ×3 (09:17→17:41)
--- NOTE | 2020-07-05 09:27 | NUR ---
NOTED HEMATURIA IN PATIENT PATEL CATHETER. NON-ADMINISTERING PATIENT'S SCHEDULED ELIQUIS.
[2020-07-05 10:07] LABS: *ANA ANTI-CENTROMERE B AB <0.2 AI (0.0-0.9); *ANA ANTI-DNA(DS) AB, QN <1 IU/mL (0-9); *ANA ANTI-JO-1 <0.2 AI (0.0-0.9); *ANA ANTICHROMATIN ANTIBODY <0.2 AI (0.0-0.9); *ANA RNP ANTIBODIES 0.2 AI (0.0-0.9); *ANA SJOGREN'S ANTI-SS-A <0.2 AI (0.0-0.9); *ANA SJOGREN'S ANTI-SS-B <0.2 AI (0.0-0.9); *ANAANTI-SCLERODERMA-70 AB <0.2 AI (0.0-0.9); *ANASMITH AB <0.2 AI (0.0-0.9)
--- NOTE | 2020-07-05 11:34 | NUR ---
Clinical Social Work Note Patient has a , Natalie ([phone]) who needs to be consulted about patient's discharge.Will advise rené, bottle caser who is handling this case.
--- NOTE | 2020-07-05 12:39 | NUR ---
SCHEDULED ATIVAN HELD. PT CALM , NO AGITATION NOTED. ALSO ON PRECEDEX.
[2020-07-05] MEDS: HYDROCODONE/APAP 5/325MG TABLET NG PRN ×2 (14:52→17:44)
[2020-07-05] MEDS: LEVOFLOXACIN (250MG) 250 MG TABLET PO SCH (17:40)
--- NOTE | 2020-07-05 19:17 | NUR ---
RN NOTE RECEIVED PT AWAKE IN BED IN SEMI METZ'S POSITION. ABLE TO MAKE NEEDS KNOWN AND FOLLOW COMMANDS. PT WITH TRACH CONNECTED TO VENT AND TOLERATING VENT SETTINGS PRESCRIBED. TRACH MID LINE AND IN PLACE, NO SIGNS OF PAIN OR DISCOMFORT. WITH GT PATENT AND FLUSHED. NO RESIDUAL NOTED. TUBE FEEDING RUNNING AT A LOWER RATE OF 20ML/HOUR PER PT REQUEST. WITH RIGHT UPPER ARM MIDLINE AND LEFT WRIST IV PATENT AND INTACT WITHOUT COMPLICATIONS NOTED AT BOTH SITES. WITH PRECEDEC RUNNING AT 0.3. WITH PATEL CATHETER PATENT AND IN PLACE WITH URINE DRAINING VIA GRAVITY. WITH PINK TINGED URINE NOTED. WITH LEFT LOWER POSTERIOR CHEST TUBE CLAMPED AND RIGHT UPPER ANTERIOR CHEST TUBE. SITES INTACT. NO LEAKAGE NOTED. TUBINGS SECURED. NO OUTPUT NOTED AT THIS TIME VIA BOTH CHEST TUBES THIS SHIFT. ALARMS ON AND AUDIBLE. AMBU BAG AT BEDSIDE. VENT PLUGGED INTO RED OUTLET. SAFETY MEASURES IN PLACE PER PROTOCOL, BED ALARM ON, BED LOCKED AND IN LOW POSITION, SIDE RAILS UP X 3, WILL MONITOR PATIENT AND CARRY OUT ACTIVE MD ORDERS.
[2020-07-06] VITALS (24 sets, daily range): BP systolic 108–150; BP diastolic 54–101
--- NOTE | 2020-07-06 00:14 | NUR ---
RN BEKAH SPOKE TO YUNIOR COLINDRES () AND GAVE UPDATE ON PT'S STATUS AND PLAN OF CARE. ALSO RECEIVED VERBAL CONSENT FOR MRI OF THE CERVICAL SPINE WITHOUT CONTRAST WITNESSED BY JUSTEN FELDMAN.
--- NOTE | 2020-07-06 04:00 | NUR ---
RN NOTE COMPLETE BED BATH/AM CARE COMPLETE. PT TOLERATED WELL. VITAL SIGNS STABLE. NO BM NOTED. WOUND CARE RENDERED ORDERED. WILL CONTINUE TO MONITOR PATIENT.
--- NOTE | 2020-07-06 04:05 | NUR ---
RN NOTE RESUMED TUBE FEEDING. PT REQUESTED TUBE FEEDING TO RUN AT 30CC/HOUR.
[2020-07-06 04:31] LABS: BASOPHILS % (AUTO) 0.7 % (0.0-2.0); EOSINOPHILS % (AUTO) 9.5 % (0.0-6.0); HEMATOCRIT 23 % (39-51); HEMOGLOBIN 7.6 g/dL (13.5-17.5); LYMPHOCYTES # (AUTO) 1.8 /CMM (0.8-4.8); LYMPHOCYTES % (AUTO) 31.2 % (20.0-44.0); MEAN CORPUSCULAR HGB CONC 33 g/dl (31.0-36.0); MEAN CORPUSCULAR VOLUME 87 fL (80-96); MONOCYTES # (AUTO) 0.4 /CMM (0.1-1.30); MONOCYTES % (AUTO) 6.2 % (2.0-12.0); NEUTROPHILS % (AUTO) 52.4 % (43.0-81.0); PLATELET COUNT (AUTO) 278 /CMM (150-450); RED BLOOD CELL COUNT(AUTO) 2.66 MIL/uL (4.5-6.0); WHITE BLOOD COUNT (AUTO) 5.8 K/uL (4.3-11.0)
[2020-07-06 04:56] LABS: CALCIUM, SERUM 8.3 mg/dL (8.5-10.1); CREATININE 0.8 mg/dL (0.6-1.3); MAGNESIUM 2.3 mg/dL (1.8-2.4); PHOSPHORUS 4.5 mg/dL (2.5-4.9); POTASSIUM 3.9 mmol/L (3.5-5.1)
[2020-07-06] MEDS: PRECEDEX 400 MCG/100 ML BOTTLE 100 ML IV PRN ×2 (05:42→19:50)
[2020-07-06] MEDS: BLOOD SUGAR DIAGNOSTIC 1 EACH STRIP IN SCH ×3 (05:58→18:00)
[2020-07-06] MEDS: LORAZEPAM 1 MG TABLET PO SCH ×3 (05:59→18:08)
--- NOTE | 2020-07-06 05:59 | NUR ---
RN NOTE PT CALM AND RESTING IN BED. REFUSED SCHEDULED ATIVAN 3MG DESPITE EXPLANATION OF RISKS VS ADVANTAGES. PT DOES NOT APPEAR TO BE AGITATED OR ANXIOUS.
--- NOTE | 2020-07-06 07:11 | NUR ---
RN NOTE NO ACUTE CHANGES OBSERVED OVERNIGHT. PT RESTING IN BED IN SEMI METZ'S POSITION. ABLE TO MAKE NEEDS KNOWN AND FOLLOW COMMANDS. PT WITH TRACH CONNECTED TO VENT AND TOLERATING VENT SETTINGS PRESCRIBED. TRACH MID LINE AND IN PLACE, NO SIGNS OF PAIN OR DISCOMFORT. WITH GT PATENT AND FLUSHED. NO RESIDUAL NOTED. TUBE FEEDING RUNNING AT A LOWER RATE OF 30ML/HOUR PER PT REQUEST. WITH RIGHT UPPER ARM MIDLINE AND LEFT WRIST IV PATENT AND INTACT WITHOUT COMPLICATIONS NOTED AT BOTH SITES. WITH PRECEDEX RUNNING AT 0.3. WITH PATEL CATHETER PATENT AND IN PLACE WITH URINE DRAINING VIA GRAVITY. WITH GENE COLORED URINE NOTED. WITH LEFT LOWER POSTERIOR CHEST TUBE CLAMPED AND RIGHT UPPER ANTERIOR CHEST TUBE. SITES INTACT. NO LEAKAGE NOTED. TUBINGS SECURED. NO OUTPUT NOTED AT THIS TIME VIA BOTH CHEST TUBES THIS SHIFT. ALARMS ON AND AUDIBLE. AMBU BAG AT BEDSIDE. VENT PLUGGED INTO RED OUTLET. SAFETY MEASURES IN PLACE PER PROTOCOL, BED ALARM ON, BED LOCKED AND IN LOW POSITION, SIDE RAILS UP X 3, WILL ENDORSE PT TO MORNING RN FOR ROSELINE.
--- NOTE | 2020-07-06 07:39 | NUR ---
RECEIVED PATIENT FROM BIOLOGICAL AIDE IN STABLE CONDITION. CONT ON PRECEDEX 0.3, VENT SETTING 30/450/40/5, SATS 98% IN NO RESP DISTRESS. LFET PLEURAL CHEST TUBE STILL CLAMPED PER MD FROM YESTERDAY. URINE VIA PATEL HIGH IN SEDIMENTS, BUT MUCH LESS HEMATURIA. PATIENT ON ELIQUIS, AND LEVAQUIN. NO C/O PAIN, TUBE FEEDS RUNNING AT 30CC/HR PER PATIENT REQUEST. NO BM IN LAST 24HRS.
--- NOTE | 2020-07-06 08:43 | NUR ---
WOUND CARE FOLLOW UP: PT SEEN FOR FOLLOW UP OF STAGE 3 ULCER TO SACRUM. WOUND IS SMALLER IN SIZE WITH MOSTLY PINK COLOR AND SCANT AMOUNT OF YELLOW, SCANT SEROUS DRAINAGE. RECOMMEND CONTINUE PRESENT ORDERS. DISCUSSED SKIN PROTECTION WITH NURSING STAFF.
[2020-07-06] MEDS: DOCUSATE SODIUM LIQ 100 MG/10 ML UDC NG SCH (09:47)
[2020-07-06] MEDS: PANTOPRAZOLE 40 MG/PACK PACK GT SCH ×2 (09:48→20:57)
[2020-07-06] MEDS: NEOMY SULF/BACITRAC ZN/POLY 15 GM TUBE TP SCH ×2 (09:48→18:11)
[2020-07-06] MEDS: HYDROGEL DRESSING 90 GM TUBE TP PRN ×2 (09:48→09:50)
[2020-07-06] MEDS: OLANZAPINE 2.5 MG TABLET PO SCH ×2 (09:48→18:08)
[2020-07-06] MEDS: PROSOURCE / PROSTAT (PYXIS) 30 ML UDC GT SCH ×3 (09:49→18:10)
[2020-07-06] MEDS: APIXABAN 5 MG TABLET PO SCH ×2 (09:50→18:09)
[2020-07-06] MEDS: HYDROGEL DRESSING 90 GM TUBE TP SCH (09:51)
[2020-07-06 15:51] LABS: BILIRUBIN,URINE SMALL (NEGATIVE); COLOR,URINE ORANGE (YELLOW); LEUKOCYTE ESTERASE ,URINE SMALL (NEGATIVE); NITRITE, URINE NEGATIVE (NEGATIVE); PH,URINE 8.5 (5.0-8.0); PROTEIN,URINE 30 mg/dl (NEGATIVE); UGLUCOSE NEGATIVE (NEGATIVE)
[2020-07-06 16:44] LABS: BACTERIA,URINE Many /HPF (None Seen)
[2020-07-06 16:45] LABS: RBC,URINE 81-100 /HPF (0-2); SQUAMOUS EPITHELIAL CELL,UR Few /HPF (None Seen)
[2020-07-06] MEDS: LEVOFLOXACIN (250MG) 250 MG TABLET PO SCH (18:08)
--- NOTE | 2020-07-06 20:21 | NUR ---
agricultural research engineer. initial assessment. received the pt rest on the bed. awake, alert follow commands. trach to vent connected. shiley#8,ac 30,tv 500, fio2 40%,peep 5. sat 98%. no acute distress noted, laboratory monitor showing s tach.iv rt rt upper arm mid line. iv tko and precedex 0.3. fc patent. rl chest tube intact. hob elevated. gt intact, glucerna 30 ml/h. running. at this time. according to the clemente shift RN, pt not tolerated well 60ml/h. will continue to monitor
[2020-07-06] MEDS: GLUCERNA 1.2 1,000 ML BOTTLE GT PRN (21:52)
[2020-07-07] VITALS (23 sets, daily range): BP systolic 40–137; BP diastolic 22–85
[2020-07-07] MEDS: LORAZEPAM 1 MG TABLET PO SCH ×4 (00:59→16:43)
[2020-07-07 05:09] LABS: BASOPHILS % (AUTO) 0.5 % (0.0-2.0); EOSINOPHILS % (AUTO) 4.9 % (0.0-6.0); HEMATOCRIT 24 % (39-51); HEMOGLOBIN 7.6 g/dL (13.5-17.5); LYMPHOCYTES # (AUTO) 1.7 /CMM (0.8-4.8); LYMPHOCYTES % (AUTO) 22.7 % (20.0-44.0); MEAN CORPUSCULAR HGB CONC 33 g/dl (31.0-36.0); MEAN CORPUSCULAR VOLUME 87 fL (80-96); MONOCYTES # (AUTO) 0.4 /CMM (0.1-1.30); MONOCYTES % (AUTO) 5.2 % (2.0-12.0); NEUTROPHILS # (AUTO) 5.1 /CMM (1.8-8.9); NEUTROPHILS % (AUTO) 66.7 % (43.0-81.0); PLATELET COUNT (AUTO) 269 /CMM (150-450); RED BLOOD CELL COUNT(AUTO) 2.69 MIL/uL (4.5-6.0); WHITE BLOOD COUNT (AUTO) 7.7 K/uL (4.3-11.0)
[2020-07-07] MEDS: PRECEDEX 400 MCG/100 ML BOTTLE 100 ML IV PRN ×2 (05:12→13:25)
[2020-07-07 05:29] LABS: ALBUMIN 2.2 g/dL (3.4-5.0); BILIRUBIN,TOTAL 0.4 mg/dL (0.2-1.0); CALCIUM, SERUM 8.7 mg/dL (8.5-10.1); CREATININE 0.8 mg/dL (0.6-1.3); MAGNESIUM 1.6 mg/dL (1.8-2.4); PHOSPHORUS 3.8 mg/dL (2.5-4.9); POTASSIUM 3.6 mmol/L (3.5-5.1); TOTAL PROTEIN, SERUM 6.7 g/dL (6.4-8.2)
[2020-07-07] MEDS: BLOOD SUGAR DIAGNOSTIC 1 EACH STRIP IN SCH ×4 (06:34→17:19)
--- NOTE | 2020-07-07 06:37 | NUR ---
horticulture professor. am care, given. remaining same vent setting tolerated well. sat 98%. no acute distress noted.monitoring analyst showing nsr. iv rt upper arm mid line. precedex o.3mcg/kg/min.fc patent. temperature 99. gt feeding tolerated well. no new changes. will continue to monitor.
--- NOTE | 2020-07-07 07:30 | NUR ---
report received from operation shift supervisor rn, pt trach to vent and on small dose of precedex for anxiety-chart reviewed/labs reviewed-pt assessment done, pt repositioned and made comfortable- assessmnet noted in elec. chart 0830-hospitalist Dg at bedside and coordinator of evaluation/intensivst MD medina at bedside -report given-aware 0900h- mouth care/trach care done -pt tolerating well no c/o pain 1030h- large liquid bm-advised Md medina and advised that I held tube feeds pt unable to [id number] advise hospitalis-pt sacrum/groin/ buttocks wound care done as ordered and washed/cleaned and made comfortable-pt resting comfortably
[2020-07-07] MEDS: PROSOURCE / PROSTAT (PYXIS) 30 ML UDC GT SCH ×3 (08:17→16:43)
[2020-07-07] MEDS: OLANZAPINE 2.5 MG TABLET PO SCH ×2 (09:09→17:20)
[2020-07-07] MEDS: APIXABAN 5 MG TABLET PO SCH ×2 (09:10→17:21)
[2020-07-07] MEDS: DOCUSATE SODIUM LIQ 100 MG/10 ML UDC NG SCH (09:11)
[2020-07-07] MEDS: PANTOPRAZOLE 40 MG/PACK PACK GT SCH ×2 (09:11→21:10)
[2020-07-07] MEDS: HYDROGEL DRESSING 90 GM TUBE TP PRN (09:13)
[2020-07-07] MEDS: NEOMY SULF/BACITRAC ZN/POLY 15 GM TUBE TP SCH ×2 (09:13→16:42)
[2020-07-07] MEDS: HYDROGEL DRESSING 90 GM TUBE TP SCH (09:14)
[2020-07-07] MEDS: Magnesium 1GM/D5W 100ML PREMIX 100 ML IV SCH ×2 (10:20→10:59)
[2020-07-07] MEDS ORDERED: Magnesium 1GM/D5W 100ML PREMIX 100 ML IV SCH (12:30)
[2020-07-07] MEDS: POTASSIUM CL. PREMIX PERIPHER. 50 ML IV SCH ×4 (13:23→15:21)
[2020-07-07] MEDS: LEVOFLOXACIN (250MG) 250 MG TABLET PO SCH (17:19)
--- NOTE | 2020-07-07 19:59 | NUR ---
GLYCERIN OPERATOR. INITIAL ASSDESSMENT. RECEIVED THE PT REST ON THE BED. AWAKE, ALERT, FOLLOW COMMANDS. TRACH TO VENT CONNECTED. . TRACH SHILEY#8,AC 30, TV 500, FIO2 40%, PEEP 5. SAT 98%. NO ACUTE DISTRESS NOTED. RETAIL PRODUCT ADVISOR SHOWING NSR. IV RT UPPER ARM MID LINE. PRECEDEX 0.3MCG/KG/MIN,FC PATENT, URINE DRAINING, GT INTACT, GLUCERNA 20ML/H. GOAL IS 60.ML/H. HOB ELEVATED. WILL CONTINUE TO MONITOR.
--- NOTE | 2020-07-07 20:38 | NUR ---
RECEIVED PT TRACH ON VENT. PT HAS SHLY 8. PT IS AWAKE AND ALERT FOLLOWS COMMANDS. NO RESP DISTRESS. PT TOLERATING VENT SETTINGS. SX'D SML AMT OF YELLOW SECRETIONS. VENT ALARMS SET AND AUDIBLE. VENT PLUGGED INTO RED OUTLET. CONTINUE TO MONITOR. Addendum: 07/07/20 at 2039 by RAYMUNDO CARDOZO RT Amended: Links added.
[2020-07-07] MEDS: IV NS 0.9% 250 ML IV PRN (21:10)
[2020-07-07] MEDS: GLUCERNA 1.2 1,000 ML BOTTLE GT PRN (21:28)
[2020-07-08] VITALS (25 sets, daily range): BP systolic 103–142; BP diastolic 62–88
[2020-07-08] MEDS: LORAZEPAM 1 MG TABLET PO SCH ×5 (00:24→23:08)
[2020-07-08] MEDS: PRECEDEX 400 MCG/100 ML BOTTLE 100 ML IV PRN ×3 (01:06→21:52)
--- NOTE | 2020-07-08 02:59 | NUR ---
curriculum development coordinator.family called up date given
--- NOTE | 2020-07-08 03:01 | NUR ---
research agricultural engineer. am care given. linen changed. remaining same vent setting tolerated well. sat 100%. no acute distress noted. monitor car operator showing nsr. fc patent urine draining. hob elevated. feeding 30ml/h tolerated well. will continue to monitor vitals
[2020-07-08 04:39] LABS: BASOPHILS % (AUTO) 0.6 % (0.0-2.0); EOSINOPHILS % (AUTO) 9.8 % (0.0-6.0); HEMATOCRIT 24 % (39-51); HEMOGLOBIN 7.7 g/dL (13.5-17.5); LYMPHOCYTES # (AUTO) 1.9 /CMM (0.8-4.8); LYMPHOCYTES % (AUTO) 28.9 % (20.0-44.0); MEAN CORPUSCULAR HGB CONC 32 g/dl (31.0-36.0); MEAN CORPUSCULAR VOLUME 88 fL (80-96); MONOCYTES # (AUTO) 0.4 /CMM (0.1-1.30); MONOCYTES % (AUTO) 6.1 % (2.0-12.0); NEUTROPHILS # (AUTO) 3.7 /CMM (1.8-8.9); NEUTROPHILS % (AUTO) 54.6 % (43.0-81.0); PLATELET COUNT (AUTO) 255 /CMM (150-450); RED BLOOD CELL COUNT(AUTO) 2.76 MIL/uL (4.5-6.0); WHITE BLOOD COUNT (AUTO) 6.7 K/uL (4.3-11.0)
[2020-07-08 04:54] LABS: CALCIUM, SERUM 8.8 mg/dL (8.5-10.1); CREATININE 0.8 mg/dL (0.6-1.3); MAGNESIUM 1.9 mg/dL (1.8-2.4); PHOSPHORUS 3.9 mg/dL (2.5-4.9); POTASSIUM 3.8 mmol/L (3.5-5.1)
[2020-07-08] MEDS: ACETAMINOPHEN 650 MG/20.3 ML UDC NG PRN ×2 (05:46→21:52)
--- NOTE | 2020-07-08 06:18 | NUR ---
trach tie changed
[2020-07-08] MEDS: BLOOD SUGAR DIAGNOSTIC 1 EACH STRIP IN SCH ×4 (06:27→17:25)
--- NOTE | 2020-07-08 06:44 | NUR ---
viticulture teacher. remaining same vent setting tolerated well. no changes. will continue to monitor
--- NOTE | 2020-07-08 07:30 | NUR ---
report received from pot runner rn-pt resting comfortably-elec. chart reveiwed/labs/orders-pt repositioned
[2020-07-08] MEDS: PROSOURCE / PROSTAT (PYXIS) 30 ML UDC GT SCH ×3 (09:18→17:26)
[2020-07-08] MEDS: PANTOPRAZOLE 40 MG/PACK PACK GT SCH ×2 (09:18→21:52)
[2020-07-08] MEDS: DOCUSATE SODIUM LIQ 100 MG/10 ML UDC NG SCH (09:19)
[2020-07-08] MEDS: APIXABAN 5 MG TABLET PO SCH ×2 (09:19→17:29)
[2020-07-08] MEDS: OLANZAPINE 2.5 MG TABLET PO SCH ×2 (09:19→17:29)
[2020-07-08] MEDS: HYDROGEL DRESSING 90 GM TUBE TP SCH (09:20)
[2020-07-08] MEDS: NEOMY SULF/BACITRAC ZN/POLY 15 GM TUBE TP SCH ×2 (09:20→17:26)
--- NOTE | 2020-07-08 09:30 | NUR ---
md parada at bedside -advised pt c/o pain at cummings insertion site-advised to contact nephrology -will do Addendum: 07/08/20 at 0948 by LEAH WASSERMAN RN Amended: Links added.
--- NOTE | 2020-07-08 10:00 | NUR ---
sent text to md meza-a few minutes later on unit-advised of c/o pain on urination-order given for urine C&S and flush cummings 100 cc prn-transcrbed and carried out-KAMI
--- NOTE | 2020-07-08 10:20 | NUR ---
upon wound care changes as order observed stat lock for cummings missing -new one placed -pt post wound care and moving positions continously is NOT c/o pain upon urination-urine colour returned to wdp-monitoring
--- NOTE | 2020-07-08 12:54 | NUR ---
urine collected -mouth care provided/pt made comfortable
--- NOTE | 2020-07-08 19:47 | NUR ---
horticulture worker. initial assessment.. received the pt rest on the bed. awake, alert, follow commands. vent to trach connected. conveyor monitor showing nsr. iv rt upper arm mid line. precedex 0.3mcg/kg/min. gt feeding glucerna 30ml/h. hob elevated, fc patent, urine draining, afebrile. will continue to monitor vitals.
[2020-07-08] MEDS: GLUCERNA 1.2 1,000 ML BOTTLE GT PRN (21:52)
[2020-07-09] VITALS (29 sets, daily range): BP systolic 108–156; BP diastolic 60–103
[2020-07-09] MEDS: BLOOD SUGAR DIAGNOSTIC 1 EACH STRIP IN SCH ×5 (00:08→23:26)
--- NOTE | 2020-07-09 04:26 | NUR ---
HEAD OF GEOGRAPHY. AM CARE GIVEN. LINEN CHANGED. REMAINING SAME VENT SETTING TOLERATED WELL. SAT 99%. NO ACUTE DISTRESS NOTED. GLOVE PRINTER SHOWING NSR. IV RT UPPER ARM MID LINE PRECEDEX 0.3MCG RUNNING. PT SLEPT WELL DURING SHIFT. FC PATENT. URINE DRAINING. WILL CONTINUE TO MONITOR VITALS
[2020-07-09 04:54] LABS: BASOPHILS % (AUTO) 0.6 % (0.0-2.0); EOSINOPHILS % (AUTO) 10.1 % (0.0-6.0); HEMATOCRIT 27 % (39-51); HEMOGLOBIN 8.6 g/dL (13.5-17.5); LYMPHOCYTES # (AUTO) 2.1 /CMM (0.8-4.8); LYMPHOCYTES % (AUTO) 38.2 % (20.0-44.0); MEAN CORPUSCULAR HGB CONC 32 g/dl (31.0-36.0); MEAN CORPUSCULAR VOLUME 87 fL (80-96); MONOCYTES # (AUTO) 0.3 /CMM (0.1-1.30); MONOCYTES % (AUTO) 6.2 % (2.0-12.0); NEUTROPHILS # (AUTO) 2.5 /CMM (1.8-8.9); NEUTROPHILS % (AUTO) 44.9 % (43.0-81.0); PLATELET COUNT (AUTO) 258 /CMM (150-450); RED BLOOD CELL COUNT(AUTO) 3.05 MIL/uL (4.5-6.0); WHITE BLOOD COUNT (AUTO) 5.6 K/uL (4.3-11.0)
[2020-07-09 05:14] LABS: CALCIUM, SERUM 8.9 mg/dL (8.5-10.1); CREATININE 0.8 mg/dL (0.6-1.3); MAGNESIUM 1.8 mg/dL (1.8-2.4); PHOSPHORUS 4.9 mg/dL (2.5-4.9); POTASSIUM 3.6 mmol/L (3.5-5.1)
[2020-07-09] MEDS: PRECEDEX 400 MCG/100 ML BOTTLE 100 ML IV PRN (05:30)
[2020-07-09] MEDS: LORAZEPAM 1 MG TABLET PO SCH ×4 (06:25→23:14)
--- NOTE | 2020-07-09 07:28 | NUR ---
Received patient in bed aaox3 in no acute distress, trach #8 marline to vent AC/ 30, 30%, 5, 550. breathing is unlabored, Precedex infusion at 0.3 infusing via R upper arm midline, R upper chest chest tube draining, with no active drainage or output, L upper chest tube clamped, abdomen distended with continuos tube feed Glucerna @ 30 ml/hr with 250 ml Q6hrs water flush. positive bowel sound in all quadrants. Uriarte below the to bedside drainage-below the bladder and draining. pt on tele monitor and continuos pulse oximetry monitoring,
[2020-07-09] MEDS: OLANZAPINE 2.5 MG TABLET PO SCH (09:28)
[2020-07-09] MEDS: DOCUSATE SODIUM LIQ 100 MG/10 ML UDC NG SCH (09:28)
[2020-07-09] MEDS: PANTOPRAZOLE 40 MG/PACK PACK GT SCH ×2 (09:28→21:06)
[2020-07-09] MEDS: APIXABAN 5 MG TABLET PO SCH ×2 (09:31→17:42)
[2020-07-09] MEDS: HYDROGEL DRESSING 90 GM TUBE TP SCH (09:31)
[2020-07-09] MEDS: NEOMY SULF/BACITRAC ZN/POLY 15 GM TUBE TP SCH ×2 (09:32→17:43)
[2020-07-09] MEDS: Z GUARD REMEDY 2 OZ OINT TP PRN (09:33)
[2020-07-09] MEDS: PROSOURCE / PROSTAT (PYXIS) 30 ML UDC GT SCH ×3 (09:58→17:43)
[2020-07-09] MEDS: LORAZEPAM INJ 2 MG/ML VIAL IV PRN ×2 (13:58→19:31)
--- NOTE | 2020-07-09 15:03 | NUR ---
pt back from CT scan. Ct abdomen without contrast. pt remain stable in no acute distress. will continue to monitor.
[2020-07-09] MEDS: OLANZAPINE 5 MG TABLET PO SCH (17:42)
--- NOTE | 2020-07-09 18:39 | NUR ---
pt remain stable, daily care and complete bed bath done at 12 noon and 1600. two BM during shift, stool is form, moderate and brown. CT order completed, amd resulted with no acute findings. pt is off precedex heart rate slightly elevated, Ativan po administered. pt denies palpitation, pain, headache, chills, N/V/SOB. Pt family updated of plan of care. Pt reports ongoing abdominal fullness, thus refuse increase of tube feeding. Will endorse to incoming shift for continuity of care
[2020-07-09] MEDS: HYDROGEL DRESSING 90 GM TUBE TP PRN (19:30)
--- NOTE | 2020-07-09 19:30 | NUR ---
BOSS DYER RCD PT W/DX COVID PNA. PT IS AWAKE ABLE TO MOUTH WORDS TO MAKE NEEDS KNOWN. ST ON MONITOR. HR HAS BEEN ELEVATED SINCE 1800; PRECEDEX WAS TITRATED OFF PER PREVIOUS SHIFT. TEMP 99.4. PT HAS SHILEY 8 W/TRACH SITE NOTED TO BE VERY CRUSTY; RENDERED TRACH CARE AT THIS TIME. PATEL CATH WITH CLOUDY RED TINGED URINE NOTED. UNKNOWN WHEN LAST CHEST TUBE DRESSING WAS DONE. DRESSINGS NOTED TO BE DIRTY AND NOT PROPERLY SECURED. LEFT CHEST TUBE HAS BEEN CLAMPLED SINCE 07/05. RIGHT CHES TUBE NOTED WITHOUT OUTPUT. APPLIED MEPILEX AND TRIPLE ANTIBIOTIC TO LEFT EAR DTI. PER REPORT PT HAS BACK PRESSURE THAT HAS HEALED UPON ASSESSMENT FOUND PT TO HAVE SACRAL OPEN WOUND AND LEFT BUTTOCKS OPEN WOUND APPLIED HYDROGEL AND PLACED MEPILEX. EXCORIATION AND RASH TO PERIANAL AND BUTTOCKS APPEAR TO BE RESOLVING.
[2020-07-09] MEDS: ACETAMINOPHEN 650 MG/20.3 ML UDC NG PRN (19:31)
--- NOTE | 2020-07-09 19:55 | NUR ---
DIRECTOR INPATIENT HEADACHE PROGRAM PT REQUESTED TUBE FEEDING TO BE TURNED OFF. CINTHIA TURN OFF FOR A SHORT TIME AND REASSESS.
--- NOTE | 2020-07-09 20:00 | NUR ---
DRY MILL OPERATOR PTS BED PLACED ON CONTINUOUS ROTATION MODE.
[2020-07-09] MEDS: MAG HYDROX/AL HYDROX/SIMETH 30 ML UDC NG PRN (20:48)
[2020-07-09] MEDS: ONDANSETRON HCL/PF 4 MG/2 ML VIAL IVP PRN (23:27)
--- NOTE | 2020-07-09 23:30 | NUR ---
DUST SAMPLER PT CONTINUES TO DECLINE TUBE FEEDING PT VERBALIZING HE FEELS NAUSEOUS AND BLOATED. ONLY TOLERATED 100 ML OF FREE WATER FLUSHES. ZOFRAN IV ADMNISTERED.
[2020-07-10] VITALS (28 sets, daily range): BP systolic 89–174; BP diastolic 72–101
[2020-07-10 04:31] LABS: BASOPHILS % (AUTO) 0.5 % (0.0-2.0); EOSINOPHILS % (AUTO) 1.6 % (0.0-6.0); HEMATOCRIT 29 % (39-51); HEMOGLOBIN 9.5 g/dL (13.5-17.5); LYMPHOCYTES # (AUTO) 2.1 /CMM (0.8-4.8); LYMPHOCYTES % (AUTO) 25.5 % (20.0-44.0); MEAN CORPUSCULAR HGB CONC 33 g/dl (31.0-36.0); MEAN CORPUSCULAR VOLUME 86 fL (80-96); MONOCYTES # (AUTO) 0.5 /CMM (0.1-1.30); MONOCYTES % (AUTO) 5.5 % (2.0-12.0); NEUTROPHILS # (AUTO) 5.5 /CMM (1.8-8.9); NEUTROPHILS % (AUTO) 66.9 % (43.0-81.0); PLATELET COUNT (AUTO) 279 /CMM (150-450); RED BLOOD CELL COUNT(AUTO) 3.37 MIL/uL (4.5-6.0); WHITE BLOOD COUNT (AUTO) 8.2 K/uL (4.3-11.0)
[2020-07-10 04:45] LABS: ALBUMIN 2.8 g/dL (3.4-5.0); BILIRUBIN,TOTAL 0.5 mg/dL (0.2-1.0); CREATININE 0.7 mg/dL (0.6-1.3); MAGNESIUM 1.6 mg/dL (1.8-2.4); PHOSPHORUS 4.7 mg/dL (2.5-4.9); POTASSIUM 3.3 mmol/L (3.5-5.1); TOTAL PROTEIN, SERUM 7.4 g/dL (6.4-8.2)
[2020-07-10] MEDS: LORAZEPAM 1 MG TABLET PO SCH ×4 (05:45→23:30)
[2020-07-10] MEDS: BLOOD SUGAR DIAGNOSTIC 1 EACH STRIP IN SCH ×4 (05:45→23:30)
--- NOTE | 2020-07-10 06:29 | NUR ---
RAILWAY SHUNTER MD NOTIFIED REGARDING PTS TACHYCARDIA AND INABILITY TO TOLERATE TUBE FEEDING.
--- NOTE | 2020-07-10 07:20 | NUR ---
Received pt aaox3, reports restlessness and difficulty sleeping through the shift, reports abdominal fullness, and mild burning sensation in the penis, cummings noted with scant blood tinged, cloudy and non-malodorous. pt is off Precedex yesterday, but heart rate remain elevated in 130's bpm, BP 145/95 oral tem 100.3 and SPo2 92, noted with BM at this time, pt cleaned, kept dry and reposition for comfort. L chest tube remain clamped, and R pigtail upper chest tube with no output. Will discuss with ICU attending regarding cummings removal and rl chest tube removal today. ongoing tachycardia maybe r/t stopping precedex,. Will address pt comfort during shift and update plan of care.
[2020-07-10] MEDS: MAG HYDROX/AL HYDROX/SIMETH 30 ML UDC NG PRN (08:58)
[2020-07-10] MEDS: ACETAMINOPHEN 650 MG/20.3 ML UDC NG PRN (08:58)
[2020-07-10] MEDS: PROSOURCE / PROSTAT (PYXIS) 30 ML UDC GT SCH ×3 (08:58→17:52)
[2020-07-10] MEDS: PANTOPRAZOLE 40 MG/PACK PACK GT SCH ×2 (08:59→21:03)
[2020-07-10] MEDS: ONDANSETRON HCL/PF 4 MG/2 ML VIAL IVP PRN (08:59)
[2020-07-10] MEDS: APIXABAN 5 MG TABLET PO SCH ×2 (08:59→17:52)
[2020-07-10] MEDS: OLANZAPINE 5 MG TABLET PO SCH ×2 (09:00→17:51)
[2020-07-10] MEDS: ESCITALOPRAM OXALATE (10 MG) 10 MG TABLET PO SCH (09:00)
[2020-07-10] MEDS: LORAZEPAM INJ 2 MG/ML VIAL IV PRN (09:00)
[2020-07-10] MEDS: DOCUSATE SODIUM LIQ 100 MG/10 ML UDC NG SCH (09:01)
[2020-07-10] MEDS: Z GUARD REMEDY 2 OZ OINT TP PRN (09:02)
[2020-07-10] MEDS: NEOMY SULF/BACITRAC ZN/POLY 15 GM TUBE TP SCH ×2 (09:02→17:53)
[2020-07-10] MEDS: HYDROGEL DRESSING 90 GM TUBE TP SCH (09:03)
--- NOTE | 2020-07-10 09:37 | NUR ---
WOUND CARE CONSULT/FOLLOW UP: PT SEEN FOR SKIN ASSESSMENT AND NOTED TO HAVE DRY SKIN WITH SOME CALLUSES TO HANDS AND FEET. LEFT EAR DEEP TISSUE INJURY HAS RESOLVED WITH FRAGILE SKIN NOTED. SACRAL STAGE 3 ULCER IMPROVING WITH SOME SCARRING AND INCONTINENCE ASSOCIATED SKIN DAMAGE TO BUTTOCKS NOTED. RECOMMENDATIONS MADE FOR SKIN PROTECTION. DISCUSSED WITH NURSING STAFF. PT CONTINUES TO HAVE CHEST TUBES. PT ON [facility] ETS AIR BED. MD IN AGREEMENT WITH PLAN OF CARE.
[2020-07-10] MEDS ORDERED: POTASSIUM CHLORIDE 20 MEQ POWDER PACKET GT SCH (10:30)
[2020-07-10] MEDS: Magnesium 1GM/D5W 100ML PREMIX 100 ML IV SCH ×2 (11:25→12:20)
[2020-07-10] MEDS: MINERAL OIL/PETROLATUM,WHITE 120 GM JAR TP SCH (11:26)
[2020-07-10] MEDS: FLUCONAZOLE (100 MG) 100 MG TABLET PO SCH (12:20)
--- NOTE | 2020-07-10 16:13 | NUR ---
Pt Left upper chest tube removed today at 10 am, seal gauze dressing in place. Uriarte removed at 14:00, pt due for voiding trial 20:00. pt had to loose stools today discussed with dieticians regarding possible feeding change, as pt special crimes investigator recommendation, pt should continue on tube feeding as order. Pt restarted on tube feeding at 15:00. will continue to monitor.
--- NOTE | 2020-07-10 20:50 | NUR ---
RECEIVED PT ON BED ASLEEP EASY TO WAKE P, ON TRACH/VENT SETTING PER MD FIO2 30% SPO2 98% NO SIGN OF RESPIRATORY DISTRESS NOTED, HAVE GTUBE ON PLACE PLACEMENT CHECKED RESIDUAL 10ML, HAVE RIGHT UPPER CHEST CHESTUBE CONNECTED TO LOW INTERMITTENT SUCTION HAVE BUBBA MIDLINE PATENT AND FLUSHED, BED ON LOWEST POSITION AND LOCKED SIDE RAILS UP X 2 CALL LIGHT WITHIN REACH WILL CONT TO MONITOR
[2020-07-10] MEDS: INSULIN REGULAR, HUMAN 100 UNIT/ML 3 ML VIAL SQ PRN (23:30)
[2020-07-11] VITALS (26 sets, daily range): BP systolic 120–164; BP diastolic 75–104
--- NOTE | 2020-07-11 03:40 | NUR ---
PT ON BED ASLEEP EASY TO WAKE UP NO SIGN OF RESPIRATORY DISTRESS NOTED NO PAIN COMPLAINT, RUC CHESTUBE DRESSING CHANGE NO BLEEDING OR SIGN OF INFECTION NOTED NO CHEST TUBE OUTPUT ALSO NOTED,WILL CONT TO MONITOR THE PT ,
[2020-07-11 04:39] LABS: BASOPHILS % (AUTO) 0.4 % (0.0-2.0); EOSINOPHILS % (AUTO) 3.7 % (0.0-6.0); HEMATOCRIT 28 % (39-51); HEMOGLOBIN 9.2 g/dL (13.5-17.5); LYMPHOCYTES # (AUTO) 2.2 /CMM (0.8-4.8); LYMPHOCYTES % (AUTO) 28.1 % (20.0-44.0); MEAN CORPUSCULAR HGB CONC 33 g/dl (31.0-36.0); MEAN CORPUSCULAR VOLUME 87 fL (80-96); MONOCYTES # (AUTO) 0.5 /CMM (0.1-1.30); NEUTROPHILS # (AUTO) 4.7 /CMM (1.8-8.9); NEUTROPHILS % (AUTO) 61.8 % (43.0-81.0); PLATELET COUNT (AUTO) 258 /CMM (150-450); RED BLOOD CELL COUNT(AUTO) 3.26 MIL/uL (4.5-6.0); WHITE BLOOD COUNT (AUTO) 7.6 K/uL (4.3-11.0)
[2020-07-11 04:49] LABS: CALCIUM, SERUM 8.9 mg/dL (8.5-10.1); CREATININE 0.7 mg/dL (0.6-1.3); MAGNESIUM 1.9 mg/dL (1.8-2.4); PHOSPHORUS 3.9 mg/dL (2.5-4.9); POTASSIUM 3.4 mmol/L (3.5-5.1)
[2020-07-11 04:50] LABS: BILIRUBIN,URINE SMALL (NEGATIVE); COLOR,URINE YELLOW (YELLOW); LEUKOCYTE ESTERASE ,URINE TRACE (NEGATIVE); NITRITE, URINE NEGATIVE (NEGATIVE); PROTEIN,URINE 100 mg/dl (NEGATIVE); UGLUCOSE NEGATIVE (NEGATIVE); UROBILINOGEN,URINE 0.2 EU/dL (0.2)
[2020-07-11 05:04] LABS: RBC,URINE TOO NUMEROUS TO COUN /HPF (0-2)
[2020-07-11 05:05] LABS: BACTERIA,URINE Few /HPF (None Seen); SQUAMOUS EPITHELIAL CELL,UR Rare /HPF (None Seen)
[2020-07-11] MEDS: LORAZEPAM 1 MG TABLET PO SCH ×4 (05:42→23:35)
[2020-07-11] MEDS: BLOOD SUGAR DIAGNOSTIC 1 EACH STRIP IN SCH ×4 (05:42→23:40)
[2020-07-11] MEDS: Z GUARD REMEDY 2 OZ OINT TP PRN (05:43)
[2020-07-11] MEDS: GLUCERNA 1.2 1,000 ML BOTTLE GT PRN (05:45)
--- NOTE | 2020-07-11 06:58 | NUR ---
PT ON BED ASLEEP EASY TO WAKE UP STILL ON TRACH VENT SETTING PER MD FIO2 30% SPO2 100% NO SIGN AND SYMPTOMS OF RESPIRATORY DISTRESS, NO PAIN NOTED, NO SIGNIFICANT CHANGES ON CONDITION NOTED ALL NEEDS ATTENDED, BED ON LOWEST POSITION AND LOCKED SIDE RAILS UP X2 CALL LIGHT WITHIN REACH WILL ENDORSED TO AM SHIFT NURSE
--- NOTE | 2020-07-11 07:23 | NUR ---
Received pt asleep, breathing even and unlabored, vent setting appropriate with no significant alarm triggering, AC/ 550/ 30/ 5. GT continuos feeding Glucerna @ 50 ml/hr, Uriarte D/C yesterday and pt is voiding, partly urinal/urge incontinence. vitals 120/82, 99.3, 97%, 26, Hr 120 bpm. R pigtail upper chest tube with no output. All safety precaution in place and will continue to monitor.
[2020-07-11] MEDS: PANTOPRAZOLE 40 MG/PACK PACK GT SCH ×2 (08:30→21:04)
[2020-07-11] MEDS: OLANZAPINE 5 MG TABLET PO SCH ×2 (08:30→16:46)
[2020-07-11] MEDS: DOCUSATE SODIUM LIQ 100 MG/10 ML UDC NG SCH (08:30)
[2020-07-11] MEDS: FLUCONAZOLE (100 MG) 100 MG TABLET PO SCH (08:30)
[2020-07-11] MEDS: APIXABAN 5 MG TABLET PO SCH ×2 (08:31→16:47)
[2020-07-11] MEDS: MINERAL OIL/PETROLATUM,WHITE 120 GM JAR TP SCH ×2 (08:31→16:47)
[2020-07-11] MEDS: ESCITALOPRAM OXALATE (10 MG) 10 MG TABLET PO SCH (08:31)
[2020-07-11] MEDS: HYDROGEL DRESSING 90 GM TUBE TP SCH (08:32)
[2020-07-11] MEDS: NEOMY SULF/BACITRAC ZN/POLY 15 GM TUBE TP SCH ×2 (08:32→17:10)
[2020-07-11] MEDS: PROSOURCE / PROSTAT (PYXIS) 30 ML UDC GT SCH ×3 (08:34→16:46)
[2020-07-11] MEDS: ONDANSETRON HCL/PF 4 MG/2 ML VIAL IVP PRN ×2 (08:40→16:46)
[2020-07-11] MEDS: LORAZEPAM INJ 2 MG/ML VIAL IV PRN (08:40)
[2020-07-11] MEDS ORDERED: POTASSIUM CHLORIDE 20 MEQ POWDER PACKET GT ONE (11:00)
[2020-07-11 15:25] LABS: ABG BASE EXCESS 3.9 mmol/L; ABG OXYGEN SATURATION 99.2 % (92.0-98.5); ABG PCO2 45.9 mmHg (35.0-45.0); ABG PH 7.418 (7.350-7.450); ABG PO2 177.4 mmHg (75.0-100.0); AaDO2 91.2 mmHg; COHb 0.2 % (0.5-1.5); MetHb 0.3 % (0.0-1.5); O2Hb 98.7 % (94.0-97.0); PEEP,BG 5 cm H2O; SITE, ABG Right Radial; VENT MODE, BG simv ps 25; VT, ABG 550 mL
[2020-07-11] MEDS: SIMETHICONE 80 MG TAB.CHEW PO SCH ×2 (16:46→21:04)
[2020-07-11] MEDS: ONDANSETRON HCL 4 MG/5 ML SOLUTION PO SCH ×2 (17:11→23:35)
--- NOTE | 2020-07-11 19:25 | NUR ---
ICU/PLASTERER TENDER RECEIVED REPORT FROM DAY NURSE. SEE FLOWSHEET FOR ASSESSMENT. WILL CONTINUE TO MONITOR THIS PT. CALL LIGHT WITHIN REACH.
--- NOTE | 2020-07-11 19:26 | NUR ---
RECEIVED TRACH PT. WITH SHILEY 8 ON VENT WITH THE SETTINGS OF SIMV 14, PS 20, PEEP 5, VT 550 , FIO2 45%. PT IS AWAKE AND ALERT FOLLOWS COMMANDS. NO RESP DISTRESS. PT TOLERATING VENT SETTINGS. SX'D DONE . VENT ALARMS SET AND AUDIBLE. VENT PLUGGED INTO RED OUTLET. WILL CONTINUE TO MONITOR PT T/O SHIFT. .
--- NOTE | 2020-07-11 22:52 | NUR ---
ICU/MANAGER RELIABILITY YUNIOR CALLED GAVE UPDATE ON PT'S STATUS. ASKED ABOUT LABS AND THE PLAN OF CARE FOR FUTURE TO D/C PT TO REHAB. TRIED TO ANSWER QUESTIONS MUCH POSSIBLE.
[2020-07-12] VITALS (30 sets, daily range): BP systolic 92–162; BP diastolic 63–137
--- NOTE | 2020-07-12 00:10 | NUR ---
ICU/SUPERVISOR BRIDGES AND BUILDINGS PT'S MIDNIGHT BLOOD SUGAR WAS 102. THERE IS NO COVERAGE FOR THIS PER MD ORDERS. WILL CONTINUE TO MONITOR THIS PT AND HIS BLOOD SUGARS.
--- NOTE | 2020-07-12 01:00 | NUR ---
ICU/OTC CLERK PT WAS PROVIDED AM CARE, ALONG WITH ORAL CARE. PT TOLERATED THIS WELL. REMAINS ON CURRENT VENT SETTINGS WITH SATURATION AT 99-100%. PT WAS TURNED AND REPOSITIONED FOR COMFORT AND CARE. WILL CONTINUE TO MONITOR THIS PT.
--- NOTE | 2020-07-12 02:10 | NUR ---
ICU/CELLULAR PLASTICS CUTTER PT WAS PROVIDED DETAIL SKIN CARE TO FEET AND HANDS, WAS ABLE TO SCRUB OFF SIGNIFICANT AMOUNT OF DRY, , SCALY SKIN TO HANDS AND FEET. APPLIED LOTION THAT WAS AT BEDSIDE ORDERED BY WOUND CARE. WILL CONTINUE TO MONITOR THIS PT.
[2020-07-12 04:18] LABS: BASOPHILS # (AUTO) 0.1 /CMM (0.0-0.2); BASOPHILS % (AUTO) 0.7 % (0.0-2.0); EOSINOPHILS % (AUTO) 7.3 % (0.0-6.0); HEMATOCRIT 29 % (39-51); HEMOGLOBIN 9.2 g/dL (13.5-17.5); LYMPHOCYTES # (AUTO) 1.7 /CMM (0.8-4.8); LYMPHOCYTES % (AUTO) 23.8 % (20.0-44.0); MEAN CORPUSCULAR HGB CONC 32 g/dl (31.0-36.0); MEAN CORPUSCULAR VOLUME 87 fL (80-96); MONOCYTES # (AUTO) 0.5 /CMM (0.1-1.30); MONOCYTES % (AUTO) 6.9 % (2.0-12.0); NEUTROPHILS # (AUTO) 4.5 /CMM (1.8-8.9); NEUTROPHILS % (AUTO) 61.3 % (43.0-81.0); PLATELET COUNT (AUTO) 256 /CMM (150-450); RED BLOOD CELL COUNT(AUTO) 3.35 MIL/uL (4.5-6.0); WHITE BLOOD COUNT (AUTO) 7.3 K/uL (4.3-11.0)
--- NOTE | 2020-07-12 04:20 | NUR ---
ICU/RADIOLOGY INTERVENTIONAL PHYSICIAN AM LABS WERE DRAWN ON THIS PT. AWAIT FOR ANY ABNORMAL RESULTS.
[2020-07-12 04:33] LABS: CALCIUM, SERUM 8.9 mg/dL (8.5-10.1); CREATININE 0.7 mg/dL (0.6-1.3); MAGNESIUM 1.8 mg/dL (1.8-2.4); PHOSPHORUS 4.6 mg/dL (2.5-4.9); POTASSIUM 3.8 mmol/L (3.5-5.1)
[2020-07-12] MEDS: ONDANSETRON HCL 4 MG/5 ML SOLUTION PO SCH ×2 (06:04→12:00)
[2020-07-12] MEDS: LORAZEPAM 1 MG TABLET PO SCH ×4 (06:05→23:51)
[2020-07-12] MEDS: BLOOD SUGAR DIAGNOSTIC 1 EACH STRIP IN SCH ×4 (06:05→23:51)
--- NOTE | 2020-07-12 06:43 | NUR ---
ICU/CCO PT'S MORNING BLOOD SUGAR WAS 99. THERE IS NO COVERAGE FOR THIS PER MD ORDERS. WILL CONTINUE TO MONITOR THIS PT AND HIS BLOOD SUGARS.
--- NOTE | 2020-07-12 07:15 | NUR ---
Rcvd pt aaox3, Trach, with Shiley #8 on current vent settings SIMV 14, PS 20, PEEP 5, VT 550 , FIO2 45%, breathing even and unlabored with no signs of acute distress. pt denies pain, headache, N/V/SOB, chills, and abdominal discomfort. Continue G-T feeding with appropriate GI prophylaxis as per MD order. Ongoing cardiac and cont pulse oximetry monitoring with SPo2 @ 98%. Ongoing frequent oral and trach suctioning. No new significant complaints overnight. Will continue to monitor and as per current plan of care and update as needed or per MD recommendation.
[2020-07-12] MEDS: ONDANSETRON HCL/PF 4 MG/2 ML VIAL IVP PRN ×2 (07:56→07:59)
[2020-07-12] MEDS: MAG HYDROX/AL HYDROX/SIMETH 30 ML UDC NG PRN (07:58)
--- NOTE | 2020-07-12 08:00 | NUR ---
pt noted with emesis during reposition, Zofran pulled out from [employer], notice pt had already received Zofran at 0600 am, pt was given Maalox, HOB elevated to high fowlers position, oral and trach suction done. will continue to monitor.
[2020-07-12] MEDS: PANTOPRAZOLE 40 MG/PACK PACK GT SCH ×2 (08:38→21:11)
[2020-07-12] MEDS: ESCITALOPRAM OXALATE (10 MG) 10 MG TABLET PO SCH (08:38)
[2020-07-12] MEDS: SIMETHICONE 80 MG TAB.CHEW PO SCH ×3 (08:38→17:10)
[2020-07-12] MEDS: FLUCONAZOLE (100 MG) 100 MG TABLET PO SCH (08:38)
[2020-07-12] MEDS: OLANZAPINE 5 MG TABLET PO SCH ×2 (08:38→17:10)
[2020-07-12] MEDS: APIXABAN 5 MG TABLET PO SCH ×2 (08:39→17:11)
[2020-07-12] MEDS: MINERAL OIL/PETROLATUM,WHITE 120 GM JAR TP SCH ×2 (08:39→17:10)
[2020-07-12] MEDS: NEOMY SULF/BACITRAC ZN/POLY 15 GM TUBE TP SCH ×2 (08:40→17:12)
[2020-07-12] MEDS: HYDROGEL DRESSING 90 GM TUBE TP SCH (08:40)
[2020-07-12] MEDS: DOCUSATE SODIUM LIQ 100 MG/10 ML UDC NG SCH (08:41)
[2020-07-12] MEDS: PROSOURCE / PROSTAT (PYXIS) 30 ML UDC GT SCH ×3 (08:43→17:09)
--- NOTE | 2020-07-12 17:45 | NUR ---
pt remain stable, SIMV mode Pressure Support reduced from 20-15. pt tolerating it well. 3 small brown BM today, and 1 episode of emesis. tolerating feeding @ 30 ml/hr. trach collar dressing changed, Pigtail dressing changed, sacral wound dressing changed. pt requested shaving, RN assisted patient with shaving of the hair in the chest. Zofran Q8hrs schedule was discontinued as per .
[2020-07-12] MEDS: IV NS 0.9% 250 ML IV PRN (19:00)
[2020-07-12] MEDS: GLUCERNA 1.2 1,000 ML BOTTLE GT PRN (19:00)
--- NOTE | 2020-07-12 20:00 | NUR ---
RECEIVED TRACH PT. WITH SHILEY 8 ON VENT WITH THE SETTINGS OF SIMV 14, PS 15, PEEP 5, VT 550 , FIO2 45%. PT IS AWAKE AND ALERT FOLLOWS COMMANDS. NO RESP DISTRESS. PT TOLERATING VENT SETTINGS. SX'D DONE . VENT ALARMS SET AND AUDIBLE. VENT PLUGGED INTO RED OUTLET. WILL CONTINUE TO MONITOR PT T/O SHIFT. .
[2020-07-12] MEDS: SIMETHICONE SUSP 40 MG/0.6 ML BOTTLE GT SCH (21:15)
[2020-07-13] VITALS (24 sets, daily range): BP systolic 124–156; BP diastolic 84–106
--- NOTE | 2020-07-13 | NUR ---
COMMERCIAL LITIGATION ATTORNEY PT INCREASINGLY INDEPENDENT WITH ADLS. ABLE TO TURN SIDE TO SIDE WITH MIN ASSIST. PT STILL FEELS PAIN WHEN LOWER EXTREMITIES ARE TOUCHED.
[2020-07-13 04:53] LABS: BASOPHILS # (AUTO) 0.1 /CMM (0.0-0.2); BASOPHILS % (AUTO) 0.8 % (0.0-2.0); EOSINOPHILS % (AUTO) 9.2 % (0.0-6.0); HEMATOCRIT 30 % (39-51); HEMOGLOBIN 9.6 g/dL (13.5-17.5); LYMPHOCYTES # (AUTO) 2.6 /CMM (0.8-4.8); LYMPHOCYTES % (AUTO) 29.8 % (20.0-44.0); MEAN CORPUSCULAR HGB CONC 32 g/dl (31.0-36.0); MEAN CORPUSCULAR VOLUME 87 fL (80-96); MONOCYTES # (AUTO) 0.6 /CMM (0.1-1.30); MONOCYTES % (AUTO) 6.4 % (2.0-12.0); NEUTROPHILS # (AUTO) 4.8 /CMM (1.8-8.9); NEUTROPHILS % (AUTO) 53.8 % (43.0-81.0); PLATELET COUNT (AUTO) 269 /CMM (150-450); RED BLOOD CELL COUNT(AUTO) 3.46 MIL/uL (4.5-6.0); WHITE BLOOD COUNT (AUTO) 8.8 K/uL (4.3-11.0)
[2020-07-13 05:05] LABS: CREATININE 0.7 mg/dL (0.6-1.3); MAGNESIUM 1.8 mg/dL (1.8-2.4); PHOSPHORUS 4.6 mg/dL (2.5-4.9)
--- NOTE | 2020-07-13 05:25 | NUR ---
HOME HEALTH REGISTERED NURSE PT DECLINES NEW TUBE FEEDING BOTTLE. CONTINUES TO COMPLAIN ABOUT BLOATING.
[2020-07-13] MEDS: BLOOD SUGAR DIAGNOSTIC 1 EACH STRIP IN SCH ×4 (05:28→23:39)
[2020-07-13] MEDS: LORAZEPAM 1 MG TABLET PO SCH ×3 (06:00→20:55)
--- NOTE | 2020-07-13 06:25 | NUR ---
DIVORCE ATTORNEY NON ADMIN ATIVAN PT EDUCATED ON THE USE AND NEED FOR ATIVAN. PT HAS BEEN VERY CALM DURING SHIFT, PT DECLINED TO TAKE ATIVAN AT THIS TIME. EXPLAINED TO PT THAT IF HE FEELS HE NEEDS IT NURSING STAFF CAN GIVE HIM THE ATIVAN BUT THE MAIN GOAL IS TO TAPER HIM OFF THE MEDICATION. PT VERBALIZED UNDERSTANDING.
--- NOTE | 2020-07-13 06:34 | NUR ---
SET O TYPE OPERATOR PT CONTINUES TO DECLINE TUBE FEEDING. PASSING GAS AT THIS TIME.
--- NOTE | 2020-07-13 07:05 | NUR ---
report received from shift mechanic rn -pt resting comfortably/labs and chart reviewed
--- NOTE | 2020-07-13 08:00 | NUR ---
md malin at bedside-
[2020-07-13] MEDS: PROSOURCE / PROSTAT (PYXIS) 30 ML UDC GT SCH ×3 (09:10→17:37)
[2020-07-13] MEDS: PANTOPRAZOLE 40 MG/PACK PACK GT SCH ×2 (09:10→20:31)
[2020-07-13] MEDS: FLUCONAZOLE (100 MG) 100 MG TABLET PO SCH (09:14)
[2020-07-13] MEDS: APIXABAN 5 MG TABLET PO SCH ×2 (09:14→17:36)
[2020-07-13] MEDS: ESCITALOPRAM OXALATE (10 MG) 10 MG TABLET PO SCH (09:14)
[2020-07-13] MEDS: DOCUSATE SODIUM LIQ 100 MG/10 ML UDC NG SCH (09:15)
[2020-07-13] MEDS: NEOMY SULF/BACITRAC ZN/POLY 15 GM TUBE TP SCH ×2 (09:16→17:37)
[2020-07-13] MEDS: MINERAL OIL/PETROLATUM,WHITE 120 GM JAR TP SCH ×2 (09:16→17:38)
[2020-07-13] MEDS: HYDROGEL DRESSING 90 GM TUBE TP SCH (09:20)
[2020-07-13] MEDS: OLANZAPINE 5 MG TABLET PO SCH ×2 (09:23→17:36)
[2020-07-13] MEDS: SIMETHICONE SUSP 40 MG/0.6 ML BOTTLE GT SCH ×4 (09:27→20:31)
--- NOTE | 2020-07-13 11:00 | NUR ---
PT at bedside-pt sitting up with legs dangling at bedside for 30 min-tolerated well strong cough-md at bedside -vent changes being done-pt tolerating well
--- NOTE | 2020-07-13 12:15 | NUR ---
spoke with Diamond the Paper Folding Machine Operator-wants to change Tube Feeds to vital 1.2-advised she has to speak with md -I cannot decide for her and him-advised md of changes for the tube feeds md in accord with them-I advised the nitritiounist of this.-advised pt that we will change tube feed formula and see how he will tolerate
--- NOTE | 2020-07-13 13:19 | NUR ---
pt resting comfortably
[2020-07-13] MEDS: VITAL AF 1.2 1,000 ML BOTTLE GT PRN (17:06)
--- NOTE | 2020-07-13 20:00 | NUR ---
RN NOTE RECEIVED PT IN BED, ALERT AND ORIENTED. MOUTHING WORDS. ON TRACH/VENT TOLERATING SETTINGS. NO DISTRESS NOTED, O2 SAT AT 99%. TELE SHOWS SINUS TACH W/ HR OF 114. PT WITH CHEST TUBE ON RIGHT CHEST, SECURED. DRESSING CLEAN DRY AND INTACT. PT DENIES ANY PAIN AT THIS TIME. GT PATENT AND IN PLACE, ON GT FEEDING OF VITAL AF 1.2 RUNNING AT 20ML/HR. MINIMAL RESIDUAL NOTED <5CC. KEPT HOB ELEVATED. BUBBA MIDLINE PATENT AND INTACT, FLUSHED. NO SIGNS OF INFECTION NOTED. ALL SAFETY MEASURES IMPLEMENTED PER PROTOCOL. CALL LIGHT WITHIN REACH. SIDE RAILS UP. BED LOCKED IN LOWEST POSITION.
[2020-07-13] MEDS: INSULIN REGULAR, HUMAN 100 UNIT/ML 3 ML VIAL SQ PRN (23:39)
[2020-07-14] VITALS (26 sets, daily range): BP systolic 115–161; BP diastolic 32–113
--- NOTE | 2020-07-14 03:27 | NUR ---
RN NOTE NO URINE OUTPUT NOTED SINCE THE BEGINNING OF SHIFT, OFFERED URINAL MULTIPLE TIMES, NO OUTPUT. CHUCKS DRY. DID BLADDER SCAN, <100 CC. WILL CONTINUE TO MONITOR. PT DENIES ANY PAIN. NO DISTRESS NOTED.
[2020-07-14] MEDS: IV NS 0.9% 250 ML IV PRN (03:40)
--- NOTE | 2020-07-14 03:51 | NUR ---
RT NOTE Pt Rec'd trached on [facility] vent on Simv mode settings as charted. Pt awake and alert and shows no signs of sob or resp distress. Pt sx'd for thick small amt of pale yellow secretions. trach is patent and secured. Alarms are set and audible. Ambu bag bedside. Vent plugged into red outlet. will continue to monitor closely. Addendum: 07/14/20 at 0353 by JOSE SMALLWOOD RT Amended: Links added.
[2020-07-14 04:45] LABS: BASOPHILS % (AUTO) 0.7 % (0.0-2.0); EOSINOPHILS % (AUTO) 8.1 % (0.0-6.0); HEMATOCRIT 30 % (39-51); HEMOGLOBIN 9.4 g/dL (13.5-17.5); LYMPHOCYTES # (AUTO) 1.6 /CMM (0.8-4.8); LYMPHOCYTES % (AUTO) 23.9 % (20.0-44.0); MEAN CORPUSCULAR HGB CONC 32 g/dl (31.0-36.0); MEAN CORPUSCULAR VOLUME 87 fL (80-96); MONOCYTES # (AUTO) 0.4 /CMM (0.1-1.30); MONOCYTES % (AUTO) 6.7 % (2.0-12.0); NEUTROPHILS % (AUTO) 60.6 % (43.0-81.0); PLATELET COUNT (AUTO) 264 /CMM (150-450); RED BLOOD CELL COUNT(AUTO) 3.41 MIL/uL (4.5-6.0); WHITE BLOOD COUNT (AUTO) 6.6 K/uL (4.3-11.0)
[2020-07-14 05:01] LABS: CALCIUM, SERUM 9.1 mg/dL (8.5-10.1); CREATININE 0.7 mg/dL (0.6-1.3); MAGNESIUM 1.7 mg/dL (1.8-2.4); PHOSPHORUS 4.3 mg/dL (2.5-4.9); POTASSIUM 3.8 mmol/L (3.5-5.1)
[2020-07-14] MEDS: BLOOD SUGAR DIAGNOSTIC 1 EACH STRIP IN SCH ×3 (06:01→17:28)
--- NOTE | 2020-07-14 06:37 | NUR ---
RN NOTES PT REMAINS IN BED, ABLE TO COMMUNICATE NEEDS. NO RESP DISTRESS NOTED. TOLERATING VENT SETTINGS. CONTINUE ON GT FEEDING OF VITAL AF, NO RESIDUAL NOTED. NO SIGNS OF ASPIRATION. KEPT HOB ELEVATED. MIDLINE REMAIN PATENT AND INTACT. PT STILL WITH NO URINE OUTPUT, TRIED URINAL, DENIES ANY PAIN, NO BLADDER DISTENTION NOTED. NO CHANGES IN LOC NOTED. CHEST TUBE REMAIN INTACT AND SECURED. WOUND TX DONE ORDERED. KEPT COMFORTABLE IN BED. NEEDS ATTENDED. WILL ENDORSE TO NEXT SHIFT NURSE FOR ROSELINE.
--- NOTE | 2020-07-14 07:15 | NUR ---
RN NOTE PT REFUSED TO GET STRAIGHT CATH, EXPLAINED RISKS AND BENEFITS 3X. STILL REFUSED. VERBALIZED UNDERSTANDING. ENDORSED TO NEXT SHIFT NURSE.
[2020-07-14] MEDS: OLANZAPINE 5 MG TABLET PO SCH ×2 (09:08→16:56)
[2020-07-14] MEDS: DOCUSATE SODIUM LIQ 100 MG/10 ML UDC NG SCH (09:08)
[2020-07-14] MEDS: SIMETHICONE SUSP 40 MG/0.6 ML BOTTLE GT SCH ×4 (09:08→21:11)
[2020-07-14] MEDS: ESCITALOPRAM OXALATE (10 MG) 10 MG TABLET PO SCH (09:09)
[2020-07-14] MEDS: PANTOPRAZOLE 40 MG/PACK PACK GT SCH ×2 (09:09→20:52)
[2020-07-14] MEDS: FLUCONAZOLE (100 MG) 100 MG TABLET PO SCH (09:09)
[2020-07-14] MEDS: LORAZEPAM 1 MG TABLET PO SCH ×3 (09:13→20:50)
[2020-07-14] MEDS: APIXABAN 5 MG TABLET PO SCH ×2 (09:14→16:55)
[2020-07-14] MEDS: NEOMY SULF/BACITRAC ZN/POLY 15 GM TUBE TP SCH ×2 (09:53→17:00)
[2020-07-14] MEDS: MINERAL OIL/PETROLATUM,WHITE 120 GM JAR TP SCH ×2 (09:53→17:04)
[2020-07-14] MEDS: PROSOURCE / PROSTAT (PYXIS) 30 ML UDC GT SCH ×3 (09:54→16:57)
[2020-07-14] MEDS: HYDROGEL DRESSING 90 GM TUBE TP SCH (09:55)
[2020-07-14] MEDS: Magnesium 1GM/D5W 100ML PREMIX 100 ML IV SCH ×2 (10:20→10:37)
--- NOTE | 2020-07-14 19:55 | NUR ---
RN NOTE RECEIVED PT IN BED, A/O X3, IS ABLE TO MOUTH WORDS, ON VENT VIA TRACH, SATING 100%, NO S/S OF DISTRESS NOTED. HAS G TUBE FEEDING VITAL AF 1.2 RUNNING AT 40 ML/H , 10 CC RESIDUAL NOTED, FLUSHED AND CHECKED FOR PLACEMENT. SAFETY MEASURES IN PLACE
[2020-07-15] VITALS (23 sets, daily range): BP systolic 118–146; BP diastolic 72–98
[2020-07-15] MEDS: BLOOD SUGAR DIAGNOSTIC 1 EACH STRIP IN SCH ×5 (00:17→23:49)
[2020-07-15] MEDS: IV NS 0.9% 250 ML IV PRN (04:02)
[2020-07-15 04:21] LABS: BASOPHILS # (AUTO) 0.1 /CMM (0.0-0.2); BASOPHILS % (AUTO) 1.3 % (0.0-2.0); EOSINOPHILS % (AUTO) 6.2 % (0.0-6.0); HEMATOCRIT 30 % (39-51); HEMOGLOBIN 9.7 g/dL (13.5-17.5); LYMPHOCYTES # (AUTO) 2.5 /CMM (0.8-4.8); LYMPHOCYTES % (AUTO) 26.3 % (20.0-44.0); MEAN CORPUSCULAR HGB CONC 32 g/dl (31.0-36.0); MEAN CORPUSCULAR VOLUME 88 fL (80-96); MONOCYTES # (AUTO) 0.3 /CMM (0.1-1.30); MONOCYTES % (AUTO) 3.6 % (2.0-12.0); NEUTROPHILS # (AUTO) 5.8 /CMM (1.8-8.9); NEUTROPHILS % (AUTO) 62.6 % (43.0-81.0); PLATELET COUNT (AUTO) 278 /CMM (150-450); RED BLOOD CELL COUNT(AUTO) 3.46 MIL/uL (4.5-6.0); WHITE BLOOD COUNT (AUTO) 9.3 K/uL (4.3-11.0)
[2020-07-15 04:44] LABS: CALCIUM, SERUM 8.7 mg/dL (8.5-10.1); CREATININE 0.7 mg/dL (0.6-1.3); MAGNESIUM 1.7 mg/dL (1.8-2.4); PHOSPHORUS 4.7 mg/dL (2.5-4.9); POTASSIUM 3.4 mmol/L (3.5-5.1)
--- NOTE | 2020-07-15 07:32 | NUR ---
RN NOTE PT REMAINED STABLE DURING MY SHIFT, NO CHANGES. REPORT GIVEN TO NURSE FOR ROSELINE.
--- NOTE | 2020-07-15 08:10 | NUR ---
RT PATIENT REC'D TRACHED ON [facility] VENT ON SIMV MODE TOLERATING WELL. WILL CONT TO MONITOR. VENT ALARMS CHECKED + AUDIBLE. 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 TRACH SECURE AND IN PROPER POSITION. PATIENT SUCTIONED WITH MOD AMT PALE SEMITHICK SECRETIONS. PATIENT AWAKE ALERT, WITH NO COMPLAINTS OF SOB. AMBU BAG AT [facility]. Addendum: 07/17/20 at 0810 by CANDIDO VALERO RT Amended: Links added.
[2020-07-15] MEDS: SIMETHICONE SUSP 40 MG/0.6 ML BOTTLE GT SCH ×4 (09:21→20:15)
[2020-07-15] MEDS: PANTOPRAZOLE 40 MG/PACK PACK GT SCH ×2 (09:21→20:15)
[2020-07-15] MEDS: FLUCONAZOLE (100 MG) 100 MG TABLET PO SCH (09:22)
[2020-07-15] MEDS: APIXABAN 5 MG TABLET PO SCH ×2 (09:23→16:38)
[2020-07-15] MEDS: OLANZAPINE 5 MG TABLET PO SCH ×2 (09:23→16:37)
[2020-07-15] MEDS: LORAZEPAM 1 MG TABLET PO SCH ×3 (09:23→20:16)
[2020-07-15] MEDS: ESCITALOPRAM OXALATE (10 MG) 10 MG TABLET PO SCH (09:23)
[2020-07-15] MEDS: DOCUSATE SODIUM LIQ 100 MG/10 ML UDC NG SCH (09:23)
[2020-07-15] MEDS: NEOMY SULF/BACITRAC ZN/POLY 15 GM TUBE TP SCH ×2 (09:24→16:42)
[2020-07-15] MEDS: MINERAL OIL/PETROLATUM,WHITE 120 GM JAR TP SCH ×2 (09:25→16:41)
[2020-07-15] MEDS: PROSOURCE / PROSTAT (PYXIS) 30 ML UDC GT SCH ×3 (09:25→16:40)
[2020-07-15] MEDS: HYDROGEL DRESSING 90 GM TUBE TP SCH (09:26)
[2020-07-15] MEDS ORDERED: POTASSIUM CHLORIDE 20 MEQ POWDER PACKET GT SCH (09:30)
[2020-07-15] MEDS: Magnesium 1GM/D5W 100ML PREMIX 100 ML IV SCH ×2 (10:28→10:29)
--- NOTE | 2020-07-15 10:30 | NUR ---
Md José at bedside-order clarification of LR-order to admin ONLY 1 litre of LR at 250ml/hr
[2020-07-15] MEDS: IV LR 1000 ML 1,000 ML IV SCH ×2 (10:32→14:00)
--- NOTE | 2020-07-15 21:18 | NUR ---
RN NOTE RECEIVED PATIENT IN BED, AWAKE, A/OX3. MOUTH WORDS. ON VENT, TOLERATING SETTINGS WELL. O2 SAT WNL. HOB KEPT ELEVATED, ON G-TUBE VITAL AF 1.2 @ 50ML/HR PATENT AND INTACT. NO RESIDUAL NOTED. WITH BUBBA MIDLINE, PATENT AND INTACT. FLUSHED WITH NS. DENIES ANY PAIN OR DISCOMFORT AT THIS TIME. NOTED WITH RIGHT PIGTAIL CHEST TUBE, CLAMPED PER MD. PATENT AND INTACT. CALL LIGHT WITHIN REACH. BED LOCKED AND IN LOWEST POSITION. SAFETY MEASURES IMPLEMENTED. WILL CONTINUE TO MONITOR.
[2020-07-15] MEDS: INSULIN REGULAR, HUMAN 100 UNIT/ML 3 ML VIAL SQ PRN (23:50)
[2020-07-16] VITALS (26 sets, daily range): BP systolic 96–160; BP diastolic 69–107
--- NOTE | 2020-07-16 | NUR ---
BLOOD SUGAR 106, NO INSULIN COVERAGE GIVEN PER MD ORDER. WILL CONTINUE TO MONITOR.
[2020-07-16 05:01] LABS: BASOPHILS % (AUTO) 0.5 % (0.0-2.0); EOSINOPHILS % (AUTO) 7.5 % (0.0-6.0); HEMATOCRIT 30 % (39-51); HEMOGLOBIN 9.6 g/dL (13.5-17.5); LYMPHOCYTES # (AUTO) 1.3 /CMM (0.8-4.8); LYMPHOCYTES % (AUTO) 17.5 % (20.0-44.0); MEAN CORPUSCULAR HGB CONC 32 g/dl (31.0-36.0); MEAN CORPUSCULAR VOLUME 88 fL (80-96); MONOCYTES # (AUTO) 0.5 /CMM (0.1-1.30); MONOCYTES % (AUTO) 6.8 % (2.0-12.0); NEUTROPHILS # (AUTO) 4.9 /CMM (1.8-8.9); NEUTROPHILS % (AUTO) 67.7 % (43.0-81.0); PLATELET COUNT (AUTO) 251 /CMM (150-450); RED BLOOD CELL COUNT(AUTO) 3.43 MIL/uL (4.5-6.0); WHITE BLOOD COUNT (AUTO) 7.2 K/uL (4.3-11.0)
[2020-07-16 05:16] LABS: CALCIUM, SERUM 8.8 mg/dL (8.5-10.1); CREATININE 0.7 mg/dL (0.6-1.3); MAGNESIUM 1.8 mg/dL (1.8-2.4); PHOSPHORUS 4.5 mg/dL (2.5-4.9); POTASSIUM 3.7 mmol/L (3.5-5.1)
[2020-07-16] MEDS: BLOOD SUGAR DIAGNOSTIC 1 EACH STRIP IN SCH ×3 (06:14→17:04)
[2020-07-16] MEDS: INSULIN REGULAR, HUMAN 100 UNIT/ML 3 ML VIAL SQ PRN (06:15)
--- NOTE | 2020-07-16 07:07 | NUR ---
RN NOTE PATIENT IN BED RESTING COMFORTABLY, A/OX3. MOUTH WORDS. ON VENT, TOLERATING SETTINGS WELL. O2 SAT WNL. HOB KEPT ELEVATED, ON G-TUBE VITAL AF 1.2 @ 55ML/HR PATENT AND INTACT. NO RESIDUAL NOTED. WITH BUBBA MIDLINE, PATENT AND INTACT. FLUSHED WITH NS. NO S/S OF DISCOMFORT AT THIS TIME. NOTED WITH RIGHT PIGTAIL CHEST TUBE, CLAMPED PER MD. PATENT AND INTACT. CALL LIGHT WITHIN REACH. BED LOCKED AND IN LOWEST POSITION. SAFETY MEASURES IMPLEMENTED. ENDORSED TO ONCOMING SHIFT.
[2020-07-16 08:06] LABS: ABG BASE EXCESS 7.9 mmol/L; ABG OXYGEN SATURATION 98.4 % (92.0-98.5); ABG PCO2 55.8 mmHg (35.0-45.0); ABG PH 7.402 (7.350-7.450); ABG PO2 126.3 mmHg (75.0-100.0); AaDO2 94.7 mmHg; COHb 0.6 % (0.5-1.5); MetHb 0.3 % (0.0-1.5); O2Hb 97.5 % (94.0-97.0); SITE, ABG Right Radial; VENT MODE, BG SIMV 6 550 PS 12 40%
[2020-07-16] MEDS: FLUCONAZOLE (100 MG) 100 MG TABLET PO SCH (08:06)
[2020-07-16] MEDS: OLANZAPINE 5 MG TABLET PO SCH ×2 (08:06→16:27)
[2020-07-16] MEDS: DOCUSATE SODIUM LIQ 100 MG/10 ML UDC NG SCH (08:06)
[2020-07-16] MEDS: PANTOPRAZOLE 40 MG/PACK PACK GT SCH ×2 (08:06→20:46)
[2020-07-16] MEDS: LORAZEPAM 1 MG TABLET PO SCH (08:07)
[2020-07-16] MEDS: ESCITALOPRAM OXALATE (10 MG) 10 MG TABLET PO SCH (08:08)
[2020-07-16] MEDS: APIXABAN 5 MG TABLET PO SCH ×2 (08:08→16:26)
[2020-07-16] MEDS: SIMETHICONE SUSP 40 MG/0.6 ML BOTTLE GT SCH ×4 (08:08→20:46)
--- NOTE | 2020-07-16 08:08 | NUR ---
RT PATIENT REC'D TRACHED ON [facility] VENT ON SIMV MODE TOLERATING WELL. WILL CONT TO MONITOR. VENT ALARMS CHECKED + AUDIBLE. CUFF PRESSURE CHECKED MANAGER BODY. TRACH SECURE AND IN PROPER POSITION. PATIENT SUCTIONED WITH MOD AMT PALE SEMITHICK SECRETIONS. PATIENT AWAKE ALERT, WITH NO COMPLAINTS OF SOB. AMBU BAG AT [facility]. Addendum: 07/17/20 at 0809 by CANDIDO VALERO RT Amended: Links added.
[2020-07-16] MEDS: MINERAL OIL/PETROLATUM,WHITE 120 GM JAR TP SCH ×2 (08:09→16:29)
[2020-07-16] MEDS: HYDROGEL DRESSING 90 GM TUBE TP SCH (08:10)
[2020-07-16] MEDS: NEOMY SULF/BACITRAC ZN/POLY 15 GM TUBE TP SCH ×2 (08:10→16:29)
[2020-07-16] MEDS: PROSOURCE / PROSTAT (PYXIS) 30 ML UDC GT SCH ×3 (08:13→16:25)
--- NOTE | 2020-07-16 09:03 | NUR ---
ICU/RN PT IS TRACH ON THE VENT SIMV MODE.SAT O2-98%.V/S STABLE,AFEBRILE.NO PAIN REPORTED AT THIS TIME.OFF SEDATION AWAKE,ALERT,ORIENTED ,FOLLOWS COMMAND.IV-HL RIGHT UPPER ARM ML-HL.PT HAS G-TUBE INFUSING WITH VITAL FEEDING NO RESIDUAL NOTED.USE URINAL WOUND ON THE LOWER BACK COVERED WITH DRESSING.RIGHT PLEURAL VACK CLAMPED.DUE MEDS ARE GIVEN ORDERED.SUCTION PROVIDED,SUTURES FROM TRACH SIDE REMOVED.DRESSING CHANGED,INNER CANULA CHANGED.REPOSITION FOR COMFORT. LABS REVIEW.
[2020-07-16] MEDS: VITAL AF 1.2 1,000 ML BOTTLE GT PRN (10:22)
--- NOTE | 2020-07-16 12:22 | NUR ---
BED WORKER NOTE PHYSICAL THERAPY DONE .PATIENT IS SITTING ON THE BEDSIDE.NO SOB NO DISTRESS NOTED.VITAL SIGNS STABLE.PT WILL BE REEVALUATE THE PATIENT AFTER.
--- NOTE | 2020-07-16 13:20 | NUR ---
RENEWALS MANAGER NOTE PATIENT IS BACK TO BED FROM SITTING ON SIDE OF THE BED WITH PT ASSISTANCE.TOLERATING PT WELL.NO DISTRESS NOTED.WILL CONTINUE TO MONITOR.
--- NOTE | 2020-07-16 20:29 | NUR ---
Patient recieved on vent support, nehemias ADRIAN #8. Secure via trach tie. Patient alert. Addendum: 07/16/20 at 2030 by CJ ALFORD RT Amended: Links added.
[2020-07-17] VITALS (18 sets, daily range): BP systolic 120–161; BP diastolic 72–100
[2020-07-17] MEDS: BLOOD SUGAR DIAGNOSTIC 1 EACH STRIP IN SCH ×4 (00:06→17:35)
[2020-07-17 04:27] LABS: BASOPHILS # (AUTO) 0.1 /CMM (0.0-0.2); BASOPHILS % (AUTO) 1.1 % (0.0-2.0); HEMATOCRIT 28 % (39-51); LYMPHOCYTES # (AUTO) 1.5 /CMM (0.8-4.8); LYMPHOCYTES % (AUTO) 23.8 % (20.0-44.0); MEAN CORPUSCULAR HGB CONC 32 g/dl (31.0-36.0); MEAN CORPUSCULAR VOLUME 87 fL (80-96); MONOCYTES # (AUTO) 0.4 /CMM (0.1-1.30); MONOCYTES % (AUTO) 6.9 % (2.0-12.0); NEUTROPHILS # (AUTO) 3.7 /CMM (1.8-8.9); NEUTROPHILS % (AUTO) 58.2 % (43.0-81.0); PLATELET COUNT (AUTO) 265 /CMM (150-450); RED BLOOD CELL COUNT(AUTO) 3.22 MIL/uL (4.5-6.0); WHITE BLOOD COUNT (AUTO) 6.4 K/uL (4.3-11.0)
[2020-07-17 04:46] LABS: CALCIUM, SERUM 8.7 mg/dL (8.5-10.1); CREATININE 0.6 mg/dL (0.6-1.3); MAGNESIUM 1.8 mg/dL (1.8-2.4); PHOSPHORUS 4.9 mg/dL (2.5-4.9); POTASSIUM 3.8 mmol/L (3.5-5.1)
[2020-07-17] MEDS: VITAL AF 1.2 1,000 ML BOTTLE GT PRN (04:46)
--- NOTE | 2020-07-17 07:15 | NUR ---
ICU/RN NOTE RECEIVED REPORT FROM PM NURSE.PT IS TRACH ON THE VENT SIMV MODE.SAT O2-99%.V/S STABLE,AFEBRILE.NO PAIN REPORTED AT THIS TIME.OFF SEDATION AWAKE,ALERT,ORIENTED ,FOLLOWS COMMAND.IV-HL RIGHT UPPER ARM ML-HL.PT HAS G-TUBE INFUSING WITH VITAL FEEDING NO RESIDUAL NOTED.USE URINAL WOUND ON THE LOWER BACK COVERED WITH DRESSING.RIGHT PLEURAL VACK CLAMPED.TO START ON CPAP TODAY.WILL CONTINUE TO MONITOR.
--- NOTE | 2020-07-17 08:06 | NUR ---
RT PATIENT REC'D TRACHED ON [facility] VENT. PER DR DOLAN ORDERS PATIENT PLACED ON CPAP VENT MODE TOLERATING WELL. WILL CONT TO MONITOR. VENT ALARMS CHECKED + AUDIBLE. 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 TRACH SECURE AND IN PROPER POSITION. PATIENT SUCTIONED WITH MOD AMT PALE SEMITHICK SECRETIONS. PATIENT AWAKE ALERT, WITH NO COMPLAINTS OF SOB. AMBU BAG AT [facility]. Addendum: 07/17/20 at 0809 by CANDIDO VALERO RT Amended: Links added.
[2020-07-17 08:47] LABS: ABG BASE EXCESS 9.1 mmol/L; ABG OXYGEN SATURATION 98.5 % (92.0-98.5); ABG PCO2 53.6 mmHg (35.0-45.0); ABG PH 7.429 (7.350-7.450); ABG PO2 114.1 mmHg (75.0-100.0); AaDO2 109.5 mmHg; COHb 1.1 % (0.5-1.5); MetHb 0.2 % (0.0-1.5); O2Hb 97.2 % (94.0-97.0); SITE, ABG Right Radial; VENT MODE, BG CPAP PS 10 +5 40%
[2020-07-17] MEDS: SIMETHICONE SUSP 40 MG/0.6 ML BOTTLE GT SCH ×4 (08:57→21:00)
[2020-07-17] MEDS: OLANZAPINE 5 MG TABLET PO SCH ×2 (08:57→16:49)
[2020-07-17] MEDS: PROSOURCE / PROSTAT (PYXIS) 30 ML UDC GT SCH ×3 (08:57→16:49)
[2020-07-17] MEDS: PANTOPRAZOLE 40 MG/PACK PACK GT SCH ×2 (08:58→22:58)
[2020-07-17] MEDS: ESCITALOPRAM OXALATE (10 MG) 10 MG TABLET PO SCH (08:58)
[2020-07-17] MEDS: HYDROGEL DRESSING 90 GM TUBE TP SCH (08:59)
[2020-07-17] MEDS: NEOMY SULF/BACITRAC ZN/POLY 15 GM TUBE TP SCH ×2 (09:00→16:54)
[2020-07-17] MEDS: MINERAL OIL/PETROLATUM,WHITE 120 GM JAR TP SCH ×2 (09:00→16:52)
[2020-07-17] MEDS ORDERED: LORAZEPAM 1 MG TABLET PO SCH (09:00)
[2020-07-17] MEDS: APIXABAN 5 MG TABLET PO SCH ×2 (09:02→16:51)
[2020-07-17] MEDS: DOCUSATE SODIUM LIQ 100 MG/10 ML UDC NG SCH (09:04)
--- NOTE | 2020-07-17 09:16 | NUR ---
WOUND CARE FOLLOW UP: SACRAL STAGE 3 ULCER RE-EVALUATED TODAY. NO ODOR, TENDERNESS OR ERYTHEMA NOTED. PT IS NOW ABLE TO ASSIST WITH TURNING AND REPOSITIONING IN BED. RECOMMEND CONTINUE PRESENT TREATMENT. DISCUSSED WITH NURSING STAFF. IN AGREEMENT WITH PLAN OF CARE. PT REMAINS ON [place] AIR BED. Addendum: 07/17/20 at 0918 by ANGELINA APARICIO WNDNU Amended: Links added.
--- NOTE | 2020-07-17 17:20 | NUR ---
PATIENT TRANSFER NOTE PATIENT TRANSFERRED TO [facility] WITH ICU PROTOCOL AND RT WITH ALL BELONGINGS AND MEDS.REPORT GIVEN TO SARA RN BY WASHINGTON CAMPUZANO. PATIENT IS ON CPAP.NO SOB NO DISTRESS NOTED.PATIENT IS AXOX3.ABLE TO COMMUNICATE.FAMILY NOTIFIED ABOUT TRANSFER.MIDLINE DRESSING IS IN PLACE CHANGED TODAY.PLEURAL VAC IS IN PLACE.NOT DRAINING.GT FEEDING TOLERATING WELL.WILL CONTINUE CARE IN [facility] UNIT.
--- NOTE | 2020-07-17 17:50 | NUR ---
alma rn note received patient from icu alert oriented on vent setting with cpap mode as ordered [id number] at this time , on tele monitor st hr 107, , on g tube feeding at his time but refused at this time will restart latter on ,rt upper arm mid line in place and flushed well bed in lowest and locked position , rt upper chest with pleuro vac in place no drainage noted , bed in lowest and locked position, will cont to monitor closely , bed in locked and lowest position , call light within reach
[2020-07-18] VITALS: BP 152/96
[2020-07-18] MEDS: LORAZEPAM INJ 2 MG/ML VIAL IV PRN (03:08)
[2020-07-18 04:00] VITALS: BP 142/97
[2020-07-18] MEDS: BLOOD SUGAR DIAGNOSTIC 1 EACH STRIP IN SCH ×4 (06:00→17:34)
--- NOTE | 2020-07-18 07:32 | NUR ---
RECEIVED PATIENT IN BED. NO ACUTE DISTRESS NOTED. ALERT & ORIENTED X3-4. PATIENT TRACH'D, ON CPAP, TOLERATING SETTINGS WELL. PATIENT ON RESPIRATORY THERAPIST ASSISTANT, ST NOTED. PATIENT G-TUBE IN PLACE, FEEDING PAUSED DUE TO PATIENT REQUEST (PATIENT REPORTS FEELING TOO BLOATED), WILL RE-EVALUATE AT A LATER TIME. PATIENT RIGHT ARM MIDLINE IN PLACE, INTACT. PATIENT SAFETY MEASURES MAINTAINED. CALL LIGHT WITHIN REACH. WILL CONTINUE TO MONITOR.
[2020-07-18 08:00] VITALS: BP 132/86
--- NOTE | 2020-07-18 08:05 | NUR ---
RT PLACED PT ON CA PER MD ORDER. PT ON CONTINUOUS PULSE OX. AMBU BAG AND SPARE TRACH NOTED HOB. NO SIGNS OF RESP DISTRESS OR SOB. RN AWARE. WILL CONTINUE TO MONITOR.
[2020-07-18] MEDS: LORAZEPAM 1 MG TABLET PO SCH ×2 (08:40→16:11)
[2020-07-18] MEDS: PANTOPRAZOLE 40 MG/PACK PACK GT SCH ×2 (08:41→20:08)
[2020-07-18] MEDS: ESCITALOPRAM OXALATE (10 MG) 10 MG TABLET PO SCH (08:41)
[2020-07-18] MEDS: PROSOURCE / PROSTAT (PYXIS) 30 ML UDC GT SCH ×3 (08:41→16:11)
[2020-07-18] MEDS: OLANZAPINE 5 MG TABLET PO SCH ×2 (08:42→16:11)
[2020-07-18] MEDS: SIMETHICONE SUSP 40 MG/0.6 ML BOTTLE GT SCH ×4 (08:43→20:08)
[2020-07-18] MEDS: MINERAL OIL/PETROLATUM,WHITE 120 GM JAR TP SCH ×2 (08:44→16:12)
[2020-07-18] MEDS: HYDROGEL DRESSING 90 GM TUBE TP SCH (08:44)
[2020-07-18] MEDS: NEOMY SULF/BACITRAC ZN/POLY 15 GM TUBE TP SCH ×2 (08:44→16:11)
[2020-07-18] MEDS: APIXABAN 5 MG TABLET PO SCH ×2 (08:48→16:13)
[2020-07-18 09:24] LABS: ABG BASE EXCESS 6.1 mmol/L; ABG OXYGEN SATURATION 99.5 % (92.0-98.5); ABG PH 7.405 (7.350-7.450); ABG PO2 210.2 mmHg (75.0-100.0); AaDO2 160.4 mmHg; COHb 0.6 % (0.5-1.5); MetHb 0.2 % (0.0-1.5); O2Hb 98.7 % (94.0-97.0); SITE, ABG Left Radial; VENT MODE, BG CA
[2020-07-18 12:00] VITALS: BP 136/84
[2020-07-18 16:00] VITALS: BP 154/95
--- NOTE | 2020-07-18 18:23 | NUR ---
PATIENT IN BED. NO ACUTE DISTRESS NOTED. ALERT & ORIENTED X4. PATIENT TRACH'D, ON VEMTILATOR/COOL AEROSOL, TOLERATING SETTINGS WELL. PATIENT ON METER CHANGES RECORDS CLERK, ST NOTED. PATIENT G-TUBE IN PLACE, INTACT, PATENT. PATIENT RIGHT ARM MIDLINE IN PLACE, INTACT, PATENT. PATIENT SAFETY MEASURES MAINTAINED. CALL LIGHT WITHIN REACH. WILL ENDORSE PLAN OF CARE TO ONCOMING SHIFT
--- NOTE | 2020-07-18 19:45 | NUR ---
RT PT RECVD ON 40% O2 COOL AEROSOL, TRACH PATENT AND SECURED. PT AWAKE AND RESPONSIVE AND ABLE TO COMMUNICATE NON VERBALLY. NO SIGNS OF RESPIRATORY DISTRESS OR SOB NOTED. SPARE TRACH AND AMBU BAG AT BEDSIDE. VENTILATOR IS AT BEDSIDE ON STANDBY, WILL CONTINUE TO MONITOR.
[2020-07-18 20:00] VITALS: BP 133/87
--- NOTE | 2020-07-18 20:46 | NUR ---
PATIENT IN BED.AWAKE NO ACUTE DISTRESS NOTED. ALERT & ORIENTED X3-4. PATIENT TRACH'D, IN 10L O2 VIAL COOL AEROSOL 40% FIO2, TOLERATING SETTINGS WELL.SP2 96% PATIENT ON MILIEU COUNSELOR, SINUS TACHY HR 110 NOTED. PATIENT G-TUBE IN PLACE, RESIDUAL CHECKED 0ML WITH RUNNING OF VITAL @ 20ML/HR TOLERATING WELL, PATIENT RIGHT ARM MIDLINE IN PLACE, INTACT. PATIENT SAFETY MEASURES MAINTAINED.BED ON LOWEST POSITION AND LOCKED CALL LIGHT WITHIN REACH. WILL CONTINUE TO MONITOR.
[2020-07-18] MEDS: HYDROCODONE/APAP 5/325MG TABLET NG PRN (21:28)
[2020-07-19] VITALS: BP 145/94
[2020-07-19] MEDS: INSULIN REGULAR, HUMAN 100 UNIT/ML 3 ML VIAL SQ PRN ×2 (00:33→06:12)
[2020-07-19] MEDS: BLOOD SUGAR DIAGNOSTIC 1 EACH STRIP IN SCH ×5 (00:33→23:45)
[2020-07-19] MEDS: VITAL AF 1.2 1,000 ML BOTTLE GT PRN (02:30)
[2020-07-19 04:00] VITALS: BP 157/86
--- NOTE | 2020-07-19 07:00 | NUR ---
PT ON BED AWAKE UP STILL ON TRACH AND COOL AEROSOL 10L FIO2 40% SPO2 96% NO SIGN AND SYMPTOMS OF DISTRESS, NO SIGNIFICANT CHANGES ON CONDITION NOTED ALL NEEDS ATTENDED,GTUBE FEEDING @ 25ML/HR PER REQUEST OF THE PT, BED SIDE MONITOR READS SINUS TACHY 110'S BED ON LOWEST POSITION AND LOCKED SIDE RAILS UP X 2 CALL LIGHT WITHIN REACH WILL CONT TO MONITOR
--- NOTE | 2020-07-19 07:27 | NUR ---
ANAND RN NOTE PT ON BED AWAKE ALERT, ON TRACH AND COOL AEROSOL VIA T PIECE 10L FIO2 40% SPO2 96% NO SIGN AND SYMPTOMS OF DISTRESS, ALL NEEDS ATTENDED,GTUBE FEEDING @ 25ML/HR PER REQUEST OF THE PT, BED SIDE MONITOR READS SINUS TACHY 115 BED ON LOWEST POSITION AND LOCKED SIDE RAILS UP X 2 CALL LIGHT WITHIN REACH WILL CONT TO MONITOR RT UPPER ARM MID LINE IN PLACE AND FLUSHED WELL
[2020-07-19 08:00] VITALS: BP 133/91
[2020-07-19] MEDS: PANTOPRAZOLE 40 MG/PACK PACK GT SCH ×2 (08:39→20:53)
[2020-07-19] MEDS: ESCITALOPRAM OXALATE (10 MG) 10 MG TABLET PO SCH (08:39)
[2020-07-19] MEDS: LORAZEPAM 1 MG TABLET PO SCH ×2 (08:39→16:18)
[2020-07-19] MEDS: SIMETHICONE SUSP 40 MG/0.6 ML BOTTLE GT SCH ×4 (08:40→20:53)
[2020-07-19] MEDS: OLANZAPINE 5 MG TABLET PO SCH ×2 (08:40→16:18)
[2020-07-19] MEDS: PROSOURCE / PROSTAT (PYXIS) 30 ML UDC GT SCH ×3 (08:40→16:18)
[2020-07-19] MEDS: APIXABAN 5 MG TABLET PO SCH ×2 (08:42→16:24)
[2020-07-19] MEDS: HYDROGEL DRESSING 90 GM TUBE TP SCH (08:55)
[2020-07-19] MEDS: NEOMY SULF/BACITRAC ZN/POLY 15 GM TUBE TP SCH ×2 (08:58→16:22)
--- NOTE | 2020-07-19 09:00 | NUR ---
ANAND RN NOTE PT AND OT AT BEDSIDE, PATIENT UP ON CHAIR, NOT IN DISTRESS
[2020-07-19] MEDS: MINERAL OIL/PETROLATUM,WHITE 120 GM JAR TP SCH ×2 (09:07→16:23)
--- NOTE | 2020-07-19 09:46 | NUR ---
ANAND RN NOTE PER DR BO OK TO TO SWALLOW EVAL AND PLACE SPEAKING VALVE TOLERATED, RT AND ST NOTIFIED WILL F\U
[2020-07-19] MEDS ORDERED: ALBUTEROL SULFATE INH 18 GM HFA.AER.AD IH PRN (11:00)
--- NOTE | 2020-07-19 11:51 | NUR ---
RT NOTE PT PLACED ON PMV PER MD ORDER. JUSTEN RUIZ BEDSIDE. NO SOB NOTED AT THIS TIME. PT ABLE TO PHONATE.
[2020-07-19 12:00] VITALS: BP 133/91
--- NOTE | 2020-07-19 12:09 | NUR ---
alma rn note spoke with dietitian about g tube feeding 25 ml per hour due to patient experiencing bloating abdomen, stated its ok for now ,awaiting for carlosmi
--- NOTE | 2020-07-19 13:33 | NUR ---
alma sanches note st at bedside, swallow eval done Addendum: 07/19/20 at 1339 by SARA VILLASENOR RN per st dietary consult and will start mechanical soft diet
[2020-07-19 16:00] VITALS: BP 133/91
--- NOTE | 2020-07-19 18:15 | NUR ---
ANAND RN NOTE PATIENT ABLE TO EAT SOFT DIET ,TOLERATED WELL ,TRACH BABOON IS DEFLATED, NO SOB NOT IN DISTRESS
--- NOTE | 2020-07-19 19:19 | NUR ---
RN NOTE RECEIVED PT AWAKE AND ALERT IN BED WITH HEAD OF BED ELEVATED, WITH TRACH CONNECTED TO 10L OF O2, O2 SATURATION WNL, RESPIRATIONS UNLABORED, DENIES PAIN OR DISCOMFORT, WITH GT PLACEMENT VERIFIED VIA AUSCULTATION, WITH TUBE FEEDING RUNNING ORDERED AND TOLERATING WELL WITH 5ML OF RESIDUAL,. NSR ON THE CHAIN SAW OPERATOR, WITH RIGHT UPPER CHEST PLEURAVAC INTACT WITH TUBINGS SECURED, URINAL AT BEDSIDE, RIGHT UPPER ARM MIDLINE PATENT, FLUSHED AND INTACT, CALL LIGHT WITHIN REACH, SAFETY MEASURES IN PLACE PER PROTOCOL, BED ALARM ON, BED LOCKED AND IN LOW POSITION, SIDE RAILS UP X 2, WILL MONITOR AND CARRY OUT ACTIVE MD ORDERS.
[2020-07-19 20:00] VITALS: BP 126/83
--- NOTE | 2020-07-19 23:33 | NUR ---
RN NOTE SPOKE TO YUNIOR COLINDRES () AND GAVE UPDATE ON PT STATUS AND PLAN OF CARE.
[2020-07-20] VITALS: BP 152/98
--- NOTE | 2020-07-20 | NUR ---
RN NOTE PT REFUSED TO HAVE MIDLINE DRESSING CHANGED AT THIS TIME DESPITE EXPLANATION OF RISKS VS ADVANTAGES.
[2020-07-20] MEDS: HYDROCODONE/APAP 5/325MG TABLET NG PRN (01:33)
[2020-07-20] MEDS: VITAL AF 1.2 1,000 ML BOTTLE GT PRN (01:48)
--- NOTE | 2020-07-20 02:00 | NUR ---
RN NOTE PT TOLERATING TUBE FEEDING WELL WITHOUT RESIDUAL NOTED. PT REQUESTED TO KEEP TUBE FEEDING RATE AT 25ML/HOUR DUE TO COMPLAINT OF MINOR BLOATING.
[2020-07-20 04:00] VITALS: BP 147/81
--- NOTE | 2020-07-20 04:00 | NUR ---
RN NOTE COMPLETE BED BATH AND AM CARE COMPLETED, PT TOLERATED WELL. TUBE FEEDING RESUMED AT 25ML/HOUR PER PT REQUEST. WILL CONTINUE TO MONITOR.
[2020-07-20] MEDS: BLOOD SUGAR DIAGNOSTIC 1 EACH STRIP IN SCH ×4 (05:28→23:22)
--- NOTE | 2020-07-20 06:00 | NUR ---
RN NOTE BED SCALE NOT WORKING. NOTIFIED AUTO DAMAGE APPRAISER.
--- NOTE | 2020-07-20 06:32 | NUR ---
RN NOTE NO ACUTE CHANGES OBSERVED OVERNIGHT. PT CURRENTLY RESTING IN BED WITH HEAD OF BED ELEVATED, WITH TRACH CONNECTED TO 10L OF O2, IN NO APPARENT DISTRESS, WITH TUBE FEEDING RUNNING AT 25ML/HOUR PER PT REQUEST VIA GT AND TOLERATING WELL WITHOUT RESIDUAL NOTED. NSR ON THE CULTURAL CENTRE MANAGER, WITH RIGHT UPPER CHEST PLEURAVAC INTACT WITH TUBINGS SECURED, URINAL AT BEDSIDE, RIGHT UPPER ARM MIDLINE PATENT, FLUSHED AND INTACT, PT SUCTIONED VIA TRACH AND ORAL, CALL LIGHT WITHIN REACH, ALL NEEDS MET AND ATTENDED TO,
--- NOTE | 2020-07-20 07:30 | NUR ---
RN NOTE RECEIVED PT AWAKE AND ALERT IN BED WITH HEAD OF BED ELEVATED, WITH TRACH CONNECTED TO 10L OF O2, O2 SATURATION WNL, RESPIRATIONS UNLABORED, DENIES PAIN OR DISCOMFORT, WITH GT PLACEMENT VERIFIED VIA AUSCULTATION, WITH TUBE FEEDING RUNNING ORDERED AND TOLERATING WELL. NSR ON THE UPSTREAM BIOMANUFACTURING TECHNICIAN, WITH RIGHT UPPER CHEST PLEURAVAC INTACT WITH TUBINGS SECURED NO OUTPUT AT THIS TIME. URINAL AT BEDSIDE, RIGHT UPPER ARM MIDLINE PATENT, FLUSHED AND INTACT, CALL LIGHT WITHIN REACH, SAFETY MEASURES IN PLACE PER PROTOCOL, BED ALARM ON, BED LOCKED AND IN LOW POSITION, SIDE RAILS UP X 2, WILL CONTINUE TO MONITOR PATIENT AND PROVIDE TREATMENT.
[2020-07-20 08:00] VITALS: BP 147/99
[2020-07-20] MEDS: ESCITALOPRAM OXALATE (10 MG) 10 MG TABLET PO SCH (08:54)
[2020-07-20] MEDS: HYDROGEL DRESSING 90 GM TUBE TP SCH (08:54)
[2020-07-20] MEDS: PROSOURCE / PROSTAT (PYXIS) 30 ML UDC GT SCH ×3 (08:54→16:18)
[2020-07-20] MEDS: SIMETHICONE SUSP 40 MG/0.6 ML BOTTLE GT SCH ×4 (08:54→21:13)
[2020-07-20] MEDS: OLANZAPINE 5 MG TABLET PO SCH (08:54)
[2020-07-20] MEDS: PANTOPRAZOLE 40 MG/PACK PACK GT SCH ×2 (08:54→21:11)
[2020-07-20] MEDS: LORAZEPAM 1 MG TABLET PO SCH ×2 (08:54→16:19)
[2020-07-20] MEDS: NEOMY SULF/BACITRAC ZN/POLY 15 GM TUBE TP SCH ×2 (08:55→16:20)
[2020-07-20] MEDS: MINERAL OIL/PETROLATUM,WHITE 120 GM JAR TP SCH ×2 (08:55→16:19)
[2020-07-20] MEDS: APIXABAN 5 MG TABLET PO SCH ×2 (08:56→16:19)
[2020-07-20 12:00] VITALS: BP 120/77
[2020-07-20] MEDS ORDERED: OLANZAPINE 5 MG TABLET PO SCH (13:30)
[2020-07-20 16:00] VITALS: BP 160/92
--- NOTE | 2020-07-20 19:15 | NUR ---
RN NOTE RECEIVED PATIENT IN BED, ON SEMI METZ'S, AO X 4. PATIENT IN NO S/SX OF ACUTE DISTRESS AT THIS TIME. PATIENT ON TRACHE TO T-PIECE AT 10 LPM, TOLERATING WELL, SATURATION AT 100%. PATIENT ON TELE MONITOR READING SR, HR IS 85. NOTED BUBBA MIDLINE, PATENT AND FLUSHING WELL, NO S/S OF INFECTION. NOTED PLEUREVAC AT R UPPER CHEST, NO S/S OF INFECTION NOTED. GTUBE CLAMPED. ASPIRATION PRECAUTIONS MAINTAINED, SAFETY MEASURES IMPLEMENTED. PATIENT BED ALARM IS ON. HEAD OF BED ELEVATED. BED IS LOCKED, IN LOWEST POSITION AND SIDE RAILS UP. CALL LIGHT WITHIN REACH OF THE PATIENT. WILL CONTINUE TO MONITOR AND REASSESS FOR ANY CHANGES.
[2020-07-20 20:00] VITALS: BP 143/91
[2020-07-21] VITALS: BP 146/96
[2020-07-21 04:00] VITALS: BP 134/76
[2020-07-21] MEDS: BLOOD SUGAR DIAGNOSTIC 1 EACH STRIP IN SCH ×3 (05:59→17:33)
[2020-07-21 06:54] LABS: BASOPHILS % (AUTO) 0.6 % (0.0-2.0); EOSINOPHILS % (AUTO) 5.8 % (0.0-6.0); HEMATOCRIT 32 % (39-51); HEMOGLOBIN 10.1 g/dL (13.5-17.5); LYMPHOCYTES # (AUTO) 2.2 /CMM (0.8-4.8); LYMPHOCYTES % (AUTO) 37.5 % (20.0-44.0); MEAN CORPUSCULAR HGB CONC 32 g/dl (31.0-36.0); MEAN CORPUSCULAR VOLUME 87 fL (80-96); MONOCYTES # (AUTO) 0.5 /CMM (0.1-1.30); MONOCYTES % (AUTO) 8.7 % (2.0-12.0); NEUTROPHILS # (AUTO) 2.8 /CMM (1.8-8.9); NEUTROPHILS % (AUTO) 47.4 % (43.0-81.0); PLATELET COUNT (AUTO) 304 /CMM (150-450); RED BLOOD CELL COUNT(AUTO) 3.64 MIL/uL (4.5-6.0); WHITE BLOOD COUNT (AUTO) 5.8 K/uL (4.3-11.0)
[2020-07-21 07:31] LABS: CALCIUM, SERUM 8.9 mg/dL (8.5-10.1); CREATININE 0.7 mg/dL (0.6-1.3); POTASSIUM 3.6 mmol/L (3.5-5.1)
--- NOTE | 2020-07-21 07:50 | NUR ---
RN OPENING NOTE PATIENT IS IN BED WITH HOB AT SEMI FOWLERS POSITION. PATIENT IS AOX4. TPIECE IS IN PLACE WITH 10L NC WITH NO SIGNS OF LABORED BREATHING. BILATERAL HEEL DRYNESS, SACRAL DTI, AND PERINEAL REDNESS HAVE BEEN NOTED. BUBBA MIDLINE IS PATENT, INTACT, AND HAS NO SIGNS OF INFILTRATION. BED IS LOCKED IN THE LOWEST POSITION, 3 GUARD RAILS RAISED, CALL SOSA WITHIN REACH, AND ALL HOSPITAL SAFETY PRECAUTIONS ARE BEING FOLLOWED. WILL CONTINUE TO MONITOR THROUGHOUT SHIFT.
[2020-07-21 08:00] VITALS: BP 151/96
[2020-07-21] MEDS: PANTOPRAZOLE 40 MG/PACK PACK GT SCH ×2 (08:12→21:03)
[2020-07-21] MEDS: LORAZEPAM 1 MG TABLET PO SCH ×2 (08:12→16:25)
[2020-07-21] MEDS: APIXABAN 5 MG TABLET PO SCH ×2 (08:13→16:26)
[2020-07-21] MEDS: ESCITALOPRAM OXALATE (10 MG) 10 MG TABLET PO SCH (08:14)
[2020-07-21] MEDS: MINERAL OIL/PETROLATUM,WHITE 120 GM JAR TP SCH ×2 (08:30→16:29)
[2020-07-21] MEDS: SIMETHICONE SUSP 40 MG/0.6 ML BOTTLE GT SCH ×4 (08:30→21:05)
[2020-07-21] MEDS ORDERED: OLANZAPINE 5 MG TABLET PO SCH (09:00)
[2020-07-21] MEDS: NEOMY SULF/BACITRAC ZN/POLY 15 GM TUBE TP SCH ×2 (10:15→16:30)
[2020-07-21] MEDS: HYDROGEL DRESSING 90 GM TUBE TP SCH (10:15)
[2020-07-21] MEDS: PROSOURCE / PROSTAT (PYXIS) 30 ML UDC GT SCH ×3 (10:54→16:28)
--- NOTE | 2020-07-21 11:16 | NUR ---
RT NOTE PT WAS PLACED ON A TRACH CAP TRIAL AND PT DID NOT TOLERATE. PT SATURATION DROPPED TO 89% AND THE PT COMPLAINED ABOUT NOT BEING ABLE TO BREATHE , PT PLACED BACK ON CA 40% 10L. PT REMAINS COMFORTABLE WITHOUT SIGNS OF RESPIRATORY DISTRESS.
[2020-07-21 12:00] VITALS: BP 131/91
[2020-07-21 16:00] VITALS: BP 147/91
--- NOTE | 2020-07-21 18:52 | NUR ---
RN CLOSING NOTE PATIENT IS IN BED WITH HOB AT SEMI FOWLERS POSITION. PATIENT IS AOX4. TPIECE IS IN PLACE WITH 10L NC WITH NO SIGNS OF LABORED BREATHING CURRENTLY SATURATING 99%. BILATERAL HEEL DRYNESS, SACRAL DTI, AND PERINEAL REDNESS HAVE HAD APPROPRIATE CARE PERFORMED THROUGHOUT SHIFT. BUBBA MIDLINE IS PATENT, INTACT, AND HAS NO SIGNS OF INFILTRATION. RU CHEST PLEUREVAC AND PIGTAIL IS PRESENT. GTUBE IS PRESENT WITH NO SIGNS OF INFILTRATION. BED IS LOCKED IN THE LOWEST POSITION, 3 GUARD RAILS RAISED, CALL SOSA WITHIN REACH, AND ALL HOSPITAL SAFETY PRECAUTIONS ARE BEING FOLLOWED. WILL ENDORSE TO STITCH BONDING MACHINE TENDER HELPER RN.
--- NOTE | 2020-07-21 19:15 | NUR ---
RN NOTES: RECEIVED AWAKE ON BED, PLEASANT PERSONALITY A/OX3-4, CONVERSANT, ON TELE MONITOR SR-90 , WITH TRACH SHILEY 38, [id number], ON T-PIECE AT 10L/MIN,ORIENTED TO UNIT AND STAFF, CONTINENT BOTH BOWEL AND BLADDER, USES URINAL AT BEDSIDE, NOTED WITH VERY DRY SKIN ON BOTH HEELS, WITH CREAM APPLIED, RU CHEST PLEUREVAC AND PIGTAIL IS PRESENT. BUBBA MIDLINE PATENT, GTUBE IN PLACE, CLAMPED. ON MECHANICAL SOFT DIET, TOLERATED.ASPIRATION PRECAUTION OBSERVED. -PER ENDORSEMENT RT TRIED WEANING HIM OFF TODAY AROUND 10AM BUT UNABLE TO TOLERATE HE DESATURATED. -WILL CONTINUE TO MONITOR.
[2020-07-21 20:00] VITALS: BP 158/81
--- NOTE | 2020-07-21 21:06 | NUR ---
RN NOTES: DUE FOR AT 2100 FOR SIMITHICONE 80MG/1.2ML SUSPENSION UNABLE TO SCAN, MANUALLY ENTERED THE BARCODE.MEDICATION GIVEN, ASPIRATION PRECAUTION OBSERVED.
[2020-07-22] VITALS: BP 144/85
[2020-07-22] MEDS: BLOOD SUGAR DIAGNOSTIC 1 EACH STRIP IN SCH ×5 (00:53→23:41)
--- NOTE | 2020-07-22 02:22 | NUR ---
RN NOTES: MORNING CARE RENDERED AT AROUND 2300, SPONGE BATH RENDERED, EXPRESS HIS GRATITUDE HE WAS VERY THANKFUL.KEPT IN COMFORTABLE POSITION.
[2020-07-22 04:00] VITALS: BP 143/86
--- NOTE | 2020-07-22 05:13 | NUR ---
RN NOTES: ABLE TO SLEEP AT SHORT INTERVALS, AROUND 0445 AWAKE, HE HAD A SMALL BM OF FORMED STOOL,CLEAN AND CHANGE, THEN HE GO BACK TO SLEEP AFTER HE WAS REPOSITION.
--- NOTE | 2020-07-22 05:57 | NUR ---
RN NOTES: BLOOD SUGAR CHECK-87, NO INSULIN GIVEN, WILL CONTINUE TO MONITOR FOR SIGN OF HYPER/HYPOGLYCEMIA.
[2020-07-22] MEDS: INSULIN REGULAR, HUMAN 100 UNIT/ML 3 ML VIAL SQ PRN (05:58)
--- NOTE | 2020-07-22 06:49 | NUR ---
RN NOTES: TRYING HIS BEST TO COMMUNICATE WITH NURSES, HE EXPRESS HIS GRATITUDE AFTER HE WAS CLEANED, HAD ANOTHER SMALL AMOUNT OF BM-FORMED STOOL,TURNING AND SUCTIONING DONE,KEPT IN SEMI FOWLERS POSITION,KEPT CALL LIGHT WITHIN EASY REACH, ENCOURAGE TO PARTICIPATE IN HIS REHAB PROGRAM FOR HIS FASTER RECOVERY, VERY COOPERATIVE, HE LOOKS HAPPY THIS MORNING, SMILING AND SHARING STORY ABOUT HIS RECOVERY.ADEQUATE URINE OUTPUT, ENCOURAGE TO DRINK TOLERATED.FALL.SAFETY PRECAUTION OBSERVED. ENDORSED FOR CONTINUITY OF CARE.
[2020-07-22 08:00] VITALS: BP 142/93
[2020-07-22] MEDS: PANTOPRAZOLE 40 MG/PACK PACK GT SCH ×2 (08:33→21:01)
[2020-07-22] MEDS: ESCITALOPRAM OXALATE (10 MG) 10 MG TABLET PO SCH (08:33)
[2020-07-22] MEDS: LORAZEPAM 1 MG TABLET PO SCH ×2 (08:33→17:31)
[2020-07-22] MEDS: MINERAL OIL/PETROLATUM,WHITE 120 GM JAR TP SCH ×2 (08:34→17:31)
[2020-07-22] MEDS: NEOMY SULF/BACITRAC ZN/POLY 15 GM TUBE TP SCH ×2 (08:34→17:39)
[2020-07-22] MEDS: HYDROGEL DRESSING 90 GM TUBE TP SCH (08:34)
[2020-07-22] MEDS: APIXABAN 5 MG TABLET PO SCH ×2 (08:43→17:32)
[2020-07-22] MEDS: SIMETHICONE SUSP 40 MG/0.6 ML BOTTLE GT SCH ×4 (08:44→21:01)
[2020-07-22] MEDS: MAGNESIUM HYDROXIDE 30 ML UDC NG PRN (08:47)
[2020-07-22] MEDS: PROSOURCE / PROSTAT (PYXIS) 30 ML UDC GT SCH ×3 (09:00→17:31)
--- NOTE | 2020-07-22 09:10 | NUR ---
RT NOTE: PATIENT'S TRACH WAS CHANGED TO A SHILEY #6 FENESTRATED TRACH PER MD ORDER. NO REDNESS AND SMALL AMOUNT OF BLOOD NOTED. PATIENT TOLERATED WELL BUT IS ANXIOUS AT THIS TIME. PATIENT PLACED BACK ON 40% COOL AEROSOL AND AGREES TO TRY SPECIALIZED LANGUAGE INSTRUCTOR LATER. [id number] NURSE NOTIFIED.
--- NOTE | 2020-07-22 11:00 | NUR ---
RT NOTE DEAN OF INSTRUCTION PLACED ON PATIENT'S TRACH WITH NASAL CANNULA AT 2 LPM. PATIENT IS TOLERATING WELL. WILL CONTINUE TO MONITOR.
[2020-07-22 12:00] VITALS: BP 150/96
--- NOTE | 2020-07-22 14:21 | NUR ---
discharge pending per cm need pcr as requirements by snf,md aware,patient just swab for rapid test and requested to be swab for PCR TONITE, explained the necessity of pcr test result for his placement,agreed to have it DONE tonite ,will endorse to night RN.
[2020-07-22 16:00] VITALS: BP 140/94
--- NOTE | 2020-07-22 17:23 | NUR ---
PATIENT AGREED FOR PCR SWAB,SPECIMEN SEND TO LAB.
--- NOTE | 2020-07-22 19:30 | NUR ---
RN NOTES RECEIVED PT IN BED, ALERT AND ORIENTED X4. EATING AND TALKING TO HIS ON THE PHONE. ON O2 VIA NC AT 2LPM. TRACH CAPPED. NOT IN ANY DISTRESS. PT O2 SAT AT 96%. DENIES ANY SOB OR PAIN. PT WITH CHEST TUBE PIGTAIL, CLAMPED. DRESSING CLEAN DRY AND INTACT. BUBBA MIDLINE PATENT AND INTACT. NO SIGNS OF INFECTION NOTED. ALL SAFETY MEASURES IMPLEMENTED PER PROTOCOL, CALL LIGHT WITHIN REACH, BED LOCKED IN LOWEST POSITION. SIDE RAILS UP X 2.
[2020-07-22 20:00] VITALS: BP 134/94
--- NOTE | 2020-07-22 20:00 | NUR ---
RN NOTE RT UNCAPPED PTS TRACH, PUT ON TPIECE ON 5L, 28%. PT TOLERATING. NO SIGNS OF DISTRESS NOTED. O2 SAT AT 97%. WILL CONTINUE TO MONITOR.
--- NOTE | 2020-07-22 21:10 | NUR ---
RN NOTE PT PEGTUBE PATENT AND IN PLACE, AUSCULTATED. ALL DUE MEDS WERE GIVEN VIA GT.
[2020-07-23 04:00] VITALS: BP 150/99
[2020-07-23] MEDS: BLOOD SUGAR DIAGNOSTIC 1 EACH STRIP IN SCH ×3 (06:10→17:59)
--- NOTE | 2020-07-23 06:50 | NUR ---
RN NOTE PT CONTINUE ON TPIECE AT 5LPM. TOLERATING, NO SIGNS OF DISTRESS NOTED. SUCTIONED NEEDED. PT ABLE TO MAKE NEEDS KNOWN. NEEDS ATTENDED. PT DENIES ANY PAIN. WOUND TX DONE ORDERED NO SIGNS OF INFECTION NOTED. REPOSITIONED Q2H. PT BLOOD SUGAR WAS 97. NO INSULIN GIVEN. ALL SAFETY PRECAUTIONS MAINTAINED. CALL LIGHT WITHIN REACH AT ALL TIMES.
--- NOTE | 2020-07-23 07:45 | NUR ---
RN OPENING NOTE PATIENT IS IN BED WITH HOB AT SEMI FOWLERS POSITION. TPIECE IS IN PLACE RUNNING 5L NC WITH NO SIGNS OF LABORED BREATHING. PATIENT IS AOX4. BUBBA MIDLINE IS PATENT, INTACT, AND HAS NO SIGNS OF INFILTRATION. GTUBE IS CLAMPED RIGHT UPPER CHEST PIGTAIL IS NOTED. BILATERAL HEEL DRYNESS AND SACRAL OPEN WOUND HAVE BEEN NOTED. BED IS LOCKED IN THE LOWEST POSITION, 3 GUARD RAILS RAISED, CALL SOSA WITHIN REACH, AND ALL HOSPITAL SAFETY PRECAUTIONS ARE BEING FOLLOWED. WILL CONTINUE TO MONITOR THROUGHOUT SHIFT.
--- NOTE | 2020-07-23 08:05 | NUR ---
attached acute care registered nurse with trach cuff deflated and placed into 2 lpm o2 flow via nasal cannula. spo2 94 - 96% no increase work of breathing noted. Addendum: 07/23/20 at 0806 by MARIPOSA NAVA RT Amended: Links added.
[2020-07-23] MEDS: ESCITALOPRAM OXALATE (10 MG) 10 MG TABLET PO SCH (08:27)
[2020-07-23] MEDS: PANTOPRAZOLE 40 MG/PACK PACK GT SCH ×2 (08:27→20:21)
[2020-07-23] MEDS: LORAZEPAM 1 MG TABLET PO SCH ×2 (08:27→17:01)
[2020-07-23] MEDS: PROSOURCE / PROSTAT (PYXIS) 30 ML UDC GT SCH ×3 (08:29→17:59)
[2020-07-23] MEDS: APIXABAN 5 MG TABLET PO SCH ×2 (08:30→17:02)
[2020-07-23] MEDS: MINERAL OIL/PETROLATUM,WHITE 120 GM JAR TP SCH ×2 (08:39→17:00)
[2020-07-23] MEDS: SIMETHICONE SUSP 40 MG/0.6 ML BOTTLE GT SCH ×4 (08:39→20:21)
[2020-07-23] MEDS: HYDROGEL DRESSING 90 GM TUBE TP SCH (08:39)
[2020-07-23] MEDS: NEOMY SULF/BACITRAC ZN/POLY 15 GM TUBE TP SCH ×2 (08:39→17:59)
--- NOTE | 2020-07-23 08:40 | NUR ---
FLIGHT SOFTWARE TEST ENGINEER NOTE PATIENT REFUSED EUCERIN CREAM. EDUCATED PATIENT ON IMPORTANCE OF APPLICATION.
[2020-07-23 12:00] VITALS: BP 149/94
[2020-07-23] MEDS: MAGNESIUM HYDROXIDE 30 ML UDC NG PRN ×2 (13:26→13:31)
--- NOTE | 2020-07-23 19:30 | NUR ---
RN NOTES RECEIVED PT IN BED, ALERT AND ORIENTED X4. ON O2 VIA NC AT 2LPM. TRACH CAPPED. NO RESP DISTRESS NOTED. PT O2 SAT AT 97%. DENIES ANY SOB OR PAIN. PT WITH CHEST TUBE PIGTAIL, CLAMPED. PEG TUBE IN PLACE. DRESSING CLEAN DRY AND INTACT. BUBBA MIDLINE PATENT AND INTACT. NO SIGNS OF INFECTION NOTED. ALL SAFETY MEASURES IMPLEMENTED PER PROTOCOL, CALL LIGHT WITHIN REACH, BED LOCKED IN LOWEST POSITION. SIDE RAILS UP X 2.
--- NOTE | 2020-07-23 19:30 | NUR ---
RN CLOSING NOTE PATIENT IS IN BED WITH HOB AT SEMI FOWLERS POSITION. TPIECE IS IN PLACE RUNNING 2L WITH NO SIGNS OF LABORED BREATHING. PATIENT IS AOX4. BUBBA MIDLINE IS PATENT, INTACT, AND HAS NO SIGNS OF INFILTRATION. GTUBE IS CLAMPED RIGHT UPPER CHEST PIGTAIL IS NOTED. WASTEWATER SUPERINTENDENT NURSE MADE AWARE OF POTENTIAL CHEST TUBE REMOVAL IN AM. BILATERAL HEEL DRYNESS AND SACRAL OPEN WOUND HAVE BEEN NOTED. BED IS LOCKED IN THE LOWEST POSITION, 3 GUARD RAILS RAISED, CALL SOSA WITHIN REACH, AND ALL HOSPITAL SAFETY PRECAUTIONS ARE BEING FOLLOWED. WILL ENDORSE TO WASTEWATER SUPERINTENDENT RN.
[2020-07-23 20:00] VITALS: BP 144/94
--- NOTE | 2020-07-23 20:05 | NUR ---
RN NOTE RT UNCAPPED PTS TRACH, PUT ON TPIECE ON 5L, 28%. PT TOLERATING. NO SIGNS OF DISTRESS NOTED. O2 SAT AT 98%. WILL CONTINUE TO MONITOR.
[2020-07-24] MEDS: BLOOD SUGAR DIAGNOSTIC 1 EACH STRIP IN SCH ×5 (00:13→23:28)
[2020-07-24] MEDS: INSULIN REGULAR, HUMAN 100 UNIT/ML 3 ML VIAL SQ PRN ×4 (00:15→23:30)
--- NOTE | 2020-07-24 00:15 | NUR ---
rn note fsbs at 109. no insulin given.
[2020-07-24 04:00] VITALS: BP 148/101
--- NOTE | 2020-07-24 07:09 | NUR ---
RN CLOSING NOTES PT W/ TRACH ON TPIECE AT 5LPM. TOLERATING, NO SIGNS OF DISTRESS NOTED. SUCTIONED NEEDED. PIGTAIL SECURED. DRESSING INTACT. PT ABLE TO MAKE NEEDS KNOWN, NEEDS ATTENDED. PT DENIES ANY PAIN AT THIS TIME. MIDLINE REMAIN PATENT AND INTACT. PT BLOOD SUGAR WAS 103, NO INSULIN GIVEN. REPOSITIONED Q2H. WOUND TX DONE ORDERED. ALL SAFETY MEASURES MAINTAINED. CALL LIGHT WITHIN REACH AT ALL TIMES. WILL ENDORSE TO NEXT SHIFT NURSE FOR ROSELINE.
--- NOTE | 2020-07-24 07:20 | NUR ---
RN OPENING NOTE RECEIVED PT IN BED. AWAKE, A/O X4. TPIECE IN PLACE WITH 5L O2 SATING @99%. NO SOB OR ANY SIGNS OF RESPIRATORY DISTRESS. BUBBA MIDLINE INTACT, PATENT AND FLUSHED. GTUBE IS CLAMPED. RIGHT UPPER CHEST PIGTAIL NOTED. BILATERAL HEEL DRYNESS AND SACRAL OPEN WOUND NOTED. ALL SAFETY PRECAUTIONS IN PLACE. CALL LIGHT WITHIN REACH. BED LOCKED AND IN LOWEST POSITION WITH SIDE RAILS UP X3. WILL CONTINUE TO MONITOR.
--- NOTE | 2020-07-24 07:52 | NUR ---
On trach plugged with trach cuff deflated and placed into 2 lpm o2 flow via nasal cannula. spo2 98-99% RR 18 - 20 BPM HR 105 - 108 bpm Addendum: 07/24/20 at 0758 by MARIPOSA NAVA RT Amended: Links added.
[2020-07-24] MEDS: SIMETHICONE SUSP 40 MG/0.6 ML BOTTLE GT SCH ×4 (09:28→20:04)
[2020-07-24] MEDS: PANTOPRAZOLE 40 MG/PACK PACK GT SCH ×2 (09:28→20:04)
[2020-07-24] MEDS: ESCITALOPRAM OXALATE (10 MG) 10 MG TABLET PO SCH (09:28)
[2020-07-24] MEDS: LORAZEPAM 1 MG TABLET PO SCH (09:28)
[2020-07-24] MEDS: MINERAL OIL/PETROLATUM,WHITE 120 GM JAR TP SCH ×2 (09:31→17:33)
[2020-07-24] MEDS: NEOMY SULF/BACITRAC ZN/POLY 15 GM TUBE TP SCH ×2 (09:31→17:33)
[2020-07-24] MEDS: APIXABAN 5 MG TABLET PO SCH ×2 (09:31→17:33)
[2020-07-24] MEDS: HYDROGEL DRESSING 90 GM TUBE TP SCH (09:31)
[2020-07-24] MEDS: PROSOURCE / PROSTAT (PYXIS) 30 ML UDC GT SCH ×3 (09:31→17:33)
[2020-07-24 12:00] VITALS: BP 146/99
--- NOTE | 2020-07-24 12:42 | NUR ---
RN NOTES BLOOD SUGAR OF 122, NO INSULIN COVERAGE.
[2020-07-24] MEDS: LORAZEPAM 0.5 MG TABLET PO SCH (17:31)
--- NOTE | 2020-07-24 19:10 | NUR ---
RN OPENING NOTE RECEIVED PATIENT IN BED RESTING ALERT ORIENTED X4 VERBALLY RESPONSIVE ABLE TO MAKE NEEDS KNOWN,ON SHILEY T-PIECE 5L OXYGEN FIO2:28% O2:96% IV SITE IS ON RIGHT UPPER ARM MIDLINE INTACT PATENT CONTINENT TO BOWEL/BLADER,ON G-TUBE CLAMPED,CALL LIGHT WITHIN REACH,BED IN LOW POSITION AND LOCKED,HEAD OF BED ELEVATED,SAFETY MEASURE IMPLEMENT,CONTINUE TO MONITOR.
--- NOTE | 2020-07-24 19:38 | NUR ---
RN CLOSING NOTES PT RESTING IN BED. NO SIGNIFICANT CHANGES THROUGHOUT THE SHIFT. NEEDS ATTENDED, ALL DUE MEDS GIVEN. SAFETY MEASURES IN PLACE. WILL ENDORSE TO NIGHT NURSE FOR ROSELINE.
[2020-07-24 20:00] VITALS: BP 144/89
--- NOTE | 2020-07-24 23:32 | NUR ---
RN NOTE BLOOD SUGAR 94 NOT COVERAGE INSULIN SLIDING SCALE CONTINUE TO MONITOR.
[2020-07-25 04:00] VITALS: BP 151/88
--- NOTE | 2020-07-25 05:00 | NUR ---
RN NOTE PATIENT REFUSED TO BE CHANGED AND REFUSED TO HAVE WOUND TREATMENT EXPLAINED RISKS,HE STILL REFUSED,CONTINUE TO MONITOR.
[2020-07-25] MEDS: INSULIN REGULAR, HUMAN 100 UNIT/ML 3 ML VIAL SQ PRN (05:43)
[2020-07-25] MEDS: BLOOD SUGAR DIAGNOSTIC 1 EACH STRIP IN SCH ×3 (05:43→17:50)
--- NOTE | 2020-07-25 06:00 | NUR ---
RN NOTE BLOOD SUGAR IS 91 NOT COVERAGE INSULIN SLIDING SCALE CONTINUE TO MONITOR.
[2020-07-25 06:24] LABS: BASOPHILS % (AUTO) 0.5 % (0.0-2.0); EOSINOPHILS % (AUTO) 3.2 % (0.0-6.0); HEMATOCRIT 35 % (39-51); LYMPHOCYTES # (AUTO) 2.3 /CMM (0.8-4.8); LYMPHOCYTES % (AUTO) 41.1 % (20.0-44.0); MEAN CORPUSCULAR HGB CONC 32 g/dl (31.0-36.0); MEAN CORPUSCULAR VOLUME 86 fL (80-96); MONOCYTES # (AUTO) 0.5 /CMM (0.1-1.30); MONOCYTES % (AUTO) 9.7 % (2.0-12.0); NEUTROPHILS # (AUTO) 2.6 /CMM (1.8-8.9); NEUTROPHILS % (AUTO) 45.5 % (43.0-81.0); PLATELET COUNT (AUTO) 303 /CMM (150-450); RED BLOOD CELL COUNT(AUTO) 4.02 MIL/uL (4.5-6.0); WHITE BLOOD COUNT (AUTO) 5.6 K/uL (4.3-11.0)
[2020-07-25 06:55] LABS: CREATININE 0.8 mg/dL (0.6-1.3); POTASSIUM 3.6 mmol/L (3.5-5.1)
--- NOTE | 2020-07-25 07:11 | NUR ---
RN CLOSING NOTE PATIENT REMAINS ON ALERT ORIENTED X4 NO SOB NOT ACUTE DISTRESS NOTED,ON TRACH T PIECE CRISTALLEY #6 O2:99% IV SITE RIGHT UPPER ARM MIDLINE INTACT PATENT ALL DUE MEDS GIVEN MD ORDERED KEPT CALL LIGHT WITHIN REACH,ENDORSE MORNING SHIFT FOR CONTINUATION OF CARE
--- NOTE | 2020-07-25 07:50 | NUR ---
RN OPENING NOTE PATIENT IS IN BED WITH HOB AT SEMIFOWLERS POSITION. PATIENT IS ON 2L VIA TRACH AND HAS NO SIGNS OF LABORED BREATHING. PATIENT IS AOX3. SACRAL OPEN WOUND, BILATERAL HEEL DRYNESS HAVE BEEN NOTED. BUBBA MIDLINE IS PATENT, INTACT, AND HAS NO SIGNS OF INFILTRATION. GTUBE IS IN PLACE AND CLAMPED. BED IS LOCKED IN THE LOWEST POSITION, 3 GUARD RAILS RAISED, CALL SOSA WITHIN REACH AND ALL HOSPITAL SAFETY PRECAUTIONS ARE BEING FOLLOWED. WILL CONTINUE TO MONITOR THROUGHOUT SHIFT.
[2020-07-25 08:00] VITALS: BP 149/96
--- NOTE | 2020-07-25 08:10 | NUR ---
RT CAPPED PT AND PLACED ON 2L VIA NC PER MD ORDER. NO SOB OR RESP DISTRESS. WILL CONTINUE TO MONITOR T/O SHIFT.
[2020-07-25] MEDS: ESCITALOPRAM OXALATE (10 MG) 10 MG TABLET PO SCH (08:50)
[2020-07-25] MEDS: LORAZEPAM 0.5 MG TABLET PO SCH ×2 (08:50→16:51)
[2020-07-25] MEDS: SIMETHICONE SUSP 40 MG/0.6 ML BOTTLE GT SCH ×4 (08:51→20:18)
[2020-07-25] MEDS: PANTOPRAZOLE 40 MG/PACK PACK GT SCH ×2 (08:51→20:18)
[2020-07-25] MEDS: APIXABAN 5 MG TABLET PO SCH ×2 (08:52→16:52)
[2020-07-25] MEDS: PROSOURCE / PROSTAT (PYXIS) 30 ML UDC GT SCH ×3 (08:53→17:50)
[2020-07-25] MEDS: MINERAL OIL/PETROLATUM,WHITE 120 GM JAR TP SCH ×2 (09:00→17:00)
[2020-07-25] MEDS: NEOMY SULF/BACITRAC ZN/POLY 15 GM TUBE TP SCH ×2 (09:02→17:44)
[2020-07-25] MEDS: HYDROGEL DRESSING 90 GM TUBE TP SCH (09:02)
[2020-07-25 12:00] VITALS: BP_SYST 141; BP_SYST 149; BP_DIAS 94; BP_DIAS 96
--- NOTE | 2020-07-25 19:12 | NUR ---
RN CLOSING NOTE PATIENT IS IN BED WITH HOB AT SEMIFOWLERS POSITION. PATIENT IS ON 2L VIA TRACH/NC AND HAS NO SIGNS OF LABORED BREATHING. PATIENT IS AOX3. SACRAL OPEN WOUND, BILATERAL HEEL DRYNESS HAVE BEEN NOTED. BUBBA MIDLINE IS PATENT, INTACT, AND HAS NO SIGNS OF INFILTRATION. GTUBE IS IN PLACE AND CLAMPED. ALL DUE MEDS GIVEN AND PATIENT REMAINED STABLE THROUGHOUT SHIFT. BED IS LOCKED IN THE LOWEST POSITION, 3 GUARD RAILS RAISED, CALL SOSA WITHIN REACH AND ALL HOSPITAL SAFETY PRECAUTIONS ARE BEING FOLLOWED. WILL ENDORSE TO SEARCH ENGINE OPTIMIZATION SPECIALIST RN.
--- NOTE | 2020-07-25 19:50 | NUR ---
RN NOTE RECEIVED PT IN BED, PT IS A//A/O X3, PT IS ON 2 L VIA NC SATING 97%, PT HAS UNLABORED BREATHING . PT HAS G TUBE CLAMPED. CHECKED FOR PLACEMENT. SAFETY MEASURES IN PLACE.
[2020-07-25 20:00] VITALS: BP 139/88
[2020-07-26] MEDS: BLOOD SUGAR DIAGNOSTIC 1 EACH STRIP IN SCH ×5 (00:09→23:44)
[2020-07-26 04:00] VITALS: BP 134/90
[2020-07-26 06:40] LABS: BASOPHILS % (AUTO) 0.5 % (0.0-2.0); EOSINOPHILS % (AUTO) 0.3 % (0.0-6.0); HEMATOCRIT 34 % (39-51); HEMOGLOBIN 10.8 g/dL (13.5-17.5); LYMPHOCYTES # (AUTO) 0.6 /CMM (0.8-4.8); LYMPHOCYTES % (AUTO) 9.2 % (20.0-44.0); MEAN CORPUSCULAR HGB CONC 32 g/dl (31.0-36.0); MEAN CORPUSCULAR VOLUME 85 fL (80-96); MONOCYTES # (AUTO) 0.4 /CMM (0.1-1.30); MONOCYTES % (AUTO) 5.5 % (2.0-12.0); NEUTROPHILS # (AUTO) 5.8 /CMM (1.8-8.9); NEUTROPHILS % (AUTO) 84.5 % (43.0-81.0); PLATELET COUNT (AUTO) 298 /CMM (150-450); RED BLOOD CELL COUNT(AUTO) 3.93 MIL/uL (4.5-6.0); WHITE BLOOD COUNT (AUTO) 6.9 K/uL (4.3-11.0)
[2020-07-26 06:53] LABS: CALCIUM, SERUM 8.9 mg/dL (8.5-10.1); CREATININE 0.7 mg/dL (0.6-1.3); POTASSIUM 3.8 mmol/L (3.5-5.1)
--- NOTE | 2020-07-26 07:29 | NUR ---
RN NOTE REPORT GIVEN TO ONCOMING SHIFT FOR ROSELINE.
--- NOTE | 2020-07-26 07:47 | NUR ---
RT RECEIVED PT TRACH ON CA 28%. PER MD ORDER PLACE PT CAPPED. PT WAS PLACED ON 1L NC, PT TOLERATING WELL, NO SOB OR RESP DISTRESS NOTED. WILL CONTINUE TO MONITOR T.O SHIFT.
[2020-07-26] MEDS: PANTOPRAZOLE 40 MG/PACK PACK GT SCH ×2 (08:42→20:20)
[2020-07-26] MEDS: ESCITALOPRAM OXALATE (10 MG) 10 MG TABLET PO SCH (08:42)
[2020-07-26] MEDS: LORAZEPAM 0.5 MG TABLET PO SCH (08:43)
[2020-07-26] MEDS: APIXABAN 5 MG TABLET PO SCH ×2 (08:45→16:19)
[2020-07-26] MEDS: PROSOURCE / PROSTAT (PYXIS) 30 ML UDC GT SCH ×3 (08:47→16:19)
[2020-07-26] MEDS: SIMETHICONE SUSP 40 MG/0.6 ML BOTTLE GT SCH ×4 (08:47→20:20)
[2020-07-26] MEDS: NEOMY SULF/BACITRAC ZN/POLY 15 GM TUBE TP SCH ×2 (09:00→16:20)
[2020-07-26] MEDS: MINERAL OIL/PETROLATUM,WHITE 120 GM JAR TP SCH ×2 (09:00→16:20)
[2020-07-26] MEDS: HYDROGEL DRESSING 90 GM TUBE TP SCH (09:00)
[2020-07-26 12:00] VITALS: BP 134/90
--- NOTE | 2020-07-26 18:15 | NUR ---
RN NOTE PATIENT AAOX4, NO C/O PAIN/DISCOMFORTS. NASAL CANNULA @ 1L, SATURATION >95%, NO SOB NOR ACUTE DISTRESS. GTUBE PATENT/INTACT/CLAMPED & FLUSHED EASILY WITH 200CC Q6H. BUBBA MIDLINE INTACT. DRESSING CHANGE TO SACRUM DONE-NO S/S INFECTION, SURROUNDING TISSUE INTACT. BED LOW/LOCKED POSITION. CALL LIGHT AND ALL PERSONAL ITEMS WITHIN REACH. MONITORING ONGOING.
--- NOTE | 2020-07-26 19:18 | NUR ---
RN NOTE RECEIVED PATIENT AWAKE AND ALERT/ORIENTED X 4 IN BED IN HIGH METZ'S POSITION. TALKING TO FAMILY ON PHONE. CURRENTLY ON NASAL CANNULA @ 1L. RESPIRATIONS UNLABORED. DENIES PAIN OR DISCOMFORT. URINAL BED BEDSIDE REACHABLE. GT FLUSHED AND PATENT. CLAMPED. WITH RIGHT UPPER ARM MIDLINE PATENT AND FLUSHED WITHOUT COMPLICATIONS. RT AT BEDSIDE PLACING INNER CANNULA AND PUTTING PATIENT ON COOL AEROSOL, PLAN OF CARE DISCUSSED, CALL LIGHT WITHIN REACH, SAFETY MEASURES IN PLACE PER PROTOCOL, SIDE RAILS UP X 2, BED LOCKED AND IN LOW POSITION, WILL MONITOR AND CARRY OUT ACTIVE MD ORDERS.
[2020-07-26 20:00] VITALS: BP 138/89
--- NOTE | 2020-07-26 20:32 | NUR ---
RT PATIENT RECEIVED ON TRACH CAP WITH 1 L/M NASAL CANNULA. PLACED PATIENT ON 28% COOL AEROSOL VIA T-BAR PER MD ORDER. WILL CONTINUE TO MONITOR PATIENT THROUGHOUT THE SHIFT. Addendum: 07/26/20 at 2034 by MAXIME COLINDRES RT Amended: Links added.
--- NOTE | 2020-07-26 22:00 | NUR ---
RN NOTE COMPLETE BED BATH AND LINEN CHANGE COMPLETED, WOUND CARE RENDERED ORDERED, PT TOLERATED WELL.
--- NOTE | 2020-07-27 | NUR ---
RN NOTE PT REFUSED TO HAVE GT FLUSH OF 250CC OF WATER. CURRENT SODIUM LEVEL IS 138.
[2020-07-27 04:00] VITALS: BP 145/98
[2020-07-27] MEDS: BLOOD SUGAR DIAGNOSTIC 1 EACH STRIP IN SCH ×3 (05:15→17:23)
[2020-07-27 06:14] LABS: CALCIUM, SERUM 9.4 mg/dL (8.5-10.1); CREATININE 0.8 mg/dL (0.6-1.3); POTASSIUM 3.4 mmol/L (3.5-5.1)
[2020-07-27 06:15] LABS: BASOPHILS % (AUTO) 0.9 % (0.0-2.0); EOSINOPHILS % (AUTO) 4.8 % (0.0-6.0); HEMATOCRIT 33 % (39-51); HEMOGLOBIN 10.9 g/dL (13.5-17.5); LYMPHOCYTES # (AUTO) 1.8 /CMM (0.8-4.8); LYMPHOCYTES % (AUTO) 42.3 % (20.0-44.0); MEAN CORPUSCULAR HGB CONC 33 g/dl (31.0-36.0); MEAN CORPUSCULAR VOLUME 85 fL (80-96); MONOCYTES # (AUTO) 0.6 /CMM (0.1-1.30); MONOCYTES % (AUTO) 12.9 % (2.0-12.0); NEUTROPHILS # (AUTO) 1.7 /CMM (1.8-8.9); NEUTROPHILS % (AUTO) 39.1 % (43.0-81.0); PLATELET COUNT (AUTO) 274 /CMM (150-450); RED BLOOD CELL COUNT(AUTO) 3.92 MIL/uL (4.5-6.0); WHITE BLOOD COUNT (AUTO) 4.3 K/uL (4.3-11.0)
--- NOTE | 2020-07-27 06:56 | NUR ---
RN NOTE NO ACUTE CHANGES OBSERVED OVERNIGHT. PT CURRENTLY RESTING IN BED IN HIGH METZ'S POSITION. WITH TRACH PIECE CONNECTED TO COOL AEROSOL. IN NO APPARENT DISTRESS. WITH RIGHT UPPER ARM MIDLINE FLUSHING WELL WITHOUT COMPLICATIONS AT SITE. GT PATENT AND CLAMPED. CALL LIGHT WITHIN REACH, SAFETY MEASURES IN PLACE PER PROTOCOL, BED LOCKED AND IN LOW POSITION, SIDE RAILS UP X 2, BED ALARM ON, WILL ENDORSE TO MORNING RN FOR ROSELINE.
--- NOTE | 2020-07-27 07:35 | NUR ---
RT NOTE PT RECEIVED ON COOL AEROSOL @ 28%. 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 CONT. PULSE OX CONNECTED. SX DONE PRIOR TO SWITCH. NO DISTRESS NOTED. WILL CONTINUE TO MONITOR CLOSELY. Addendum: 07/27/20 at 0736 by ANTONI XIONG RT Amended: Links added.
[2020-07-27] MEDS: APIXABAN 5 MG TABLET PO SCH ×2 (08:40→16:43)
[2020-07-27] MEDS: ESCITALOPRAM OXALATE (10 MG) 10 MG TABLET PO SCH (08:40)
[2020-07-27] MEDS: POTASSIUM CL. PREMIX PERIPHER. 50 ML IV SCH ×2 (08:40→10:36)
[2020-07-27] MEDS: PANTOPRAZOLE 40 MG/PACK PACK GT SCH ×2 (08:40→21:37)
[2020-07-27] MEDS: PROSOURCE / PROSTAT (PYXIS) 30 ML UDC GT SCH ×3 (09:00→17:22)
[2020-07-27] MEDS: SIMETHICONE SUSP 40 MG/0.6 ML BOTTLE GT SCH ×4 (09:00→21:37)
[2020-07-27] MEDS: HYDROGEL DRESSING 90 GM TUBE TP SCH (09:00)
[2020-07-27] MEDS: NEOMY SULF/BACITRAC ZN/POLY 15 GM TUBE TP SCH ×2 (09:00→17:00)
[2020-07-27] MEDS: MINERAL OIL/PETROLATUM,WHITE 120 GM JAR TP SCH ×2 (09:00→17:00)
[2020-07-27 12:00] VITALS: BP 147/105
--- NOTE | 2020-07-27 19:06 | NUR ---
RN CLOSING NOTE PATIENT IS IN BED WITH HOB AT SEMIFOWLERS POSITION. PATIENT IS ON 2L VIA TRACH AND HAS NO SIGNS OF LABORED BREATHING. PATIENT IS AOX3. SACRAL OPEN WOUND, BILATERAL HEEL DRYNESS HAVE BEEN NOTED. BUBBA MIDLINE IS PATENT, INTACT, AND HAS NO SIGNS OF INFILTRATION. GTUBE IS IN PLACE AND CLAMPED. BED IS LOCKED IN THE LOWEST POSITION, 3 GUARD RAILS RAISED, CALL SOSA WITHIN REACH AND ALL HOSPITAL SAFETY PRECAUTIONS ARE BEING FOLLOWED. ALL NECESSARY MES GIVEN AND PATIENT REMAINED STABLE THROUGHOUT SHIFT. WILL ENDORSE TO [facility] ADMINISTRATOR RN.
[2020-07-27 20:00] VITALS: BP 131/93
--- NOTE | 2020-07-27 20:39 | NUR ---
ANAND/RN DURING INITIAL SHIFT ROUNDING, PATIENT WAS IN BED AWAKE, ALERT, ORIENTED, ON T PIECE CONNECTED TO WALL OXYGEN, NO DISTRESS NOTED, CALL LIGHT IN REACH, WILL MONITOR.
[2020-07-28] MEDS: BLOOD SUGAR DIAGNOSTIC 1 EACH STRIP IN SCH ×5 (01:04→23:01)
[2020-07-28 04:00] VITALS: BP 147/87
--- NOTE | 2020-07-28 06:00 | NUR ---
ANAND/RN ACCU CHECK NOT DONE, PATIENT IS NOT NPO, WILL ENDORSE TO DAY SHIFT RN FOR ACCU CHECK BEFORE BREAKFAST.
[2020-07-28 06:20] LABS: BASOPHILS % (AUTO) 0.5 % (0.0-2.0); EOSINOPHILS % (AUTO) 1.7 % (0.0-6.0); HEMATOCRIT 35 % (39-51); LYMPHOCYTES # (AUTO) 1.7 /CMM (0.8-4.8); MEAN CORPUSCULAR HGB CONC 32 g/dl (31.0-36.0); MEAN CORPUSCULAR VOLUME 85 fL (80-96); MONOCYTES # (AUTO) 0.5 /CMM (0.1-1.30); NEUTROPHILS % (AUTO) 46.8 % (43.0-81.0); PLATELET COUNT (AUTO) 289 /CMM (150-450); RED BLOOD CELL COUNT(AUTO) 4.04 MIL/uL (4.5-6.0); WHITE BLOOD COUNT (AUTO) 4.2 K/uL (4.3-11.0)
[2020-07-28 06:41] LABS: CALCIUM, SERUM 9.5 mg/dL (8.5-10.1); CREATININE 0.8 mg/dL (0.6-1.3); POTASSIUM 3.7 mmol/L (3.5-5.1)
--- NOTE | 2020-07-28 06:47 | NUR ---
ANAND/RN PATIENT IS AWAKE, ALERT, COMFORTABLE, NO C /O PAIN, NO DISTRESS NOTED, CALL LIGHT IN REACH, ALL NEEDS ATTENDED AT THIS TIME, WILL CONTINUE TO MONITOR.
--- NOTE | 2020-07-28 07:30 | NUR ---
RN OPENING NOTES Patient is alert and oriented. Patient is breathing even and unlabored. No s/s of respiratory distress. Noted with right upper arm midline. Patient received on cool aerosol 5 liters at 28% with 02 sat of 93%Bed is in lowest and locked position. Call light within reach.
[2020-07-28 08:00] VITALS: BP 137/90
--- NOTE | 2020-07-28 08:30 | NUR ---
RT changed patient's 02 delivery method to 2 liters of nasal cannula. Will be monitored. Call light within reach.
[2020-07-28] MEDS: PANTOPRAZOLE 40 MG/PACK PACK GT SCH ×2 (09:05→21:16)
[2020-07-28] MEDS: ESCITALOPRAM OXALATE (10 MG) 10 MG TABLET PO SCH (09:05)
[2020-07-28] MEDS: APIXABAN 5 MG TABLET PO SCH ×2 (09:07→17:36)
[2020-07-28] MEDS: MINERAL OIL/PETROLATUM,WHITE 120 GM JAR TP SCH ×2 (09:08→17:41)
[2020-07-28] MEDS: PROSOURCE / PROSTAT (PYXIS) 30 ML UDC GT SCH ×3 (09:08→17:48)
[2020-07-28] MEDS: HYDROGEL DRESSING 90 GM TUBE TP SCH (09:08)
[2020-07-28] MEDS: NEOMY SULF/BACITRAC ZN/POLY 15 GM TUBE TP SCH ×2 (09:09→17:42)
[2020-07-28] MEDS: SIMETHICONE SUSP 40 MG/0.6 ML BOTTLE GT SCH ×4 (10:47→21:16)
[2020-07-28] MEDS: INSULIN REGULAR, HUMAN 100 UNIT/ML 3 ML VIAL SQ PRN ×2 (12:27→18:00)
[2020-07-28 16:00] VITALS: BP 133/81
--- NOTE | 2020-07-28 19:10 | NUR ---
RN CLOSING NOTES Patient is alert and oriented. Patient is breathing even and unlabored. No s/s of respiratory distress. Noted with right upper arm midline. On 2 liters 02 via nc with 02 sat of 93%. GTUBE patent and intact and in place. Flushed with 100 cc of water. Head of the bed kept elevated. Bed is in lowest and locked position. Call light within reach. Will endorse to next shift for ROSELINE.
[2020-07-28 20:00] VITALS: BP 133/97
[2020-07-29 04:00] VITALS: BP 133/94
[2020-07-29] MEDS: BLOOD SUGAR DIAGNOSTIC 1 EACH STRIP IN SCH ×4 (05:48→23:20)
[2020-07-29 06:29] LABS: BASOPHILS % (AUTO) 0.2 % (0.0-2.0); HEMATOCRIT 35 % (39-51); HEMOGLOBIN 11.1 g/dL (13.5-17.5); LYMPHOCYTES # (AUTO) 0.7 /CMM (0.8-4.8); LYMPHOCYTES % (AUTO) 6.5 % (20.0-44.0); MEAN CORPUSCULAR HGB CONC 32 g/dl (31.0-36.0); MEAN CORPUSCULAR VOLUME 84 fL (80-96); MONOCYTES # (AUTO) 0.6 /CMM (0.1-1.30); MONOCYTES % (AUTO) 5.2 % (2.0-12.0); NEUTROPHILS # (AUTO) 9.8 /CMM (1.8-8.9); NEUTROPHILS % (AUTO) 88.1 % (43.0-81.0); PLATELET COUNT (AUTO) 294 /CMM (150-450); RED BLOOD CELL COUNT(AUTO) 4.14 MIL/uL (4.5-6.0); WHITE BLOOD COUNT (AUTO) 11.2 K/uL (4.3-11.0)
[2020-07-29 06:31] LABS: CALCIUM, SERUM 8.7 mg/dL (8.5-10.1); CREATININE 0.7 mg/dL (0.6-1.3); POTASSIUM 3.7 mmol/L (3.5-5.1)
--- NOTE | 2020-07-29 07:30 | NUR ---
RN OPENING NOTES Patient is alert and oriented. Patient is breathing even and unlabored. No s/s of respiratory distress. Noted with right upper arm midline. Patient received on cool aerosol with 02 sat of 95%.Bed is in lowest and locked position. Call light within reach.
--- NOTE | 2020-07-29 07:33 | NUR ---
pt. is awake and alert with trach plugged ON and placed into nasal cannula @ 2 lpm o2 flow as order. Addendum: 07/29/20 at 0737 by MARIPOSA NAVA RT Amended: Links added.
[2020-07-29 08:00] VITALS: BP 141/96
[2020-07-29] MEDS: PANTOPRAZOLE 40 MG/PACK PACK GT SCH ×2 (09:36→20:19)
[2020-07-29] MEDS: SIMETHICONE SUSP 40 MG/0.6 ML BOTTLE GT SCH ×4 (09:36→20:18)
[2020-07-29] MEDS: APIXABAN 5 MG TABLET PO SCH ×2 (09:37→17:26)
[2020-07-29] MEDS: ESCITALOPRAM OXALATE (10 MG) 10 MG TABLET PO SCH (09:37)
[2020-07-29] MEDS: MINERAL OIL/PETROLATUM,WHITE 120 GM JAR TP SCH ×2 (09:44→17:00)
[2020-07-29] MEDS: PROSOURCE / PROSTAT (PYXIS) 30 ML UDC GT SCH ×3 (09:46→17:00)
[2020-07-29] MEDS: HYDROGEL DRESSING 90 GM TUBE TP SCH (09:46)
[2020-07-29] MEDS: NEOMY SULF/BACITRAC ZN/POLY 15 GM TUBE TP SCH ×2 (09:47→17:00)
[2020-07-29 12:00] VITALS: BP 122/80
[2020-07-29] MEDS: INSULIN REGULAR, HUMAN 100 UNIT/ML 3 ML VIAL SQ PRN ×3 (12:28→23:21)
[2020-07-29 16:00] VITALS: BP 128/75
--- NOTE | 2020-07-29 18:35 | NUR ---
RN CLOSING NOTES Patient is alert and oriented. Patient is breathing even and unlabored. No s/s of respiratory distress. Noted with right upper arm midline. On 2 liters 02 via nc with 02 sat of 95%. Bed is in lowest and locked position. Call light within reach. Will endorse to next shift for ROSELINE.
--- NOTE | 2020-07-29 19:35 | NUR ---
RN opening notes Received Pt from morning nurse. Pt is resting in bed comfortably. Pt is alert and orientedX4. Respiration is normal in 2 L NC. No SOB. No S/s of distress noted. BUBBA midline is clean, intact, flushes well and SL. Gtube is clean, and clamped. Safety precautions is maintained. Bed at low position, brakes locked, hob elevated, side rails upX2 and call light is within reach. Will continue to monitor.
[2020-07-29 20:00] VITALS: BP 137/88
[2020-07-30 04:00] VITALS: BP 142/90
[2020-07-30] MEDS: BLOOD SUGAR DIAGNOSTIC 1 EACH STRIP IN SCH ×4 (05:21→23:28)
[2020-07-30] MEDS: INSULIN REGULAR, HUMAN 100 UNIT/ML 3 ML VIAL SQ PRN ×2 (05:22→23:30)
[2020-07-30 06:41] LABS: BASOPHILS % (AUTO) 0.6 % (0.0-2.0); EOSINOPHILS % (AUTO) 1.7 % (0.0-6.0); HEMATOCRIT 34 % (39-51); LYMPHOCYTES # (AUTO) 2.1 /CMM (0.8-4.8); MEAN CORPUSCULAR HGB CONC 32 g/dl (31.0-36.0); MEAN CORPUSCULAR VOLUME 85 fL (80-96); MONOCYTES # (AUTO) 0.5 /CMM (0.1-1.30); MONOCYTES % (AUTO) 10.1 % (2.0-12.0); NEUTROPHILS # (AUTO) 2.5 /CMM (1.8-8.9); NEUTROPHILS % (AUTO) 47.6 % (43.0-81.0); PLATELET COUNT (AUTO) 290 /CMM (150-450); RED BLOOD CELL COUNT(AUTO) 3.99 MIL/uL (4.5-6.0); WHITE BLOOD COUNT (AUTO) 5.2 K/uL (4.3-11.0)
--- NOTE | 2020-07-30 06:45 | NUR ---
RN closing notes Pt is resting in bed comfortably. Pt is alert and orientedX4. Respiration is normal on cool aerosol 5 L with O2 sat is 96%. No SOB. No S/s of distress noted. VS is stable. Afebrile. Routine meds were given as ordered. BUBBA midline is clean, intact, flushes well and SL. Gtube is clean, and clamped. Wound care provided as ordered. Safety precautions is maintained. Bed at low position, brakes locked, hob elevated, side rails upX2 and call light is within reach. Will endorse to morning nurse for ROSELINE.
[2020-07-30 07:02] LABS: CREATININE 0.7 mg/dL (0.6-1.3); POTASSIUM 3.6 mmol/L (3.5-5.1)
[2020-07-30] MEDS: ESCITALOPRAM OXALATE (10 MG) 10 MG TABLET PO SCH (08:50)
[2020-07-30] MEDS: PANTOPRAZOLE 40 MG/PACK PACK GT SCH ×2 (08:50→20:32)
[2020-07-30] MEDS: APIXABAN 5 MG TABLET PO SCH ×2 (08:51→16:42)
[2020-07-30] MEDS: PROSOURCE / PROSTAT (PYXIS) 30 ML UDC GT SCH ×3 (08:53→16:42)
[2020-07-30] MEDS: SIMETHICONE SUSP 40 MG/0.6 ML BOTTLE GT SCH ×4 (08:53→20:32)
[2020-07-30] MEDS: HYDROGEL DRESSING 90 GM TUBE TP SCH (09:02)
[2020-07-30] MEDS: MINERAL OIL/PETROLATUM,WHITE 120 GM JAR TP SCH ×2 (09:02→16:42)
[2020-07-30] MEDS: NEOMY SULF/BACITRAC ZN/POLY 15 GM TUBE TP SCH ×2 (09:02→16:42)
--- NOTE | 2020-07-30 09:30 | NUR ---
RT PER DR BO ORDER PATIENT WAS DECANNULATED AND REMAINS ON 1L NC FERNANDA WELL. NO SOB, PATIENT AWAKE, ALERT, TOLERATED WELL.
--- NOTE | 2020-07-30 09:44 | NUR ---
RN NOTE Trach removed by Gallo HIDALGO. Saturating 96% on 1L NC.
--- NOTE | 2020-07-30 11:02 | NUR ---
WOUND CARE FOLLOW UP: STAGE 3 SACRAL ULCER IMPROVING. RECOMMENDATIONS MADE FOR SKIN PROTECTION AND WOUND CARE. DISCUSSED WITH NURSING STAFF. MD IN AGREEMENT WITH PLAN OF CARE.
[2020-07-30 11:28] LABS: ABG BASE EXCESS 3.6 mmol/L; ABG OXYGEN SATURATION 96.3 % (92.0-98.5); ABG PCO2 41.8 mmHg (35.0-45.0); ABG PH 7.444 (7.350-7.450); ABG PO2 83.8 mmHg (75.0-100.0); AaDO2 37.6 mmHg; COHb 0.6 % (0.5-1.5); MetHb 0.2 % (0.0-1.5); O2Hb 95.5 % (94.0-97.0); SITE, ABG Right Radial; VENT MODE, BG 1L NC
--- NOTE | 2020-07-30 12:27 | NUR ---
RN NOTE Patient desaturates to 86% on room air at rest. Placed on 2.0L nasal cannula, saturating 93-95%.
[2020-07-30 16:00] VITALS: BP 143/102
[2020-07-30] MEDS: IV D5/0.45 NACL 1,000 ML IV PRN (17:31)
--- NOTE | 2020-07-30 18:16 | NUR ---
RN CLOSING NOTE Patient is A/Ox4, in no acute distress, saturating >95% on 2.0L NC. S/P decannulation and g-tube removal today. Patient tolerating well. NPO for [address] De Los Santos, D51/2 NS running @ 50mls/hr. Patient denies any pain or discomfort during shift. Safety measures in place, aspiration precautions in place, skin protection and wound care implemented. Call light is within reach, will endorse to shift supervisor melting for ROSELINE.
--- NOTE | 2020-07-30 19:20 | NUR ---
RN opening notes Received Pt from morning nurse. Pt is laying in bed comfortably talking to his on the phone. Pt is alert and orientedX4. Respiration is normal in 2 L NC with O2 sat is 100%. No SOB. No S/s of distress noted. BUBBA midline is clean, intact, flushes well and infusing well D5 1/2 NS@ 50 ml/hr. Per am nurse Pt had Gtube removed and S/P decannulation. Safety precautions is maintained. Bed at low position, brakes locked, hob elevated, urinal at the bedside, side rails upX2 and call light is within reach. Will continue to monitor.
[2020-07-30 20:00] VITALS: BP 136/96
[2020-07-30 22:40] VITALS: BP 134/88
--- NOTE | 2020-07-30 22:40 | NUR ---
2240 PATIENT WAS TRANSFERRED TO ROOM 315-2 VIA BED. PATIENT AWAKE AND VERBALLY RESPONSIVE. NO SIGNS OF DISTRESS WITH O2 SATURATION 99% ON 2L PER NC.
[2020-07-30 22:45] VITALS: BP 134/88
--- NOTE | 2020-07-30 23:00 | NUR ---
230 DR. STEPHENS MADE AWARE THAT PATIENT WAS MOVED TO CLEAN UNIT (3W) AND HE SAID OK TO MOVE PATIENT.
[2020-07-31] MEDS: BLOOD SUGAR DIAGNOSTIC 1 EACH STRIP IN SCH ×3 (05:17→17:14)
[2020-07-31] MEDS: INSULIN REGULAR, HUMAN 100 UNIT/ML 3 ML VIAL SQ PRN (05:19)
--- NOTE | 2020-07-31 06:50 | NUR ---
RN closing notes Pt is resting in bed comfortably. Pt is alert and orientedX4. Respiration is normal in 2 L NC with O2 sat is 99%. No SOB. No S/s of distress noted. VS is stable. Afebrile. BUBBA midline#18 is clean, intact, and infusing well D5 1/2 NS@ 50 ml/hr. Pt status is NPO. Wound care provided as ordered. Kept Pt clean, dry and comfortable. Safety precautions is maintained. Bed at low position, brakes locked, hob elevated, urinal at the bedside, side rails upX2 and call light is within reach. Will endorse to morning nurse for ROSELINE.
[2020-07-31 07:07] LABS: BASOPHILS % (AUTO) 0.5 % (0.0-2.0); EOSINOPHILS % (AUTO) 0.5 % (0.0-6.0); HEMATOCRIT 35 % (39-51); HEMOGLOBIN 11.5 g/dL (13.5-17.5); LYMPHOCYTES # (AUTO) 0.9 /CMM (0.8-4.8); LYMPHOCYTES % (AUTO) 13.8 % (20.0-44.0); MEAN CORPUSCULAR HGB CONC 33 g/dl (31.0-36.0); MEAN CORPUSCULAR VOLUME 85 fL (80-96); MONOCYTES # (AUTO) 0.4 /CMM (0.1-1.30); MONOCYTES % (AUTO) 5.7 % (2.0-12.0); NEUTROPHILS # (AUTO) 5.3 /CMM (1.8-8.9); NEUTROPHILS % (AUTO) 79.5 % (43.0-81.0); PLATELET COUNT (AUTO) 278 /CMM (150-450); RED BLOOD CELL COUNT(AUTO) 4.15 MIL/uL (4.5-6.0); WHITE BLOOD COUNT (AUTO) 6.7 K/uL (4.3-11.0)
[2020-07-31 07:25] LABS: CALCIUM, SERUM 9.1 mg/dL (8.5-10.1); CREATININE 0.7 mg/dL (0.6-1.3); POTASSIUM 3.5 mmol/L (3.5-5.1)
--- NOTE | 2020-07-31 07:45 | NUR ---
MS CAMPUZANO OPENING NOTE PT RECEIVED IN BED, RESTING, AROUSABLE AND RESPONSIVE. PT IS ON 2 LPM OXYGEN VIA NASAL CANNULA, TOLERATING WELL WITH NO S/SX OF RESPIRATORY DISTRESS OR SOB. PT HAS IV ACCESS ON RIGHT UPPER RONNIE G#18 RUNNING D5 1/2 NS AT 50 ML/HR, PATENT, INTACT AND FLUSHING WELL WITH NO S/SX OF INFECTION OR INFILTRATION. PT HAS A DRESSING ON STOMACH AND TRACH, BOTH DRESSINGS ARE CLEAN, DRY AND INTACT. SAFETY MEASURES IN PLACE: BED IN LOWEST POSITION AND LOCKED WITH BOTH UPPER SIDE RAILS UP X 2. WILL CONTINUE TO MONITOR. Addendum: 07/31/20 at 0935 by MELANIE MARCELINO RN PT IS A/O X 4 WITH NO C/O PAIN AT THIS TIME.
[2020-07-31 08:00] VITALS: BP 152/92
[2020-07-31] MEDS: PROSOURCE / PROSTAT (PYXIS) 30 ML UDC GT SCH ×3 (09:00→17:04)
[2020-07-31] MEDS: SIMETHICONE SUSP 40 MG/0.6 ML BOTTLE GT SCH ×4 (09:00→21:00)
[2020-07-31] MEDS: PANTOPRAZOLE 40 MG/PACK PACK GT SCH ×2 (09:00→21:30)
[2020-07-31] MEDS: ESCITALOPRAM OXALATE (10 MG) 10 MG TABLET PO SCH (09:00)
[2020-07-31] MEDS: APIXABAN 5 MG TABLET PO SCH ×2 (09:00→17:08)
[2020-07-31] MEDS: NEOMY SULF/BACITRAC ZN/POLY 15 GM TUBE TP SCH ×2 (09:22→17:00)
[2020-07-31] MEDS: HYDROGEL DRESSING 90 GM TUBE TP SCH (09:22)
[2020-07-31] MEDS: MINERAL OIL/PETROLATUM,WHITE 120 GM JAR TP SCH ×2 (09:22→17:00)
--- NOTE | 2020-07-31 09:25 | NUR ---
MS RN NOTE ALL 09:00 MEDICATIONS NOT GIVEN BECAUSE PT IS NPO AND PT HAS NO G-TUBE. WILL CONTINUE TO MONITOR.
--- NOTE | 2020-07-31 10:00 | NUR ---
MS RN NOTES RECEIVED PATIENT FOR ROSELINE; MEDICALLY STABLE
[2020-07-31 16:00] VITALS: BP 128/70
[2020-07-31] MEDS: IV D5/0.45 NACL 1,000 ML IV PRN (16:14)
[2020-07-31] MEDS: ACETAMINOPHEN 650 MG/20.3 ML UDC NG PRN (17:28)
--- NOTE | 2020-07-31 17:37 | NUR ---
MS RN NOTES PATIENT NOTED WITH SLIGHT FEVER OF 99.4PATIENT ASKING FOR MEDICATION. TYLENOL ADMINISTERED.
--- NOTE | 2020-07-31 18:48 | NUR ---
MS RN CLOSING NOTES; PATIENT REMAINS IN BED, AWAKE, RESTING, A/O X4. PT IS ON 3 LPM OXYGEN VIA NASAL CANNULA, TOLERATING WELL WITH NO S/SX OF RESPIRATORY DISTRESS OR SOB. PT HAS IV ACCESS ON RIGHT UPPER ARM G#18 RUNNING D5 1/2 NS AT 50 ML/HR, PATENT, INTACT AND FLUSHING WELL WITH NO S/SX OF INFECTION OR INFILTRATION. PT HAS A DRESSING ON STOMACH AND TRACH, BOTH DRESSINGS ARE CLEAN, DRY AND INTACT. ALL NEEDS ATTENDED THROUGHOUT THE DAY. SAFETY PRECAUTIONS IN PLACE; BED IN LOW POSITION AND LOCKED, RAILS UP X2, CALL LIGHT WITHIN REACH. WILL ENDORSE TO SCHEME TECHNICIAN NURSE.
--- NOTE | 2020-07-31 19:30 | NUR ---
MS/RN OPENING NOTES RECEIVED PATIENT IN BED RESTING. PATIENT IS ALERT AND ORIENTED X 4. PATIENT BREATHING IS EVEN AND UNLABORED. PATIENT SHOWS NO SIGNS OF SOB OR RESPIRATORY DISTRESS NOTED. IV ACCESS ON BUBBA INTACT FLUSHING WELL RUNNING D5 1/2 NS AT 50 CC/HR. SAFETY MEASURES ARE IN PLACE. BED IS LOCKED AND PLACED IN THE LOW POSITION. CALL LIGHT IS WITHIN REACH. WILL CONTINUE WITH PATIENT PLAN OF CARE.
[2020-07-31 21:08] VITALS: BP 114/70
[2020-08-01] MEDS: BLOOD SUGAR DIAGNOSTIC 1 EACH STRIP IN SCH ×4 (00:44→18:15)
[2020-08-01 06:22] LABS: BASOPHILS % (AUTO) 0.3 % (0.0-2.0); HEMATOCRIT 35 % (39-51); HEMOGLOBIN 11.5 g/dL (13.5-17.5); LYMPHOCYTES # (AUTO) 1.3 /CMM (0.8-4.8); LYMPHOCYTES % (AUTO) 14.8 % (20.0-44.0); MEAN CORPUSCULAR HGB CONC 33 g/dl (31.0-36.0); MEAN CORPUSCULAR VOLUME 84 fL (80-96); MONOCYTES % (AUTO) 11.3 % (2.0-12.0); NEUTROPHILS # (AUTO) 6.4 /CMM (1.8-8.9); NEUTROPHILS % (AUTO) 73.6 % (43.0-81.0); PLATELET COUNT (AUTO) 167 /CMM (150-450); RED BLOOD CELL COUNT(AUTO) 4.19 MIL/uL (4.5-6.0); WHITE BLOOD COUNT (AUTO) 8.8 K/uL (4.3-11.0)
--- NOTE | 2020-08-01 06:45 | NUR ---
MS/RN CLOSING NOTES PATIENT IN BED RESTING. PATIENT IS ALERT AND ORIENTED X 4. PATIENT BREATHING IS EVEN AND UNLABORED. PATIENT SHOWS NO SIGNS OF SOB OR RESPIRATORY DISTRESS NOTED. IV ACCESS ON BUBBA INTACT FLUSHING WELL RUNNING D5 1/2 NS AT 50 CC/HR. ALL NEEDS HAVE BEEN MET. SAFETY MEASURES ARE IN PLACE. BED IS LOCKED AND PLACED IN THE LOW POSITION. CALL LIGHT IS WITHIN REACH. WILL ENDORSE CARE TO DAY SHIFT NURSE.
[2020-08-01 07:06] LABS: ALBUMIN 2.8 g/dL (3.4-5.0); BILIRUBIN,TOTAL 0.7 mg/dL (0.2-1.0); CREATININE 0.7 mg/dL (0.6-1.3); POTASSIUM 3.6 mmol/L (3.5-5.1); TOTAL PROTEIN, SERUM 7.1 g/dL (6.4-8.2)
--- NOTE | 2020-08-01 07:31 | NUR ---
MS/RN OPENING NOTES RECEIVED PATIENT IS ON BED SLEEPING, EASILY AOURASABLE BY NAME AND LIGHT TOUCH. ALERT AND ORIENTED X 4. PATIENT IS ON OXYGEN AT 3LPM SATURATING WELL. PATIENT IN NO APPARENT RESPIRATORY DISTRESS NOTED. NO COMPLAINED OF PAIN NOTED AT THIS TIME. WILL CONTINUE TO MONITOR.
[2020-08-01 08:00] VITALS: BP 121/85
[2020-08-01] MEDS: ESCITALOPRAM OXALATE (10 MG) 10 MG TABLET PO SCH (08:27)
[2020-08-01] MEDS: PANTOPRAZOLE 40 MG/PACK PACK GT SCH ×2 (08:27→20:33)
[2020-08-01] MEDS: APIXABAN 5 MG TABLET PO SCH ×2 (08:32→17:51)
[2020-08-01] MEDS: MINERAL OIL/PETROLATUM,WHITE 120 GM JAR TP SCH ×2 (08:35→17:52)
[2020-08-01] MEDS: HYDROGEL DRESSING 90 GM TUBE TP SCH (08:36)
[2020-08-01] MEDS: NEOMY SULF/BACITRAC ZN/POLY 15 GM TUBE TP SCH ×2 (08:37→17:52)
[2020-08-01] MEDS: SIMETHICONE SUSP 40 MG/0.6 ML BOTTLE GT SCH ×4 (08:39→20:33)
[2020-08-01] MEDS: PROSOURCE / PROSTAT (PYXIS) 30 ML UDC GT SCH ×4 (08:39→18:14)
--- NOTE | 2020-08-01 10:00 | NUR ---
MS/RN NOTES DISCONTINUE MIDLINE PER DR. BO. NOTED AND CARRIED OUT.
[2020-08-01] MEDS: IV D5/0.45 NACL 1,000 ML IV PRN (15:59)
[2020-08-01 16:00] VITALS: BP 133/73
--- NOTE | 2020-08-01 17:14 | NUR ---
MS/RN NOTES PATIENT WAS SHAKING AND COMPLAINING OF COLD. SAO2 <80% CHANGED 2 L OXYGEN TO 15L OXYGEN VIA NON REBREATHER MASK SAO2 100%. WARMING BLANKET WAS PLACED TO THE PATIENT. VITAL SIGN BP 138/100 P 104 TEMP 98.3 F. BLADDER SCAN WAS DONE 37ML URINE. WILL CONTINUE TO MONITOR.
--- NOTE | 2020-08-01 19:16 | NUR ---
MS/RN CLOSING NOTES PATIENTS IS ON BED ALERT AND ORIENTED X4. PATIENT IS ON OXYGEN AT 6 L VIA NASAL CANNULA SATURATION 100%. PATIENT IN NO APPARENT RESPIRATORY DISTRESS NOTED. NO COMPLAINED OF PAIN AT THIS TIME. SEEN AND EXAMINED BY MD WITH ORDERS MADE AND CARRIED OUT. ALL DUE MEDICATIONS WAS GIVEN. IV ACCESS AT LEFT AC 22 G WITH IV FLUIDS OF D5 1/2 NS 1L AT 50 ML/HR ON AND INFUSING WELL. SAFETY PRECAUTIONS WAS IN PLACED. BED IN LOWEST POSITION AND LOCKED. SIDE RAILS UP X2. WILL ENDORSED TO AIRPORT REPRESENTATIVE FOR ROSELINE.
--- NOTE | 2020-08-01 19:30 | NUR ---
MS/RN OPENING NOTES PATIENT RESTING IN BED ALERT AND ORIENTED X4. PATIENT IS ON OXYGEN AT 4L VIA NASAL CANNULA SATURATION 99%. PATIENT IN NO APPARENT RESPIRATORY DISTRESS NOTED. NO COMPLAINED OF PAIN AT THIS TIME. IV ACCESS AT LEFT AC 22 G WITH IV FLUIDS OF D5 1/2 NS 1L AT 50 ML/HR ON AND INFUSING WELL. SAFETY PRECAUTIONS ARE IN PLACED. BED IN LOWEST POSITION AND LOCKED. SIDE RAILS UP X2. WILL CONTINUE WITH PATIENT PLAN OF CARE.
[2020-08-01 20:00] VITALS: BP 127/73
[2020-08-01] MEDS: ACETAMINOPHEN 650 MG/20.3 ML UDC NG PRN (20:33)
[2020-08-01 23:37] LABS: BILIRUBIN,URINE SMALL (NEGATIVE); COLOR,URINE YELLOW (YELLOW); LEUKOCYTE ESTERASE ,URINE NEGATIVE (NEGATIVE); NITRITE, URINE NEGATIVE (NEGATIVE); PROTEIN,URINE 30 mg/dl (NEGATIVE); UGLUCOSE NEGATIVE (NEGATIVE)
[2020-08-01 23:59] LABS: BACTERIA,URINE Few /HPF (None Seen); CALCIUM OXALATE CRYSTALS,UR Many /HPF (None Seen); MUCUS,URINE Few /LPF (None Seen); RBC,URINE 0-2 /HPF (0-2); SQUAMOUS EPITHELIAL CELL,UR Few /HPF (None Seen); WBC,URINE 0-2 /HPF (0-3)
[2020-08-02] MEDS: BLOOD SUGAR DIAGNOSTIC 1 EACH STRIP IN SCH ×4 (00:31→17:57)
--- NOTE | 2020-08-02 06:30 | NUR ---
MS/RN CLOSING NOTES PATIENT RESTING IN BED ALERT AND ORIENTED X4. PATIENT IS ON OXYGEN AT 4L VIA NASAL CANNULA SATURATION 97%. PATIENT IN NO APPARENT RESPIRATORY DISTRESS NOTED. NO COMPLAINED OF PAIN AT THIS TIME. IV ACCESS AT LEFT AC 22 G WITH IV FLUIDS OF D5 1/2 NS AT 50 ML/HR ON AND INFUSING WELL. ALL NEEDS HAVE BEEN MET DURING SHIFT. SAFETY PRECAUTIONS ARE IN PLACED. BED IN LOWEST POSITION AND LOCKED. SIDE RAILS UP X2. WILL ENDORSE CARE TO DAY SHIFT NURSE.
--- NOTE | 2020-08-02 07:30 | NUR ---
MS OPENING NOTES PATIENT RESTING IN BED DURING CHANGE OF SHIFT, A/O X 4, PATIENT BREATHING UNLABORED AND DOES NOT PRESENT WITH ANY S/S OF RESPIRATORY DISTRESS. DID NOT COMPLAIN OF ANY PAIN AT THE MOMENT. IV FLUIDS INFUSING AT 50 ML/HR. SAFETY MEASURES IN PLACE: CALL LIGHT WITHIN REACH, SIDE RAILS UP X 3, BED IN LOCKED AND IN LOWEST POSITION.
[2020-08-02 08:00] VITALS: BP 145/95
[2020-08-02] MEDS: HYDROGEL DRESSING 90 GM TUBE TP SCH (09:00)
[2020-08-02] MEDS: NEOMY SULF/BACITRAC ZN/POLY 15 GM TUBE TP SCH ×2 (09:00→17:56)
[2020-08-02] MEDS: PANTOPRAZOLE 40 MG/PACK PACK GT SCH ×2 (09:29→21:16)
[2020-08-02] MEDS: ESCITALOPRAM OXALATE (10 MG) 10 MG TABLET PO SCH (09:29)
[2020-08-02] MEDS: APIXABAN 5 MG TABLET PO SCH ×2 (09:30→17:56)
[2020-08-02] MEDS: SIMETHICONE SUSP 40 MG/0.6 ML BOTTLE GT SCH ×4 (09:55→21:28)
[2020-08-02] MEDS: Z GUARD REMEDY 2 OZ OINT TP PRN (09:55)
[2020-08-02] MEDS: MINERAL OIL/PETROLATUM,WHITE 120 GM JAR TP SCH ×2 (09:56→17:56)
[2020-08-02] MEDS: HYDROGEL DRESSING 90 GM TUBE TP PRN ×2 (09:57→17:57)
[2020-08-02] MEDS: INSULIN REGULAR, HUMAN 100 UNIT/ML 3 ML VIAL SQ PRN (12:04)
[2020-08-02] MEDS: PROSOURCE / PROSTAT (PYXIS) 30 ML UDC GT SCH ×2 (12:20→17:56)
[2020-08-02 16:00] VITALS: BP 142/96
--- NOTE | 2020-08-02 19:01 | NUR ---
MS CHANGE OF SHIFT NOTES PATIENT RESTING IN BED DURING CHANGE OF SHIFT, A/O X 4, PATIENT BREATHING UNLABORED AND DOES NOT PRESENT WITH ANY S/S OF RESPIRATORY DISTRESS. ON 4 L OF OXYGEN WITH 99% O2 SAT. NO COMPLAINS OF PAIN. D5 1/2 NS RUNNING AT 50 ML/HR. TRACHEOSTOMY STOMA DRESSING CHANGED AND PROVIDED WOUND CARE TO SACRAL AND PERINEAL AREA. SAFETY MEASURES IN PLACE: CALL LIGHT WITHIN REACH, SIDE RAILS UP X 3, BED IN LOCKED AND IN LOWEST POSITION. ALL PATIENT NEEDS MET. ENDORSED TO CERAMIC COATER NURSE.
[2020-08-02 20:00] VITALS: BP 151/80
--- NOTE | 2020-08-02 20:17 | NUR ---
RN NOTES PATIENT RESTING IN BED DURING CHANGE OF SHIFT, A/O X 4, PATIENT BREATHING UNLABORED AND DOES NOT PRESENT WITH ANY S/S OF RESPIRATORY DISTRESS. ON 4 L OF OXYGEN WITH 99% O2 SAT. NO COMPLAINS OF PAIN. D5 1/2 NS RUNNING AT 50 ML/HR. SAFETY MEASURES IN PLACE: CALL LIGHT WITHIN REACH, SIDE RAILS UP X 3, BED IN LOCKED AND IN LOWEST POSITION. ALL PATIENT NEEDS MET. WILL CONTINUE TO MONITOR.
[2020-08-03] MEDS: BLOOD SUGAR DIAGNOSTIC 1 EACH STRIP IN SCH ×4 (00:24→18:02)
[2020-08-03] MEDS: IV D5/0.45 NACL 1,000 ML IV PRN (01:58)
--- NOTE | 2020-08-03 06:49 | NUR ---
RN NOTES PT ASLEEP BUT EASILY WOKEN UP. PT REPORTS NO PAIN OR DISCOMFORT AT THIS TIME.NO RESPIRATORY DISTRESS NOTED OR REPORTED AT THIS TIME. ALL NURSING NEEDS MET AT THIS TIME. CALL LIGHT WITHIN REACH . SAFETY MEASURES FOLLOWED WILL ENDORSE CARE TO DAY SHIFT NURSE.
[2020-08-03 08:00] VITALS: BP 140/100
--- NOTE | 2020-08-03 08:00 | NUR ---
RN OPENING NOTE PT AWAKE IN BED. A/O X 3 AND KYRGYZ SPEAKING. NO COMPLAINT OF PAIN OR NAUSEA. CURRENTLY ON 2L NC WITH NO RESPIRATORY DISTRESS PRESENT. O2 SAT >95%. ON BEDREST WITH URINAL AT BEDSIDE. SKIN IS INTACT. NO EDEMA PRESENT. SEVERAL AREAS OF REDNESS PRESENT. SKIN PROTECTION MEASURES GIVEN. HL PRESENT ON L AC 22G. SAFETY MEASURES IN PLACE. SIDE RAILS RAISED. BED LOWERED. CALL LIGHT WITHIN REACH. WILL CONTINUE TO MONITOR.
[2020-08-03] MEDS: PANTOPRAZOLE 40 MG/PACK PACK GT SCH ×2 (09:44→20:34)
[2020-08-03] MEDS: SIMETHICONE SUSP 40 MG/0.6 ML BOTTLE GT SCH ×4 (09:44→20:37)
[2020-08-03] MEDS: MINERAL OIL/PETROLATUM,WHITE 120 GM JAR TP SCH ×2 (09:45→17:00)
[2020-08-03] MEDS: HYDROGEL DRESSING 90 GM TUBE TP SCH (09:45)
[2020-08-03] MEDS: NEOMY SULF/BACITRAC ZN/POLY 15 GM TUBE TP SCH ×2 (09:45→17:00)
[2020-08-03] MEDS: ESCITALOPRAM OXALATE (10 MG) 10 MG TABLET PO SCH (09:45)
[2020-08-03] MEDS: APIXABAN 5 MG TABLET PO SCH ×2 (09:47→18:01)
[2020-08-03] MEDS: PROSOURCE / PROSTAT (PYXIS) 30 ML UDC GT SCH ×3 (09:51→17:00)
[2020-08-03 16:00] VITALS: BP 149/97
--- NOTE | 2020-08-03 18:46 | NUR ---
RN CLOSING NOTE PT IS RESTING IN BED. AROUSABLE TO LIGHT TOUCH. A/O X 3 AND UKRAINIAN SPEAKING. NO COMPLAINT OF PAIN. NO COMPLAINT OF NAUSEA. CURRENTLY ON 2L O2 VIA NC WITH NO SOB OR RESPIRATORY DISTRESS PRESENT. ON BEDREST WITH URINAL AT THE BEDSIDE. REDNESS PRESENT ON SACRUM. SKIN PROTECTION MEASURES GIVEN. NO EDEMA PRESENT. HL PRESENT ON L AC 22G. ROUTINE MEDS GIVEN. SAFETY MEASURES IN PLACE. SIDE RAILS RAISED, BED LOWERED. CALL LIGHT WITHIN REACH. REPORT TO BE GIVEN TO NIGHT NURSE FOR ROSELINE.
--- NOTE | 2020-08-03 19:43 | NUR ---
RN NOTES PT IS RESTING IN BED. A/O X 3 AND PASHTO SPEAKING. NO COMPLAINT OF PAIN. NO COMPLAINT OF NAUSEA. CURRENTLY ON 2L O2 VIA NC WITH NO SOB OR RESPIRATORY DISTRESS PRESENT. ON BEDREST WITH URINAL AT THE BEDSIDE. NO EDEMA PRESENT. HL PRESENT ON L AC 22G. SAFETY MEASURES IN PLACE. SIDE RAILS RAISED, BED LOWERED. CALL LIGHT WITHIN REACH.WILL CONTINUE TO MONITOR.
[2020-08-03 20:00] VITALS: BP 145/78
[2020-08-04] MEDS: BLOOD SUGAR DIAGNOSTIC 1 EACH STRIP IN SCH ×5 (00:19→23:52)
--- NOTE | 2020-08-04 07:29 | NUR ---
MS RN OPENING NOTES RECEIVED PATIENT IN BED, ASLEEP. PATIENT ON OXYGEN THERAPY AT 2 LPM VIA [employer] CANULA; BREATHING EVEN AND UNLABORED; NO SOB NOTED AT THIS TIME. NO S/S OF PAIN SUCH FACIAL; GRIMACING, MOANING OR GUARDING. R WRIST IV ACCESS G # 22 PRESENT AND INTACT, SL. SAFETY PRECAUTIONS IN PLACE; BED IN LOW POSITION AND LOCKED, RAILS UP X2, CALL LIGHT WITHIN REACH. WILL CONTINUE TO MONITOR PATIENT.
[2020-08-04 08:00] VITALS: BP 163/105
[2020-08-04] MEDS: HYDROGEL DRESSING 90 GM TUBE TP SCH (08:37)
[2020-08-04] MEDS: PROSOURCE / PROSTAT (PYXIS) 30 ML UDC GT SCH ×3 (08:37→16:15)
[2020-08-04] MEDS: NEOMY SULF/BACITRAC ZN/POLY 15 GM TUBE TP SCH ×2 (08:37→16:15)
[2020-08-04] MEDS: MINERAL OIL/PETROLATUM,WHITE 120 GM JAR TP SCH ×2 (08:37→16:15)
[2020-08-04] MEDS: APIXABAN 5 MG TABLET PO SCH ×2 (08:43→16:18)
[2020-08-04] MEDS: PANTOPRAZOLE 40 MG/PACK PACK GT SCH ×2 (08:45→21:23)
[2020-08-04] MEDS: ESCITALOPRAM OXALATE (10 MG) 10 MG TABLET PO SCH (08:45)
[2020-08-04] MEDS: SIMETHICONE SUSP 40 MG/0.6 ML BOTTLE GT SCH ×4 (09:00→21:23)
[2020-08-04 17:45] VITALS: BP 143/89
--- NOTE | 2020-08-04 18:59 | NUR ---
MS RN CLOSING NOTES PATIENT REMAINS IN BED, AWAKE, A/O X4. PATIENT ON OXYGEN THERAPY AT 2 LPM VIA [employer] CANULA; BREATHING EVEN AND UNLABORED; NO SOB NOTED DURING SHIFT. NO COMPLAINS OF PAIN DURING THE DAY. R WRIST IV ACCESS G # 22 PRESENT AND INTACT, SL. ALL NEEDS ATTENDED DURING THE DAY. SAFETY PRECAUTIONS IN PLACE; BED IN LOW POSITION AND LOCKED, RAILS UP X2, CALL LIGHT WITHIN REACH. WILL ENDORSE TO PATIENT CARRIER NURSE.
[2020-08-04 20:00] VITALS: BP 162/98
--- NOTE | 2020-08-04 20:00 | NUR ---
RN NOTES RECEIVED PT. AWAKE ON BED, A/OX4, NOT IN DISTRESS, ON MERYL WILLIE BED, DENIES PAIN NO SOB, CALL LIGHT WITHIN REACH, SIDERAILSUPX2, CONTINUE TO MONITOR
--- NOTE | 2020-08-04 20:00 | NUR ---
RN NOTES Received pt. awake on bed, a/ox4, on barimax bed, not in distress, denies pain, call light within reach, siderailsupx2, will continue to monitor
--- NOTE | 2020-08-04 22:00 | NUR ---
RN NOTES, IV LINE CHANGE TO RIGHT HAND GAUGE 22
[2020-08-05] MEDS: BLOOD SUGAR DIAGNOSTIC 1 EACH STRIP IN SCH ×4 (05:20→23:44)
--- NOTE | 2020-08-05 07:20 | NUR ---
MS RN NOTES PATIENT IS IN BED, RESTING, EYES CLOSED. ABLE TO BE AWAKENED. A/O X4, VERBALLY RESPONSIVE AND ABLE TO MAKE NEEDS KNOWN. BREATHING EVEN AND UNLABORED, ON OXYGEN AT 2 LPM VIA [employer] CANULA. IV LINE ON RIGHT HAND #22 PATENT AND INTACT. SAFETY PRECAUTIONS IN PLACE: BED IN LOW POSITION AND LOCKED, SIDE RAILS UP X2, CALL LIGHT WITHIN REACH. WILL CONTINUE TO MONITOR.
[2020-08-05] MEDS: NEOMY SULF/BACITRAC ZN/POLY 15 GM TUBE TP SCH ×2 (08:26→16:04)
[2020-08-05] MEDS: PANTOPRAZOLE 40 MG/PACK PACK GT SCH ×2 (08:38→21:21)
[2020-08-05] MEDS: ESCITALOPRAM OXALATE (10 MG) 10 MG TABLET PO SCH (08:38)
[2020-08-05] MEDS: APIXABAN 5 MG TABLET PO SCH ×2 (08:39→16:07)
[2020-08-05] MEDS: SIMETHICONE SUSP 40 MG/0.6 ML BOTTLE GT SCH ×4 (08:40→21:22)
[2020-08-05] MEDS: HYDROGEL DRESSING 90 GM TUBE TP SCH (08:41)
[2020-08-05] MEDS: PROSOURCE / PROSTAT (PYXIS) 30 ML UDC GT SCH ×3 (08:41→16:04)
[2020-08-05] MEDS: MINERAL OIL/PETROLATUM,WHITE 120 GM JAR TP SCH ×2 (08:41→16:05)
[2020-08-05] MEDS: INSULIN REGULAR, HUMAN 100 UNIT/ML 3 ML VIAL SQ PRN ×2 (11:13→17:20)
[2020-08-05 16:00] VITALS: BP 145/93
--- NOTE | 2020-08-05 18:40 | NUR ---
RN NOTES PATIENT IS IN BED RESTING, AWAKE AND VERBALLY RESPONSIVE. A/O X4, ABLE TO MAKE NEEDS KNOWN. BREATHING EVEN AND UNLABORED, CONTINUES ON OXYGEN AT 2 LPM VIA NASAL CANULA, NO RESPIRATORY DISTRESS NOTED. IV LINE ON RIGHT HAND #22 PATENT AND INTACT. DUE MEDS GIVEN DURING THE SHIFT AND TAKEN FAIRLY. SEEN TODAY BY SOFIA SIDDIQUI NP, AND MADE AWARE OF PLAN OF CARE. SAFETY PRECAUTIONS MAINTAINED: BED IN LOW POSITION AND LOCKED, SIDE RAILS UP X2, CALL LIGHT WITHIN REACH. WILL CONTINUE TO MONITOR. WILL ENDORSE TO APPRENTICESHIP TRAINING REPRESENTATIVE RN FOR ROSELINE.
--- NOTE | 2020-08-05 19:30 | NUR ---
RN NOTES Received pt. awake on bed, a/ox4, on barimaxx bed, denies pain, no SOB, call light within reach, siderailsupx2, continue to monitor
[2020-08-05 20:00] VITALS: BP 128/93
[2020-08-06] MEDS: BLOOD SUGAR DIAGNOSTIC 1 EACH STRIP IN SCH ×2 (05:50→11:20)
--- NOTE | 2020-08-06 06:17 | NUR ---
RN NOTES sleeping but arousable, not in distress, denies pain, morning care rendered, call light within reach, pritiupx2, pt. needs attended
--- NOTE | 2020-08-06 07:48 | NUR ---
RN Opening NOTES PATIENT IS IN BED RESTING, AWAKE AND VERBALLY RESPONSIVE. A/O X4, ABLE TO MAKE NEEDS KNOWN. BREATHING EVEN AND UNLABORED, CONTINUES ON OXYGEN AT 2 LPM VIA NASAL CANULA, NO RESPIRATORY DISTRESS NOTED. IV LINE ON RIGHT HAND #22 PATENT AND INTACT. DUE MEDS GIVEN DURING THE SHIFT AND TAKEN FAIRLY. SEEN TODAY BY SOFIA SIDDIQUI NP, AND MADE AWARE OF PLAN OF CARE. SAFETY PRECAUTIONS MAINTAINED: BED IN LOW POSITION AND LOCKED, SIDE RAILS UP X2, CALL LIGHT WITHIN REACH.
[2020-08-06 08:00] VITALS: BP 143/94
[2020-08-06] MEDS: HYDROGEL DRESSING 90 GM TUBE TP SCH (08:39)
[2020-08-06] MEDS: ESCITALOPRAM OXALATE (10 MG) 10 MG TABLET PO SCH (08:47)
[2020-08-06] MEDS: PANTOPRAZOLE 40 MG/PACK PACK GT SCH (08:47)
[2020-08-06] MEDS: SIMETHICONE SUSP 40 MG/0.6 ML BOTTLE GT SCH ×2 (08:48→12:15)
[2020-08-06] MEDS: NEOMY SULF/BACITRAC ZN/POLY 15 GM TUBE TP SCH (08:48)
[2020-08-06] MEDS: APIXABAN 5 MG TABLET PO SCH (08:48)
[2020-08-06] MEDS: MINERAL OIL/PETROLATUM,WHITE 120 GM JAR TP SCH (08:48)
[2020-08-06] MEDS: PROSOURCE / PROSTAT (PYXIS) 30 ML UDC GT SCH ×2 (08:49→12:15)
[2020-08-06] MEDS: HYDROGEL DRESSING 90 GM TUBE TP PRN (08:49)
--- NOTE | 2020-08-06 12:27 | NUR ---
RN NOTES PATIENT WAS SEEN BY SUSIE BLACK, AND MADE AWARE OF POSSIBLE DISCHARGE TODAY. NEW INCENTIVE SPIROMETER SET PROVIDED TO PATIENT. ASKED PATIENT IF HE IS FAMILIAR WITH USE OF THE DEVICE AND PATIENT VERBALIZED UNDERSTANDING AND THAT HE HAS USED IT BEFORE. PATIENT CURRENTLY SITTING AT BEDSIDE AND AMBULATED TO THE BATHROOM EARLIER W/ FWW W/ MIN ASSIST. WILL CONTINUE TO MONITOR.
[2020-08-06] MEDS ORDERED: APIX5TAB PO (12:54)
--- NOTE | 2020-08-06 14:36 | NUR ---
RN NOTES JUSTEN SIMFIREFIGHTER TYPE ONE, AWARE OF PATIENT'S DISCHARGE TODAY AND DME NEEDS. BROUGHT WHEELCHAIR TO PATIENT'S ROOM. [employer] MADE AWARE OF PATIENT'S NEED FOR FRONT WHEEL WALKER AND DELIVERED WELL. PER PATIENT, WILL PICK HIM UP VIA PRIVATE CAR AROUND 1730 TODAY.
--- NOTE | 2020-08-06 17:59 | NUR ---
IMAGING ENGINEER NOTES PATIENT WAS SEEN BY SUSIE BLACK, W/ ORDER FOR DISCHARGE TO HOME W/ HOME HEALTH FOLLOW-UP. VALUE ADVISOR SET-UP HOME HEALTH W/ CRYSTAL BRAY (WHEELCHAIR AND WALKER) TO BE SENT HOME WITH PATIENT. DISCHARGE INSTRUCTIONS AND EDUCATION PROVIDED TO PATIENT, VERBALIZED UNDERSTANDING OF INSTRUCTIONS AND DISCHARGE MEDICATIONS. PROVIDED EDUCATION AND DEMONSTRATION WELL ON USE OF SUPPLEMENTAL OXYGEN EQUIPMENT AND INCENTIVE SPIROMETRY, PATIENT AND YUNIOR WERE ABLE TO PERFORM RETURN DEMONSTRATE PROPER USE OF EQUIPMENT. NAME ARMBAND AND IV LINE REMOVED; DRESSING CHANGES DONE ON PREVIOUS GT AND TRACH SITES, NO BLEEDING NOTED. NO OTHER SKIN ISSUES NOTED. DISCHARGE FORM AND BELONGINGS LIST FORM SIGNED BY PATIENT AND ALL BELONGINGS ACCOUNTED FOR. PATIENT WAS ACCOMPANIED BY JUSTEN COLE, AND JUSTEN BOWEN, VIA WHEELCHAIR TO THE LOBBY AND PATIENT WAS PICKED UP BY YUNIOR VIA PRIVATE CAR. PATIENT ABLE TO AMBULATE SHORT DISTANCE TO THE CAR. CHARGE NURSE AND MD AWARE OF DISCHARGE.
== END 2020-08-06 17:54 | disposition home health service (06) | DRG 5 ==
LOC: ER 09:41 → TELE1 16:06 → TELE-TD 04-28 14:05 → TELE1 04-29 12:23 → ICUOV 05-01 12:09 → ICU 05-01 16:42 → TELE-TD 07-17 17:22 → TELE1 07-20 12:09 → MEDSG1 07-22 17:35 → MED 07-30 22:41
PROVIDERS: ATTEND Nurse Practitioner Acute Care
PROC: XW033E5 Introduction of Remdesivir Anti-infective into Peripheral Vein, Percutaneous Approach, New Technology Group 5 (ICD-10-PCS; principal; 2020-04-27)
PROC: 05H633Z Insertion of Infusion Device into Left Subclavian Vein, Percutaneous Approach (ICD-10-PCS; 2020-05-03)
PROC: B547ZZA Ultrasonography of Left Subclavian Vein, Guidance (ICD-10-PCS; 2020-05-03)
PROC: 5A1955Z Respiratory Ventilation, Greater than 96 Consecutive Hours (ICD-10-PCS; 2020-05-07)
PROC: 0BH18EZ Insertion of Endotracheal Airway into Trachea, Via Natural or Artificial Opening Endoscopic (ICD-10-PCS; 2020-05-07)
PROC: 02HV33Z Insertion of Infusion Device into Superior Vena Cava, Percutaneous Approach (ICD-10-PCS; 2020-05-16)
PROC: B548ZZA Ultrasonography of Superior Vena Cava, Guidance (ICD-10-PCS; 2020-05-16)
PROC: 0W9930Z Drainage of Right Pleural Cavity with Drainage Device, Percutaneous Approach (ICD-10-PCS; 2020-05-20)
PROC: 0W9930Z Drainage of Right Pleural Cavity with Drainage Device, Percutaneous Approach (ICD-10-PCS; 2020-05-20)
PROC: 0W9B30Z Drainage of Left Pleural Cavity with Drainage Device, Percutaneous Approach (ICD-10-PCS; 2020-05-20)
PROC: 0B113F4 Bypass Trachea to Cutaneous with Tracheostomy Device, Percutaneous Approach (ICD-10-PCS; 2020-06-05)
PROC: 0BJ08ZZ Inspection of Tracheobronchial Tree, Via Natural or Artificial Opening Endoscopic (ICD-10-PCS; 2020-06-05)
PROC: 0DH63UZ Insertion of Feeding Device into Stomach, Percutaneous Approach (ICD-10-PCS; 2020-06-07)
PROC: 05H533Z Insertion of Infusion Device into Right Subclavian Vein, Percutaneous Approach (ICD-10-PCS; 2020-06-24)
PROC: B546ZZA Ultrasonography of Right Subclavian Vein, Guidance (ICD-10-PCS; 2020-06-24)
PROC: 0JB70ZZ Excision of Back Subcutaneous Tissue and Fascia, Open Approach (ICD-10-PCS; 2020-06-29)
PROC: XW13325 Transfusion of Convalescent Plasma (Nonautologous) into Peripheral Vein, Percutaneous Approach, New Technology Group 5 (ICD-10-PCS; 2020-07-03)
DX: A41.89 Other specified sepsis (principal); J96.01 Acute respiratory failure with hypoxia; U07.1 COVID-19; R65.21 Severe sepsis with septic shock; J12.82 Pneumonia due to coronavirus disease 2019; J45.901 Unspecified asthma with (acute) exacerbation; J15.9 Unspecified bacterial pneumonia; E11.9 Type 2 diabetes mellitus without complications; E87.1 Hypo-osmolality and hyponatremia; D69.6 Thrombocytopenia, unspecified; J93.9 Pneumothorax, unspecified; N17.0 Acute kidney failure with tubular necrosis; D64.9 Anemia, unspecified; G92 Toxic encephalopathy; I10 Essential (primary) hypertension; E66.01 Morbid (severe) obesity due to excess calories; D63.8 Anemia in other chronic diseases classified elsewhere; D68.69 Other thrombophilia; E83.42 Hypomagnesemia; E87.6 Hypokalemia; M89.9 Disorder of bone, unspecified; Z68.41 Body mass index [BMI] 40.0-44.9, adult; D69.59 Other secondary thrombocytopenia; L89.156 Pressure-induced deep tissue damage of sacral region; L89.326 Pressure-induced deep tissue damage of left buttock; L89.316 Pressure-induced deep tissue damage of right buttock; B37.49 Other urogenital candidiasis; L89.153 Pressure ulcer of sacral region, stage 3; G72.9 Myopathy, unspecified; G62.9 Polyneuropathy, unspecified; G93.9 Disorder of brain, unspecified; E78.1 Pure hyperglyceridemia; J44.0 Chronic obstructive pulmonary disease with (acute) lower respiratory infection; R13.10 Dysphagia, unspecified
CPT/HCPCS: 31720; 36410; 36415; 36569; 36600; 43246; 70450-TC; 71045-TC; 71250-TC; 74018; 74150-TC; 80048-TC; 80053-TC; 80061-TC; 80076-TC; 80202-TC; 81001; 82550-TC; 82553; 82570-TC; 82728-TC; 82803-TC; 82962-TC; 83605-TC; 83615-TC; 83735-TC; 83880; 84100-TC; 84155-TC; 84300-TC; 84443-TC; 84478-TC; 84484-TC; 85025-TC; 85378-TC; 85385-TC; 85610-TC; 85652-TC; 85730-TC; 86140-TC; 86225; 86235; 86850-TC; 87040-TC; 87070-TC; 87081-TC; 87086-TC; 87186-TC; 92526; 92611-TC; 93307-TC; 93970-TC; 94003-TC; 94640-TC; 94760-TC; 94761-TC; 94762-TC; 94799-TC; 97110-TC; 97112-TC; 97116-TC; 97530-TC; 97535-TC; 99082-TC; A4216; A4217; A4623; A6248; A6253; A6403; A7526; C1751; C9113; G0378; J0171; J0330; J0456; J0696; J1100; J1815; J1940; J2060; J2185; J2248; J2250; J2270; J2405; J2704; J3010; J3260; J3370; J3475; J3480; J3490; J7030; J7040; J7042; J7050; J7060; J7120; L8501; P9017-BL; Q0162; U0003

== ENCOUNTER 2024-02-13 20:20 | Inpatient (IN) | payer MEDICAID ==
[~2024-02-13] VITALS: Ht 170.2 cm; Wt 143.8 kg
[~2024-02-13 20:20] MED LIST: ACET325T53 PO; ALBU6.7H9 IH; APIX5TAB PO
[2024-02-13 21:21] LABS: EOSINOPHILS # (AUTO) 0.2 K/uL (0.0-0.7); EOSINOPHILS % (AUTO) 4.6 % (0.0-6.0); HEMATOCRIT 45 % (39-51); HEMOGLOBIN 14.5 g/dL (13.5-17.5); LYMPHOCYTES # (AUTO) 1.9 K/uL (0.8-4.8); LYMPHOCYTES % (AUTO) 39.6 % (20.0-44.0); MEAN CORPUSCULAR HEMOGLOBIN 29 PG (26.0-33.0); MEAN CORPUSCULAR HGB CONC 32 g/dl (31.0-36.0); MEAN CORPUSCULAR VOLUME 88 fL (80-96); MONOCYTES # (AUTO) 0.6 K/uL (0.1-1.30); MONOCYTES % (AUTO) 12.4 % (2.0-12.0); NEUTROPHILS % (AUTO) 42.4 % (43.0-81.0); PLATELET COUNT (AUTO) 184 K/uL (150-450); RED BLOOD CELL COUNT(AUTO) 5.08 MIL/uL (4.5-6.0); RED CELL DISTRIBUTION WIDTH 14.9 % (11.5-15.0); WHITE BLOOD COUNT (AUTO) 4.7 K/uL (4.3-11.0)
[2024-02-13 21:36] LABS: ALBUMIN 2.9 g/dL (3.4-5.0); BILIRUBIN,TOTAL 0.1 mg/dL (0.2-1.0); CALCIUM, SERUM 8.2 mg/dL (8.5-10.1); CREATININE 1.1 mg/dL (0.6-1.3); POTASSIUM 4.1 mmol/L (3.5-5.1); TOTAL PROTEIN, SERUM 7.1 g/dL (6.4-8.2)
[2024-02-13 21:37] LABS: C-REACTIVE PROTEIN 2.48 mg/dL (0.0-0.30)
[2024-02-13] MEDS ORDERED: ACETAMINOPHEN ES 500 MG TABLET ONE (21:42)
[2024-02-13] MEDS ORDERED: KETOROLAC TROMETHAMINE 15 MG/ML VIAL ONE (21:42)
[2024-02-13] MEDS ORDERED: dexaMETHasone SOD PHOSPHATE 1 ML ONE (21:42)
[2024-02-13] MEDS: IV NS 0.9% 500 ML IV ONE (21:43)
[2024-02-13] MEDS: dexaMETHasone SOD PHOSPHATE 10 MG/ML VIAL IV ONE (21:43)
[2024-02-13] MEDS: ACETAMINOPHEN ES 500 MG TABLET PO ONE (21:43)
[2024-02-13] MEDS: KETOROLAC TROMETHAMINE 15 MG/ML VIAL IV ONE (21:43)
[2024-02-13] MEDS ORDERED: Z GUARD REMEDY 4 OZ OINT TP PRN (23:00)
[2024-02-13] MEDS ORDERED: ONDANSETRON HCL/PF 4 MG/2 ML VIAL IVP PRN (23:00)
[2024-02-13] MEDS ORDERED: ZOLPIDEM TARTRATE 5 MG TABLET PO PRN (23:00)
[2024-02-13] MEDS ORDERED: BENZONATATE 100 MG CAPSULE PO PRN (23:00)
[2024-02-13] MEDS ORDERED: MAGNESIUM HYDROXIDE 30 ML UDC PO PRN (23:00)
[2024-02-13 23:58] VITALS: BP 141/96; TEMP 98.8; O2SAT 100
[2024-02-14] MEDS ORDERED: ALBUTEROL FS 2.5 MG/3 ML VIAL.NEB NEB PRN (00:30)
[2024-02-14 06:08] VITALS: BP 135/91; TEMP 98.8; O2SAT 100
[2024-02-14 07:51] LABS: BASOPHILS % (AUTO) 0.4 % (0.0-2.0); EOSINOPHILS % (AUTO) 0.1 % (0.0-6.0); HEMATOCRIT 48 % (39-51); HEMOGLOBIN 15.5 g/dL (13.5-17.5); LYMPHOCYTES # (AUTO) 1.2 K/uL (0.8-4.8); LYMPHOCYTES % (AUTO) 23.6 % (20.0-44.0); MEAN CORPUSCULAR HEMOGLOBIN 29 PG (26.0-33.0); MEAN CORPUSCULAR HGB CONC 32 g/dl (31.0-36.0); MEAN CORPUSCULAR VOLUME 89 fL (80-96); MONOCYTES # (AUTO) 0.1 K/uL (0.1-1.30); MONOCYTES % (AUTO) 1.3 % (2.0-12.0); NEUTROPHILS # (AUTO) 3.7 K/uL (1.8-8.9); NEUTROPHILS % (AUTO) 74.6 % (43.0-81.0); PLATELET COUNT (AUTO) 199 K/uL (150-450); RED BLOOD CELL COUNT(AUTO) 5.43 MIL/uL (4.5-6.0); RED CELL DISTRIBUTION WIDTH 14.7 % (11.5-15.0)
[2024-02-14 08:01] LABS: CALCIUM, SERUM 8.5 mg/dL (8.5-10.1); CREATININE 0.9 mg/dL (0.6-1.3); MAGNESIUM 2.1 mg/dL (1.8-2.4); PHOSPHORUS 2.9 mg/dL (2.5-4.9); POTASSIUM 4.5 mmol/L (3.5-5.1)
[2024-02-14] MEDS ORDERED: FLUT16SP16 BNOSTRILS (08:08)
[2024-02-14] MEDS ORDERED: MOME13HF IH (08:08)
[2024-02-14] MEDS ORDERED: OMEP20CA15 PO (08:08)
[2024-02-14] MEDS ORDERED: MONT10TA22 PO (08:08)
[2024-02-14] MEDS ORDERED: METH-647 PO (08:08)
[2024-02-14] MEDS: dexaMETHasone SOD PHOSPHATE 10 MG/ML VIAL IV SCH (09:15)
[2024-02-14] MEDS: FLUTICASONE PROPIONATE 16 GM BOTTLE NS SCH (09:16)
[2024-02-14] MEDS: MORPHINE SULFATE INJ 2 MG/ML DISP.SYRIN IV PRN (11:46)
[2024-02-14 12:04] VITALS: BP 138/90; TEMP 98.8; O2SAT 100
[2024-02-14] MEDS: LOPERAMIDE HCL (2 MG CAP) 2 MG CAPSULE PO PRN (12:36)
[2024-02-14 20:00] VITALS: BP 139/87; TEMP 98.4; O2SAT 97
[2024-02-15 04:00] VITALS: BP 121/75; TEMP 97.7; O2SAT 98
[2024-02-15 06:36] LABS: BASOPHILS % (AUTO) 0.3 % (0.0-2.0); HEMATOCRIT 44 % (39-51); HEMOGLOBIN 14.5 g/dL (13.5-17.5); LYMPHOCYTES # (AUTO) 1.4 K/uL (0.8-4.8); LYMPHOCYTES % (AUTO) 12.3 % (20.0-44.0); MEAN CORPUSCULAR HEMOGLOBIN 29 PG (26.0-33.0); MEAN CORPUSCULAR HGB CONC 33 g/dl (31.0-36.0); MEAN CORPUSCULAR VOLUME 88 fL (80-96); MONOCYTES # (AUTO) 0.6 K/uL (0.1-1.30); MONOCYTES % (AUTO) 4.7 % (2.0-12.0); NEUTROPHILS # (AUTO) 9.6 K/uL (1.8-8.9); NEUTROPHILS % (AUTO) 82.7 % (43.0-81.0); PLATELET COUNT (AUTO) 192 K/uL (150-450); RED BLOOD CELL COUNT(AUTO) 4.99 MIL/uL (4.5-6.0); RED CELL DISTRIBUTION WIDTH 14.5 % (11.5-15.0); WHITE BLOOD COUNT (AUTO) 11.7 K/uL (4.3-11.0)
[2024-02-15 06:56] LABS: CREATININE 0.9 mg/dL (0.6-1.3); POTASSIUM 4.2 mmol/L (3.5-5.1)
[2024-02-15 10:38] LABS: ABG BASE EXCESS -0.5 mmol/L (-2.0-3.0); ABG OXYGEN SATURATION 98.9 % (94.0-98.0); ABG PCO2 48.5 mmHg (35.0-48.0); ABG PH 7.344 (7.350-7.450); ABG PO2 141.3 mmHg (83.0-108.0); ABG TOTAL HEMOGLOBIN 16.1 G/dL (13.5-17.5); COHb 0.6 % (0.5-1.5); MetHb 0.2 % (0.0-1.5); O2Hb 98.1 % (94.0-97.0)
[2024-02-15] MEDS: ENOXAPARIN SODIUM 40 MG/0.4 ML DISP.SYRIN SQ SCH (10:48)
[2024-02-15 12:23] VITALS: BP 117/75; TEMP 97.3; O2SAT 97
[2024-02-15 20:00] VITALS: BP 145/84; TEMP 98.2; O2SAT 97
[2024-02-15] MEDS: GUAIFENESIN/D-METHORPHAN HB 5 ML UDC PO PRN (20:42)
[2024-02-16] MEDS ORDERED: DEXTROSE 50%-WATER 50 ML DISP.SYRIN IV PRN
[2024-02-16] MEDS: INSULIN REGULAR, HUMAN 100 UNIT/ML 3 ML VIAL SQ PRN (00:50)
[2024-02-16 04:00] VITALS: BP 124/77; TEMP 97.7; O2SAT 98
[2024-02-16] MEDS: BLOOD SUGAR DIAGNOSTIC 1 EACH STRIP IN SCH (06:33)
[2024-02-16 07:58] LABS: BASOPHILS # (AUTO) 0.1 K/uL (0.0-0.2); BASOPHILS % (AUTO) 0.6 % (0.0-2.0); EOSINOPHILS % (AUTO) 0.1 % (0.0-6.0); HEMATOCRIT 43 % (39-51); HEMOGLOBIN 14.1 g/dL (13.5-17.5); LYMPHOCYTES % (AUTO) 19.2 % (20.0-44.0); MEAN CORPUSCULAR HEMOGLOBIN 29 PG (26.0-33.0); MEAN CORPUSCULAR HGB CONC 33 g/dl (31.0-36.0); MEAN CORPUSCULAR VOLUME 88 fL (80-96); MONOCYTES # (AUTO) 0.6 K/uL (0.1-1.30); MONOCYTES % (AUTO) 5.6 % (2.0-12.0); NEUTROPHILS # (AUTO) 7.6 K/uL (1.8-8.9); NEUTROPHILS % (AUTO) 74.5 % (43.0-81.0); PLATELET COUNT (AUTO) 206 K/uL (150-450); RED BLOOD CELL COUNT(AUTO) 4.92 MIL/uL (4.5-6.0); RED CELL DISTRIBUTION WIDTH 14.4 % (11.5-15.0); WHITE BLOOD COUNT (AUTO) 10.2 K/uL (4.3-11.0)
[2024-02-16 08:00] VITALS: BP 131/88; TEMP 97.5; O2SAT 99
[2024-02-16 09:16] LABS: CREATININE 0.9 mg/dL (0.6-1.3); POTASSIUM 4.4 mmol/L (3.5-5.1)
[2024-02-16 14:22] LABS: CALCIUM, SERUM 8.1 mg/dL (8.5-10.1)
[2024-02-16] MEDS: LEVOFLOXACIN (250MG) 250 MG TABLET PO SCH (15:29)
[2024-02-16 18:00] VITALS: BP 138/85; TEMP 97.5; O2SAT 100
[2024-02-16 22:00] VITALS: BP 143/95; TEMP 98.6; O2SAT 97
[2024-02-17 06:28] LABS: BASOPHILS % (AUTO) 0.3 % (0.0-2.0); EOSINOPHILS % (AUTO) 0.1 % (0.0-6.0); HEMATOCRIT 44 % (39-51); HEMOGLOBIN 14.2 g/dL (13.5-17.5); LYMPHOCYTES # (AUTO) 1.8 K/uL (0.8-4.8); LYMPHOCYTES % (AUTO) 19.1 % (20.0-44.0); MEAN CORPUSCULAR HEMOGLOBIN 29 PG (26.0-33.0); MEAN CORPUSCULAR HGB CONC 33 g/dl (31.0-36.0); MEAN CORPUSCULAR VOLUME 88 fL (80-96); MONOCYTES # (AUTO) 0.6 K/uL (0.1-1.30); MONOCYTES % (AUTO) 5.9 % (2.0-12.0); NEUTROPHILS # (AUTO) 7.2 K/uL (1.8-8.9); NEUTROPHILS % (AUTO) 74.6 % (43.0-81.0); PLATELET COUNT (AUTO) 205 K/uL (150-450); RED BLOOD CELL COUNT(AUTO) 4.95 MIL/uL (4.5-6.0); RED CELL DISTRIBUTION WIDTH 14.3 % (11.5-15.0); WHITE BLOOD COUNT (AUTO) 9.6 K/uL (4.3-11.0)
[2024-02-17 06:52] LABS: CREATININE 0.8 mg/dL (0.6-1.3); MAGNESIUM 2.1 mg/dL (1.8-2.4); PHOSPHORUS 3.7 mg/dL (2.5-4.9); POTASSIUM 4.2 mmol/L (3.5-5.1)
[2024-02-17 08:00] VITALS: BP 118/64; TEMP 97.5; O2SAT 100
[2024-02-17 10:00] VITALS: BP 118/64; TEMP 97.5; O2SAT 100
[2024-02-17 18:00] VITALS: BP 127/89; TEMP 97.7; O2SAT 100
[2024-02-17] MEDS ORDERED: ALBUTEROL FS 2.5 MG/3 ML VIAL.NEB NEB PRN (18:47)
[2024-02-17 20:53] VITALS: BP 140/88; TEMP 97.9; O2SAT 98
[2024-02-17 22:00] VITALS: BP 140/88; TEMP 97.9; O2SAT 98
[2024-02-17] MEDS: ACETAMINOPHEN 325 MG TABLET PO PRN (23:08)
[2024-02-18 06:34] LABS: BASOPHILS % (AUTO) 0.4 % (0.0-2.0); HEMATOCRIT 44 % (39-51); HEMOGLOBIN 14.4 g/dL (13.5-17.5); LYMPHOCYTES # (AUTO) 1.9 K/uL (0.8-4.8); MEAN CORPUSCULAR HEMOGLOBIN 29 PG (26.0-33.0); MEAN CORPUSCULAR HGB CONC 33 g/dl (31.0-36.0); MEAN CORPUSCULAR VOLUME 88 fL (80-96); MONOCYTES # (AUTO) 0.5 K/uL (0.1-1.30); MONOCYTES % (AUTO) 4.8 % (2.0-12.0); NEUTROPHILS # (AUTO) 8.6 K/uL (1.8-8.9); NEUTROPHILS % (AUTO) 77.8 % (43.0-81.0); PLATELET COUNT (AUTO) 216 K/uL (150-450); RED BLOOD CELL COUNT(AUTO) 5.03 MIL/uL (4.5-6.0); RED CELL DISTRIBUTION WIDTH 14.2 % (11.5-15.0)
[2024-02-18 07:00] LABS: CREATININE 0.8 mg/dL (0.6-1.3); MAGNESIUM 2.2 mg/dL (1.8-2.4); PHOSPHORUS 3.7 mg/dL (2.5-4.9); POTASSIUM 4.2 mmol/L (3.5-5.1)
[2024-02-18 10:00] VITALS: BP 141/93; TEMP 97.5; O2SAT 99
[2024-02-18] MEDS: MAG HYDROX/AL HYDROX/SIMETH 30 ML UDC PO PRN (11:59)
[2024-02-18 16:00] VITALS: BP 139/82; TEMP 97.7; O2SAT 99
[2024-02-18 22:00] VITALS: BP 158/90; TEMP 97.9; O2SAT 94
[2024-02-19 04:00] VITALS: BP_SYST 133; BP_SYST 144; BP_SYST 145; BP_DIAS 116; BP_DIAS 90; TEMP 97.9; O2SAT 94
[2024-02-19 07:40] LABS: BASOPHILS % (AUTO) 0.4 % (0.0-2.0); HEMATOCRIT 45 % (39-51); HEMOGLOBIN 14.5 g/dL (13.5-17.5); LYMPHOCYTES # (AUTO) 2.4 K/uL (0.8-4.8); LYMPHOCYTES % (AUTO) 20.1 % (20.0-44.0); MEAN CORPUSCULAR HEMOGLOBIN 29 PG (26.0-33.0); MEAN CORPUSCULAR HGB CONC 32 g/dl (31.0-36.0); MEAN CORPUSCULAR VOLUME 88 fL (80-96); MONOCYTES # (AUTO) 0.7 K/uL (0.1-1.30); MONOCYTES % (AUTO) 5.9 % (2.0-12.0); NEUTROPHILS # (AUTO) 8.7 K/uL (1.8-8.9); NEUTROPHILS % (AUTO) 73.6 % (43.0-81.0); PLATELET COUNT (AUTO) 245 K/uL (150-450); RED BLOOD CELL COUNT(AUTO) 5.09 MIL/uL (4.5-6.0); RED CELL DISTRIBUTION WIDTH 14.5 % (11.5-15.0); WHITE BLOOD COUNT (AUTO) 11.8 K/uL (4.3-11.0)
[2024-02-19 08:12] LABS: CALCIUM, SERUM 8.2 mg/dL (8.5-10.1); CREATININE 0.9 mg/dL (0.6-1.3); MAGNESIUM 2.5 mg/dL (1.8-2.4); POTASSIUM 4.8 mmol/L (3.5-5.1)
[2024-02-19 10:00] VITALS: BP 139/89; TEMP 97.5; O2SAT 95
[2024-02-19 11:53] LABS: BAND % (MANUAL) 2 % (0.0-5.0); LYMPHOCYTES % (MANUAL) 20 % (16-48); MONOCYTES % (MANUAL) 5 % (0-11.0); NEUTROPHILS % (MANUAL) 73 (42-76)
[2024-02-19 11:54] LABS: ANISOCYTOSIS 1+; PLATELET ESTIMATE ADEQUATE; STOMATOCYTES 1+
[2024-02-19 12:30] VITALS: BP 148/91; TEMP 98.1; O2SAT 95
[2024-02-19] MEDS: NITROGLYCERIN 0.4 MG/TAB BOTTLE SL PRN (12:57)
[2024-02-19 16:00] VITALS: BP 142/92; TEMP 98.8; O2SAT 95
[2024-02-19 22:00] VITALS: BP 143/91; TEMP 98.6; O2SAT 95
[2024-02-20] VITALS: BP 153/90; TEMP 98.1
[2024-02-20] MEDS ORDERED: OMEPRAZOLE 20 MG CAPSULE.DR PO SCH
[2024-02-20] MEDS: PANTOPRAZOLE 40 MG TABLET.DR PO SCH (00:04)
[2024-02-20 04:00] VITALS: BP 140/97; TEMP 97.9; O2SAT 97
[2024-02-20 10:00] VITALS: BP 131/82; TEMP 98.2; O2SAT 97
[2024-02-20] MEDS ORDERED: LEVO250T59 PO (13:34)
[2024-02-20] MEDS ORDERED: BENZ-38 PO (13:34)
== END 2024-02-20 16:20 | disposition home or self-care (01) | DRG 137 ==
LOC: ER 20:21 → MEDSG1 22:23 → TELE1 02-19 14:06
PROVIDERS: ATTEND Nurse Practitioner Acute Care
DX: U07.1 COVID-19 (principal); J96.21 Acute and chronic respiratory failure with hypoxia; J12.82 Pneumonia due to coronavirus disease 2019; E44.1 Mild protein-calorie malnutrition; J96.22 Acute and chronic respiratory failure with hypercapnia; E66.01 Morbid (severe) obesity due to excess calories; Z86.16 Personal history of COVID-19; Z68.42 Body mass index [BMI] 45.0-49.9, adult; E11.9 Type 2 diabetes mellitus without complications; J45.909 Unspecified asthma, uncomplicated; E88.09 Other disorders of plasma-protein metabolism, not elsewhere classified; G47.33 Obstructive sleep apnea (adult) (pediatric); F41.9 Anxiety disorder, unspecified; Z79.01 Long term (current) use of anticoagulants; Z87.01 Personal history of pneumonia (recurrent); Z99.81 Dependence on supplemental oxygen
CPT/HCPCS: 36415; 36600; 71045-TC; 71250-TC; 80048-TC; 80053-TC; 80061-TC; 82550-TC; 82803-TC; 82962-TC; 83615-TC; 83735-TC; 84100-TC; 84484-TC; 85025-TC; 85378-TC; 86140-TC; 87040-TC; 94799-TC; A6403; G0378; J1100; J1650; J1815; J1885; J2270; J7040